=== PATIENT | female | born 1970 | race Caucasian/White ===

== ENCOUNTER 2016-04-15 17:20 | Inpatient (IN) | payer OTHER ==
[~2016-04-15] VITALS: Ht 147.3 cm; Wt 60.1 kg
[~2016-04-15 17:20] MED LIST: BNT10 PO; CHOLTAB3 PO; CLON1TAB3 PO; CLX20 PO; LEVOTAB; OXCA600T2 PO; RANI75TA7 PO; RIZA5TAB10 PO
[2016-04-15] MEDS ORDERED: LORAZEPAM 2 MG/ML 1 ML VIAL IV STA (17:35)
[2016-04-15] MEDS ORDERED: SODIUM CHLORIDE 0.9% 1000ML 1,000 ML IV SCH (17:35)
[2016-04-15] MEDS ORDERED: SODIUM CHLORIDE 0.9% 500ML 500 ML IV STA (17:35)
[2016-04-15] MEDS ORDERED: LOSA1TAB PO (17:44)
[2016-04-15] MEDS ORDERED: OXCA300T PO (17:44)
[2016-04-15] MEDS ORDERED: CITA40TA12 PO (17:44)
[2016-04-15] MEDS ORDERED: CLON0.5T3 PO ×2 (17:44)
[2016-04-15] MEDS ORDERED: BCPILLS PO (17:44)
--- NOTE | 2016-04-15 17:49 | EMERGENCY ROOM VISIT NOTE ---
History Report prepared by Phong: Tamir Barber Under the Supervision of: Dr. Stanton Santiago M.D. First contact with patient: 17:28 Chief Complaint: ILLNESS Stated Complaint: CVA SX History of Present Illness The patient is a 45 year old female with MR who presents to the Emergency Room with complaints of sudden change in mental status beginning several hours prior to arrival. As per sister, the patient has been leaning to the right side today , as well. She states she gave the patient a bath this morning and noticed the patient leaning to her right side. The sister notes the patient was not able to hold a spoon in the right hand as usual this morning. She states the patient was not able to walk or stand later in the day, but the patient is usually able to walk with assistance from a leader. The sister denies the patient experiencing these symptoms in the past. She denies the patient experiencing a fever, vomiting, and swallowing issues. 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 Review of Systems See HPI for pertinent positives & negatives. A total of 10 systems reviewed and were otherwise negative. Past Medical & Surgical Medical Problems: (1) Bilateral cataracts (2) Hip fracture, left (3) Hip fracture, left (4) HTN (hypertension) (5) Mental retardation (6) Osteoporosis Surgical Problems: (1) S/P repair of PDA Family History Patient reports no known family medical history. Social History Marital Status: single Occupation Status: disabled Current/Historical Medications Scheduled Citalopram Hydrobromide (Celexa), 40 MG PO HS Clonazepam (Klonopin), 0.5 TAB PO QAM Clonazepam (Klonopin), 1 TAB PO QPM Levonorgestrel-Eth Estradiol ( (Enpresse-28), 1 TAB PO DAILY Losartan Potassium (Cozaar), 25 MG PO QAM Multivitamin (Multivitamin), 1 TAB PO DAILY Oxcarbazepine (Trileptal), 600 MG PO BID Allergies Coded Allergies: Penicillins (Unverified Allergy, Severe, RASH, 04/15/16) Physical Exam Vital Signs Date Time Temp Pulse Resp B/P Pulse Ox O2 Delivery O2 Flow Rate FiO2 2/14/17 20:06 79 16 166/69 96 Room Air 04/15/16 18:47 79 18 139/117 99 Room Air 04/15/16 17:39 99 Room Air 04/15/16 17:34 36.5 84 21 163/129 98 Room Air Physical Exam GENERAL: Patient is in no acute distress. HEENT: No acute trauma, normocephalic atraumatic, mucous membranes moist, no nasal congestion, no scleral icterus. PERRL. NECK: No stridor, no adenopathy, no meningismus, trachea is midline. LUNGS: Clear to auscultation bilaterally, no wheeze, no rhonchi, breath sounds equal. HEART: Without murmurs gallops or rubs, regular rate and rhythm. ABDOMEN: Soft, nontender, bowel sounds positive, no hernias, no peritonitis. EXTREMITIES: No cyanosis or edema, full range of motion of all the joints without pain or difficulty, no signs for acute trauma. NEUROLOGIC: MR noted. Moving all extremities. No obvious weakness from one side to the other. No facial droop. Currently nonverbal. SKIN: No rash, no jaundice, no diaphoresis. Medical Decision & Procedures ER Provider Diagnostic Interpretation: CT results as stated below per my review and radiologist interpretation: CT OF THE HEAD WITHOUT CONTRAST CLINICAL HISTORY: Stroke symptoms. COMPARISON STUDY: No previous studies for comparison. CT DOSE: 634.23 mGy.cm TECHNIQUE: Helical axial images of the head were obtained without IV contrast. Automated exposure control was utilized for the study. FINDINGS: No acute intracranial hemorrhage, midline shift or mass effect is present. There is a cavum of septum pellucidum. There is mild dilatation of the lateral ventricles. Basilar cisterns are patent. No extra-axial collections are present. There are scattered moderate subcortical white matter hypodensities. There are no findings to suggest acute dural sinus thrombosis or acute territorial infarct. Visualized portions of the mastoid air cells and sinuses are clear with the exception of mild mucosal thickening of the left sphenoid sinus. There are no significant calvarial abnormalities. IMPRESSION: 1. No acute intracranial hemorrhage or mass effect. 2. Mild dilatation of the lateral ventricles for age. 3. Moderate white matter hypodensities. These are nonspecific and may reflect small vessel disease although are greater than expected for age. If persistent symptoms, an MRI of the brain could be obtained if no contraindications. Electronically signed by: Celestine Mesa M.D. 04/15/2016 7:25 PM Laboratory Results 04/15/16 18:02 Red Blood Count 4.56, Mean Corpuscular Volume 88.2, Mean Corpuscular Hemoglobin 30.5, Mean Corpuscular Hemoglobin Concent 34.6, Mean Platelet Volume 11.3, Neutrophils (%) (Auto) 63.9, Lymphocytes (%) (Auto) 25.8, Monocytes (%) (Auto) 8.9, Eosinophils (%) (Auto) 1.2, Basophils (%) (Auto) 0.0, Neutrophils # (Auto) 3.82, Lymphocytes # (Auto) 1.54, Monocytes # (Auto) 0.53, Eosinophils # (Auto) 0.07, Basophils # (Auto) 0.00 04/15/16 18:02 Test 04/15/16 18:02 04/15/16 19:00 White Blood Count 5.97 K/uL (4.8-10.8) Red Blood Count 4.56 M/uL (4.2-5.4) Hemoglobin 13.9 g/dL (12.0-16.0) Hematocrit 40.2 % (37-47) Mean Corpuscular Volume 88.2 fL (80-100) Mean Corpuscular Hemoglobin 30.5 pg (25-34) Mean Corpuscular Hemoglobin Concent 34.6 g/dl (32-36) Platelet Count 217 K/uL (130-400) Mean Platelet Volume 11.3 fL (7.4-10.4) Neutrophils (%) (Auto) 63.9 % Lymphocytes (%) (Auto) 25.8 % Monocytes (%) (Auto) 8.9 % Eosinophils (%) (Auto) 1.2 % Basophils (%) (Auto) 0.0 % Neutrophils # (Auto) 3.82 K/uL (1.4-6.5) Lymphocytes # (Auto) 1.54 K/uL (1.2-3.4) Monocytes # (Auto) 0.53 K/uL (0.11-0.59) Eosinophils # (Auto) 0.07 K/uL (0-0.5) Basophils # (Auto) 0.00 K/uL (0-0.2) RDW Standard Deviation 40.5 fL (36.4-46.3) RDW Coefficient of Variation 12.6 % (11.5-14.5) Immature Granulocyte % (Auto) 0.2 % Immature Granulocyte # (Auto) 0.01 K/uL (0.00-0.02) Prothrombin Time 10.0 SECONDS (9.0-12.0) Prothromb Time International Ratio 0.9 (0.9-1.1) Activated Partial Thromboplast Time 25.9 SECONDS (21.0-31.0) Partial Thromboplastin Ratio 1.0 Anion Gap 8.0 mmol/L (3-11) Est Creatinine Clear Calc Drug Dose 69.9 ml/min Estimated GFR () 109.0 Estimated GFR (Non- 94.1 BUN/Creatinine Ratio 10.9 (10-20) Calcium Level 8.8 mg/dl (8.5-10.1) Total Bilirubin 0.2 mg/dl (0.2-1) Direct Bilirubin < 0.1 mg/dl (0-0.2) Aspartate Amino Transf (AST/SGOT) 16 U/L (15-37) Alanine Aminotransferase (ALT/SGPT) 22 U/L (12-78) Alkaline Phosphatase 58 U/L (45-117) Total Creatine Kinase 51 U/L (26-192) Creatine Kinase MB < 0.5 ng/ml (0.5-3.6) Creatine Kinase MB Ratio (0-3.0) Troponin I < 0.015 ng/ml (0-0.045) Total Protein 7.2 gm/dl (6.4-8.2) Albumin 3.5 gm/dl (3.4-5.0) Urine Color DK YELLOW Urine Appearance CLEAR (CLEAR) Urine pH 5.5 (4.5-7.5) Urine Specific [place] 1.028 (1.000-1.030) Urine Protein NEG (NEG) Urine Glucose (UA) NEG (NEG) Urine Ketones TRACE (NEG) Urine Occult Blood NEG (NEG) Urine Nitrite NEG (NEG) Urine Bilirubin NEG (NEG) Urine Urobilinogen NEG (NEG) Urine Leukocyte Esterase NEG (NEG) Urine Opiates Screen NEG (NEG) Urine Methadone, Qualitative NEG (NEG) Urine Barbiturates NEG (NEG) Urine Phencyclidine (PCP) Level NEG (NEG) Ur Amphetamine/Methamphetamine NEG (NEG) MDMA (Ecstasy) Screen NEG (NEG) Urine Benzodiazepines Screen NEG (NEG) Urine Cocaine Metabolite NEG (NEG) Urine Marijuana (THC) NEG (NEG) Laboratory results reviewed by me. Medications Administered Medications (Trade) Dose Ordered Sig/[place] Route Start Time Stop Time Status Last Admin Dose Admin Sodium Chloride (Nss 1000ml) 1,000 ml @ 50 mls/hr Q20H IV 04/15/16 17:35 05/15/16 17:34 04/15/16 19:23 50 MLS/HR Lorazepam 1 mg 1 mg NOW STAT IV 04/15/16 17:35 04/15/16 17:39 DC 04/15/16 18:06 1 MG Sodium Chloride (Nss 500ml) 500 ml @ 999 mls/hr Q31M STAT IV 04/15/16 17:35 04/15/16 18:05 DC 04/15/16 18:06 999 MLS/HR ECG Indication: altered mental status Rate (beats per minute): 78 Rhythm: sinus rhythm Findings: PVC, no acute ischemic change ED Course 1728: The patient was evaluated in room C8. A complete history and physical exam was performed. 1734: Ordered Sodium Chloride 500 ml @ 999 mls/hr IV, Ativan Inj 1 mg IV, Sodium Chloride 1,000 ml @ 50 mls/hr IV. 1947: Reevaluated the patient at this time, and she is sleeping. The sister is calling the patient's family to discuss whether or not to keep the patient in the hospital. 2004: I spoke to Thor Nava (Hospitalist) about the patient's case, and he will follow the patient for further evaluation. Medical Decision The differential diagnoses include but are not limited to: infection, dehydration, electrolyte imbalance, intracranial bleeding, stroke, anemia, medication reaction. There is no leukocytosis or concerning anemia. No significant electrolyte abnormality, kidney failure or hepatitis. There is no coagulopathy. Brain CT shows some chronic findings, no acute bleed or mass effect. EKG shows a sinus rhythm, no acute ischemia. Cardiac enzyme testing times one is not consistent with acute cardiac injury. Urine tox is negative. Urinalysis does not show evidence for infection. The patient received IV saline, she received IV Ativan for relaxation purposes. I cannot truly find any focal neurologic deficits on exam but her exam is difficult with her underlying MR. The family states that she is altered some and not able to stand which is not baseline. Further workup for this trouble is needed. Admission/observation is warranted. I did speak to the family, I talked with case management. The on-call hospitalist was consulted. The cause for her change in mental status, the cause for the weakness and the inability to ambulate is currently unclear. Consults Time Called: 2002 Consulting Physician: Thor Nava (Hospitalist) Returned Call: 2004 I spoke to Thor Nava (Hospitalist) about the patient's case, and he will follow the patient for further evaluation. Impression Primary Impression: Change in mental status Additional Impression: Weakness Scribe Attestation The scribe's documentation has been prepared under my direction and personally reviewed by me in its entirety. I confirm that the note above accurately reflects all work, treatment, procedures, and medical decision making performed by me. Departure Information Dispostion Being Evaluated By Hospitalist (Thor Nava (Hospitalist) ) Referrals Rosa Early D.O. (PCP) Problem Qualifiers
[2016-04-15 18:15] LABS: COMPLETE YES; EOS % 1.2 %; HEMATOCRIT 40.2 % (37-47); IG% 0.2 %; LYMPH % 25.8 %; LYMPH ABS # 1.54 K/uL (1.2-3.4); MEAN CELL VOLUME 88.2 fL (80-100); MEAN CORPUSCULAR HEMOGLOBIN 30.5 pg (25-34); MEAN CORPUSCULAR HGB CONC 34.6 g/dl (32-36); MEAN PLATELET VOLUME 11.3 fL (7.4-10.4); MONO % 8.9 %; NEUT % 63.9 %; PLATELET COUNT 217 K/uL (130-400); RED BLOOD COUNT 4.56 M/uL (4.2-5.4); WHITE BLOOD COUNT 5.97 K/uL (4.8-10.8)
[2016-04-15 18:26] LABS: INR 0.9 (0.9-1.1)
[2016-04-15 18:33] LABS: ALT/SGPT 22 U/L (12-78); BLOOD UREA NITROGEN 8 mg/dl (7-18); BUN/CREATININE RATIO 10.9 (10-20); CALCIUM 8.8 mg/dl (8.5-10.1); CARBON DIOXIDE 28 mmol/L (21-32); CHLORIDE 106 mmol/L (98-107); CREATININE 0.76 mg/dl (0.60-1.20); GLUCOSE 100 mg/dl (70-99); SODIUM 142 mmol/L (136-145)
[2016-04-15 18:38] LABS: ALKALINE PHOSPHATASE 58 U/L (45-117); AST/SGOT 16 U/L (15-37)
[2016-04-15 19:17] LABS: URINE APPEARANCE CLEAR (CLEAR); URINE COLOR DK YELLOW; URINE NITRITE NEG (NEG); URINE PH 5.5 (4.5-7.5); URINE SPECIFIC GRAVITY 1.028 (1.000-1.030); UROBILINOGEN NEG (NEG)
[2016-04-15 19:23] LABS: MANUAL MICROSCOPIC REQUIRED? NO; REVIEW REQ? NO; URINE BILIRUBIN NEG (NEG)
--- NOTE | 2016-04-15 19:26 | DIAGNOSTIC IMAGING REPORT ---
CT OF THE HEAD WITHOUT CONTRAST CLINICAL HISTORY: Stroke symptoms. COMPARISON STUDY: No previous studies for comparison. CT DOSE: 634.23 mGy.cm TECHNIQUE: Helical axial images of the head were obtained without IV contrast. Automated exposure control was utilized for the study. FINDINGS: No acute intracranial hemorrhage, midline shift or mass effect is present. There is a cavum of septum pellucidum. There is mild dilatation of the lateral ventricles. Basilar cisterns are patent. No extra-axial collections are present. There are scattered moderate subcortical white matter hypodensities. There are no findings to suggest acute dural sinus thrombosis or acute territorial infarct. Visualized portions of the mastoid air cells and sinuses are clear with the exception of mild mucosal thickening of the left sphenoid sinus. There are no significant calvarial abnormalities. IMPRESSION: 1. No acute intracranial hemorrhage or mass effect. 2. Mild dilatation of the lateral ventricles for age. 3. Moderate white matter hypodensities. These are nonspecific and may reflect small vessel disease although are greater than expected for age. If persistent symptoms, an MRI of the brain could be obtained if no contraindications. Electronically signed by: Celestine Mesa M.D. 04/15/2016 7:25 PM Dictated Date/Time: 04/15/2016 7:21 PM
[2016-04-15 19:48] LABS: BENZODIAZEPINE, URINE NEG (NEG); COCAINE,URINE NEG (NEG); PHENCYCLIDINE, URINE NEG (NEG)
[2016-04-15] MEDS ORDERED: ONDANSETRON INJ 2 MG/ML 2 ML VIAL IV PRN (20:45)
[2016-04-15] MEDS ORDERED: PHARMACIST DISCHARGE MED REC CONSULT PRN (20:45)
[2016-04-15] MEDS ORDERED: ACETAMINOPHEN 325 MG TAB PO PRN (20:45)
[2016-04-15] MEDS ORDERED: MULT-506 PO (20:50)
[2016-04-15] MEDS ORDERED: LEVO-240 PO (20:50)
[2016-04-15] MEDS ORDERED: ASPIRIN 300 MG SUPP PR ONE (21:15)
--- NOTE | 2016-04-15 21:41 | History and Physical ---
History & Physical Date & Time of Service: Apr 15, 2016 at 21:16 Chief Complaint: Right Sided Weakness Primary Care Physician: Rosa Early D.O. History of Present Illness 45 year old male who presents to the ER with right sided weakness. Patient has severe mental retardation and cannot provide any history. Patient's sister is at the bedside who provides the history. She reports that when she was getting the patient into her shower chair this morning she noted her right side to be a little weak. She thought the patient may just not have fully woken up yet. While eating breakfast she noted that she wasn't gripping her spoon as tightly as she normally would and had some difficulty feeding herself. She then went to [employer]. When she returned home, she had a lot of difficulty getting out of the wheelchair from the van and ambulating into the house. EMS was then called. In the ER, neuro exam is difficult due to her severe mental retardation. Vitals are stable. Head CT was negative for acute findings. Past Medical/Surgical History Medical Problems: (1) Bilateral cataracts Status: Resolved (2) Hip fracture, left Status: Resolved (3) Hip fracture, left Permanent Comment: s/p repair Status: Chronic (4) HTN (hypertension) Status: Chronic (5) Mental retardation Status: Chronic (6) Osteoporosis Status: Chronic Surgical Problems: (1) S/P repair of PDA Status: Chronic Family History FH: CAD (coronary artery disease) FATHER ( from [place] at age 49) Social History Smoking Status: Never Smoker Alcohol Use: none Marital Status: single Housing status: lives with family Occupational Status: disabled Immunizations History of Influenza Vaccine: Yes Influenza Vaccine Date: Dec 26, 2014 History of Tetanus Vaccine?: Yes Tetanus Immunization Date: July 20, 2013 History of Pneumococcal: Yes Pneumococcal Date: Dec 18, 2003 Multi-Drug Resistant Organisms History of MDRO: No Allergies Coded Allergies: Penicillins (Unverified Allergy, Severe, RASH, 04/15/16) Home Medications Scheduled Citalopram Hydrobromide (Celexa), 40 MG PO HS Clonazepam (Klonopin), 0.5 TAB PO QAM Clonazepam (Klonopin), 1 TAB PO QPM Levonorgestrel-Eth Estradiol ( (Enpresse-28), 1 TAB PO DAILY Losartan Potassium (Cozaar), 25 MG PO QAM Multivitamin (Multivitamin), 1 TAB PO DAILY Oxcarbazepine (Trileptal), 600 MG PO BID Review of Systems unable to be completed with patient due to mental status Physical Exam Vital Signs Date Time Temp Pulse Resp B/P Pulse Ox O2 Delivery O2 Flow Rate FiO2 04/15/16 20:06 79 16 166/69 96 Room Air 04/15/16 18:47 79 18 139/117 99 Room Air 04/15/16 17:39 99 Room Air 04/15/16 17:34 36.5 84 21 163/129 98 Room Air General Appearance: no apparent distress Head: normocephalic Eyes: normal inspection ENT: + pertinent finding ([facility]) Neck: supple, no JVD Respiratory/Chest: lungs clear, normal breath sounds, no respiratory distress Cardiovascular: regular rate, rhythm, no edema, normal peripheral pulses Abdomen/GI: normal bowel sounds, non tender, soft Extremities/Musculoskelatal: normal inspection, no calf tenderness Neurologic/Psych: + pertinent finding (severe mental retardation, neuro exam difficult to preform, does not move right arm or leg much during exam) Skin: normal color, warm/dry Diagnostics Laboratory Results Results Past 24 Hours Test 04/15/16 18:02 04/15/16 19:00 Range/Units White Blood Count 5.97 4.8-10.8 K/uL Red Blood Count 4.56 4.2-5.4 M/uL Hemoglobin 13.9 12.0-16.0 g/dL Hematocrit 40.2 37-47 % Mean Corpuscular Volume 88.2 80-100 fL Mean Corpuscular Hemoglobin 30.5 25-34 pg Mean Corpuscular Hemoglobin Concent 34.6 32-36 g/dl Platelet Count 217 130-400 K/uL Mean Platelet Volume 11.3 7.4-10.4 fL Neutrophils (%) (Auto) 63.9 % Lymphocytes (%) (Auto) 25.8 % Monocytes (%) (Auto) 8.9 % Eosinophils (%) (Auto) 1.2 % Basophils (%) (Auto) 0.0 % Neutrophils # (Auto) 3.82 1.4-6.5 K/uL Lymphocytes # (Auto) 1.54 1.2-3.4 K/uL Monocytes # (Auto) 0.53 0.11-0.59 K/uL Eosinophils # (Auto) 0.07 0-0.5 K/uL Basophils # (Auto) 0.00 0-0.2 K/uL RDW Standard Deviation 40.5 36.4-46.3 fL RDW Coefficient of Variation 12.6 11.5-14.5 % Immature Granulocyte % (Auto) 0.2 % Immature Granulocyte # (Auto) 0.01 0.00-0.02 K/uL Prothrombin Time 10.0 9.0-12.0 SECONDS Prothromb Time International Ratio 0.9 0.9-1.1 Activated Partial Thromboplast Time 25.9 21.0-31.0 SECONDS Partial Thromboplastin Ratio 1.0 Sodium Level 142 136-145 mmol/L Potassium Level 4.0 3.5-5.1 mmol/L Chloride Level 106 98-107 mmol/L Carbon Dioxide Level 28 21-32 mmol/L Anion Gap 8.0 3-11 mmol/L Blood Urea Nitrogen 8 7-18 mg/dl Creatinine 0.76 0.60-1.20 mg/dl Est Creatinine Clear Calc Drug Dose 69.9 ml/min Estimated GFR () 109.0 Estimated GFR (Non- 94.1 BUN/Creatinine Ratio 10.9 10-20 Random Glucose 100 70-99 mg/dl Calcium Level 8.8 8.5-10.1 mg/dl Total Bilirubin 0.2 0.2-1 mg/dl Direct Bilirubin < 0.1 0-0.2 mg/dl Aspartate Amino Transf (AST/SGOT) 16 15-37 U/L Alanine Aminotransferase (ALT/SGPT) 22 12-78 U/L Alkaline Phosphatase 58 45-117 U/L Total Creatine Kinase 51 26-192 U/L Creatine Kinase MB < 0.5 0.5-3.6 ng/ml Creatine Kinase MB Ratio 0-3.0 Troponin I < 0.015 0-0.045 ng/ml Total Protein 7.2 6.4-8.2 gm/dl Albumin 3.5 3.4-5.0 gm/dl Urine Color DK YELLOW Urine Appearance CLEAR CLEAR Urine pH 5.5 4.5-7.5 Urine Specific [place] 1.028 1.000-1.030 Urine Protein NEG NEG Urine Glucose (UA) NEG NEG Urine Ketones TRACE NEG Urine Occult Blood NEG NEG Urine Nitrite NEG NEG Urine Bilirubin NEG NEG Urine Urobilinogen NEG NEG Urine Leukocyte Esterase NEG NEG Urine Opiates Screen NEG NEG Urine Methadone, Qualitative NEG NEG Urine Barbiturates NEG NEG Urine Phencyclidine (PCP) Level NEG NEG Ur Amphetamine/Methamphetamine NEG NEG MDMA (Ecstasy) Screen NEG NEG Urine Benzodiazepines Screen NEG NEG Urine Cocaine Metabolite NEG NEG Urine Marijuana (THC) NEG NEG Microbiology Results 04/15/16 Urine Culture, Received Pending Diagnostic Radiology HEAD CT IMPRESSION: 1. No acute intracranial hemorrhage or mass effect. 2. Mild dilatation of the lateral ventricles for age. 3. Moderate white matter hypodensities. These are nonspecific and may reflect small vessel disease although are greater than expected for age. If persistent symptoms, an MRI of the brain could be obtained if no contraindications. Impression Assessment and Plan RIGHT SIDED WEAKNESS - admit to tele - history and neuro exam difficult to obtain from patient due to severe mental retardation - CT head negative for acute findings - brain MRI, head/neck MRA, echo - neuro checks - start ASA - on control for mood stabilization - will hold for now - check lipids in AM HTN - holding losartan to allow for permissive HTN due to possible CVA SEVERE MENTAL RETARDATION - continue Klonopin, citalopram, and oxcarbazepine DVT PROPHYLAXIS - SCDs DISPO - In my clinical judgment this beneficiary meets acute admission criteria, established by [facility], that includes being hospitalized through two midnights. Agree with above h and P. 45y f with severe MR who is non verbal and cannot hear and lives with family but goes to [facility] ever day was brought in for right sided weakness In the morning family noticed some weakness in right arm and later she cannot hold the spoon to fee herself. And at [facility] she had difficulty ambulation and was brought in to the ER. Currently patient had Ativan for ct scan and sleeping. Difficult to exam the patient. But has some movement of right extremities for painful stimuli somewhat less than left extremities. p/e Ge sleeping Cvs s1 and s2 heard no murmurs Rs cta b/l no added sounds Abd benign Sifting Operator couldn't perform the exam as patient is sleeping and severe MR movement of extremities for painful stimuli more on left than right extremities a/p Right sided weakness initial ct scan negative plan for mri aspirin monitor in tele HTN holding losartan for now for permissive htn VTE Prophylaxis VTE Risk Assessment Done? Y/N: Yes Risk Level: Moderate
[2016-04-16] MEDS ORDERED: MAGNEVIST IV PRN (01:00)
[2016-04-16] MEDS: CLONAZEPAM 0.5 MG TAB PO SCH ×3 (01:27→21:00)
[2016-04-16] MEDS: CITALOPRAM 40 MG TAB PO SCH ×2 (01:27→21:00)
[2016-04-16] MEDS: OXCARBAZEPINE 150 MG TAB PO SCH ×3 (01:28→21:00)
[2016-04-16] MEDS ORDERED: ATORVASTATIN 40 MG TAB PO ONE (02:27)
[2016-04-16 06:08] LABS: COMPLETE YES; EOS % 2.2 %; HEMATOCRIT 36.8 % (37-47); IG% 0.2 %; LYMPH % 22.3 %; MEAN CELL VOLUME 89.3 fL (80-100); MEAN CORPUSCULAR HEMOGLOBIN 31.3 pg (25-34); MEAN CORPUSCULAR HGB CONC 35.1 g/dl (32-36); MEAN PLATELET VOLUME 11.9 fL (7.4-10.4); MONO % 8.2 %; NEUT % 67.1 %; PLATELET COUNT 178 K/uL (130-400); RED BLOOD COUNT 4.12 M/uL (4.2-5.4); WHITE BLOOD COUNT 5.82 K/uL (4.8-10.8)
[2016-04-16 06:24] LABS: ESTIMATED AVERAGE GLUCOSE 88 mg/dl; HA1C FLAG Normal (Normal)
[2016-04-16 06:37] LABS: CALCIUM 8.1 mg/dl (8.5-10.1); CREATININE 0.66 mg/dl (0.60-1.20); POTASSIUM 3.9 mmol/L (3.5-5.1)
[2016-04-16 06:40] LABS: CHOLESTEROL/HDL RATIO 4.4
--- NOTE | 2016-04-16 07:23 | DIAGNOSTIC IMAGING REPORT ---
MR ANGIOGRAM OF THE BRAIN CLINICAL HISTORY: Stroke. COMPARISON STUDY: MRI of the brain performed concurrently on 04/15/2016. TECHNIQUE: 3-D [id number] MR angiography of the intracranial circulation is performed. 3-D tumble views are created and assessed. IV contrast was not administered for this examination. FINDINGS: There is loss of the flow void within the left ICA terminus, the proximal left M1 segment, and the left A1 segment suggesting occlusion/thrombus. There is reconstitution of flow within the distal left M1 segment and the branches of the left middle cervical artery. High-grade stenosis is suggested in the M2 segment.The right P1 segment is diminutive and there are large bilateral posterior communicating arteries. The right internal carotid artery is widely patent, as are the anterior and right middle cerebral arteries. The vertebrobasilar system is diminutive but widely patent. The posterior cerebral arteries are clear. The right vertebral artery is dominant. There is no aneurysm identified. IMPRESSION: 1. There is loss of the flow void within the left ICA determine this, a proximal left M1 segment, and the left A1 segment suggesting occlusion/thrombus. 2. The remainder of the left middle cervical artery is patent, with focal high-grade stenosis suggested in the left M2 segment. 3. The vertebrobasilar system is diminutive. There are large bilateral posterior communicating arteries. 4. No aneurysm is seen. Electronically signed by: Stanton Odom M.D. 04/16/2016 7:22 AM Dictated Date/Time: 04/16/2016 7:16 AM
--- NOTE | 2016-04-16 07:24 | DIAGNOSTIC IMAGING REPORT ---
NECK MRA HISTORY: Stroke symptoms. TECHNIQUE: [id number] and gadolinium-enhanced MRA of the neck was performed both before and after the intravenous administration of contrast. All measurements were calculated based on NASCET criteria. COMPARISON STUDY: None. FINDINGS: The aortic arch is normal in caliber. There is also mild focal stenosis within the mid right vertebral artery.. There is no significant stenosis, occlusion, or dissection identified within the bilateral common carotid arteries or internal carotid arteries. The left vertebral artery is hypoplastic in comparison to the right. Mild focal stenosis at the takeoff of the left subclavian artery followed by focal ectasia. IMPRESSION: 1. Mild focal stenosis within the mid right vertebral artery. 2. There is also focal stenosis at the takeoff of the left subclavian artery followed by focal ectasia/mild aneurysmal dilatation. 3. No significant stenosis seen within the common or internal carotid arteries. Electronically signed by: Rusty Mariscal M.D. 04/16/2016 7:23 AM Dictated Date/Time: 04/16/2016 7:19 AM
--- NOTE | 2016-04-16 07:33 | DIAGNOSTIC IMAGING REPORT ---
Brain MRI WITH AND WITHOUT CONTRAST HISTORY: Stroke symptoms. TECHNIQUE: Multiplanar multisequence MRI of the brain was performed both before and after the intravenous administration of contrast. COMPARISON STUDY: Head CT 04/15/2016. FINDINGS: Multiple foci of restricted diffusion seen within the left frontal lobe, left parietal lobe, left occipital lobe. There is also restricted diffusion involving the majority of the left lentiform nucleus. There is associated cytotoxic/cortical edema at these locations within the left cerebral hemisphere. Multiple additional scattered foci of T2 hyperintensity seen within the periventricular white matter. The midline structures are intact. There is no mass, hematoma, or midline shift. Abnormal appearance to the right globe consistent with retinal detachment. Old punctate lacunar infarction within the left cerebellar hemisphere. There are a few scattered punctate foci of enhancement in the left frontal and parietal lobe areas of infarct. There is also asymmetric contrast enhancement of the left MCA branches in comparison to the right. This may be due to the slow flow related to the left MCA territory infarct. IMPRESSION: 1. Multiple left MCA territory infarcts as described above. There are few punctate foci of enhancement at the areas of infarct which favor post infarct changes. Follow-up brain MRI in 1-2 months can be performed to ensure resolution. 2. Right retinal detachment. Electronically signed by: Rusty Mariscal M.D. 04/16/2016 7:32 AM Dictated Date/Time: 04/16/2016 7:23 AM
[2016-04-16 07:44] LABS: MAGNESIUM 1.7 mg/dl (1.8-2.4); THYROID STIMULATING HORMONE 2.22 uIu/ml (0.300-4.500)
[2016-04-16] MEDS ORDERED: ATROPINE SULFATE 0.1 MG/ML 10 ML SYR IV PRN (08:00)
[2016-04-16] MEDS ORDERED: MAGNESIUM SULFATE 1GM / D5W 1 GM in PREMIXED IN D5W 100 ML IV ONE (08:15)
--- NOTE | 2016-04-16 08:41 | Progress Note ---
Medicine Progress Note Date & Time of Visit: Apr 16, 2016 at 08:22. Subjective patient seen resting in bed, awake/alert, moving her head, appears to be looking around, moving her left upper extremity, holding a toy, non verbal appears comfortable, no signs of pain, respiratory distress apparently, this morning around 7am had bradycardic episode in the 20s for about 2 minutes as well as prolonged pause, patient was unresponsive during the event as per staffing assistant HR improved to 50s-70s upon repositioning CT head pending repeat EKG pending Brain MRI and MRA showing L MCA infarcts, L ICA occlusion Objective Last 8 Hrs Date Time Temp Pulse Resp B/P Pulse Ox O2 Delivery O2 Flow Rate FiO2 04/16/16 06:59 61 04/16/16 06:49 0 04/16/16 06:49 20 04/16/16 06:46 36 04/16/16 04:30 75 16 167/90 98 Room Air 04/16/16 02:30 73 20 97 04/16/16 01:59 193/79 04/16/16 01:30 72 19 98 04/16/16 01:11 78 19 178/78 98 Room Air 04/16/16 01:10 178/78 Physical Exam: General- awake, not in distress, non verbal, no accessory muscle use Head- atraumatic Eyes- right: irregularly shaped pupil, no pupillary reflex noted; left: 3-4mm briskly reactive to light appears to have full EOMS ENT- oropharynx clear Neck- supple, no JVD, no adenopathy, no thyromegaly Lungs- clear to auscultation b/l Heart- normal rate, regular rhythm; no murmurs Abdomen- normal bowel sounds, soft, nontender Extremities- no pretibial edema, no calf tenderness; peripheral pulses intact Neuro- alert, non verbal; right: irregularly shaped pupil, no pupillary reflex noted; left: 3-4mm briskly reactive to light, appears to have full EOMS; shallow nasolabial fold right motor strength: right- very minimal withdrawal to pain, left: 4/5 Skin- warm & dry Laboratory Results: Last 24 Hours Test 04/15/16 18:02 04/15/16 19:00 04/16/16 05:37 04/16/16 05:39 White Blood Count 5.97 K/uL 5.82 K/uL Red Blood Count 4.56 M/uL 4.12 M/uL Hemoglobin 13.9 g/dL 12.9 g/dL Hematocrit 40.2 % 36.8 % Mean Corpuscular Volume 88.2 fL 89.3 fL Mean Corpuscular Hemoglobin 30.5 pg 31.3 pg Mean Corpuscular Hemoglobin Concent 34.6 g/dl 35.1 g/dl Platelet Count 217 K/uL 178 K/uL Mean Platelet Volume 11.3 fL 11.9 fL Neutrophils (%) (Auto) 63.9 % 67.1 % Lymphocytes (%) (Auto) 25.8 % 22.3 % Monocytes (%) (Auto) 8.9 % 8.2 % Eosinophils (%) (Auto) 1.2 % 2.2 % Basophils (%) (Auto) 0.0 % 0.0 % Neutrophils # (Auto) 3.82 K/uL 3.90 K/uL Lymphocytes # (Auto) 1.54 K/uL 1.30 K/uL Monocytes # (Auto) 0.53 K/uL 0.48 K/uL Eosinophils # (Auto) 0.07 K/uL 0.13 K/uL Basophils # (Auto) 0.00 K/uL 0.00 K/uL RDW Standard Deviation 40.5 fL 40.7 fL RDW Coefficient of Variation 12.6 % 12.6 % Immature Granulocyte % (Auto) 0.2 % 0.2 % Immature Granulocyte # (Auto) 0.01 K/uL 0.01 K/uL Prothrombin Time 10.0 SECONDS Prothromb Time International Ratio 0.9 Activated Partial Thromboplast Time 25.9 SECONDS Partial Thromboplastin Ratio 1.0 Sodium Level 142 mmol/L 141 mmol/L Potassium Level 4.0 mmol/L 3.9 mmol/L Chloride Level 106 mmol/L 109 mmol/L Carbon Dioxide Level 28 mmol/L 23 mmol/L Anion Gap 8.0 mmol/L 9.0 mmol/L Blood Urea Nitrogen 8 mg/dl 6 mg/dl Creatinine 0.76 mg/dl 0.66 mg/dl Est Creatinine Clear Calc Drug Dose 69.9 ml/min 80.5 ml/min Estimated GFR () 109.0 122.8 Estimated GFR (Non- 94.1 105.9 BUN/Creatinine Ratio 10.9 9.0 Random Glucose 100 mg/dl 80 mg/dl Estimated Average Glucose 88 mg/dl Hemoglobin A1c 4.7 % Calcium Level 8.8 mg/dl 8.1 mg/dl Total Bilirubin 0.2 mg/dl Direct Bilirubin < 0.1 mg/dl Aspartate Amino Transf (AST/SGOT) 16 U/L Alanine Aminotransferase (ALT/SGPT) 22 U/L Alkaline Phosphatase 58 U/L Total Creatine Kinase 51 U/L Creatine Kinase MB < 0.5 ng/ml Creatine Kinase MB Ratio Troponin I < 0.015 ng/ml Total Protein 7.2 gm/dl Albumin 3.5 gm/dl Urine Color DK YELLOW Urine Appearance CLEAR Urine pH 5.5 Urine Specific [place] 1.028 Urine Protein NEG Urine Glucose (UA) NEG Urine Ketones TRACE Urine Occult Blood NEG Urine Nitrite NEG Urine Bilirubin NEG Urine Urobilinogen NEG Urine Leukocyte Esterase NEG Urine Opiates Screen NEG Urine Methadone, Qualitative NEG Urine Barbiturates NEG Urine Phencyclidine (PCP) Level NEG Ur Amphetamine/Methamphetamine NEG MDMA (Ecstasy) Screen NEG Urine Benzodiazepines Screen NEG Urine Cocaine Metabolite NEG Urine Marijuana (THC) NEG Magnesium Level 1.7 mg/dl Triglycerides Level 134 mg/dl Cholesterol Level 168 mg/dl HDL Cholesterol 38 mg/dl LDL Cholesterol, Calculated 103 mg/dl VLDL Cholesterol, Calculated 27 mg/dl Cholesterol/HDL Ratio 4.4 Thyroid Stimulating Hormone (TSH) 2.220 uIu/ml Date/Time Source Procedure Growth Status 04/15/16 19:00 Urine,Catheterized Urine Culture Pending Received Assessment & Plan 45 year old female with history of mental retardation, hypertension presenting with right sided weakness noted since yesterday morning. ACUTE CVA- L MCA DISTRIBUTION, LEFT FRONTAL, PARIETAL, OCCIPITAL LOBES L ICA OCCLUSION - confirmed by Brain MRI and Head MRA, associated with surrounding edema Echo pending will order hypercoag work up CT head pending - hold Aspirin until bleed ruled out with repeat CT head will discuss with Neuro if Aspirin, Heparin, Steroids are appropriate - Stroke Protocol will be ordered BRADYCARDIA EPISODE - now resolved - TSH normal Echo pending - BP not significantly elevated, Breathing regular- doubt gricel's triad will order Cardiology consult HYPERTENSION hold Losartan to prevent hypotension, post stroke SEVERE MENTAL RETARDATION - continue Klonopin, citalopram, and oxcarbazepine DVT PROPHYLAXIS - SCDs DISPO pending Current Inpatient Medications: Current Inpatient Medications Medications (Trade) Dose Ordered Sig/[place] Route Start Time Stop Time Status Last Admin Dose Admin Acetaminophen (Tylenol Tab) 650 mg Q4H PRN PO 04/15/16 20:45 05/15/16 20:44 Ondansetron HCl (Zofran Inj) 4 mg Q6H PRN IV 04/15/16 20:45 05/15/16 20:44 Miscellaneous Information (Pharmacist Discharge Med Rec Consult) 1 ea UD PRN N/A 04/15/16 20:45 05/15/16 20:44 Citalopram Hydrobromide (celeXA TAB) 40 mg HS PO 04/15/16 21:00 05/15/16 20:59 Clonazepam (Klonopin Tab) 0.25 mg QAM PO 04/16/16 09:00 05/16/16 08:59 Clonazepam (Klonopin Tab) 0.5 mg QPM PO 04/15/16 21:00 05/15/16 20:59 Multivitamins (Multivitamin Tab) 1 tab DAILY PO 04/16/16 09:00 05/16/16 08:59 Oxcarbazepine (Trileptal Tab) 600 mg BID PO 04/15/16 21:00 05/15/16 20:59 Gadopentetate Dimeglumine (Magnevist) 20 ml UD PRN IV 04/16/16 01:00 04/20/16 00:59 Atorvastatin Calcium (Lipitor Tab) 80 mg QAM PO 04/17/16 09:00 05/17/16 08:59 Aspirin (Aspirin Supp) 300 mg DAILY [place] 04/16/16 09:00 05/16/16 08:59 Atropine Sulfate 0.5 mg 0.5 mg UD PRN IV 04/16/16 08:00 05/16/16 07:59 UNV Magnesium Sulfate/ Prmx (Magnesium Sulfate/Premixed D5W) 100 ml @ 100 mls/hr ONE ONCE IV 04/16/16 08:15 04/16/16 09:14
[2016-04-16] MEDS ORDERED: MAGNESIUM SULFATE 1GM / D5W 1 GM in PREMIXED IN D5W 100 ML IV STA (08:44)
[2016-04-16] MEDS ORDERED: PHARMACIST DISCHARGE MED REC CONSULT PRN (08:45)
[2016-04-16] MEDS: MULTIVITAMIN TAB PO SCH (09:00)
[2016-04-16] MEDS ORDERED: ASPIRIN 325 MG ECTAB PO SCH (09:00)
[2016-04-16] MEDS ORDERED: ASPIRIN 81 MG ECTAB PO SCH (09:00)
[2016-04-16] MEDS ORDERED: ASPIRIN 300 MG SUPP PR SCH (09:00)
[2016-04-16] MEDS ORDERED: LEVONORGESTREL ETH ESTRADIOL PO SCH (09:00)
[2016-04-16] MEDS ORDERED: CLOPIDOGREL BISULFATE 75 MG TAB PO ONE (09:10)
[2016-04-16 09:13] VITALS: BP 162/81; PULSE 88; TEMP 37.6; O2SAT 97; Ht 147.3 cm; Wt 60.1 kg
--- NOTE | 2016-04-16 09:40 | DIAGNOSTIC IMAGING REPORT ---
HEAD CT NONCONTRAST CT DOSE: 614.27 mGy.cm HISTORY: vomiting, stroke ffup study TECHNIQUE: Multiaxial CT images of the head were performed without the use of intravenous contrast. Automated exposure control was utilized for this study. Comparison: Head CT 04/15/2016. Findings: The paranasal sinuses and mastoid air cells are clear. 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 Multiple scattered cortical hypodensities seen within the left MCA territory are better appreciated on this study. There is also progressive hypodensity at the left lentiform nucleus. This is consistent with expected evolution of the left MCA territory infarcts. No significant midline shift, mass, or hematoma. Impression: Expected evolution of the multiple left MCA territory infarcts including the infarct involving the left lentiform nucleus. No intracranial hemorrhage. 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 Electronically signed by: Rusty Mariscal M.D. 04/16/2016 9:38 AM Dictated Date/Time: 04/16/2016 9:35 AM
[2016-04-16] MEDS: D5NSS + 20MEQ KCL 1,000 ML IV SCH (09:52)
[2016-04-16] MEDS: ASPIRIN 300 MG SUPP PR SCH (09:53)
[2016-04-16 10:12] LABS: FIBRINOGEN* 315 mg/dl (184-400)
[2016-04-16 12:00] VITALS: BP 146/124; PULSE 91; TEMP 36.9; O2SAT 97
--- NOTE | 2016-04-16 14:21 | Neurology Consultation ---
Neurology Consultation Date of Consultation: Apr 16, 2016. Attending Physician: Wei Arauz MD Primary Care Physician: Rosa Early D.O. Reason for Consultation: stroke r sided weakness. 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 Her mom states she came home from [employer] today and was unable to help with ambulation into the house. She had alot of difficulty getting out of the wheelchair from the van and ambulating into the house. She called EMS and she was transported to the ED. In the ED a Head CT was negative for acute findings. Her mom states at baseline she is legally blind, deaf, walks with a mofit boot on the left due to foot drop after falling and breaking her hip. She was no aspirin prior to the stroke and their is no family history known for coagulation issues. no recent falls. Past Medical/Surgical History Medical Problems: (1) Change in mental status Status: Acute (2) Weakness Status: Acute Social History Smoking Status: Never smoker Smokeless Tobacco Use: No Alcohol Use: none Drug Use: none Marital Status: single Occupation Status: disabled Allergies Coded Allergies: Penicillins (Unverified Allergy, Severe, RASH, 04/15/16) Current Inpatient Medications Current Inpatient Medications Medications (Trade) Dose Ordered Sig/[place] Route Start Time Stop Time Status Last Admin Dose Admin Acetaminophen (Tylenol Tab) 650 mg Q4H PRN PO 04/15/16 20:45 05/15/16 20:44 Ondansetron HCl (Zofran Inj) 4 mg Q6H PRN IV 04/15/16 20:45 05/15/16 20:44 04/16/16 13:09 4 MG Citalopram Hydrobromide (celeXA TAB) 40 mg HS PO 04/15/16 21:00 05/15/16 20:59 Clonazepam (Klonopin Tab) 0.25 mg QAM PO 04/16/16 09:00 05/16/16 08:59 Clonazepam (Klonopin Tab) 0.5 mg QPM PO 04/15/16 21:00 05/15/16 20:59 Multivitamins (Multivitamin Tab) 1 tab DAILY PO 04/16/16 09:00 05/16/16 08:59 Oxcarbazepine (Trileptal Tab) 600 mg BID PO 04/15/16 21:00 05/15/16 20:59 Gadopentetate Dimeglumine (Magnevist) 20 ml UD PRN IV 04/16/16 01:00 04/20/16 00:59 Atorvastatin Calcium (Lipitor Tab) 80 mg QAM PO 04/17/16 09:00 05/17/16 08:59 Atropine Sulfate (Atropine Sulfate) 0.5 mg UD PRN IV 04/16/16 08:00 05/16/16 07:59 Miscellaneous Information 1 ea 1 ea UD PRN N/A 04/16/16 08:45 05/16/16 08:44 Potassium Chloride/Dextrose/ Sod Cl (D5nss + 20meq KCl) 1,000 ml @ 60 mls/hr [id number] IV 04/16/16 09:15 05/16/16 08:44 04/16/16 09:52 60 MLS/HR Aspirin (Aspirin Supp) 75 mg DAILY [place] 04/16/16 10:00 05/16/16 09:59 04/16/16 09:53 75 MG Clopidogrel Bisulfate (plAVix TAB) 75 mg QAM PO 04/17/16 09:00 05/17/16 08:59 Physical Exam Vital Signs (Past 24 Hrs): Date Time Temp Pulse Resp B/P Pulse Ox O2 Delivery O2 Flow Rate FiO2 04/16/16 09:45 67 04/16/16 09:13 37.6 88 18 162/81 97 Room Air 04/16/16 06:59 61 04/16/16 06:49 0 04/16/16 06:49 20 04/16/16 06:46 36 04/16/16 04:30 75 16 167/90 98 Room Air 04/16/16 02:30 73 20 97 04/16/16 01:59 193/79 04/16/16 01:30 72 19 98 04/16/16 01:11 78 19 178/78 98 Room Air 04/16/16 01:10 178/78 04/16/16 00:20 04/15/16 22:30 76 17 96 04/15/16 22:25 76 16 96 04/15/16 22:21 165/90 2/14/17 21:25 79 12 99 04/15/16 21:20 77 18 98 04/15/16 20:20 79 18 99 04/15/16 20:06 79 16 166/69 96 Room Air 04/15/16 20:05 166/69 04/15/16 19:20 73 17 04/15/16 19:04 139/117 04/15/16 18:47 79 18 139/117 99 Room Air 04/15/16 18:29 139/117 04/15/16 18:20 75 21 98 04/15/16 17:39 99 Room Air 04/15/16 17:34 36.5 84 21 163/129 98 Room Air 04/15/16 17:28 163/129 Physical Exam: Constitutional: pale, sleeping when entering the room Ears, Nose, Mouth and Throat: mucous membranes moist, no injection and skin normal, eyes normal Cardiovascular: normal S-1 and S-2 and regular rate and rhythm Respiratory: clear to auscultation (CTA) and no rales, rhonchi or wheeze Musculoskeletal: no peripheral edema and good distal pulses Skin: no stigmata of neurocutaneous disease noted and normal and intact Eyes: eye movements are roving retinal detachment on right NEUROLOGIC EXAMINATION: Mental status: Alert no interactive Cranial Nerves right facial asymmetry Reflexes: Deep tendon reflexes were symmetrical and graded 2/5. Plantar responses were up going Sensory: responds to vibration and light touch Gait/Stance: lying in bed with legs in flexed position Strength: will resist with left hand with pull, left leg moves spontaneously, postures with right UE with stimulation, moves right LE with stimulation Laboratory Results Past 24 Hours: 04/16/16 05:39 Red Blood Count 4.12, Mean Corpuscular Volume 89.3, Mean Corpuscular Hemoglobin 31.3, Mean Corpuscular Hemoglobin Concent 35.1, Mean Platelet Volume 11.9, Neutrophils (%) (Auto) 67.1, Lymphocytes (%) (Auto) 22.3, Monocytes (%) (Auto) 8.2, Eosinophils (%) (Auto) 2.2, Basophils (%) (Auto) 0.0, Neutrophils # (Auto) 3.90, Lymphocytes # (Auto) 1.30, Monocytes # (Auto) 0.48, Eosinophils # (Auto) 0.13, Basophils # (Auto) 0.00 04/16/16 05:37 Test 04/15/16 18:02 04/15/16 19:00 04/16/16 05:37 04/16/16 05:39 Prothrombin Time 10.0 SECONDS (9.0-12.0) Prothromb Time International Ratio 0.9 (0.9-1.1) Activated Partial Thromboplast Time 25.9 SECONDS (21.0-31.0) Partial Thromboplastin Ratio 1.0 Estimated Average Glucose 88 mg/dl Hemoglobin A1c 4.7 % (4.5-5.6) Total Bilirubin 0.2 mg/dl (0.2-1) Direct Bilirubin < 0.1 mg/dl (0-0.2) Aspartate Amino Transf (AST/SGOT) 16 U/L (15-37) Alanine Aminotransferase (ALT/SGPT) 22 U/L (12-78) Alkaline Phosphatase 58 U/L (45-117) Total Creatine Kinase 51 U/L (26-192) Creatine Kinase MB < 0.5 ng/ml (0.5-3.6) Creatine Kinase MB Ratio (0-3.0) Troponin I < 0.015 ng/ml (0-0.045) Total Protein 7.2 gm/dl (6.4-8.2) Albumin 3.5 gm/dl (3.4-5.0) Urine Color DK YELLOW Urine Appearance CLEAR (CLEAR) Urine pH 5.5 (4.5-7.5) Urine Specific [place] 1.028 (1.000-1.030) Urine Protein NEG (NEG) Urine Glucose (UA) NEG (NEG) Urine Ketones TRACE (NEG) Urine Occult Blood NEG (NEG) Urine Nitrite NEG (NEG) Urine Bilirubin NEG (NEG) Urine Urobilinogen NEG (NEG) Urine Leukocyte Esterase NEG (NEG) Urine Opiates Screen NEG (NEG) Urine Methadone, Qualitative NEG (NEG) Urine Barbiturates NEG (NEG) Urine Phencyclidine (PCP) Level NEG (NEG) Ur Amphetamine/Methamphetamine NEG (NEG) MDMA (Ecstasy) Screen NEG (NEG) Urine Benzodiazepines Screen NEG (NEG) Urine Cocaine Metabolite NEG (NEG) Urine Marijuana (THC) NEG (NEG) Anion Gap 9.0 mmol/L (3-11) Est Creatinine Clear Calc Drug Dose 80.5 ml/min Estimated GFR () 122.8 Estimated GFR (Non- 105.9 BUN/Creatinine Ratio 9.0 (10-20) Calcium Level 8.1 mg/dl (8.5-10.1) Magnesium Level 1.7 mg/dl (1.8-2.4) Triglycerides Level 134 mg/dl (0-150) Cholesterol Level 168 mg/dl (0-200) HDL Cholesterol 38 mg/dl LDL Cholesterol, Calculated 103 mg/dl VLDL Cholesterol, Calculated 27 mg/dl Cholesterol/HDL Ratio 4.4 Thyroid Stimulating Hormone (TSH) 2.220 uIu/ml (0.300-4.500) White Blood Count 5.82 K/uL (4.8-10.8) Red Blood Count 4.12 M/uL (4.2-5.4) Hemoglobin 12.9 g/dL (12.0-16.0) Hematocrit 36.8 % (37-47) Mean Corpuscular Volume 89.3 fL (80-100) Mean Corpuscular Hemoglobin 31.3 pg (25-34) Mean Corpuscular Hemoglobin Concent 35.1 g/dl (32-36) Platelet Count 178 K/uL (130-400) Mean Platelet Volume 11.9 fL (7.4-10.4) Neutrophils (%) (Auto) 67.1 % Lymphocytes (%) (Auto) 22.3 % Monocytes (%) (Auto) 8.2 % Eosinophils (%) (Auto) 2.2 % Basophils (%) (Auto) 0.0 % Neutrophils # (Auto) 3.90 K/uL (1.4-6.5) Lymphocytes # (Auto) 1.30 K/uL (1.2-3.4) Monocytes # (Auto) 0.48 K/uL (0.11-0.59) Eosinophils # (Auto) 0.13 K/uL (0-0.5) Basophils # (Auto) 0.00 K/uL (0-0.2) RDW Standard Deviation 40.7 fL (36.4-46.3) RDW Coefficient of Variation 12.6 % (11.5-14.5) Immature Granulocyte % (Auto) 0.2 % Immature Granulocyte # (Auto) 0.01 K/uL (0.00-0.02) Test 04/16/16 09:10 Fibrinogen 315 mg/dl (184-400) D-Dimer 1140 ug/L FEU (0-500) Imaging repeat CT head- Expected evolution of the multiple left MCA territory infarcts including the infarct involving the left lentiform nucleus. No intracranial hemorrhage. 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 MRI brain with and without contrast-. Multiple left MCA territory infarcts as described above. There are few punctate foci of enhancement at the areas of infarct which favor post infarct changes. Follow-up brain MRI in 1-2 months can be performed to ensure resolution. Right retinal detachment. MRA brain -There is loss of the flow void within the left ICA determine this, a proximal left M1 segment, and the left A1 segment suggesting occlusion/ thrombus. The remainder of the left middle cervical artery is patent, with focal high-grade stenosis suggested in the left M2 segment. The vertebrobasilar system is diminutive. There are large bilateral posterior communicating arteries. No aneurysm is seen. MRA neck- Mild focal stenosis within the mid right vertebral artery. There is also focal stenosis at the takeoff of the left subclavian artery followed by focal ectasia/mild aneurysmal dilatation. No significant stenosis seen within the common or internal carotid arteries. Impression 45 year old female s/p right sided weakness and multiple L ICA infarcts Plan 1. aspirin 81 mg and plavix 75 mg started will need dual therapy x 3 months and then monotherapy for life 2. MRI MRA s completed with multiple areas of stroke 3. permissive hypertension 4. lipitor for LDL < 70 5. not a good candidate for coumadin due to fall risk 6. hyper coag work up in process 7. TTE and cardiology consult ordered 8. PT/OT and speech therapy for discharge needs 9. further recommendations to follow I have seen and discussed above patient with Dr Opal Larson, neurology Pt seen and examined, discussed with pt mom. Pt with congenital rubella, MR, deaf, legally blind. Baseline communicates with pointing. PDA with correction, Exam limited due to the aforementioned. Flat R NLF, no gaze preference, appears to have intact vision given manipulation of a book. RUE and RLE less than antigravity. Brisk reflexes, toes down. Sensory cerebellar not testable. MRI suggests occlusion of LICA terminus and likely this infarct is from artery to artery embolism. Rec CTA to confirm or refute occlusion. CT head in am as well, r/o large or hemorrhagic infarct. Consider DMITRI given poor vis of LA and inability to do bubble study and hx of congenital heart disease. Avoid hypotension, Antiplt tx, pt would be a poor candiate for fdc anticoagulant use. Statin with goal LDL 70. TONG Larson MD
[2016-04-16] MEDS ORDERED: INFLUENZA ADMINISTRATION CHARGE ONE (14:30)
[2016-04-16] MEDS ORDERED: INFLUENZA VIRUS QUAD VACCINE 0.5 ML SYR IM. ONE (14:30)
--- NOTE | 2016-04-16 15:28 | CARDIOLOGY CONSULTATION ---
DATE OF CONSULTATION: 04/16/2016 REASON FOR CONSULTATION: Bradycardia. HISTORY OF PRESENT ILLNESS: This is a 45-year-old female with severe mental retardation from . Her mother describes her as a rubella baby. She has lived with her family and has been well cared for. On the day of admission she was being given a shower and when she came out, she had severe right-sided weakness. She was brought to the hospital and CT and follow up MRIs of the brain suggests multiple MCP distribution strokes. She has no prior history of such events. No previous history of a seizure disorder or clotting abnormalities. As a child she sounds as if she may have had a patent ductus arteriosus closure, but has no other significant cardiac history. No prior history or cardiac arrhythmias. The patient this morning suddenly developed bradycardia. In reviewing the strips, it appears to be a junctional bradycardia. This type of bradycardia suggests some sort of vasovagal event. Whether that is related to her recent stroke or due to other etiologies is uncertain. Based on the findings of the CT and MRI, I do not believe that this arrhythmia is related to her strokes. Her stroke seemed to be more embolic in nature. ALLERGIES: PENICILLIN. PAST MEDICAL HISTORY: As outlined above, she has severe mental retardation due to her mother having a rubella infection. She has a history of a left hip fracture due to a mechanical fall. She is status post PDA repair as a child. She has no history of diabetes or hypertension. No prior history of seizures or brain trauma. FAMILY MEDICAL HISTORY: Noncontributory. SOCIAL HISTORY: The patient is a nonsmoker. She lives with her family. REVIEW OF SYSTEMS: A 10-point review of systems is negative except for the history of chief complaint. PHYSICAL EXAMINATION: GENERAL: She is alert and oriented. VITAL SIGNS: Blood pressure is 130/100, pulse is regular at 75 beats per minute. She is afebrile. HEENT: She is normocephalic. She has a left lateral gaze with horizontal nystagmus. Mucous membranes are moist. NECK: The neck veins are flat. Carotids have good upstrokes bilaterally without bruits. Thyroid is nonpalpable. RESPIRATORY: Breath sounds are equal bilaterally and clear to auscultation. CARDIOVASCULAR: Heart has a regular rhythm. Normal S1, S2. No S3, S4. No cardiac rubs or murmurs. GASTROINTESTINAL: Abdomen is soft, nontender without organomegaly. EXTREMITIES: Free of edema, digit clubbing, or cyanosis. NEUROLOGIC: Grossly intact. SKIN: Warm to touch. LYMPH NODES: Negative to palpation. LABORATORY DATA: WBC count is 5.9, hemoglobin is 13.9. INR is 0.9. Potassium is 4.0. Creatinine is 0.76. IMPRESSION: 1. 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 2. Junctional bradycardia this morning. 3. Mental retardation. 4. Patent ductus arteriosus closure as a child. RECOMMENDATIONS: I would continue to keep the patient on a telemetry unit. She should have an echocardiogram completed due to the possibility of an embolic event causing her strokes. Type of arrhythmia she had would not necessarily present with this type of stroke. This type of stroke we see with atrial arrhythmia such as atrial fibrillation. It could be that she had bradycardia due to the neurologic event. It could also be that she has other etiologies for the bradycardia including sleep apnea. We will fully evaluate her and if she certainly has additional events or if we cannot find any reasonable suggestion as to why she had the bradycardia, then we will consider pacemaker.
--- NOTE | 2016-04-16 15:35 | ECHOCARDIOGRAM REPORT ---
*NOTICE TO RECEIVING DEMOCRAT AGENCY This information is strictly Confidential and protected under [place] law. [place] law prohibits you from making any further disclosure of this information unless further disclosure is expressly permitted by the written consent of the person to whom it pertains or is authorized by law. A general authorization for the release of medical or other information is not sufficient for this purpose. Hospital accepts no responsibility if the information is made available to any other person, INCLUDING THE PATIENT. Interpretation Summary * Grossly normal valvular structure and function. * -- Conclusions -- * Imaging of the atrial septum is limited so no bubble study was completed. * There is moderate concentric left ventricular hypertrophy. * Ejection Fraction = 60-65%. * Grade I diastolic dysfunction, (abnormal relaxation pattern). * The right ventricular systolic function is normal. * Grossly normal valvular structure and function. Procedure Details * A complete two-dimensional transthoracic echocardiogram was performed (2D, M-mode, Doppler and color flow Doppler). * The study was technically difficult. * A contrast injection of Definity was performed to improve assessment of LV function. * Contrast was injected into an intravenous site in the left arm. * One vial of Definity ultrasound contrast was diluted in normal saline to a total volume of 10 ml. A total of '2' ml of solution was administered during imaging. * Lot # [id number] of Definity utilized for procedure. * Expiration date APR 19. * The attending nurse who injected the contrast agent was PAT RAI CPL, RN. Left Ventricle * The left ventricle is normal in size. * There is moderate concentric left ventricular hypertrophy. * Ejection Fraction = 60-65%. Right Ventricle * The right ventricle is normal size. * The right ventricular systolic function is normal. Atria * The left atrium is not well visualized. * Right atrium not well visualized. * Imaging of the atrial septum is limited so no bubble study was completed. Mitral Valve * The mitral valve anatomy is normal. * Significant mitral regurgitation is absent. Tricuspid Valve * The tricuspid valve is not well visualized. * Significant tricuspid regurgitation is absent. Aortic Valve * The aortic valve is tricuspid. The leaflet thickness if normal. There is no aortic stenosis, and no significant insufficiency. Pulmonic Valve * The pulmonic valve is not well visualized. Pericardium/Pleural * There is no pericardial effusion. Left Ventricular Diastolic Function * Grade I diastolic dysfunction, (abnormal relaxation pattern). MMode 2D Measurements and Calculations IVSd 0.92 cm IVSs 1.2 cm LVIDd 4.6 cm LVIDs 3.4 cm LVPWd 0.98 cm LVPWs 1.4 cm IVS/LVPW 0.94 FS 25.2 % EDV(Teich) 95.2 ml ESV(Teich) 47.8 ml EF(Teich) 49.8 % EDV(cubed) 94.6 ml ESV(cubed) 39.7 ml EF(cubed) 58.1 % % IVS thick 26.0 % % LVPW thick 45.4 % LV mass(C)d 144.9 grams LV mass(C)dI 96.1 grams/m\S\2 LV mass(C)s 145.7 grams LV mass(C)sI 96.7 grams/m\S\2 SV(Teich) 47.4 ml SI(Teich) 31.5 ml/m\S\2 SV(cubed) 55.0 ml SI(cubed) 36.5 ml/m\S\2 LVOT diam 1.5 cm LVOT area 1.9 cm\S\2 LVAd ap4 22.6 cm\S\2 LVLd ap4 6.9 cm EDV(MOD-sp4) 58.6 ml EDV(sp4-el) 62.6 ml LVAs ap4 13.2 cm\S\2 LVLs ap4 6.4 cm ESV(MOD-sp4) 21.5 ml ESV(sp4-el) 23.0 ml EF(MOD-sp4) 63.4 % EF(sp4-el) 63.3 % LVAd ap2 23.2 cm\S\2 LVLd ap2 7.0 cm EDV(MOD-sp2) 61.3 ml EDV(sp2-el) 65.3 ml LVAs ap2 12.5 cm\S\2 LVLs ap2 6.1 cm ESV(MOD-sp2) 20.5 ml ESV(sp2-el) 21.7 ml EF(MOD-sp2) 66.6 % EF(sp2-el) 66.7 % LVLd %diff 1.0 % EDV(MOD-bp) 60.4 ml LVLs %diff -4.72 % ESV(MOD-bp) 21.4 ml EF(MOD-bp) 64.6 % SV(MOD-sp4) 37.1 ml SI(MOD-sp4) 24.7 ml/m\S\2 SV(MOD-sp2) 40.9 ml SI(MOD-sp2) 27.1 ml/m\S\2 SV(MOD-bp) 39.0 ml SI(MOD-bp) 25.9 ml/m\S\2 SV(sp4-el) 39.6 ml SI(sp4-el) 26.3 ml/m\S\2 SV(sp2-el) 43.6 ml SI(sp2-el) 28.9 ml/m\S\2 Doppler Measurements and Calculations MV E max kyra 110.0 cm/sec MV A max kyra 124.6 cm/sec MV E/A 0.88 MV P1/2t max kyra 121.2 cm/sec MV P1/2t 66.4 msec MVA(P1/2t) 3.3 cm\S\2 MV dec slope 535.0 cm/sec\S\2 MV dec time 0.21 sec Ao V2 max 150.7 cm/sec Ao max PG 9.1 mmHg Ao max PG (full) 7.5 mmHg CHRISTO(V,A) 0.79 cm\S\2 CHRISTO(V,D) 0.79 cm\S\2 LV V1 max PG 1.6 mmHg LV V1 max 63.3 cm/sec
--- NOTE | 2016-04-16 15:36 | ECHOCARDIOGRAM REPORT ---
*NOTICE TO RECEIVING DEMOCRAT AGENCY This information is strictly Confidential and protected under [place] law. [place] law prohibits you from making any further disclosure of this information unless further disclosure is expressly permitted by the written consent of the person to whom it pertains or is authorized by law. A general authorization for the release of medical or other information is not sufficient for this purpose. Hospital accepts no responsibility if the information is made available to any other person, INCLUDING THE PATIENT. Interpretation Summary * Grossly normal valvular structure and function. * -- Conclusions -- * There is moderate concentric left ventricular hypertrophy. * Ejection Fraction = 60-65%. * Grade I diastolic dysfunction, (abnormal relaxation pattern). * The right ventricular systolic function is normal. * Grossly normal valvular structure and function. * Imaging is limited so no bubble study was completed. Procedure Details * A complete two-dimensional transthoracic echocardiogram was performed (2D, M-mode, Doppler and color flow Doppler). * The study was technically difficult. * A contrast injection of Definity was performed to improve assessment of LV function. * Contrast was injected into an intravenous site in the left arm. * One vial of Definity ultrasound contrast was diluted in normal saline to a total volume of 10 ml. A total of '2' ml of solution was administered during imaging. * Lot # [id number] of Definity utilized for procedure. * Expiration date APR 19. * The attending nurse who injected the contrast agent was PAT RAI CPL, RN. Left Ventricle * The left ventricle is normal in size. * There is moderate concentric left ventricular hypertrophy. * Ejection Fraction = 60-65%. Right Ventricle * The right ventricle is normal size. * The right ventricular systolic function is normal. Atria * The left atrium is not well visualized. * Right atrium not well visualized. * Imaging is limited so no bubble study was completed. Mitral Valve * The mitral valve anatomy is normal. * Significant mitral regurgitation is absent. Tricuspid Valve * The tricuspid valve is not well visualized. * Significant tricuspid regurgitation is absent. Aortic Valve * The aortic valve is tricuspid. The leaflet thickness if normal. There is no aortic stenosis, and no significant insufficiency. Pulmonic Valve * The pulmonic valve is not well visualized. Pericardium/Pleural * There is no pericardial effusion. Left Ventricular Diastolic Function * Grade I diastolic dysfunction, (abnormal relaxation pattern). MMode 2D Measurements and Calculations IVSd 0.92 cm IVSs 1.2 cm LVIDd 4.6 cm LVIDs 3.4 cm LVPWd 0.98 cm LVPWs 1.4 cm IVS/LVPW 0.94 FS 25.2 % EDV(Teich) 95.2 ml ESV(Teich) 47.8 ml EF(Teich) 49.8 % EDV(cubed) 94.6 ml ESV(cubed) 39.7 ml EF(cubed) 58.1 % % IVS thick 26.0 % % LVPW thick 45.4 % LV mass(C)d 144.9 grams LV mass(C)dI 96.1 grams/m\S\2 LV mass(C)s 145.7 grams LV mass(C)sI 96.7 grams/m\S\2 SV(Teich) 47.4 ml SI(Teich) 31.5 ml/m\S\2 SV(cubed) 55.0 ml SI(cubed) 36.5 ml/m\S\2 LVOT diam 1.5 cm LVOT area 1.9 cm\S\2 LVAd ap4 22.6 cm\S\2 LVLd ap4 6.9 cm EDV(MOD-sp4) 58.6 ml EDV(sp4-el) 62.6 ml LVAs ap4 13.2 cm\S\2 LVLs ap4 6.4 cm ESV(MOD-sp4) 21.5 ml ESV(sp4-el) 23.0 ml EF(MOD-sp4) 63.4 % EF(sp4-el) 63.3 % LVAd ap2 23.2 cm\S\2 LVLd ap2 7.0 cm EDV(MOD-sp2) 61.3 ml EDV(sp2-el) 65.3 ml LVAs ap2 12.5 cm\S\2 LVLs ap2 6.1 cm ESV(MOD-sp2) 20.5 ml ESV(sp2-el) 21.7 ml EF(MOD-sp2) 66.6 % EF(sp2-el) 66.7 % LVLd %diff 1.0 % EDV(MOD-bp) 60.4 ml LVLs %diff -4.72 % ESV(MOD-bp) 21.4 ml EF(MOD-bp) 64.6 % SV(MOD-sp4) 37.1 ml SI(MOD-sp4) 24.7 ml/m\S\2 SV(MOD-sp2) 40.9 ml SI(MOD-sp2) 27.1 ml/m\S\2 SV(MOD-bp) 39.0 ml SI(MOD-bp) 25.9 ml/m\S\2 SV(sp4-el) 39.6 ml SI(sp4-el) 26.3 ml/m\S\2 SV(sp2-el) 43.6 ml SI(sp2-el) 28.9 ml/m\S\2 Doppler Measurements and Calculations MV E max kyra 110.0 cm/sec MV A max kyar 124.6 cm/sec MV E/A 0.88 MV P1/2t max kyar 121.2 cm/sec MV P1/2t 66.4 msec MVA(P1/2t) 3.3 cm\S\2 MV dec slope 535.0 cm/sec\S\2 MV dec time 0.21 sec Ao V2 max 150.7 cm/sec Ao max PG 9.1 mmHg Ao max PG (full) 7.5 mmHg CHRISTO(V,A) 0.79 cm\S\2 CHRISTO(V,D) 0.79 cm\S\2 LV V1 max PG 1.6 mmHg LV V1 max 63.3 cm/sec
[2016-04-16 16:00] VITALS: BP 145/75; PULSE 71; TEMP 36.9; O2SAT 96
[2016-04-16 16:04] VITALS: BP_SYST 0; BP_SYST 190; BP_DIAS 0; BP_DIAS 107; PULSE 87; TEMP 36.8; O2SAT 98
[2016-04-16] MEDS ORDERED: HydrALAZINE HCL 20 MG/ML VIAL ONE (18:31)
[2016-04-16 19:56] VITALS: BP 138/74; PULSE 77; TEMP 36.7; O2SAT 98
[2016-04-16 20:00] VITALS: O2SAT 98
[2016-04-17] VITALS (8 sets, daily range): BP systolic 96–182; BP diastolic 79–99; PULSE 76–102; TEMP 36.4–37.6; O2SAT 96–98
[2016-04-17 06:07] LABS: COMPLETE YES; HEMATOCRIT 39.8 % (37-47); IG% 0.2 %; LYMPH % 12.5 %; LYMPH ABS # 0.81 K/uL (1.2-3.4); MEAN CELL VOLUME 87.7 fL (80-100); MEAN CORPUSCULAR HEMOGLOBIN 31.1 pg (25-34); MEAN CORPUSCULAR HGB CONC 35.4 g/dl (32-36); MEAN PLATELET VOLUME 11.8 fL (7.4-10.4); MONO % 9.6 %; NEUT % 77.7 %; PLATELET COUNT 211 K/uL (130-400); RED BLOOD COUNT 4.54 M/uL (4.2-5.4); WHITE BLOOD COUNT 6.49 K/uL (4.8-10.8)
[2016-04-17 06:36] LABS: BUN/CREATININE RATIO 6.6 (10-20); CALCIUM 7.8 mg/dl (8.5-10.1); CREATININE 0.67 mg/dl (0.60-1.20)
[2016-04-17 06:39] LABS: CHOLESTEROL/HDL RATIO 4.1
[2016-04-17] MEDS: CLONAZEPAM 0.5 MG TAB PO SCH ×2 (07:50→20:08)
[2016-04-17] MEDS: ATORVASTATIN 40 MG TAB PO SCH (07:50)
[2016-04-17] MEDS: MULTIVITAMIN TAB PO SCH (07:50)
[2016-04-17] MEDS: CLOPIDOGREL BISULFATE 75 MG TAB PO SCH (07:51)
[2016-04-17] MEDS: OXCARBAZEPINE 150 MG TAB PO SCH ×2 (07:51→20:09)
[2016-04-17] MEDS ORDERED: OPTIRAY 320 IV PRN (08:15)
--- NOTE | 2016-04-17 09:12 | DIAGNOSTIC IMAGING REPORT ---
CT ANGIOGRAM OF THE BRAIN COMBO; CT ANGIOGRAM OF THE NECK CLINICAL HISTORY: Change in mental status. Stroke. COMPARISON STUDY: MR angiogram of the head and neck dated 04/15/2016. CT of the brain dated 04/16/2016. MRI of the brain dated 04/15/2016. TECHNIQUE: Unenhanced axial CT scan of the brain is performed. Subsequently, following the IV administration of 119 of Optiray 320, CT angiogram of the head and neck was performed from the aortic arch to the vertex. Images are reviewed in the axial, sagittal, and coronal planes. 3-D MIPS images are created and assessed. IV contrast was administered without complication. All measurements were calculated based on NASCET criteria. The unenhanced CT of the brain was performed twice due to motion artifact. CT DOSE: 1749.09 mGy.cm FINDINGS: Brain parenchyma: There are evolving left frontoparietal infarcts, as well as evolving infarct involving the left basal ganglia. There is edema within the infarcted regions. No hemorrhage is identified. There is no midline shift. There is minimal periventricular microangiopathic change. There is no evidence of enhancing mass lesion on the angiogram phase images. The ventricles, sulci, and cisterns are normal in configuration. No extra-axial fluid collection is identified. Thoracic aorta: Visualized portions of the thoracic aorta are normal in caliber. The aortic arch demonstrates bovine variant anatomy. Right carotid arterial system: The right common carotid artery is widely patent, as are the right internal and external carotid arteries in the neck. Left carotid arterial system: The left common carotid artery is widely patent, as are the left internal and external carotid arteries in the neck. Vertebral arteries: The vertebral arteries are widely patent noting right-sided dominance. Subclavian arteries: There is high-grade (greater than 50%) stenosis identified at the origin of the left subclavian artery. The remainder of the left subclavian artery and the right subclavian artery are widely patent. Intracranial vasculature: Both internal carotid arteries are patent at the skull base. The intracranial internal carotid arteries appear diminutive, and there is occlusion at the terminus of the left internal carotid artery. There is also occlusion of the proximal left middle cerebral artery which appears reconstituted distally in the M2 /M3 segment. There are likely small occluded peripheral branches within the left MCA territory. There is flow within the left A1 segment, likely via retrograde flow. The vertebrobasilar system is diminutive but widely patent. The P1 segments are small and there are large bilateral posterior communicating arteries. The posterior cerebral arteries are clear. The right internal carotid artery is widely patent, as are the anterior and right middle cerebral arteries. There is no aneurysm identified. Jugular veins: Patent bilaterally. Dural sinuses: Clear as imaged. Upper chest: Partially visualized upper lobe lung parenchyma appears clear. The pulmonary trunk is markedly dilated suggesting pulmonary artery hypertension. Soft tissues: The visualized pharyngeal soft tissues are normal in appearance noting angiographic phase technique. The oropharyngeal airway appears widely patent. The salivary and thyroid glands are normal in appearance. No cervical lymphadenopathy is seen. Skeletal structures: The calvarium appears intact. The cervical spine is within normal limits. Sinuses and mastoids: There is mucosal thickening within the left maxillary antrum. The remaining paranasal sinuses and mastoid air cells are clear. Orbits: The bony orbits appear intact. 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 There is evidence of bilateral ocular lens surgery. Both globes appear irregular. IMPRESSION: 1. Evolving left frontoparietal and left basal ganglia infarcts as above. No hemorrhage is identified and there is no midline shift. 2. 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 3. There is reconstitution distally within the left middle cerebral artery. 4. The right middle cerebral artery, the anterior cerebral arteries, and the vertebrobasilar system are widely patent. See above discussion. 5. 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 6. The carotid arteries and vertebral arteries in the neck are widely patent. Electronically signed by: Stanton Odom M.D. 04/17/2016 9:10 AM Dictated Date/Time: 04/17/2016 8:50 AM
[2016-04-17 09:46] LABS: MAGNESIUM 2.1 mg/dl (1.8-2.4)
--- NOTE | 2016-04-17 09:47 | PROGRESS NOTE ---
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 It appears to be embolic in nature based on the imaging studies. Echocardiogram was performed yesterday and unfortunately, the quality was poor and they were not able to do a bubble study due to technical reasons. Neurology has mentioned in their note that we should proceed with DMITRI; however, that would be very difficult in this patient even with the help of anesthesia. At this time, I do not believe the risk versus benefit of performing a DMITRI would favor doing that procedure, especially in light of the fact that we will not be anticoagulating her nursing home. In regards to her heart rhythm, I have reviewed her telemetry since yesterday. She has had no additional bradycardiac events and no significant arrhythmias. I think the events of yesterday are consistent with a vasovagal event, perhaps due to the brain trauma. I would recommend no additional treatment for bradycardia at this time. I would recommend that we keep her on the telemetry for now, so we can continue to follow her rhythm. OBJECTIVE: VITAL SIGNS: Blood pressure is 160/80 and pulse is regular at 76. She is in a sinus rhythm on the telemetry. She is afebrile. GENERAL: She is nonresponsive. HEENT: She is normocephalic. She has a left lateral gaze with horizontal nystagmus. NECK: The neck veins are flat. Carotids have good upstrokes bilaterally without bruits. Thyroid is nonpalpable. RESPIRATORY: Breath sounds are equal bilaterally and clear to auscultation. CARDIOVASCULAR: Heart has a regular rhythm. Normal S1 and S2. No S3 or S4. No cardiac rubs or murmurs. GASTROINTESTINAL: Abdomen is soft and nontender without organomegaly. EXTREMITIES: Free of edema, digit clubbing, or cyanosis. NEUROLOGIC: Grossly intact. SKIN: Warm to touch. LYMPH NODES: Negative to palpation. LABORATORY DATA: Hemoglobin is 14.1. Potassium is 4.0. Creatinine is 0.67. IMPRESSION: 1. Status post embolic strokes. 2. History of mental retardation. 3. Bradycardic event, most likely vasovagal. PAST MEDICAL HISTORY: As outlined above, I would just continue to keep her on the shank turner at this time. No additional treatment for her bradycardia is indicated. It appears that neurology feels that she is not a candidate for long-term anticoagulation and I agree with that assessment. She is to be started on antiplatelet agents only.
--- NOTE | 2016-04-17 10:12 | Progress Note ---
Medicine Progress Note Date & Time of Visit: Apr 17, 2016 at 10:04. Subjective seen resting in bed, alert, not in distress nonverbal, holding ziplock bag with toys in her left hand no signs of pain, distress no acute events overnight as per RN no other symptoms Objective Last 8 Hrs Date Time Temp Pulse Resp B/P Pulse Ox O2 Delivery O2 Flow Rate FiO2 04/17/16 08:14 Room Air 04/17/16 08:00 36.6 76 18 98 04/17/16 08:00 Room Air 04/17/16 07:57 165/85 04/17/16 04:00 96 Room Air 04/17/16 04:00 37.1 102 22 152/84 96 Physical Exam: General- awake, not in distress, non verbal, no accessory muscle use Head- atraumatic Eyes- right: irregularly shaped pupil, no pupillary reflex noted; left: 3-4mm briskly reactive to light appears to have full EOMS Neck- no JVD Lungs- clear to auscultation bilaterally, no rales/wheeze Heart- normal rate, regular rhythm; no murmurs Abdomen- normal bowel sounds, soft, nontender Extremities- no pretibial edema, no calf tenderness; peripheral pulses intact Neuro- alert, non verbal; hallow nasolabial fold right motor strength: right- minimal withdrawal to pain, left: 5/5 Skin- warm & dry Laboratory Results: Last 24 Hours Test 04/17/16 05:25 White Blood Count 6.49 K/uL Red Blood Count 4.54 M/uL Hemoglobin 14.1 g/dL Hematocrit 39.8 % Mean Corpuscular Volume 87.7 fL Mean Corpuscular Hemoglobin 31.1 pg Mean Corpuscular Hemoglobin Concent 35.4 g/dl Platelet Count 211 K/uL Mean Platelet Volume 11.8 fL Neutrophils (%) (Auto) 77.7 % Lymphocytes (%) (Auto) 12.5 % Monocytes (%) (Auto) 9.6 % Eosinophils (%) (Auto) 0.0 % Basophils (%) (Auto) 0.0 % Neutrophils # (Auto) 5.05 K/uL Lymphocytes # (Auto) 0.81 K/uL Monocytes # (Auto) 0.62 K/uL Eosinophils # (Auto) 0.00 K/uL Basophils # (Auto) 0.00 K/uL RDW Standard Deviation 41.3 fL RDW Coefficient of Variation 12.8 % Immature Granulocyte % (Auto) 0.2 % Immature Granulocyte # (Auto) 0.01 K/uL Sodium Level 141 mmol/L Potassium Level 4.0 mmol/L Chloride Level 110 mmol/L Carbon Dioxide Level 19 mmol/L Anion Gap 12.0 mmol/L Blood Urea Nitrogen 4 mg/dl Creatinine 0.67 mg/dl Est Creatinine Clear Calc Drug Dose 77.4 ml/min Estimated GFR () 122.2 Estimated GFR (Non- 105.4 BUN/Creatinine Ratio 6.6 Random Glucose 125 mg/dl Calcium Level 7.8 mg/dl Magnesium Level 2.1 mg/dl Albumin 3.2 gm/dl Triglycerides Level 117 mg/dl Cholesterol Level 191 mg/dl HDL Cholesterol 47 mg/dl LDL Cholesterol, Calculated 121 mg/dl VLDL Cholesterol, Calculated 23 mg/dl Cholesterol/HDL Ratio 4.1 Assessment & Plan 45 year old female with history of mental retardation, hypertension presenting with right sided weakness noted since yesterday morning. ACUTE CVA- MULTIPLE INFARCTS WITH L MCA DISTRIBUTION, LEFT FRONTAL, PARIETAL, OCCIPITAL LOBES L ICA OCCLUSION - confirmed by Brain MRI and Head MRA, associated with surrounding edema Echo: * There is moderate concentric left ventricular hypertrophy. * Ejection Fraction = 60-65%. * Grade I diastolic dysfunction, (abnormal relaxation pattern). * The right ventricular systolic function is normal. * Grossly normal valvular structure and function. * Imaging is limited so no bubble study was completed. hypercoag work up: pending - CT angio: IMPRESSION: 1. Evolving left frontoparietal and left basal ganglia infarcts as above. No hemorrhage is identified and there is no midline shift. 2. 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 3. There is reconstitution distally within the left middle cerebral artery. 4. The right middle cerebral artery, the anterior cerebral arteries, and the vertebrobasilar system are widely patent. See above discussion. 5. 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 6. The carotid arteries and vertebral arteries in the neck are widely patent. - discussed with Neuro and Cardiology- appreciate the recommendations continue Aspirin, Plavix, Statin hold any anticoagulation at this time per Neurology - maintain BP on the higher side Hydralazine PRN for systolic bp > 180 - repeat Speech, PT/OT eval today HYPERTENSION - hold Losartan to prevent hypotension, post stroke - maintain BP on the higher side Hydralazine PRN for systolic bp > 180 BRADYCARDIA EPISODE - now resolved - TSH normal - no recurrence SEVERE MENTAL RETARDATION - continue Klonopin, citalopram, and oxcarbazepine DVT PROPHYLAXIS - heparin q8h DISPO pending will need transitioning to Rehab or SNF Current Inpatient Medications: Current Inpatient Medications Medications (Trade) Dose Ordered Sig/[place] Route Start Time Stop Time Status Last Admin Dose Admin Acetaminophen (Tylenol Tab) 650 mg Q4H PRN PO 04/15/16 20:45 05/15/16 20:44 Ondansetron HCl (Zofran Inj) 4 mg Q6H PRN IV 04/15/16 20:45 05/15/16 20:44 04/16/16 13:09 4 MG Citalopram Hydrobromide (celeXA TAB) 40 mg HS PO 04/15/16 21:00 05/15/16 20:59 Clonazepam (Klonopin Tab) 0.25 mg QAM PO 04/16/16 09:00 05/16/16 08:59 Clonazepam (Klonopin Tab) 0.5 mg QPM PO 04/15/16 21:00 05/15/16 20:59 Multivitamins (Multivitamin Tab) 1 tab DAILY PO 04/16/16 09:00 05/16/16 08:59 Oxcarbazepine (Trileptal Tab) 600 mg BID PO 04/15/16 21:00 05/15/16 20:59 Gadopentetate Dimeglumine (Magnevist) 20 ml UD PRN IV 04/16/16 01:00 04/20/16 00:59 Atorvastatin Calcium (Lipitor Tab) 80 mg QAM PO 04/17/16 09:00 05/17/16 08:59 Atropine Sulfate (Atropine Sulfate) 0.5 mg UD PRN IV 04/16/16 08:00 05/16/16 07:59 Miscellaneous Information 1 ea 1 ea UD PRN N/A 04/16/16 08:45 05/16/16 08:44 Potassium Chloride/Dextrose/ Sod Cl (D5nss + 20meq KCl) 1,000 ml @ 60 mls/hr [id number] IV 04/16/16 09:15 05/16/16 08:44 04/16/16 09:52 60 MLS/HR Aspirin (Aspirin Supp) 75 mg DAILY GA 04/16/16 10:00 05/16/16 09:59 04/16/16 09:53 75 MG Clopidogrel Bisulfate (plAVix TAB) 75 mg QAM PO 04/17/16 09:00 05/17/16 08:59 Hydralazine HCl (HydrALAZINE INJ) 10 mg Q6H PRN IV. 04/16/16 18:45 05/16/16 18:44 Ioversol (Optiray 320) 100 ml UD PRN IV 04/17/16 08:15 04/21/16 08:14
[2016-04-17] MEDS: ASPIRIN 300 MG SUPP PR SCH (11:05)
[2016-04-17] MEDS: HEPARIN SOD 5000 UNIT/0.5 ML CARP SQ SCH ×2 (14:16→21:09)
--- NOTE | 2016-04-17 15:55 | Neurology Progress Notes ---
"Neurology Progress Note Date of Service Apr 17, 2016. Subjective Johnathan is a 45 year old male who is legally blind, deaf, does not speak, has congenital rubella, MR presents to the ER with right sided weakness. Her mom states she came home from [employer] today and was unable to help with ambulation into the house. She had alot of difficulty getting out of the wheelchair from the van and ambulating into the house. She called EMS and she was transported to the ED. In the ED a Head CT was negative for acute findings. Her mom states at baseline she is legally blind, deaf, walks with a mofit boot on the left due to foot drop after falling and breaking her hip. She was no aspirin prior to the stroke and their is no family history known for coagulation issues. no recent falls. Today speech therapy saw her and recommended an NGT for feeding and for medications. Her mother is in the room and very upset about the situation. She does not want a feeding tube at this time. Review of the Klonopin and the Trileptal mom states these are for SIB. Objective Date Time Temp Pulse Resp B/P Pulse Ox O2 Delivery O2 Flow Rate FiO2 04/17/16 12:00 Room Air 04/17/16 11:22 37.2 95 20 164/99 96 Room Air 04/17/16 08:14 Room Air 04/17/16 08:00 36.6 76 18 98 04/17/16 08:00 Room Air 04/17/16 07:57 165/85 04/17/16 04:00 96 Room Air 04/17/16 04:00 37.1 102 22 152/84 96 04/17/16 00:10 96 Room Air 04/17/16 00:01 37.6 96 20 182/92 96 Room Air 04/16/16 20:00 98 Room Air 04/16/16 19:56 36.7 77 18 138/74 98 04/16/16 16:04 36.8 87 20 190/107 98 Room Air 0/0 04/16/16 16:00 Room Air Last 24 Hours Test 04/17/16 05:25 White Blood Count 6.49 K/uL Red Blood Count 4.54 M/uL Hemoglobin 14.1 g/dL Hematocrit 39.8 % Mean Corpuscular Volume 87.7 fL Mean Corpuscular Hemoglobin 31.1 pg Mean Corpuscular Hemoglobin Concent 35.4 g/dl Platelet Count 211 K/uL Mean Platelet Volume 11.8 fL Neutrophils (%) (Auto) 77.7 % Lymphocytes (%) (Auto) 12.5 % Monocytes (%) (Auto) 9.6 % Eosinophils (%) (Auto) 0.0 % Basophils (%) (Auto) 0.0 % Neutrophils # (Auto) 5.05 K/uL Lymphocytes # (Auto) 0.81 K/uL Monocytes # (Auto) 0.62 K/uL Eosinophils # (Auto) 0.00 K/uL Basophils # (Auto) 0.00 K/uL RDW Standard Deviation 41.3 fL RDW Coefficient of Variation 12.8 % Immature Granulocyte % (Auto) 0.2 % Immature Granulocyte # (Auto) 0.01 K/uL Sodium Level 141 mmol/L Potassium Level 4.0 mmol/L Chloride Level 110 mmol/L Carbon Dioxide Level 19 mmol/L Anion Gap 12.0 mmol/L Blood Urea Nitrogen 4 mg/dl Creatinine 0.67 mg/dl Est Creatinine Clear Calc Drug Dose 77.4 ml/min Estimated GFR () 122.2 Estimated GFR (Non- 105.4 BUN/Creatinine Ratio 6.6 Random Glucose 125 mg/dl Calcium Level 7.8 mg/dl Magnesium Level 2.1 mg/dl Albumin 3.2 gm/dl Triglycerides Level 117 mg/dl Cholesterol Level 191 mg/dl HDL Cholesterol 47 mg/dl LDL Cholesterol, Calculated 121 mg/dl VLDL Cholesterol, Calculated 23 mg/dl Cholesterol/HDL Ratio 4.1 Imaging: CT angiogram- Evolving left frontoparietal and left basal ganglia infarcts as above. No hemorrhage is identified and there is no midline shift. . 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 There is reconstitution distally within the left middle cerebral artery. The right middle cerebral artery, the anterior cerebral arteries, and the vertebrobasilar system are widely patent. See above discussion. 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 The carotid arteries and vertebral arteries in the neck are widely patent. Exam: Physical Exam: Constitutional: BP 110/78 | Pulse 68 | Temp (Src) 96.4 (Tympanic) | Resp 12 | Wt 175 lbs 12.8 oz (79.742kg) | BMI 32.15 kg/m | BSA 1.87 m, appearance nourished, healthy and normal Ears, Nose, Mouth and Throat: mucous membranes moist, no injection and skin normal, eyes normal Cardiovascular: normal S-1 and S-2 and regular rate and rhythm Respiratory: clear to auscultation (CTA) and no rales, ronchi or wheeze Musculoskeletal: no peripheral edema and good distal pulses Skin: no stigmata of neurocutaneous disease noted and normal and intact Eyes: extraocular muscles intact (EOMI) and pupils equal, round and reactive to light (PERRL) NEUROLOGIC EXAMINATION: Mental status: Alert and interactive Oriented to full date and location Oriented to person Speech fluent with no evidence of aphasia Cranial Nerves Normal findings for Cranial Nerves II - XII Reflexes: Deep tendon reflexes were symmetrical and graded 2/5. Plantar responses were flexor. Sensory: no sensory deficits Coordination: Romberg absent Gait/Stance: Posture normal. Gait normal: with steady with steps, base, turning, heel and toe walking and tandem gait. Motor: Negative for pronator drift of out stretched arms with eyes closed. Strength: Normal - 5/5 all extremities Current Inpatient Medications Medications (Trade) Dose Ordered Sig/[place] Route Start Time Stop Time Status Last Admin Dose Admin Acetaminophen (Tylenol Tab) 650 mg Q4H PRN PO 04/15/16 20:45 05/15/16 20:44 Ondansetron HCl (Zofran Inj) 4 mg Q6H PRN IV 04/15/16 20:45 05/15/16 20:44 04/16/16 13:09 4 MG Citalopram Hydrobromide (celeXA TAB) 40 mg HS PO 04/15/16 21:00 05/15/16 20:59 Clonazepam (Klonopin Tab) 0.25 mg QAM PO 04/16/16 09:00 05/16/16 08:59 Clonazepam (Klonopin Tab) 0.5 mg QPM PO 04/15/16 21:00 05/15/16 20:59 Multivitamins (Multivitamin Tab) 1 tab DAILY PO 04/16/16 09:00 05/16/16 08:59 Oxcarbazepine (Trileptal Tab) 600 mg BID PO 04/15/16 21:00 05/15/16 20:59 Gadopentetate Dimeglumine (Magnevist) 20 ml UD PRN IV 04/16/16 01:00 04/20/16 00:59 Atorvastatin Calcium (Lipitor Tab) 80 mg QAM PO 04/17/16 09:00 05/17/16 08:59 Atropine Sulfate (Atropine Sulfate) 0.5 mg UD PRN IV 04/16/16 08:00 05/16/16 07:59 Miscellaneous Information 1 ea 1 ea UD PRN N/A 04/16/16 08:45 05/16/16 08:44 Potassium Chloride/Dextrose/ Sod Cl (D5nss + 20meq KCl) 1,000 ml @ 60 mls/hr [id number] IV 04/16/16 09:15 05/16/16 08:44 04/16/16 09:52 60 MLS/HR Aspirin (Aspirin Supp) 75 mg DAILY CA 04/16/16 10:00 05/16/16 09:59 04/17/16 11:05 75 MG Clopidogrel Bisulfate (plAVix TAB) 75 mg QAM PO 04/17/16 09:00 05/17/16 08:59 Hydralazine HCl (HydrALAZINE INJ) 10 mg Q6H PRN IV. 04/16/16 18:45 05/16/16 18:44 Ioversol (Optiray 320) 100 ml UD PRN IV 04/17/16 08:15 04/21/16 08:14 Heparin Sodium (Porcine) (Heparin Sq 5000 Unit/0.5ml) 5,000 unit Q8 SQ 04/17/16 14:00 05/17/16 13:59 04/17/16 14:16 5,000 UNIT Impression 45 year old female s/p right sided weakness and multiple L ICA infarcts Plan 1. aspirin 81 mg and plavix 75 mg started will need dual therapy x 3 months and then monotherapy for life 2. MRI MRA s completed with multiple areas of stroke 3. permissive hypertension 4. lipitor for LDL < 70 5. not a good candidate for coumadin due to fall risk 6. hyper coag work up in process 7. TTE and cardiology consult ordered 8. PT/OT and speech therapy for discharge needs 9. discussed NGT with mom and told her it was temporary and she was more amendable to the tube 10. should substitute ativan for Klonopin which pharmacy recommended .[address] angio reviewed source of embolic stroke I have seen and discussed above patient with Dr Opal Larson, neurology CTA confirms LICA terminus occlusion. TTE suboptimal but Dr Mcmillan does not rec DMITRI in this pt for a variety of reasons. Infarct is related to LICA terminus occlusion with artery to artery embolism. Exam notable for pt deaf, legally blind, no speech (baseline). Eye movements roving (baseline) R central facial weakness. Increased tone RUE with RUE appearing perhaps close to antigravity and RLE withdrawal. Pt stable to mildly improved. Discussed with mother potentially allowing Johnathan to have an NGT placed for director medical economics. Pt was on Klonopin and Trileptal for selfinjurious behavior. Dr Mcgowan with see pt in follow-up. TONG Larson MD"
[2016-04-17] MEDS: D5NSS + 20MEQ KCL 1,000 ML IV SCH (20:08)
[2016-04-17] MEDS: CITALOPRAM 40 MG TAB PO SCH (20:08)
[2016-04-17] MEDS: LORAZEPAM 2 MG/ML 1 ML VIAL IV SCH (21:11)
[2016-04-17] MEDS: HydrALAZINE HCL 20 MG/ML VIAL IV. PRN (23:30)
[2016-04-18] VITALS (8 sets, daily range): BP systolic 118–174; BP diastolic 76–129; PULSE 82–119; TEMP 36.5–37.5; O2SAT 96–97
[2016-04-18 06:03] LABS: COMPLETE YES; HEMATOCRIT 40.7 % (37-47); IG% 0.2 %; LYMPH % 15.5 %; LYMPH ABS # 0.95 K/uL (1.2-3.4); MEAN CELL VOLUME 91.1 fL (80-100); MEAN CORPUSCULAR HEMOGLOBIN 31.3 pg (25-34); MEAN CORPUSCULAR HGB CONC 34.4 g/dl (32-36); MEAN PLATELET VOLUME 11.7 fL (7.4-10.4); MONO % 11.9 %; NEUT % 72.4 %; PLATELET COUNT 224 K/uL (130-400); RED BLOOD COUNT 4.47 M/uL (4.2-5.4); WHITE BLOOD COUNT 6.12 K/uL (4.8-10.8)
[2016-04-18] MEDS: HEPARIN SOD 5000 UNIT/0.5 ML CARP SQ SCH ×3 (06:31→21:56)
[2016-04-18 06:38] LABS: BUN/CREATININE RATIO 6.5 (10-20); CALCIUM 7.4 mg/dl (8.5-10.1); CREATININE 0.66 mg/dl (0.60-1.20); POTASSIUM 3.8 mmol/L (3.5-5.1)
[2016-04-18 07:56] LABS: FACTOR VIII ACTIV**SEND TO GMC 223 % (55 - 145)
[2016-04-18] MEDS: CLOPIDOGREL BISULFATE 75 MG TAB PO SCH (09:00)
[2016-04-18] MEDS: OXCARBAZEPINE 150 MG TAB PO SCH ×2 (09:00→20:28)
[2016-04-18] MEDS: MULTIVITAMIN TAB PO SCH (09:00)
[2016-04-18] MEDS: LORAZEPAM 2 MG/ML 1 ML VIAL IV SCH ×2 (09:00→20:29)
[2016-04-18] MEDS: ATORVASTATIN 40 MG TAB PO SCH (09:00)
--- NOTE | 2016-04-18 09:01 | PROGRESS NOTE ---
DATE: 04/18/2016 FOLLOWUP VISIT SUBJECTIVE: The patient is a 45-year-old mentally challenged female from , who was admitted with an embolic stroke. The morning of admission, she had some bradycardia, which was most likely vasovagal. I have reviewed her telemetry for the past 24 hours and she has been in sinus rhythm. No new changes overnight. OBJECTIVE: VITAL SIGNS: Blood pressure is 170/110. Pulse is regular at 100 beats per minute. She is afebrile. HEENT: She has a horizontal nystagmus and a left gaze. Mucous membranes are moist. NECK: The neck veins are flat. Carotids have good upstrokes bilaterally without bruits. Thyroid is nonpalpable. RESPIRATORY: Breath sounds equal bilaterally and clear to auscultation. CARDIOVASCULAR: Heart has a regular rhythm. There are no systolic murmurs. No S3 or S4. GASTROINTESTINAL: Abdomen soft and nontender without organomegaly. EXTREMITIES: Free of edema, digit clubbing, or cyanosis. NEUROLOGIC: The patient has right-sided weakness. SKIN: Warm to touch. LYMPH NODES: Negative to palpation. LABORATORY DATA: Hemoglobin is 14. Potassium is 3.8 and creatinine is 0.66. IMPRESSION: 1. Status post embolic stroke. 2. Mentally challenged. 3. Not a candidate for long-term anticoagulation due to fall risk. RECOMMENDATIONS: I believe the patient can be moved off of the telemetry unit to a regular nursing floor. I also agree with dual antiplatelet therapy as outlined by neurology. I do not believe any additional cardiac testing is indicated at this time.
[2016-04-18] MEDS: ASPIRIN 300 MG SUPP PR SCH (09:02)
--- NOTE | 2016-04-18 10:48 | Progress Note ---
Medicine Progress Note Date & Time of Visit: Apr 18, 2016 at 10:43. Subjective patient seen with mother Belkis at bedside states that her mental status is at baseline not moving her arm as much, usually plays more with her toys patient alert, not in distress, comfortable appearing no acute events overnight remains in sinus rhythm Objective Last 8 Hrs Date Time Temp Pulse Resp B/P Pulse Ox O2 Delivery O2 Flow Rate FiO2 04/18/16 08:00 Room Air 04/18/16 07:57 36.6 102 18 174/110 97 04/18/16 04:06 37.5 115 24 161/129 04/18/16 04:00 Room Air Physical Exam: General- awake, not in distress, non verbal, no accessory muscle use Head- atraumatic Eyes- right: irregularly shaped pupil, no pupillary reflex noted appears to have full EOMS Neck- no JVD Lungs- clear breath sounds bilaterally, no rales/wheeze Heart- normal rate, regular rhythm; no murmurs Abdomen- normal bowel sounds, soft, nontender Extremities- no pretibial edema, no calf tenderness; peripheral pulses intact Neuro- alert, non verbal; hallow nasolabial fold right motor strength: right- minimal withdrawal to pain, left: 5/5 Skin- warm & dry Laboratory Results: Last 24 Hours Test 04/18/16 05:30 White Blood Count 6.12 K/uL Red Blood Count 4.47 M/uL Hemoglobin 14.0 g/dL Hematocrit 40.7 % Mean Corpuscular Volume 91.1 fL Mean Corpuscular Hemoglobin 31.3 pg Mean Corpuscular Hemoglobin Concent 34.4 g/dl Platelet Count 224 K/uL Mean Platelet Volume 11.7 fL Neutrophils (%) (Auto) 72.4 % Lymphocytes (%) (Auto) 15.5 % Monocytes (%) (Auto) 11.9 % Eosinophils (%) (Auto) 0.0 % Basophils (%) (Auto) 0.0 % Neutrophils # (Auto) 4.43 K/uL Lymphocytes # (Auto) 0.95 K/uL Monocytes # (Auto) 0.73 K/uL Eosinophils # (Auto) 0.00 K/uL Basophils # (Auto) 0.00 K/uL RDW Standard Deviation 43.7 fL RDW Coefficient of Variation 13.1 % Immature Granulocyte % (Auto) 0.2 % Immature Granulocyte # (Auto) 0.01 K/uL Sodium Level 143 mmol/L Potassium Level 3.8 mmol/L Chloride Level 112 mmol/L Carbon Dioxide Level 23 mmol/L Anion Gap 8.0 mmol/L Blood Urea Nitrogen 4 mg/dl Creatinine 0.66 mg/dl Est Creatinine Clear Calc Drug Dose 80.6 ml/min Estimated GFR () 122.8 Estimated GFR (Non- 105.9 BUN/Creatinine Ratio 6.5 Random Glucose 111 mg/dl Calcium Level 7.4 mg/dl Assessment & Plan 45 year old female with history of mental retardation, hypertension presenting with right sided weakness noted since yesterday morning. ACUTE CVA- MULTIPLE INFARCTS WITH L MCA DISTRIBUTION, LEFT FRONTAL, PARIETAL, OCCIPITAL LOBES L ICA OCCLUSION - confirmed by Brain MRI and Head MRA, associated with surrounding edema Echo: * There is moderate concentric left ventricular hypertrophy. * Ejection Fraction = 60-65%. * Grade I diastolic dysfunction, (abnormal relaxation pattern). * The right ventricular systolic function is normal. * Grossly normal valvular structure and function. * Imaging is limited so no bubble study was completed. hypercoag work up: pending - CT angio: IMPRESSION: 1. Evolving left frontoparietal and left basal ganglia infarcts as above. No hemorrhage is identified and there is no midline shift. 2. 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 3. There is reconstitution distally within the left middle cerebral artery. 4. The right middle cerebral artery, the anterior cerebral arteries, and the vertebrobasilar system are widely patent. See above discussion. 5. 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 6. The carotid arteries and vertebral arteries in the neck are widely patent. - discussed with Neuro and Cardiology- appreciate the recommendations continue Aspirin, Plavix, Statin--> only on Aspirin IN as patient cannot tolerate PO intake yet hold therapeutic anticoagulation at this time per Neurology - BP systolic 160s maintain BP on the higher side Hydralazine PRN for systolic bp > 180 Heparin TID for DVT prophylaxis - repeat Speech, PT/OT eval today DYSPHAGIA - repeat Speech Eval today - if still unsuccessful, will need NG tube for meds and nutrition possible GI consult for PEG tube placement - discussed with mother (POA), and she is agreeable with NG tube and peg if indicated HYPERTENSION - hold Losartan to prevent hypotension, post stroke - maintain BP on the higher side Hydralazine PRN for systolic bp > 180 BRADYCARDIA EPISODE - now resolved - TSH normal - no recurrence SEVERE MENTAL RETARDATION - continue Klonopin, citalopram, and oxcarbazepine DVT PROPHYLAXIS - heparin q8h DISPO pending will need transitioning to Rehab or SNF Current Inpatient Medications: Current Inpatient Medications Medications (Trade) Dose Ordered Sig/[place] Route Start Time Stop Time Status Last Admin Dose Admin Acetaminophen (Tylenol Tab) 650 mg Q4H PRN PO 04/15/16 20:45 05/15/16 20:44 Ondansetron HCl (Zofran Inj) 4 mg Q6H PRN IV 04/15/16 20:45 05/15/16 20:44 04/16/16 13:09 4 MG Citalopram Hydrobromide (celeXA TAB) 40 mg HS PO 04/15/16 21:00 05/15/16 20:59 Multivitamins (Multivitamin Tab) 1 tab DAILY PO 04/16/16 09:00 05/16/16 08:59 Oxcarbazepine (Trileptal Tab) 600 mg BID PO 04/15/16 21:00 05/15/16 20:59 Gadopentetate Dimeglumine (Magnevist) 20 ml UD PRN IV 04/16/16 01:00 04/20/16 00:59 Atorvastatin Calcium (Lipitor Tab) 80 mg QAM PO 04/17/16 09:00 05/17/16 08:59 Atropine Sulfate (Atropine Sulfate) 0.5 mg UD PRN IV 04/16/16 08:00 05/16/16 07:59 Miscellaneous Information 1 ea 1 ea UD PRN N/A 04/16/16 08:45 05/16/16 08:44 Potassium Chloride/Dextrose/ Sod Cl (D5nss + 20meq KCl) 1,000 ml @ 60 mls/hr [id number] IV 04/16/16 09:15 05/16/16 08:44 04/17/16 20:08 60 MLS/HR Aspirin (Aspirin Supp) 75 mg DAILY IN 04/16/16 10:00 05/16/16 09:59 04/18/16 09:02 75 MG Clopidogrel Bisulfate (plAVix TAB) 75 mg QAM PO 04/17/16 09:00 05/17/16 08:59 Hydralazine HCl (HydrALAZINE INJ) 10 mg Q6H PRN IV. 04/16/16 18:45 05/16/16 18:44 04/17/16 23:30 10 MG Ioversol (Optiray 320) 100 ml UD PRN IV 04/17/16 08:15 04/21/16 08:14 Heparin Sodium (Porcine) (Heparin Sq 5000 Unit/0.5ml) 5,000 unit Q8 SQ 04/17/16 14:00 05/17/16 13:59 04/18/16 06:31 5,000 UNIT Lorazepam (Ativan Inj) 0.5 mg Q12H IV 04/17/16 21:00 05/17/16 20:59 04/17/16 21:11 0.5 MG
--- NOTE | 2016-04-18 13:31 | Progress Note ---
Progress Note Ms. Macario was seen and evaluated at 14:00. Her past medical history is significant for congenital rubella, left hip fracture (never fully recovered, patient is unable to ambulate due to foot drop and typically is in her wheelchair), osteoporosis and HTN, MR, She is legally blind, deaf and is nonverbal. Her mother is at bedside today and reports that she believes that Adelina is at her baseline cognition. She presented to the ED with right sided weakness with multiple left ICA infarcts. She had a NG tube placed for medications and nutrition. During the time I was present in the room, Ms. Macario had tried to remove the NG tube four times. This would put her at high-risk of dislodging a PEG tube. Risks/benefits of PEG tube were discussed with Ms. Macario' s mother, as well as quality of life. She would like to allow her daughter to recover a little longer before deciding how to proceed. Official consult to follow if warranted. We will evaluate Ms. Macario on Thursday. Please call with any questions or concerns.
--- NOTE | 2016-04-18 14:16 | PROGRESS NOTE ---
DATE: 04/18/2016 SUBJECTIVE: I saw Adelina today, reviewed the previous notes by Opal James and Barbi Larson and note that patient is beginning to have a little more tone in the right upper extremity and right lower extremity. Unfortunately, this occurs in a patient who is deaf, legally blind, has no baseline speech and has roving eye movements at baseline. Now her new deficits are her right central facial weakness, increased tone in the right arm and right leg with some close to antigravity function plus in both arms improved from yesterday and occurring in the setting of a left MCA distribution CVA due to high internal carotid artery occlusion. She has a history of self-injurious behavior and possibly responded to a number of medications that currently are being administered by NG tube, but there is also an issue with feeding and at this point she is meeting with the GI service regarding a possible PEG tube and I tend to agree that this would be a good choice for both food administration and medications on a regular basis. Currently, we are just going to add aspirin and Plavix for 3 months, she is not felt to be a Coumadin candidate, cardiology has seen her and has various reasons not to get her an aggressive workup at this point. For now, I am just going to see her on a daily basis. She may need a rehabilitation facility, but I think first the PEG tube issue needs to be addressed and hopefully her mother will consent to this. I will see her again tomorrow. CHUCK
[2016-04-18] MEDS: CITALOPRAM 40 MG TAB PO SCH (20:28)
[2016-04-18] MEDS: D5NSS + 20MEQ KCL 1,000 ML IV SCH (20:29)
[2016-04-18] MEDS: FIBERSOURCE HN 1000ML BAG GT SCH ×2 (21:59)
[2016-04-19] VITALS (13 sets, daily range): BP systolic 112–177; BP diastolic 60–127; PULSE 63–106; TEMP 36.7–37.5; O2SAT 92–97
[2016-04-19] MEDS: D5NSS + 20MEQ KCL 1,000 ML IV SCH ×2 (04:29→20:15)
[2016-04-19] MEDS: HEPARIN SOD 5000 UNIT/0.5 ML CARP SQ SCH ×3 (05:34→22:13)
[2016-04-19] MEDS: LORAZEPAM 2 MG/ML 1 ML VIAL IV SCH (09:00)
[2016-04-19] MEDS: CLOPIDOGREL BISULFATE 75 MG TAB PO SCH (09:01)
[2016-04-19] MEDS: ATORVASTATIN 40 MG TAB PO SCH (09:01)
[2016-04-19] MEDS: MULTIVITAMIN TAB PO SCH (09:01)
[2016-04-19] MEDS: OXCARBAZEPINE 150 MG TAB PO SCH ×2 (09:02→20:15)
[2016-04-19] MEDS: ASPIRIN 300 MG SUPP PR SCH (09:17)
--- NOTE | 2016-04-19 11:47 | PROGRESS NOTE ---
DATE: 04/19/2016 Adelina looks largely the same. Her mother was not in the room and only an aide was present. I reviewed the chart, it looks as though the mother is wanting to wait a few more days to see if Adelina will recover more function before going with a PEG tube. I certainly understand this. Right now there has been little change, the right leg will move in triple flexion response to noxious stimulation and the right arm does move against gravity but both are pretty hypertonic at this point. She still remains mute. There may be a slight head and eye deviation to the left and it is almost impossible to check visual billings even to threat. Sensory examination is obviously impossible as well. For now we are just going to continue dual antiplatelet therapy. I do not think we need to do any further aggressive diagnostic testing and will see what the policy is going to be regarding the PEG tube in the next few days. Will continue to follow along. CHUCK
[2016-04-19] MEDS ORDERED: DOCUSATE SODIUM/SENNA 50/8.6MG TAB PO ONE (13:15)
[2016-04-19] MEDS ORDERED: MAGNESIUM HYDROXIDE SUSP 30 ML UDC PO PRN (13:15)
--- NOTE | 2016-04-19 13:18 | Progress Note ---
Medicine Progress Note Date & Time of Visit: Apr 19, 2016 at 13:10. Subjective patient seen resting in bed somewhat drowsy tolerating ng tube so far tolerating tube feeding no BM for the past few days Objective Last 8 Hrs Date Time Temp Pulse Resp B/P Pulse Ox O2 Delivery O2 Flow Rate FiO2 04/19/16 12:00 140/62 04/19/16 11:27 37.0 98 22 95 Room Air 04/19/16 09:00 37.1 106 24 130/60 95 Room Air 04/19/16 08:00 95 Room Air Physical Exam: General- not in distress, non verbal, no accessory muscle use Head- atraumatic NG tube in place Eyes- right: irregularly shaped pupil, no pupillary reflex noted appears to have full EOMS Neck- no JVD Lungs- clear breath sounds bilaterally Heart- normal rate, regular rhythm; no murmurs Abdomen- normal bowel sounds, soft, nontender Extremities- no pretibial edema, no calf tenderness; peripheral pulses intact Neuro- non verbal; shallow nasolabial fold right motor strength: right- minimal withdrawal to pain, left: 5/5 Skin- warm & dry Laboratory Results: Last 24 Hours Test 04/19/16 00:14 04/19/16 06:55 04/19/16 11:33 Bedside Glucose 127 mg/dl 142 mg/dl 142 mg/dl Assessment & Plan 45 year old female with history of mental retardation, hypertension presenting with right sided weakness noted since yesterday morning. ACUTE CVA- MULTIPLE INFARCTS WITH L MCA DISTRIBUTION, LEFT FRONTAL, PARIETAL, OCCIPITAL LOBES L ICA OCCLUSION - confirmed by Brain MRI and Head MRA, associated with surrounding edema Echo: * There is moderate concentric left ventricular hypertrophy. * Ejection Fraction = 60-65%. * Grade I diastolic dysfunction, (abnormal relaxation pattern). * The right ventricular systolic function is normal. * Grossly normal valvular structure and function. * Imaging is limited so no bubble study was completed. hypercoag work up: pending - CT angio: IMPRESSION: 1. Evolving left frontoparietal and left basal ganglia infarcts as above. No hemorrhage is identified and there is no midline shift. 2. 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 3. There is reconstitution distally within the left middle cerebral artery. 4. The right middle cerebral artery, the anterior cerebral arteries, and the vertebrobasilar system are widely patent. See above discussion. 5. 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 6. The carotid arteries and vertebral arteries in the neck are widely patent. - discussed with Neuro and Cardiology- appreciate the recommendations continue Aspirin, Plavix, Statin--> only on Aspirin LA as patient cannot tolerate PO intake yet hold therapeutic anticoagulation at this time per Neurology maintain BP on the higher side Hydralazine PRN for systolic bp > 180 Heparin TID for DVT prophylaxis NG tube placed for nutrition and medications, Speech therapy still recommending NPO, re-eval on Thursday GI consulted for possible PEG tube placement if Speech Therapy recommends upon re-eval on Thursday DYSPHAGIA NG tube placed for nutrition and medications, Speech therapy still recommending NPO, re-eval on Thursday GI consulted for possible PEG tube placement if Speech Therapy recommends upon re-eval on Thursday HYPERTENSION - hold Losartan to prevent hypotension, post stroke - maintain BP on the higher side Hydralazine PRN for systolic bp > 180 CONSTIPATION Senokot S Milk of Mg BRADYCARDIA EPISODE - now resolved - TSH normal - no recurrence SEVERE MENTAL RETARDATION - continue Klonopin, citalopram, and oxcarbazepine DVT PROPHYLAXIS - heparin q8h DISPO pending will need transitioning to Rehab or SNF Current Inpatient Medications: Current Inpatient Medications Medications (Trade) Dose Ordered Sig/[place] Route Start Time Stop Time Status Last Admin Dose Admin Acetaminophen (Tylenol Tab) 650 mg Q4H PRN PO 04/15/16 20:45 05/15/16 20:44 Ondansetron HCl (Zofran Inj) 4 mg Q6H PRN IV 04/15/16 20:45 05/15/16 20:44 04/16/16 13:09 4 MG Citalopram Hydrobromide (celeXA TAB) 40 mg HS PO 04/15/16 21:00 05/15/16 20:59 04/18/16 20:28 40 MG Multivitamins (Multivitamin Tab) 1 tab DAILY PO 04/16/16 09:00 05/16/16 08:59 04/19/16 09:01 1 TAB Oxcarbazepine (Trileptal Tab) 600 mg BID PO 04/15/16 21:00 05/15/16 20:59 04/19/16 09:02 600 MG Gadopentetate Dimeglumine (Magnevist) 20 ml UD PRN IV 04/16/16 01:00 04/20/16 00:59 Atorvastatin Calcium (Lipitor Tab) 80 mg QAM PO 04/17/16 09:00 05/17/16 08:59 04/19/16 09:01 80 MG Atropine Sulfate (Atropine Sulfate) 0.5 mg UD PRN IV 04/16/16 08:00 05/16/16 07:59 Miscellaneous Information 1 ea 1 ea UD PRN N/A 04/16/16 08:45 05/16/16 08:44 Potassium Chloride/Dextrose/ Sod Cl (D5nss + 20meq KCl) 1,000 ml @ 60 mls/hr [id number] IV 04/16/16 09:15 05/16/16 08:44 04/19/16 04:29 60 MLS/HR Aspirin (Aspirin Supp) 75 mg DAILY LA 04/16/16 10:00 05/16/16 09:59 04/19/16 09:17 75 MG Clopidogrel Bisulfate (plAVix TAB) 75 mg QAM PO 04/17/16 09:00 05/17/16 08:59 04/19/16 09:01 75 MG Hydralazine HCl (HydrALAZINE INJ) 10 mg Q6H PRN IV. 04/16/16 18:45 05/16/16 18:44 04/17/16 23:30 10 MG Ioversol (Optiray 320) 100 ml UD PRN IV 04/17/16 08:15 04/21/16 08:14 Heparin Sodium (Porcine) (Heparin Sq 5000 Unit/0.5ml) 5,000 unit Q8 SQ 04/17/16 14:00 05/17/16 13:59 04/19/16 05:34 5,000 UNIT Lorazepam (Ativan Inj) 0.5 mg Q12H IV 04/17/16 21:00 05/17/16 20:59 04/19/16 09:00 0.5 MG Enteral Nutritional Formula (Fibersource HN) 1,000 ml UD GT 04/18/16 12:30 05/18/16 12:29 04/18/16 21:59 1,000 ML
[2016-04-19] MEDS: CLONAZEPAM 1 MG TAB PO SCH (20:15)
[2016-04-19] MEDS: CITALOPRAM 40 MG TAB PO SCH (20:15)
[2016-04-20 04:37] VITALS: BP 172/133; PULSE 103; TEMP 36.8; O2SAT 94
[2016-04-20] MEDS: HEPARIN SOD 5000 UNIT/0.5 ML CARP SQ SCH ×3 (05:20→20:29)
[2016-04-20 07:23] LABS: HEMATOCRIT 38.7 % (37-47); MEAN CELL VOLUME 91.5 fL (80-100); MEAN CORPUSCULAR HEMOGLOBIN 31.7 pg (25-34); MEAN CORPUSCULAR HGB CONC 34.6 g/dl (32-36); MEAN PLATELET VOLUME 11.6 fL (7.4-10.4); PLATELET COUNT 217 K/uL (130-400); RED BLOOD COUNT 4.23 M/uL (4.2-5.4); WHITE BLOOD COUNT 10.45 K/uL (4.8-10.8)
[2016-04-20] MEDS: CLOPIDOGREL BISULFATE 75 MG TAB PO SCH (07:36)
[2016-04-20] MEDS: ATORVASTATIN 40 MG TAB PO SCH (07:36)
[2016-04-20] MEDS: OXCARBAZEPINE 150 MG TAB PO SCH ×2 (07:36→20:28)
[2016-04-20] MEDS: MULTIVITAMIN TAB PO SCH (07:37)
[2016-04-20 08:06] LABS: BUN/CREATININE RATIO 13.5 (10-20); CALCIUM 8.2 mg/dl (8.5-10.1); CREATININE 0.55 mg/dl (0.60-1.20); MAGNESIUM 2.1 mg/dl (1.8-2.4); POTASSIUM 4.5 mmol/L (3.5-5.1)
[2016-04-20 08:43] VITALS: BP 184/121; PULSE 108; TEMP 37.5; O2SAT 96
[2016-04-20] MEDS: CLONAZEPAM 0.5 MG TAB PO SCH (08:51)
[2016-04-20] MEDS ORDERED: ASPIRIN 81 MG ECTAB PO SCH (09:00)
[2016-04-20] MEDS ORDERED: DOCUSATE SODIUM/SENNA 50/8.6MG TAB PO SCH (09:00)
--- NOTE | 2016-04-20 11:08 | PROGRESS NOTE ---
DATE: 04/20/2016 DATE: 04/20/2016. Adelina looks essentially the same as she did yesterday. She has a right hemiparesis. I can get her leg to move by stimulation of her toenails, but this looks like a triple flexion response more than volitional. The right arm is moving to some degree against gravity. She has a right upper motor neuron facial paresis and head and eye deviation is slightly to the left with an indeterminate field cut. Right now we are awaiting policy on PEG tube placement. The mother was not in today so I id not get a chance to discuss this with her. We will check back tomorrow and see how things are going, but I really feel this woman is going to need a PEG tube to prevent aspiration as much as we can and to administer some of her medications. Luckily so far there has not been any evidence for self-injurious behavior but in the past there has been and a number of medications were required to control this.
[2016-04-20 11:54] VITALS: BP 138/103; PULSE 110; TEMP 36.6; O2SAT 97
[2016-04-20] MEDS: D5NSS + 20MEQ KCL 1,000 ML IV SCH (13:15)
[2016-04-20 15:20] VITALS: BP 175/124; PULSE 101; TEMP 37.3; O2SAT 97
[2016-04-20] MEDS ORDERED: SODIUM CHLORIDE 0.9% 500ML 500 ML IV SCH (16:00)
--- NOTE | 2016-04-20 16:30 | Progress Note ---
Medicine Progress Note Date & Time of Visit: Apr 20, 2016 at 16:25. Subjective patient seen with mother Belkis at the bedside comfortable , sleeping mother noticed that patient seems to be more sleepy today no signs of discomfort/distress no other symptoms/signs Objective Last 8 Hrs Date Time Temp Pulse Resp B/P Pulse Ox O2 Delivery O2 Flow Rate FiO2 04/20/16 15:20 37.3 101 20 175/124 97 Room Air 04/20/16 12:00 Room Air 04/20/16 11:54 36.6 110 20 138/103 97 Room Air 04/20/16 08:43 37.5 108 21 184/121 96 Room Air Physical Exam: General- not in distress, drowsy, non verbal, no accessory muscle use Head- atraumatic NG tube in place Eyes- right: irregularly shaped pupil, no pupillary reflex noted appears to have full EOMS Neck- no JVD Lungs- clear breath sounds bilaterally, no rales/wheezes Heart- normal rate, regular rhythm; no murmurs Abdomen- normal bowel sounds, soft, nontender Extremities- no pretibial edema, no calf tenderness; peripheral pulses intact Neuro- non verbal; shallow nasolabial fold right motor strength: right- minimal withdrawal to pain, left: 5/5 Skin- warm & dry Laboratory Results: Last 24 Hours Test 04/19/16 17:47 04/20/16 00:09 04/20/16 06:11 04/20/16 06:56 Bedside Glucose 157 mg/dl 147 mg/dl 159 mg/dl White Blood Count 10.45 K/uL Red Blood Count 4.23 M/uL Hemoglobin 13.4 g/dL Hematocrit 38.7 % Mean Corpuscular Volume 91.5 fL Mean Corpuscular Hemoglobin 31.7 pg Mean Corpuscular Hemoglobin Concent 34.6 g/dl RDW Standard Deviation 43.3 fL RDW Coefficient of Variation 13.0 % Platelet Count 217 K/uL Mean Platelet Volume 11.6 fL Sodium Level 139 mmol/L Potassium Level 4.5 mmol/L Chloride Level 108 mmol/L Carbon Dioxide Level 23 mmol/L Anion Gap 8.0 mmol/L Blood Urea Nitrogen 7 mg/dl Creatinine 0.55 mg/dl Est Creatinine Clear Calc Drug Dose 96.3 ml/min Estimated GFR () 130.4 Estimated GFR (Non- 112.5 BUN/Creatinine Ratio 13.5 Random Glucose 147 mg/dl Calcium Level 8.2 mg/dl Magnesium Level 2.1 mg/dl Assessment & Plan 45 year old female with history of mental retardation, hypertension presenting with right sided weakness noted since yesterday morning. ACUTE CVA- MULTIPLE INFARCTS WITH L MCA DISTRIBUTION, LEFT FRONTAL, PARIETAL, OCCIPITAL LOBES L ICA OCCLUSION - confirmed by Brain MRI and Head MRA, associated with surrounding edema Echo: * There is moderate concentric left ventricular hypertrophy. * Ejection Fraction = 60-65%. * Grade I diastolic dysfunction, (abnormal relaxation pattern). * The right ventricular systolic function is normal. * Grossly normal valvular structure and function. * Imaging is limited so no bubble study was completed. hypercoag work up: pending - CT angio: IMPRESSION: 1. Evolving left frontoparietal and left basal ganglia infarcts as above. No hemorrhage is identified and there is no midline shift. 2. 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 3. There is reconstitution distally within the left middle cerebral artery. 4. The right middle cerebral artery, the anterior cerebral arteries, and the vertebrobasilar system are widely patent. See above discussion. 5. 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 6. The carotid arteries and vertebral arteries in the neck are widely patent. - discussed with Neuro and Cardiology- appreciate the recommendations continue Aspirin, Plavix, Statin--> only on Aspirin [place] as patient cannot tolerate PO intake yet hold therapeutic anticoagulation at this time per Neurology maintain BP on the higher side Hydralazine PRN for systolic bp > 170 Heparin TID for DVT prophylaxis NG tube placed for nutrition and medications, Speech therapy still recommending NPO, re-eval on Thursday GI consulted for possible PEG tube placement if Speech Therapy recommends upon re-eval on Thursday Tolerating Tube feeding -- drowsy today will repeat CT head DYSPHAGIA NG tube placed for nutrition and medications, Speech therapy still recommending NPO, re-eval on Thursday GI consulted for possible PEG tube placement if Speech Therapy recommends upon re-eval on Thursday Tolerating Tube feeding HYPERTENSION - hold Losartan to prevent hypotension, post stroke - maintain BP on the higher side Hydralazine PRN for systolic bp > 170 MILD TACHYCARDIA IV fluids bolus monitor CONSTIPATION Senokot S Milk of Mg BRADYCARDIA EPISODE - now resolved - TSH normal - no recurrence SEVERE MENTAL RETARDATION - continue Klonopin, citalopram, and oxcarbazepine DVT PROPHYLAXIS - heparin q8h DISPO pending will need transitioning to Rehab or SNF Current Inpatient Medications: Current Inpatient Medications Medications (Trade) Dose Ordered Sig/[place] Route Start Time Stop Time Status Last Admin Dose Admin Acetaminophen (Tylenol Tab) 650 mg Q4H PRN PO 04/15/16 20:45 05/15/16 20:44 Ondansetron HCl (Zofran Inj) 4 mg Q6H PRN IV 04/15/16 20:45 05/15/16 20:44 04/16/16 13:09 4 MG Citalopram Hydrobromide (celeXA TAB) 40 mg HS PO 04/15/16 21:00 05/15/16 20:59 04/19/16 20:15 40 MG Multivitamins (Multivitamin Tab) 1 tab DAILY PO 04/16/16 09:00 05/16/16 08:59 04/20/16 07:37 1 TAB Oxcarbazepine (Trileptal Tab) 600 mg BID PO 04/15/16 21:00 05/15/16 20:59 04/20/16 07:36 600 MG Atorvastatin Calcium (Lipitor Tab) 80 mg QAM PO 04/17/16 09:00 05/17/16 08:59 04/20/16 07:36 80 MG Atropine Sulfate (Atropine Sulfate) 0.5 mg UD PRN IV 04/16/16 08:00 05/16/16 07:59 Miscellaneous Information 1 ea 1 ea UD PRN N/A 04/16/16 08:45 05/16/16 08:44 Potassium Chloride/Dextrose/ Sod Cl (D5nss + 20meq KCl) 1,000 ml @ 60 mls/hr [id number] IV 04/16/16 09:15 05/16/16 08:44 04/19/16 20:15 60 MLS/HR Clopidogrel Bisulfate (plAVix TAB) 75 mg QAM PO 04/17/16 09:00 05/17/16 08:59 04/20/16 07:36 75 MG Hydralazine HCl (HydrALAZINE INJ) 10 mg Q6H PRN IV. 04/16/16 18:45 3/21/17 18:44 04/17/16 23:30 10 MG Ioversol (Optiray 320) 100 ml UD PRN IV 04/17/16 08:15 04/21/16 08:14 Heparin Sodium (Porcine) (Heparin Sq 5000 Unit/0.5ml) 5,000 unit Q8 SQ 04/17/16 14:00 05/17/16 13:59 04/20/16 05:20 5,000 UNIT Enteral Nutritional Formula (Fibersource HN) 1,000 ml UD GT 04/18/16 12:30 05/18/16 12:29 04/18/16 21:59 1,000 ML Clonazepam (Klonopin Tab) 0.5 mg QAM PO 04/20/16 09:00 05/20/16 08:59 04/20/16 08:51 0.5 MG Clonazepam (Klonopin Tab) 1 mg HS PO 04/19/16 21:00 05/19/16 20:59 04/19/16 20:15 1 MG Aspirin (Ecotrin Tab) 81 mg DAILY PO 04/20/16 09:00 05/20/16 08:59 04/20/16 07:36 81 MG Senna/Docusate Sodium (Senokot S Tab) 1 tab QAM PO 04/20/16 09:00 05/20/16 08:59 04/20/16 07:36 1 TAB Magnesium Hydroxide 30 ml 30 ml Q6H PRN PO 04/19/16 13:15 05/19/16 13:14 04/19/16 13:46 30 ML Sodium Chloride (Nss 500ml) 500 ml @ 999 mls/hr Q31M IV 04/20/16 16:00 04/20/16 16:30
--- NOTE | 2016-04-20 17:24 | DIAGNOSTIC IMAGING REPORT ---
HEAD CT NONCONTRAST CT DOSE: 537.48 mGy.cm HISTORY: Stroke cava, follow up TECHNIQUE: Multiaxial CT images of the head were performed without the use of intravenous contrast. Comparison: 04/17/2016. 04/16 and 04/15/2016 Findings: The paranasal sinuses and mastoid air cells are clear. Findings of progressive evolution of the patient's left cerebral infarct. As improved in definition although overall extent is most likely unchanged. There is slight effacement of the left cerebral sulci as compared to the right. There is now 4 mm midline shift to the right. Ventricular system remains slightly prominent. There is no evidence for acute intracranial hemorrhage. Impression: 1. Continued normal evolutionary change of the large left cerebral infarct. 2. No evidence for acute intracranial hemorrhage. 3. Slight increase in left cerebral edema with mild midline shift to the right of 4 mm Electronically signed by: Dillan Garcia M.D. 04/20/2016 5:23 PM Dictated Date/Time: 04/20/2016 5:20 PM
[2016-04-20 18:33] LABS: ANTITHROMBINIII ACTIVITY** 80 % activity (80-120); B2 GLYCOPROTEIN IGA <9 SAU (<=20); B2 GLYCOPROTEIN IGG <9 SGU (<=20); B2 GLYCOPROTEIN IGM <9 SMU (<=20); LUPUS ANTICOAGULANT** TC36573X Negative (Negative); PROTEIN C ACTIVITY** TC 1777X 120 % (70-180); PROTEIN S ACT(FUNCT)**1779X 76 % (60-140)
[2016-04-20 19:35] VITALS: BP 154/117; PULSE 115; TEMP 37.3; O2SAT 97
[2016-04-20] MEDS: CITALOPRAM 40 MG TAB PO SCH (20:27)
[2016-04-20] MEDS: CLONAZEPAM 1 MG TAB PO SCH (20:31)
[2016-04-20 23:38] VITALS: BP 151/104; PULSE 104; TEMP 37.3; O2SAT 97
[2016-04-21] VITALS (9 sets, daily range): BP systolic 109–179; BP diastolic 70–98; PULSE 90–119; TEMP 35.9–38.7; O2SAT 95–98
[2016-04-21 06:02] LABS: CALCIUM 8.2 mg/dl (8.5-10.1); CREATININE 0.53 mg/dl (0.60-1.20); MAGNESIUM 1.9 mg/dl (1.8-2.4); POTASSIUM 4.6 mmol/L (3.5-5.1)
[2016-04-21] MEDS: HEPARIN SOD 5000 UNIT/0.5 ML CARP SQ SCH ×3 (06:06→21:36)
[2016-04-21] MEDS: D5NSS + 20MEQ KCL 1,000 ML IV SCH ×2 (06:07→21:43)
[2016-04-21] MEDS: SENNA 8.8 MG/5 ML UDP PO SCH (07:59)
[2016-04-21] MEDS: ASPIRIN 81 MG CHEW PO SCH (07:59)
[2016-04-21] MEDS: CLOPIDOGREL BISULFATE 75 MG TAB PO SCH (08:00)
[2016-04-21] MEDS: OXCARBAZEPINE 150 MG TAB PO SCH ×2 (08:00→21:26)
[2016-04-21] MEDS: DOCUSATE SODIUM 100 MG/10 ML UDC PO SCH (08:00)
[2016-04-21] MEDS: ATORVASTATIN 40 MG TAB PO SCH (08:00)
[2016-04-21] MEDS: CLONAZEPAM 0.5 MG TAB PO SCH (08:00)
[2016-04-21] MEDS: HydrALAZINE HCL 20 MG/ML VIAL IV. PRN (08:01)
[2016-04-21 08:34] LABS: BASO % 0.2 %; BASO ABS # 0.02 K/uL (0-0.2); COMPLETE YES; HEMATOCRIT 36.5 % (37-47); IG% 0.5 %; LYMPH % 11.2 %; LYMPH ABS # 1.16 K/uL (1.2-3.4); MEAN CELL VOLUME 89.2 fL (80-100); MEAN CORPUSCULAR HEMOGLOBIN 31.1 pg (25-34); MEAN CORPUSCULAR HGB CONC 34.8 g/dl (32-36); MEAN PLATELET VOLUME 11.3 fL (7.4-10.4); MONO % 8.8 %; NEUT % 77.3 %; PLATELET COUNT 224 K/uL (130-400); RED BLOOD COUNT 4.09 M/uL (4.2-5.4); WHITE BLOOD COUNT 10.39 K/uL (4.8-10.8)
[2016-04-21] MEDS ORDERED: SENNA 8.8 MG/5 ML UDP PO SCH (09:00)
[2016-04-21] MEDS ORDERED: DOCUSATE SODIUM 100 MG/10 ML UDC PO SCH (09:00)
[2016-04-21] MEDS: MULTIVITAMINS W/MINERALS 15ML UDP PO SCH (10:00)
--- NOTE | 2016-04-21 10:05 | DIAGNOSTIC IMAGING REPORT ---
CHEST ONE VIEW PORTABLE CLINICAL HISTORY: Fever. Altered mental status. COMPARISON STUDY: No previous studies for comparison. FINDINGS: The tip of the nasogastric tube is within the distal body of the stomach. There is no pneumothorax. There is no evidence of pulmonary edema. No consolidation is identified. IMPRESSION: No acute cardiopulmonary findings. Electronically signed by: Celestine Mesa M.D. 04/21/2016 10:04 AM Dictated Date/Time: 04/21/2016 10:01 AM
[2016-04-21 11:53] LABS: URINE APPEARANCE CLEAR (CLEAR); URINE BILIRUBIN NEG (NEG); URINE COLOR YELLOW; URINE NITRITE POS (NEG); URINE PH 7.5 (4.5-7.5); URINE SPECIFIC GRAVITY 1.017 (1.000-1.030); UROBILINOGEN NEG (NEG)
[2016-04-21 12:06] LABS: MANUAL MICROSCOPIC REQUIRED? NO; REVIEW REQ? YES; SULFASALICYLIC ACID POS (NEG)
[2016-04-21 12:09] LABS: URINE PATH CASTS 0-3 GRANULAR CASTS /lpf (0)
--- NOTE | 2016-04-21 14:43 | Neurology Progress Notes ---
Neurology Progress Note Date of Service Apr 21, 2016. Subjective Johnathan is a 45 year old male who is legally blind, deaf, does not speak, has congenital rubella, MR presents to the ER with right sided weakness. Her mom states she came home from [facility] today and was unable to help with ambulation into the house. She had alot of difficulty getting out of the wheelchair from the van and ambulating into the house. She called EMS and she was transported to the ED. In the ED a Head CT was negative for acute findings. Her mom states at baseline she is legally blind, deaf, walks with a mofit boot on the left due to foot drop after falling and breaking her hip. She was no aspirin prior to the stroke and their is no family history known for coagulation issues. no recent falls. Today mom is in the room and states she knows the GI doctor will be by for consent for the G tube. discussed very important for nutrition and making sure she gets the medications she needs. She does understand. Objective Date Time Temp Pulse Resp B/P Pulse Ox O2 Delivery O2 Flow Rate FiO2 04/21/16 12:00 Room Air 04/21/16 11:17 37.1 108 20 138/75 96 Room Air 04/21/16 08:16 119 128/86 04/21/16 08:00 Room Air 04/21/16 06:39 37.6 96 20 179/97 95 04/21/16 04:00 Room Air 04/21/16 03:32 37.7 96 20 162/92 95 Room Air 04/20/16 23:59 Room Air 04/20/16 23:38 37.3 104 20 151/104 97 04/20/16 20:00 Room Air 04/20/16 19:35 37.3 115 25 154/117 97 Room Air 04/20/16 16:00 Room Air 04/20/16 15:20 37.3 101 20 175/124 97 Room Air Last 24 Hours Test 04/20/16 18:17 04/21/16 05:17 04/21/16 10:20 Bedside Glucose 137 mg/dl White Blood Count 10.39 K/uL Red Blood Count 4.09 M/uL Hemoglobin 12.7 g/dL Hematocrit 36.5 % Mean Corpuscular Volume 89.2 fL Mean Corpuscular Hemoglobin 31.1 pg Mean Corpuscular Hemoglobin Concent 34.8 g/dl Platelet Count 224 K/uL Mean Platelet Volume 11.3 fL Neutrophils (%) (Auto) 77.3 % Lymphocytes (%) (Auto) 11.2 % Monocytes (%) (Auto) 8.8 % Eosinophils (%) (Auto) 2.0 % Basophils (%) (Auto) 0.2 % Neutrophils # (Auto) 8.04 K/uL Lymphocytes # (Auto) 1.16 K/uL Monocytes # (Auto) 0.91 K/uL Eosinophils # (Auto) 0.21 K/uL Basophils # (Auto) 0.02 K/uL RDW Standard Deviation 41.5 fL RDW Coefficient of Variation 12.7 % Immature Granulocyte % (Auto) 0.5 % Immature Granulocyte # (Auto) 0.05 K/uL Sodium Level 141 mmol/L Potassium Level 4.6 mmol/L Chloride Level 107 mmol/L Carbon Dioxide Level 24 mmol/L Anion Gap 10.0 mmol/L Blood Urea Nitrogen 7 mg/dl Creatinine 0.53 mg/dl Est Creatinine Clear Calc Drug Dose 100.0 ml/min Estimated GFR () 132.0 Estimated GFR (Non- 113.9 BUN/Creatinine Ratio 14.0 Random Glucose 125 mg/dl Calcium Level 8.2 mg/dl Magnesium Level 1.9 mg/dl Urine Color YELLOW Urine Appearance CLEAR Urine pH 7.5 Urine Specific [place] 1.017 Urine Protein 1+ Urine Glucose (UA) NEG Urine Ketones NEG Urine Occult Blood 1+ Urine Nitrite POS Urine Bilirubin NEG Urine Urobilinogen NEG Urine Leukocyte Esterase SMALL Urine WBC (Auto) >30 /hpf Urine RBC (Auto) 10-30 /hpf Urine Hyaline Casts (Auto) 10-30 /lpf Urine Epithelial Cells (Auto) 5-10 /lpf Urine Bacteria (Auto) 4+ Urine Pathogenic Casts 0-3 GRANULAR CASTS /lpf Imaging: no new imaging Exam: Physical Exam: Constitutional: appearance no acute distress awake Ears, Nose, Mouth and Throat: mucous membranes moist, no injection and skin normal, eyes normal Cardiovascular: normal S-1 and S-2 and regular rate and rhythm Respiratory: clear to auscultation (CTA) and no rales, rhonchi or wheeze Musculoskeletal: no peripheral edema and good distal pulses Skin: no stigmata of neurocutaneous disease noted and normal and intact Eyes: blind roving eyes bilaterally NEUROLOGIC EXAMINATION: Mental status: Alert Cranial Nerves facial symmetry Reflexes: Deep tendon reflexes brisk. Plantar responses neutral Sensory: reacts to touch and vibration Gait/Stance: Posture lying in bed Strength: can not assess, right UE/LE moves with stimulation Current Inpatient Medications Medications (Trade) Dose Ordered Sig/[place] Route Start Time Stop Time Status Last Admin Dose Admin Acetaminophen (Tylenol Tab) 650 mg Q4H PRN PO 04/15/16 20:45 05/15/16 20:44 Ondansetron HCl (Zofran Inj) 4 mg Q6H PRN IV 04/15/16 20:45 05/15/16 20:44 04/16/16 13:09 4 MG Citalopram Hydrobromide (celeXA TAB) 40 mg HS PO 04/15/16 21:00 05/15/16 20:59 04/20/16 20:27 40 MG Oxcarbazepine (Trileptal Tab) 600 mg BID PO 04/15/16 21:00 05/15/16 20:59 04/21/16 08:00 600 MG Atorvastatin Calcium (Lipitor Tab) 80 mg QAM PO 04/17/16 09:00 05/17/16 08:59 04/21/16 08:00 80 MG Atropine Sulfate (Atropine Sulfate) 0.5 mg UD PRN IV 04/16/16 08:00 05/16/16 07:59 Miscellaneous Information 1 ea 1 ea UD PRN N/A 04/16/16 08:45 05/16/16 08:44 Potassium Chloride/Dextrose/ Sod Cl (D5nss + 20meq KCl) 1,000 ml @ 60 mls/hr [id number] IV 04/16/16 09:15 05/16/16 08:44 04/21/16 06:07 60 MLS/HR Clopidogrel Bisulfate (plAVix TAB) 75 mg QAM PO 04/17/16 09:00 05/17/16 08:59 04/21/16 08:00 75 MG Hydralazine HCl (HydrALAZINE INJ) 10 mg Q6H PRN IV. 04/16/16 18:45 05/20/16 18:44 04/21/16 08:01 10 MG Heparin Sodium (Porcine) (Heparin Sq 5000 Unit/0.5ml) 5,000 unit Q8 SQ 04/17/16 14:00 05/17/16 13:59 04/21/16 14:17 5,000 UNIT Enteral Nutritional Formula (Fibersource HN) 1,000 ml UD GT 04/18/16 12:30 05/18/16 12:29 04/18/16 21:59 1,000 ML Clonazepam (Klonopin Tab) 0.5 mg QAM PO 04/20/16 09:00 05/20/16 08:59 04/21/16 08:00 0.5 MG Clonazepam (Klonopin Tab) 1 mg HS PO 04/19/16 21:00 05/19/16 20:59 04/20/16 20:31 1 MG Magnesium Hydroxide (Milk Of Magnesia Susp) 30 ml Q6H PRN PO 04/19/16 13:15 05/19/16 13:14 04/19/16 13:46 30 ML Aspirin (Aspirin Chew) 81 mg DAILY PO 04/21/16 09:00 05/21/16 08:59 04/21/16 07:59 81 MG Multivitamins Therapeutic (Cerovite Liquid) 15 ml QAM PO 04/21/16 09:00 05/21/16 08:59 04/21/16 10:00 15 ML Docusate Sodium (coLACE SYRUP) 100 mg QAM PO 04/21/16 09:00 05/21/16 08:59 04/21/16 08:00 100 MG Senna (Senokot Syrup) 8.8 mg QAM PO 04/21/16 09:00 05/21/16 08:59 04/21/16 07:59 8.8 MG Impression 45 year old female s/p right sided weakness and multiple L ICA infarcts Plan 1. aspirin 81 mg and plavix 75 mg started will need dual therapy x 3 months and then monotherapy for life 2. MRI MRA s completed with multiple areas of stroke 3. continue HTN 4. lipitor for LDL < 70 5. not a good candidate for coumadin due to fall risk 6. hyper coag work up resulted appears negative 7. TTE and cardiology consult resulted 8. PT/OT and speech therapy for discharge needs 9. NGT in place with mom and told her it was temporary and she was more amendable to the tube- GI consulted plan to move forward with G tube 10. should substitute ativan for Klonopin which pharmacy recommended .[address] angio reviewed source of embolic stroke I have seen and discussed above patient with Dr Alonzo Mcgowan neurology As above the only urgency to the PEG from a neurology point of view is to administer meds but to date the prior seelf injurious behavior has not reappeared will follow will need placement in all likelihood capacityh to cooperate with rehab efforts will likley be suboptimal Alonzo Mcgowan MD
--- NOTE | 2016-04-21 15:19 | DIAGNOSTIC IMAGING REPORT ---
CHEST ONE VIEW PORTABLE CLINICAL HISTORY: Difficulty breathing. Possible aspiration. COMPARISON STUDY: 04/21/2016 FINDINGS: The heart remains borderline enlarged. There is no focal pulmonary consolidation. There is a nasogastric tube within the stomach. There is no failure. There are no pleural effusions. There is deformity of the left fifth rib which appears chronic.[ IMPRESSION: No active disease in the chest. Electronically signed by: Jamari Avelar M.D. 04/21/2016 3:18 PM Dictated Date/Time: 04/21/2016 3:17 PM
--- NOTE | 2016-04-21 15:19 | Progress Note ---
Progress Note I interviewed and examined pt, reviewed chart and labs. Pt with CVA, dysphagia, PEG tube. Pt is tolerating PEG tube well - by report, she has not pulled at tube, and is receiving tube feeds without difficulty. On exam, she is alert. Her abd is non tender and non distended. A/P: Dysphagia - I spoke to mother about PEG tube placement. Mother is reluctantly agreeable to PEG tube placement; however, she is only 5 days post presentation from her CVA. I would prefer to defer PEG tube for now, and use NGT, to see if there is truly a need for PEG tube placement, and also to decrease the risk of anesthesia related complications. Will re-eval later this week.
[2016-04-21] MEDS ORDERED: CIPROFLOXACIN / D5W 400 MG in PREMIXED IN D5W 200 ML IV ONE (21:01)
--- NOTE | 2016-04-21 21:10 | Progress Note ---
Medicine Progress Note Date & Time of Visit: Apr 21, 2016 at 21:06. Subjective seen earlier today, mother at bedside patient awakens to tactile stimuli, non verbal not in distress, appears comfortable tolerating tube feeding Objective Last 8 Hrs Date Time Temp Pulse Resp B/P Pulse Ox O2 Delivery O2 Flow Rate FiO2 04/21/16 20:00 Room Air 04/21/16 19:22 35.9 90 26 124/98 98 Room Air 04/21/16 16:00 Room Air 04/21/16 15:27 38.7 90 18 147/70 98 Nasal Cannula 2.0 Physical Exam: General- not in distress, drowsy, non verbal, no accessory muscle use Head- atraumatic NG tube in place Eyes- right: irregularly shaped pupil, no pupillary reflex noted appears to have full EOMS Neck- no JVD Lungs- clear breath sounds bilaterally, no rales/wheezes Heart- normal rate, regular rhythm; no murmurs Abdomen- normal bowel sounds, soft, nontender Extremities- no pretibial edema, no calf tenderness Neuro- non verbal; shallow nasolabial fold right motor strength: right- minimal withdrawal to pain, left: 5/5 Skin- warm & dry Laboratory Results: Last 24 Hours Test 04/21/16 05:17 04/21/16 10:20 04/21/16 18:20 White Blood Count 10.39 K/uL Red Blood Count 4.09 M/uL Hemoglobin 12.7 g/dL Hematocrit 36.5 % Mean Corpuscular Volume 89.2 fL Mean Corpuscular Hemoglobin 31.1 pg Mean Corpuscular Hemoglobin Concent 34.8 g/dl Platelet Count 224 K/uL Mean Platelet Volume 11.3 fL Neutrophils (%) (Auto) 77.3 % Lymphocytes (%) (Auto) 11.2 % Monocytes (%) (Auto) 8.8 % Eosinophils (%) (Auto) 2.0 % Basophils (%) (Auto) 0.2 % Neutrophils # (Auto) 8.04 K/uL Lymphocytes # (Auto) 1.16 K/uL Monocytes # (Auto) 0.91 K/uL Eosinophils # (Auto) 0.21 K/uL Basophils # (Auto) 0.02 K/uL RDW Standard Deviation 41.5 fL RDW Coefficient of Variation 12.7 % Immature Granulocyte % (Auto) 0.5 % Immature Granulocyte # (Auto) 0.05 K/uL Sodium Level 141 mmol/L Potassium Level 4.6 mmol/L Chloride Level 107 mmol/L Carbon Dioxide Level 24 mmol/L Anion Gap 10.0 mmol/L Blood Urea Nitrogen 7 mg/dl Creatinine 0.53 mg/dl Est Creatinine Clear Calc Drug Dose 100.0 ml/min Estimated GFR () 132.0 Estimated GFR (Non- 113.9 BUN/Creatinine Ratio 14.0 Random Glucose 125 mg/dl Calcium Level 8.2 mg/dl Magnesium Level 1.9 mg/dl Urine Color YELLOW Urine Appearance CLEAR Urine pH 7.5 Urine Specific [place] 1.017 Urine Protein 1+ Urine Glucose (UA) NEG Urine Ketones NEG Urine Occult Blood 1+ Urine Nitrite POS Urine Bilirubin NEG Urine Urobilinogen NEG Urine Leukocyte Esterase SMALL Urine WBC (Auto) >30 /hpf Urine RBC (Auto) 10-30 /hpf Urine Hyaline Casts (Auto) 10-30 /lpf Urine Epithelial Cells (Auto) 5-10 /lpf Urine Bacteria (Auto) 4+ Urine Pathogenic Casts 0-3 GRANULAR CASTS /lpf Bedside Glucose 147 mg/dl Date/Time Source Procedure Growth Status 04/21/16 09:10 Blood Blood Culture Pending Received 04/21/16 09:00 Blood Blood Culture Pending Received 04/21/16 10:20 Urine , Clean Catch Urine Culture Pending Received Assessment & Plan 45 year old female with history of mental retardation, hypertension presenting with right sided weakness noted since yesterday morning. ACUTE CVA- MULTIPLE INFARCTS WITH L MCA DISTRIBUTION, LEFT FRONTAL, PARIETAL, OCCIPITAL LOBES L ICA OCCLUSION - confirmed by Brain MRI and Head MRA, associated with surrounding edema Echo: * There is moderate concentric left ventricular hypertrophy. * Ejection Fraction = 60-65%. * Grade I diastolic dysfunction, (abnormal relaxation pattern). * The right ventricular systolic function is normal. * Grossly normal valvular structure and function. * Imaging is limited so no bubble study was completed. hypercoag work up: pending - CT angio: IMPRESSION: 1. Evolving left frontoparietal and left basal ganglia infarcts as above. No hemorrhage is identified and there is no midline shift. 2. 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 3. There is reconstitution distally within the left middle cerebral artery. 4. The right middle cerebral artery, the anterior cerebral arteries, and the vertebrobasilar system are widely patent. See above discussion. 5. 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 6. The carotid arteries and vertebral arteries in the neck are widely patent. - discussed with Neuro and Cardiology- appreciate the recommendations continue Aspirin, Plavix, Statin via NG tube - maintain BP on the higher side Hydralazine PRN for systolic bp > 170 Heparin TID for DVT prophylaxis - NG tube placed for nutrition and medications, Speech therapy still recommending NPO GI consulted for possible PEG tube placement-> hold off on PEG tube placement , continue Speech Tx eval daily Tolerating Tube feeding DYSPHAGIA - NG tube placed for nutrition and medications, Speech therapy re eval done today, still recommending NPO GI consulted for possible PEG tube placement-> hold off on PEG tube placement , continue Speech Tx eval daily Tolerating Tube feeding FEVER UA: possible UTI blood and urine cultures pending - allergic to Penicillin empiric Cipro IV ff up cultures HYPERTENSION - hold Losartan to prevent hypotension, post stroke - maintain BP on the higher side Hydralazine PRN for systolic bp > 170 MILD TACHYCARDIA IV fluids bolus given from underlying UTI? monitor CONSTIPATION Senokot S Milk of Mg BRADYCARDIA EPISODE - now resolved - TSH normal - no recurrence SEVERE MENTAL RETARDATION - continue Klonopin, citalopram, and oxcarbazepine DVT PROPHYLAXIS - heparin q8h DISPO pending will need transitioning to Rehab or SNF Current Inpatient Medications: Current Inpatient Medications Medications (Trade) Dose Ordered Sig/[place] Route Start Time Stop Time Status Last Admin Dose Admin Acetaminophen (Tylenol Tab) 650 mg Q4H PRN PO 04/15/16 20:45 05/15/16 20:44 Ondansetron HCl (Zofran Inj) 4 mg Q6H PRN IV 04/15/16 20:45 05/15/16 20:44 04/16/16 13:09 4 MG Citalopram Hydrobromide (celeXA TAB) 40 mg HS PO 04/15/16 21:00 05/15/16 20:59 04/20/16 20:27 40 MG Oxcarbazepine (Trileptal Tab) 600 mg BID PO 04/15/16 21:00 05/15/16 20:59 04/21/16 08:00 600 MG Atorvastatin Calcium (Lipitor Tab) 80 mg QAM PO 04/17/16 09:00 05/17/16 08:59 04/21/16 08:00 80 MG Atropine Sulfate (Atropine Sulfate) 0.5 mg UD PRN IV 04/16/16 08:00 05/16/16 07:59 Miscellaneous Information 1 ea 1 ea UD PRN N/A 04/16/16 08:45 05/16/16 08:44 Potassium Chloride/Dextrose/ Sod Cl (D5nss + 20meq KCl) 1,000 ml @ 60 mls/hr [id number] IV 04/16/16 09:15 05/16/16 08:44 04/21/16 06:07 60 MLS/HR Clopidogrel Bisulfate (plAVix TAB) 75 mg QAM PO 04/17/16 09:00 05/17/16 08:59 04/21/16 08:00 75 MG Hydralazine HCl (HydrALAZINE INJ) 10 mg Q6H PRN IV. 04/16/16 18:45 05/20/16 18:44 04/21/16 08:01 10 MG Heparin Sodium (Porcine) (Heparin Sq 5000 Unit/0.5ml) 5,000 unit Q8 SQ 04/17/16 14:00 05/17/16 13:59 04/21/16 14:17 5,000 UNIT Enteral Nutritional Formula (Fibersource HN) 1,000 ml UD GT 04/18/16 12:30 05/18/16 12:29 04/18/16 21:59 1,000 ML Clonazepam (Klonopin Tab) 0.5 mg QAM PO 04/20/16 09:00 05/20/16 08:59 04/21/16 08:00 0.5 MG Clonazepam (Klonopin Tab) 1 mg HS PO 04/19/16 21:00 05/19/16 20:59 04/20/16 20:31 1 MG Magnesium Hydroxide (Milk Of Magnesia Susp) 30 ml Q6H PRN PO 04/19/16 13:15 05/19/16 13:14 04/19/16 13:46 30 ML Aspirin (Aspirin Chew) 81 mg DAILY PO 04/21/16 09:00 05/21/16 08:59 04/21/16 07:59 81 MG Multivitamins Therapeutic (Cerovite Liquid) 15 ml QAM PO 04/21/16 09:00 05/21/16 08:59 04/21/16 10:00 15 ML Docusate Sodium (coLACE SYRUP) 100 mg QAM PO 04/21/16 09:00 05/21/16 08:59 04/21/16 08:00 100 MG Senna (Senokot Syrup) 8.8 mg QAM PO 04/21/16 09:00 05/21/16 08:59 04/21/16 07:59 8.8 MG
[2016-04-21] MEDS: CLONAZEPAM 1 MG TAB PO SCH (21:25)
[2016-04-21] MEDS: CITALOPRAM 40 MG TAB PO SCH (21:26)
[2016-04-22] VITALS (8 sets, daily range): BP systolic 115–133; BP diastolic 71–103; PULSE 93–104; TEMP 36.5–36.9; O2SAT 97–98
[2016-04-22] MEDS: HEPARIN SOD 5000 UNIT/0.5 ML CARP SQ SCH ×3 (05:06→22:05)
[2016-04-22] MEDS: CLONAZEPAM 0.5 MG TAB PO SCH (07:50)
[2016-04-22] MEDS: CIPROFLOXACIN / D5W 400 MG in PREMIXED IN D5W 200 ML IV SCH ×2 (07:51→22:05)
[2016-04-22] MEDS: MULTIVITAMINS W/MINERALS 15ML UDP PO SCH (07:51)
[2016-04-22] MEDS: SENNA 8.8 MG/5 ML UDP PO SCH (07:51)
[2016-04-22] MEDS: DOCUSATE SODIUM 100 MG/10 ML UDC PO SCH (07:51)
[2016-04-22] MEDS: ATORVASTATIN 40 MG TAB PO SCH (07:52)
[2016-04-22] MEDS: OXCARBAZEPINE 150 MG TAB PO SCH ×2 (07:52→21:39)
[2016-04-22] MEDS: ASPIRIN 81 MG CHEW PO SCH (07:52)
[2016-04-22] MEDS: CLOPIDOGREL BISULFATE 75 MG TAB PO SCH (07:52)
[2016-04-22 08:56] LABS: BUN/CREATININE RATIO 24.2 (10-20); CREATININE 0.53 mg/dl (0.60-1.20); MAGNESIUM 1.9 mg/dl (1.8-2.4); POTASSIUM 4.3 mmol/L (3.5-5.1)
--- NOTE | 2016-04-22 09:16 | Progress Note ---
Internal Med Progress Note Date of Service: Apr 22, 2016. Provider Documentation: SUBJECTIVE: The patient was seen and examined Non verbal Not in any distress No overnight events OBJECTIVE: Vital Signs-as noted below Exam: General-No distress at rest Eyes-normal ENT-normal Neck-Supple Lungs-Decreased breath sound bilaterally Heart-Regular 2/6 ESM Pulmonic area Abdomen-Benign Extremities-No edema Neuro-AA Nonverbal Lab data as noted below. ASSESSMENT & PLAN: ACUTE CVA-Likely Embolic MULTIPLE INFARCTS L MCA & L ICA DISTRIBUTION - Brain MRI and Head MRA, associated with surrounding edema Echo: * There is moderate concentric left ventricular hypertrophy. * Ejection Fraction = 60-65%. * Grade I diastolic dysfunction, (abnormal relaxation pattern). * The right ventricular systolic function is normal. * Grossly normal valvular structure and function. * Imaging is limited so no bubble study was completed. Hypercoagulable work up: pending - CT angio: IMPRESSION: 1. Evolving left frontoparietal and left basal ganglia infarcts as above. No hemorrhage is identified and there is no midline shift. 2. 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 3. There is reconstitution distally within the left middle cerebral artery. 4. The right middle cerebral artery, the anterior cerebral arteries, and the vertebrobasilar system are widely patent. See above discussion. 5. 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 6. The carotid arteries and vertebral arteries in the neck are widely patent. Appreciate Neurology input Continue Aspirin, Plavix, Statin via NG tube-Not a Coumadin candidate Maintain BP on the higher side Remains stable Can be transferred to CT BRADYCARDIA EPISODE Appreciate cardiology input Likely due to Neurogenic events Resolved now No further studies TSH normal Remains stable DYSPHAGIA/Nutrition - NG tube placed for nutrition and medications, Speech therapy re eval done today, still recommending NPO -GI consulted for possible PEG tube placement-> hold off on PEG tube placement, continue Speech Tx eval daily -Tolerating Tube feeding- May need PEG placement FEVER UA: possible UTI blood and urine cultures pending Has been on Cipro IV Await Sensitivity HYPERTENSION - hold Losartan to prevent hypotension, post stroke - maintain BP on the higher side Hydralazine PRN for systolic bp > 170 CONSTIPATION Senokot S Milk of Mg SEVERE MENTAL RETARDATION - continue Klonopin, citalopram, and oxcarbazepine Will need placement DVT PROPHYLAXIS - heparin q8h DISPO Will need transitioning to Rehab or SNF Vital Signs: Date Time Temp Pulse Resp B/P Pulse Ox O2 Delivery O2 Flow Rate FiO2 04/22/16 08:26 128/94 04/22/16 07:28 36.8 93 20 120/103 98 Room Air 04/22/16 04:00 97 Room Air 04/22/16 03:50 36.9 95 22 131/82 97 Room Air 04/21/16 23:59 95 Room Air 04/21/16 22:50 36.9 112 20 135/89 95 Room Air 04/21/16 20:00 Room Air 04/21/16 19:22 35.9 90 26 124/98 98 Room Air 04/21/16 16:00 Room Air 04/21/16 15:27 38.7 90 18 147/70 98 Nasal Cannula 2.0 04/21/16 12:00 Room Air 04/21/16 11:17 37.1 108 20 138/75 96 Room Air Lab Results: Results Past 24 Hours Test 04/21/16 10:20 04/21/16 18:20 04/22/16 08:20 Range/Units Urine Color YELLOW Urine Appearance CLEAR CLEAR Urine pH 7.5 4.5-7.5 Urine Specific [place] 1.017 1.000-1.030 Urine Protein 1+ NEG Urine Glucose (UA) NEG NEG Urine Ketones NEG NEG Urine Occult Blood 1+ NEG Urine Nitrite POS NEG Urine Bilirubin NEG NEG Urine Urobilinogen NEG NEG Urine Leukocyte Esterase SMALL NEG Urine WBC (Auto) >30 0-5 /hpf Urine RBC (Auto) 10-30 0-4 /hpf Urine Hyaline Casts (Auto) 10-30 0-5 /lpf Urine Epithelial Cells (Auto) 5-10 0-5 /lpf Urine Bacteria (Auto) 4+ NEG Urine Pathogenic Casts 0-3 GRANULAR CASTS 0 /lpf Bedside Glucose 147 70-90 mg/dl Sodium Level 142 136-145 mmol/L Potassium Level 4.3 3.5-5.1 mmol/L Chloride Level 107 98-107 mmol/L Carbon Dioxide Level 25 21-32 mmol/L Anion Gap 10.0 3-11 mmol/L Creatinine 0.53 0.60-1.20 mg/dl Est Creatinine Clear Calc Drug Dose 98.1 ml/min Estimated GFR () 132.0 Estimated GFR (Non- 113.9 BUN/Creatinine Ratio 24.2 10-20 Random Glucose 126 70-99 mg/dl Calcium Level 8.0 8.5-10.1 mg/dl Magnesium Level 1.9 1.8-2.4 mg/dl Microbiology Results 04/21/16 Blood Culture, Received Pending 04/21/16 Blood Culture, Received Pending 04/21/16 Urine Culture - Preliminary, Resulted Gram Negative Bacilli Gram Negative Bacilli#2
[2016-04-22] MEDS: FIBERSOURCE HN 1000ML BAG GT SCH ×2 (12:11)
--- NOTE | 2016-04-22 16:28 | PROGRESS NOTE ---
DATE: 04/22/2016 DATE: 04/22/2016. Adelina looks largely the same, perhaps there is a little more movement of the right arm and right facial paresis seems a little less. Right leg now moves again, but totally reflects away and she will not do it volitionally. Head and eye deviation is perhaps slightly less to the left. She is picking at her NG tube, but according to her mother who is at the bedside this is because she often plays games with adhesive tape and then Adelina picks it off her face, so this may simply be her playing a game. She is due apparently for a swallowing study coming up tomorrow I believe, which is a week into her stroke and if she fails this, she is going to really need some form of administrating nutrition and medications. I suppose we are going to wait to make the PEG tube decision for that study to be done. I will continue to check on her daily. MTDD
[2016-04-22] MEDS: D5NSS + 20MEQ KCL 1,000 ML IV SCH (17:22)
[2016-04-22] MEDS: CITALOPRAM 40 MG TAB PO SCH (22:05)
[2016-04-22] MEDS: CLONAZEPAM 1 MG TAB PO SCH (22:05)
[2016-04-23 00:25] VITALS: BP 136/82; PULSE 111; TEMP 37.3; O2SAT 97
[2016-04-23] MEDS: HEPARIN SOD 5000 UNIT/0.5 ML CARP SQ SCH ×3 (06:02→21:13)
[2016-04-23 07:32] LABS: MEAN CORPUSCULAR HEMOGLOBIN 30.8 pg (25-34); MEAN CORPUSCULAR HGB CONC 33.1 g/dl (32-36); MEAN PLATELET VOLUME 11.5 fL (7.4-10.4); PLATELET COUNT 222 K/uL (130-400); RED BLOOD COUNT 3.44 M/uL (4.2-5.4); WHITE BLOOD COUNT 6.74 K/uL (4.8-10.8)
[2016-04-23 07:44] VITALS: BP 140/83; PULSE 94; TEMP 37; O2SAT 98
[2016-04-23 07:54] LABS: BUN/CREATININE RATIO 23.6 (10-20); CREATININE 0.47 mg/dl (0.60-1.20); MAGNESIUM 1.9 mg/dl (1.8-2.4); POTASSIUM 4.1 mmol/L (3.5-5.1)
[2016-04-23] MEDS: OXCARBAZEPINE 150 MG TAB PO SCH ×2 (08:00→20:00)
[2016-04-23] MEDS: ATORVASTATIN 40 MG TAB PO SCH (08:00)
[2016-04-23] MEDS: SENNA 8.8 MG/5 ML UDP PO SCH (08:00)
[2016-04-23] MEDS: DOCUSATE SODIUM 100 MG/10 ML UDC PO SCH (08:00)
[2016-04-23] MEDS: ASPIRIN 81 MG CHEW PO SCH (08:00)
[2016-04-23] MEDS: MULTIVITAMINS W/MINERALS 15ML UDP PO SCH (08:00)
[2016-04-23] MEDS: CLOPIDOGREL BISULFATE 75 MG TAB PO SCH (08:00)
[2016-04-23] MEDS: CLONAZEPAM 0.5 MG TAB PO SCH (08:00)
[2016-04-23] MEDS: CIPROFLOXACIN / D5W 400 MG in PREMIXED IN D5W 200 ML IV SCH ×2 (08:22→21:06)
--- NOTE | 2016-04-23 12:13 | Progress Note ---
Progress Note Date of Service Apr 23, 2016. (Preethi Dykes CRNP) Progress Note GI was asked to see Ms. Macario today as NG tube was pulled. I was in contact with Ms. Macario's sister Cathy today. She is hesitant to proceed with a PEG tube and would like to further discuss this with her mother. Adelina pulled NG tube after one-to-one watch was removed. It was discussed that there needs to be some source of nutritional and medication in take. Cathy would like to discuss replacing NG tube with her mother as they decide how they want to proceed with PEG. As discussed earlier, increase risk of serious infection if PEG tube is removed prior to proper healing. Per conversation with SPRAYING MACHINE OPERATOR this morning, Adelina can swallow nectar thickened liquids without aspiration, however, she is refusing to swallow. GI will discuss case with sister and mother at rounds. See below for details regarding discussion that occurred during afternoon rounds with Dr. Landa. (Preethi Dykes CRNP) I have personally saw patient with NATHANIEL Rios. We had a lengthy discussion with patient's mother at bedside. Patient is able to eat thickened foods and liquids but has not be doing so. Given her chronic disabilities and psychiatric issues, it is difficult to know why. I do not think a PEG tube is the right thing to do currently and patient's mother does not want it anyway. I recommend that every effort by the staff and family (mother and sister) be made to help and encourage her to eat what is safe and to take her medications orally. This was carefully explained to patient (unclear if she can hear anything) and mother as well as speech therapy and nurse present. [place] Landa M.D. (Houston Landa MD)
--- NOTE | 2016-04-23 13:12 | Progress Note ---
Internal Med Progress Note Date of Service: Apr 23, 2016. Provider Documentation: SUBJECTIVE: The patient was seen and examined Non verbal Not in any distress Pulled out NGT OBJECTIVE: Vital Signs-as noted below Exam: General-No distress at rest Eyes-normal ENT-normal Neck-Supple Lungs-Decreased breath sound bilaterally Heart-Regular 2/6 ESM Pulmonic area Abdomen-Benign Extremities-No edema Neuro-AA Nonverbal Lab data as noted below. ASSESSMENT & PLAN: ACUTE CVA-Likely Embolic MULTIPLE INFARCTS L MCA & L ICA DISTRIBUTION - Brain MRI and Head MRA, associated with surrounding edema Echo: * There is moderate concentric left ventricular hypertrophy. * Ejection Fraction = 60-65%. * Grade I diastolic dysfunction, (abnormal relaxation pattern). * The right ventricular systolic function is normal. * Grossly normal valvular structure and function. * Imaging is limited so no bubble study was completed. Hypercoagulable work up: pending - CT angio: IMPRESSION: 1. Evolving left frontoparietal and left basal ganglia infarcts as above. No hemorrhage is identified and there is no midline shift. 2. 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 3. There is reconstitution distally within the left middle cerebral artery. 4. The right middle cerebral artery, the anterior cerebral arteries, and the vertebrobasilar system are widely patent. See above discussion. 5. 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 6. The carotid arteries and vertebral arteries in the neck are widely patent. Appreciate Neurology input Continue Aspirin, Plavix, Statin via NG tube-Not a Coumadin candidate Maintain BP on the higher side Remains stable Can be transferred to [place] No new events BRADYCARDIA EPISODE Appreciate cardiology input Likely due to Neurogenic events Resolved now No further studies TSH normal Remains stable DYSPHAGIA/Nutrition - NG tube placed for nutrition and medications, Speech therapy re eval done today, still recommending NPO -GI consulted for possible PEG tube placement-> hold off on PEG tube placement, continue Speech Tx eval daily -Tolerating Tube feeding- -Pulled out NGT-appreciate GI plan -reintroduce NGT today -Too early to put a PEG in now FEVER UA: possible UTI blood and urine cultures noted Has been on Cipro IV Continue Cipro for now HYPERTENSION - hold Losartan to prevent hypotension, post stroke - maintain BP on the higher side -Hydralazine PRN for systolic bp > 170 CONSTIPATION Senokot S Milk of Mg SEVERE MENTAL RETARDATION - continue Klonopin, citalopram, and oxcarbazepine Will need placement DVT PROPHYLAXIS - heparin q8h DISPO Will need transitioning to Rehab or SNF Discussed with the Mom in detailed Vital Signs: Date Time Temp Pulse Resp B/P Pulse Ox O2 Delivery O2 Flow Rate FiO2 04/23/16 08:00 Room Air 04/23/16 07:44 37.0 94 16 140/83 98 Room Air 04/23/16 00:25 37.3 111 16 136/82 97 Room Air 04/23/16 00:00 Room Air 04/22/16 16:02 98 Room Air 04/22/16 15:59 36.8 104 20 133/79 98 Room Air Lab Results: Results Past 24 Hours Test 04/22/16 19:06 04/23/16 06:08 Range/Units Bedside Glucose 127 70-90 mg/dl White Blood Count 6.74 4.8-10.8 K/uL Red Blood Count 3.44 4.2-5.4 M/uL Hemoglobin 10.6 12.0-16.0 g/dL Hematocrit 32.0 37-47 % Mean Corpuscular Volume 93.0 80-100 fL Mean Corpuscular Hemoglobin 30.8 25-34 pg Mean Corpuscular Hemoglobin Concent 33.1 32-36 g/dl RDW Standard Deviation 45.1 36.4-46.3 fL RDW Coefficient of Variation 13.2 11.5-14.5 % Platelet Count 222 130-400 K/uL Mean Platelet Volume 11.5 7.4-10.4 fL Sodium Level 141 136-145 mmol/L Potassium Level 4.1 3.5-5.1 mmol/L Chloride Level 108 98-107 mmol/L Carbon Dioxide Level 23 21-32 mmol/L Anion Gap 10.0 3-11 mmol/L Blood Urea Nitrogen 11 7-18 mg/dl Creatinine 0.47 0.60-1.20 mg/dl Est Creatinine Clear Calc Drug Dose 114.7 ml/min Estimated GFR () 137.3 Estimated GFR (Non- 118.5 BUN/Creatinine Ratio 23.6 10-20 Random Glucose 103 70-99 mg/dl Calcium Level 8.0 8.5-10.1 mg/dl Magnesium Level 1.9 1.8-2.4 mg/dl Chemistry Specimen Hemolysis
[2016-04-23 13:37] VITALS: BP 109/76; PULSE 87; TEMP 36.8; O2SAT 97
[2016-04-23] MEDS: D5NSS + 20MEQ KCL 1,000 ML IV SCH (13:50)
--- NOTE | 2016-04-23 15:28 | Neurology Progress Notes ---
Neurology Progress Note Date of Service Apr 23, 2016. Subjective Johnathan is a 45 year old male who is legally blind, deaf, does not speak, has congenital rubella, MR presents to the ER with right sided weakness. Her mom states she came home from [facility] today and was unable to help with ambulation into the house. She had alot of difficulty getting out of the wheelchair from the van and ambulating into the house. She called EMS and she was transported to the ED. In the ED a Head CT was negative for acute findings. Her mom states at baseline she is legally blind, deaf, walks with a mofit boot on the left due to foot drop after falling and breaking her hip. She was no aspirin prior to the stroke and their is no family history known for coagulation issues. no recent falls. Mom is in the room. Johnathan no longer has NGT which she pulled out herself. Mom states she didn't pass her repeat swallowing study that speech therapy are still recommending NPO. Objective Date Time Temp Pulse Resp B/P Pulse Ox O2 Delivery O2 Flow Rate FiO2 04/23/16 13:37 36.8 87 16 109/76 97 Room Air 04/23/16 08:40 Room Air 04/23/16 08:00 Room Air 04/23/16 07:44 37.0 94 16 140/83 98 Room Air 04/23/16 00:25 37.3 111 16 136/82 97 Room Air 04/23/16 00:00 Room Air 04/22/16 16:02 98 Room Air 04/22/16 15:59 36.8 104 20 133/79 98 Room Air Last 24 Hours Test 04/22/16 19:06 04/23/16 06:08 04/23/16 06:10 Bedside Glucose 127 mg/dl 107 mg/dl White Blood Count 6.74 K/uL Red Blood Count 3.44 M/uL Hemoglobin 10.6 g/dL Hematocrit 32.0 % Mean Corpuscular Volume 93.0 fL Mean Corpuscular Hemoglobin 30.8 pg Mean Corpuscular Hemoglobin Concent 33.1 g/dl RDW Standard Deviation 45.1 fL RDW Coefficient of Variation 13.2 % Platelet Count 222 K/uL Mean Platelet Volume 11.5 fL Sodium Level 141 mmol/L Potassium Level 4.1 mmol/L Chloride Level 108 mmol/L Carbon Dioxide Level 23 mmol/L Anion Gap 10.0 mmol/L Blood Urea Nitrogen 11 mg/dl Creatinine 0.47 mg/dl Est Creatinine Clear Calc Drug Dose 114.7 ml/min Estimated GFR () 137.3 Estimated GFR (Non- 118.5 BUN/Creatinine Ratio 23.6 Random Glucose 103 mg/dl Calcium Level 8.0 mg/dl Magnesium Level 1.9 mg/dl Chemistry Specimen Hemolysis Imaging: no new imaging Exam: Gen: alert lungs CTA, CV RRR eyes: roving does not focus right arm moves with stimulation, left moves spontaneously and grasps with hand right leg movement with stimulation, left spontaneous movement. Current Inpatient Medications Medications (Trade) Dose Ordered Sig/[place] Route Start Time Stop Time Status Last Admin Dose Admin Acetaminophen (Tylenol Tab) 650 mg Q4H PRN PO 04/15/16 20:45 05/15/16 20:44 Ondansetron HCl (Zofran Inj) 4 mg Q6H PRN IV 04/15/16 20:45 05/15/16 20:44 04/16/16 13:09 4 MG Citalopram Hydrobromide (celeXA TAB) 40 mg HS PO 04/15/16 21:00 05/15/16 20:59 04/22/16 22:05 40 MG Oxcarbazepine (Trileptal Tab) 600 mg BID PO 04/15/16 21:00 05/15/16 20:59 04/22/16 21:39 600 MG Atorvastatin Calcium (Lipitor Tab) 80 mg QAM PO 04/17/16 09:00 05/17/16 08:59 04/22/16 07:52 80 MG Atropine Sulfate (Atropine Sulfate) 0.5 mg UD PRN IV 04/16/16 08:00 05/16/16 07:59 Miscellaneous Information 1 ea 1 ea UD PRN N/A 04/16/16 08:45 05/16/16 08:44 Potassium Chloride/Dextrose/ Sod Cl (D5nss + 20meq KCl) 1,000 ml @ 60 mls/hr [id number] IV 04/16/16 09:15 05/16/16 08:44 04/23/16 13:50 60 MLS/HR Clopidogrel Bisulfate (plAVix TAB) 75 mg QAM PO 04/17/16 09:00 05/17/16 08:59 2/21/17 07:52 75 MG Hydralazine HCl (HydrALAZINE INJ) 10 mg Q6H PRN IV. 04/16/16 18:45 05/20/16 18:44 04/21/16 08:01 10 MG Heparin Sodium (Porcine) (Heparin Sq 5000 Unit/0.5ml) 5,000 unit Q8 SQ 04/17/16 14:00 05/17/16 13:59 04/23/16 13:51 5,000 UNIT Enteral Nutritional Formula (Fibersource HN) 1,000 ml UD GT 04/18/16 12:30 05/18/16 12:29 04/22/16 12:11 1,000 ML Clonazepam (Klonopin Tab) 0.5 mg QAM PO 04/20/16 09:00 05/20/16 08:59 04/22/16 07:50 0.5 MG Clonazepam (Klonopin Tab) 1 mg HS PO 04/19/16 21:00 05/19/16 20:59 04/22/16 22:05 1 MG Magnesium Hydroxide (Milk Of Magnesia Susp) 30 ml Q6H PRN PO 04/19/16 13:15 05/19/16 13:14 04/19/16 13:46 30 ML Aspirin (Aspirin Chew) 81 mg DAILY PO 04/21/16 09:00 05/21/16 08:59 04/22/16 07:52 81 MG Multivitamins Therapeutic (Cerovite Liquid) 15 ml QAM PO 04/21/16 09:00 05/21/16 08:59 04/22/16 07:51 15 ML Docusate Sodium (coLACE SYRUP) 100 mg QAM PO 04/21/16 09:00 05/21/16 08:59 04/22/16 07:51 100 MG Senna 8.8 mg 8.8 mg QAM PO 04/21/16 09:00 05/21/16 08:59 04/22/16 07:51 8.8 MG Ciprofloxacin/ Dextrose/Prmx (Cipro / D5w/ Premixed D5W) 200 ml @ 100 mls/hr Q12 IV 04/22/16 09:00 04/27/16 08:59 04/23/16 08:22 100 MLS/HR Impression 45 year old female s/p right sided weakness and multiple L ICA infarcts Plan 1. aspirin 81 mg and plavix 75 mg started will need dual therapy x 3 months and then monotherapy for life 2. MRI MRA s completed with multiple areas of stroke 3. continue control of HTN 4. lipitor for LDL < 70 5. not a good candidate for coumadin due to fall risk 6. hyper coag work up resulted appears negative 7. TTE and cardiology consult resulted 8. PT/OT and speech therapy for discharge needs- still unable to clear for feedings 9. NGT in place with mom and told her it was temporary and she was more amendable to the tube- GI consulted plan to move forward with G tube 10. should substitute ativan for Klonopin which pharmacy recommended .50 bid when unable to take klonopin 11. CT angio reviewed source of embolic stroke I have seen and discussed above patient with Dr Alonzo Mcgowan neurology [facility] and discussed with [facility] currently discussing options with mother and they will have to make the final call here From Neurology point of view needs the asa and plavix and may well need to cntinue meds to minimize self injury for an indefinite period Already the ng tube has been pulled and more behavior issues mahy emerge as she begins to clear up from the effects of the cva Alonzo Mcgowan MD
[2016-04-23 15:45] VITALS: O2SAT 97
[2016-04-23] MEDS ORDERED: FIBERSOURCE HN 1000ML BAG NG SCH ×2 (15:45)
[2016-04-23] MEDS: CLONAZEPAM 1 MG TAB PO SCH (21:00)
[2016-04-23] MEDS: CITALOPRAM 40 MG TAB PO SCH (21:00)
[2016-04-24] VITALS (8 sets, daily range): BP systolic 126–177; BP diastolic 79–100; PULSE 80–95; TEMP 37.1–37.7; O2SAT 96–100
[2016-04-24] MEDS: HydrALAZINE HCL 20 MG/ML VIAL IV. PRN (00:12)
[2016-04-24] MEDS: D5NSS + 20MEQ KCL 1,000 ML IV SCH ×2 (00:12→19:34)
[2016-04-24 06:28] LABS: BUN/CREATININE RATIO 18.2 (10-20); CREATININE 0.53 mg/dl (0.60-1.20); MAGNESIUM 1.9 mg/dl (1.8-2.4); POTASSIUM 4.1 mmol/L (3.5-5.1)
[2016-04-24] MEDS: HEPARIN SOD 5000 UNIT/0.5 ML CARP SQ SCH ×3 (06:40→22:00)
[2016-04-24] MEDS: OXCARBAZEPINE 150 MG TAB PO SCH ×2 (07:47→19:37)
[2016-04-24] MEDS: DOCUSATE SODIUM 100 MG/10 ML UDC PO SCH (07:48)
[2016-04-24] MEDS: SENNA 8.8 MG/5 ML UDP PO SCH (07:48)
[2016-04-24] MEDS: ATORVASTATIN 40 MG TAB PO SCH (07:48)
[2016-04-24] MEDS: CLOPIDOGREL BISULFATE 75 MG TAB PO SCH (07:48)
[2016-04-24] MEDS: MULTIVITAMINS W/MINERALS 15ML UDP PO SCH (07:49)
[2016-04-24] MEDS: CLONAZEPAM 0.5 MG TAB PO SCH (07:54)
[2016-04-24] MEDS: ASPIRIN 81 MG CHEW PO SCH (08:05)
[2016-04-24] MEDS: CIPROFLOXACIN / D5W 400 MG in PREMIXED IN D5W 200 ML IV SCH ×2 (09:55→21:58)
--- NOTE | 2016-04-24 11:42 | Progress Note ---
Progress Note Date of Service Apr 24, 2016. Progress Note Patient was seen and examined at 1100 on 04/24/16. No family at bedside. Adelina appeared more interactive, playing with two stuffed animals that were in her bed. Lungs diminished bilaterally but CTA, heart regular in rate and rhythm. BS x 4. Will re-assess during afternoon rounds and discuss NG/PEG if family is at bedside. Family was unsure of how they wanted to proceed during the family meeting yesterday. GI to sign off. Please call with any questions.
--- NOTE | 2016-04-24 14:30 | Progress Note ---
Internal Med Progress Note Date of Service: Apr 24, 2016. Provider Documentation: SUBJECTIVE: The patient was seen and examined Non verbal Not in any distress Clinically much better today Taking medications orally OBJECTIVE: Vital Signs-as noted below Exam: General-No distress at rest Eyes-normal ENT-normal Neck-Supple Lungs-Decreased breath sound bilaterally Heart-Regular 2/6 ESM Pulmonic area Abdomen-Benign Extremities-No edema Neuro-AA Nonverbal Lab data as noted below. ASSESSMENT & PLAN: ACUTE CVA-Likely Embolic MULTIPLE INFARCTS L MCA & L ICA DISTRIBUTION - Brain MRI and Head MRA, associated with surrounding edema Echo: * There is moderate concentric left ventricular hypertrophy. * Ejection Fraction = 60-65%. * Grade I diastolic dysfunction, (abnormal relaxation pattern). * The right ventricular systolic function is normal. * Grossly normal valvular structure and function. * Imaging is limited so no bubble study was completed. Hypercoagulable work up: pending - CT angio: IMPRESSION: 1. Evolving left frontoparietal and left basal ganglia infarcts as above. No hemorrhage is identified and there is no midline shift. 2. 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 3. There is reconstitution distally within the left middle cerebral artery. 4. The right middle cerebral artery, the anterior cerebral arteries, and the vertebrobasilar system are widely patent. See above discussion. 5. 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 6. The carotid arteries and vertebral arteries in the neck are widely patent. Appreciate Neurology input Continue Aspirin, Plavix, Statin via NG tube-Not a Coumadin candidate Maintain BP on the higher side Remains stable in Medical floor Taking medications orally BRADYCARDIA EPISODE Appreciate cardiology input Likely due to Neurogenic events Resolved now No further studies TSH normal Remains stable DYSPHAGIA/Nutrition - NG tube placed for nutrition and medications, Speech therapy re eval done today, still recommending NPO -GI consulted for possible PEG tube placement-> hold off on PEG tube placement, continue Speech Tx eval daily -Tolerating Tube feeding- -Pulled out NGT-appreciate GI plan -reintroduce NGT today -Too early to put a PEG in now -Family refusing NGT now -plan to continue oral feeding with caution FEVER-resolved UA: possible UTI blood and urine cultures noted Has been on Cipro IV Continue Cipro for now HYPERTENSION - hold Losartan to prevent hypotension, post stroke - maintain BP on the higher side -Hydralazine PRN for systolic bp > 170 CONSTIPATION Senokot S Milk of Mg SEVERE MENTAL RETARDATION - continue Klonopin, citalopram, and oxcarbazepine Will need placement DVT PROPHYLAXIS - heparin q8h DISPO Will need transitioning to Rehab or SNF Discussed with the Mom in detailed Vital Signs: Date Time Temp Pulse Resp B/P Pulse Ox O2 Delivery O2 Flow Rate FiO2 04/24/16 10:31 37.6 94 24 169/100 97 Room Air 04/24/16 08:54 Room Air 04/24/16 08:00 Room Air 04/24/16 07:48 37.7 85 20 159/85 97 Room Air 04/24/16 01:10 37.1 04/24/16 01:10 95 127/79 04/24/16 00:35 Room Air 04/24/16 00:15 37.6 90 20 98 Room Air 04/24/16 00:10 87 177/81 04/23/16 15:45 97 Room Air Lab Results: Results Past 24 Hours Test 04/24/16 05:23 Range/Units Sodium Level 139 136-145 mmol/L Potassium Level 4.1 3.5-5.1 mmol/L Chloride Level 106 98-107 mmol/L Carbon Dioxide Level 24 21-32 mmol/L Anion Gap 9.0 3-11 mmol/L Blood Urea Nitrogen 10 7-18 mg/dl Creatinine 0.53 0.60-1.20 mg/dl Est Creatinine Clear Calc Drug Dose 101.7 ml/min Estimated GFR () 132.0 Estimated GFR (Non- 113.9 BUN/Creatinine Ratio 18.2 10-20 Random Glucose 115 70-99 mg/dl Calcium Level 8.0 8.5-10.1 mg/dl Magnesium Level 1.9 1.8-2.4 mg/dl
--- NOTE | 2016-04-24 15:13 | Neurology Progress Notes ---
Neurology Progress Note Date of Service Apr 24, 2016. Subjective Johnathan is a 45 year old male who is legally blind, deaf, does not speak, has congenital rubella, MR presents to the ER with right sided weakness. Her mom states she came home from [employer] today and was unable to help with ambulation into the house. She had alot of difficulty getting out of the wheelchair from the van and ambulating into the house. She called EMS and she was transported to the ED. In the ED a Head CT was negative for acute findings. Her mom states at baseline she is legally blind, deaf, walks with a mofit boot on the left due to foot drop after falling and breaking her hip. She was no aspirin prior to the stroke and their is no family history known for coagulation issues. no recent falls. Mom is in room and states they got her to swallow this am. She is taking her pills orally and had peaches and oatmeal for breakfast this am. Mom is hopeful that she will get accepted at [facility] since that is where she went in the past. Objective Date Time Temp Pulse Resp B/P Pulse Ox O2 Delivery O2 Flow Rate FiO2 04/24/16 10:31 37.6 94 24 169/100 97 Room Air 04/24/16 08:54 Room Air 04/24/16 08:00 Room Air 04/24/16 07:48 37.7 85 20 159/85 97 Room Air 04/24/16 01:10 37.1 04/24/16 01:10 95 127/79 04/24/16 00:35 Room Air 04/24/16 00:15 37.6 90 20 98 Room Air 04/24/16 00:10 87 177/81 04/23/16 15:45 97 Room Air Last 24 Hours Test 04/24/16 05:23 Sodium Level 139 mmol/L Potassium Level 4.1 mmol/L Chloride Level 106 mmol/L Carbon Dioxide Level 24 mmol/L Anion Gap 9.0 mmol/L Blood Urea Nitrogen 10 mg/dl Creatinine 0.53 mg/dl Est Creatinine Clear Calc Drug Dose 101.7 ml/min Estimated GFR () 132.0 Estimated GFR (Non- 113.9 BUN/Creatinine Ratio 18.2 Random Glucose 115 mg/dl Calcium Level 8.0 mg/dl Magnesium Level 1.9 mg/dl Imaging: no new images Exam: gen: alert NAD eyes: roving does not focus lungs CTA CV RRR moves left arm spontaneously right arm only with stimulation moves left leg spontaneously Current Inpatient Medications Medications (Trade) Dose Ordered Sig/[place] Route Start Time Stop Time Status Last Admin Dose Admin Acetaminophen (Tylenol Tab) 650 mg Q4H PRN PO 04/15/16 20:45 05/15/16 20:44 Ondansetron HCl (Zofran Inj) 4 mg Q6H PRN IV 04/15/16 20:45 05/15/16 20:44 04/16/16 13:09 4 MG Citalopram Hydrobromide (celeXA TAB) 40 mg HS PO 04/15/16 21:00 05/15/16 20:59 04/22/16 22:05 40 MG Oxcarbazepine (Trileptal Tab) 600 mg BID PO 04/15/16 21:00 05/15/16 20:59 04/24/16 07:47 600 MG Atorvastatin Calcium (Lipitor Tab) 80 mg QAM PO 04/17/16 09:00 05/17/16 08:59 04/24/16 07:48 80 MG Atropine Sulfate (Atropine Sulfate) 0.5 mg UD PRN IV 04/16/16 08:00 05/16/16 07:59 Miscellaneous Information 1 ea 1 ea UD PRN N/A 04/16/16 08:45 05/16/16 08:44 Potassium Chloride/Dextrose/ Sod Cl (D5nss + 20meq KCl) 1,000 ml @ 60 mls/hr [id number] IV 04/16/16 09:15 05/16/16 08:44 04/24/16 00:12 60 MLS/HR Clopidogrel Bisulfate (plAVix TAB) 75 mg QAM PO 04/17/16 09:00 05/17/16 08:59 04/24/16 07:48 75 MG Hydralazine HCl (HydrALAZINE INJ) 10 mg Q6H PRN IV. 04/16/16 18:45 05/20/16 18:44 04/24/16 00:12 10 MG Heparin Sodium (Porcine) (Heparin Sq 5000 Unit/0.5ml) 5,000 unit Q8 SQ 04/17/16 14:00 05/17/16 13:59 04/24/16 14:54 5,000 UNIT Clonazepam (Klonopin Tab) 0.5 mg QAM PO 04/20/16 09:00 05/20/16 08:59 04/24/16 07:54 0.5 MG Clonazepam (Klonopin Tab) 1 mg HS PO 04/19/16 21:00 05/19/16 20:59 04/22/16 22:05 1 MG Magnesium Hydroxide (Milk Of Magnesia Susp) 30 ml Q6H PRN PO 04/19/16 13:15 05/19/16 13:14 04/19/16 13:46 30 ML Aspirin (Aspirin Chew) 81 mg DAILY PO 04/21/16 09:00 05/21/16 08:59 04/24/16 08:05 81 MG Multivitamins Therapeutic (Cerovite Liquid) 15 ml QAM PO 04/21/16 09:00 05/21/16 08:59 04/24/16 07:49 15 ML Docusate Sodium (coLACE SYRUP) 100 mg QAM PO 04/21/16 09:00 05/21/16 08:59 04/24/16 07:48 100 MG Senna 8.8 mg 8.8 mg QAM PO 04/21/16 09:00 05/21/16 08:59 04/24/16 07:48 8.8 MG Ciprofloxacin/ Dextrose/Prmx (Cipro / D5w/ Premixed D5W) 200 ml @ 100 mls/hr Q12 IV 04/22/16 09:00 04/27/16 08:59 04/24/16 09:55 100 MLS/HR Enteral Nutritional Formula (Fibersource HN) 1,000 ml UD NG 04/23/16 15:45 05/23/16 15:44 Impression 45 year old female s/p right sided weakness and multiple L ICA infarcts Plan 1. aspirin 81 mg and plavix 75 mg started will need dual therapy x 3 months and then monotherapy for life 2. MRI MRA s completed with multiple areas of stroke 3. continue control of HTN 4. lipitor for LDL < 70 5. not a good candidate for coumadin due to fall risk 6. hyper coag work up resulted appears negative 7. TTE and cardiology consult resulted 8. PT/OT and speech therapy for discharge needs- cleared for pureed and tolerating with family assistance 9. NGT mom does not want re placed. if taking food and pills without aspiration would continue orals 10. should substitute ativan for Klonopin which pharmacy recommended .50 bid when unable to take klonopin 11. CT angio reviewed source of embolic stroke 12. patient removed corflo and was without nutrition for several day may have stimulated hunger urge to start swallowing again. I have seen and discussed above patient with Dr Opal Larson neurology Pt seen and examined, appears similar to on admission, although slightly more alert. When infectious/fever issues resolved will be transferred to rehab.TONG Larson MD
[2016-04-24] MEDS: CITALOPRAM 40 MG TAB PO SCH (19:37)
[2016-04-24] MEDS: CLONAZEPAM 1 MG TAB PO SCH (20:09)
[2016-04-25] MEDS: HEPARIN SOD 5000 UNIT/0.5 ML CARP SQ SCH ×3 (06:27→21:26)
[2016-04-25 07:43] VITALS: BP 127/90; PULSE 78; TEMP 37.1; O2SAT 96
[2016-04-25 08:30] VITALS: O2SAT 96
[2016-04-25] MEDS: MULTIVITAMINS W/MINERALS 15ML UDP PO SCH (09:18)
[2016-04-25] MEDS: OXCARBAZEPINE 150 MG TAB PO SCH ×2 (09:19→21:17)
[2016-04-25] MEDS: SENNA 8.8 MG/5 ML UDP PO SCH (09:19)
[2016-04-25] MEDS: DOCUSATE SODIUM 100 MG/10 ML UDC PO SCH (09:19)
[2016-04-25] MEDS: CLOPIDOGREL BISULFATE 75 MG TAB PO SCH (09:19)
[2016-04-25] MEDS: ATORVASTATIN 40 MG TAB PO SCH (09:19)
[2016-04-25] MEDS: CIPROFLOXACIN / D5W 400 MG in PREMIXED IN D5W 200 ML IV SCH ×2 (09:20→21:14)
[2016-04-25] MEDS: CLONAZEPAM 0.5 MG TAB PO SCH (09:29)
[2016-04-25] MEDS: ASPIRIN 81 MG CHEW PO SCH (09:29)
[2016-04-25] MEDS: D5NSS + 20MEQ KCL 1,000 ML IV SCH (10:44)
--- NOTE | 2016-04-25 13:46 | Neurology Progress Notes ---
Neurology Progress Note Date of Service Apr 25, 2016. Subjective Johnathan is a 45 year old male who is legally blind, deaf, does not speak, has congenital rubella, MR presents to the ER with right sided weakness. Her mom states she came home from [facility] today and was unable to help with ambulation into the house. She had alot of difficulty getting out of the wheelchair from the van and ambulating into the house. She called EMS and she was transported to the ED. In the ED a Head CT was negative for acute findings. Her mom states at baseline she is legally blind, deaf, walks with a mofit boot on the left due to foot drop after falling and breaking her hip. She was no aspirin prior to the stroke and their is no family history known for coagulation issues. no recent falls. Mom is in room and states they got her to swallow this am. She is taking her pills orally which nursing reports she took in ice cream. Mom is hopeful that she will get accepted at [facility] since that is where she went in the past. She states she is not eating much but it is hard to tell if she is eating her normal because she had days of not eating much at baseline. Objective Date Time Temp Pulse Resp B/P Pulse Ox O2 Delivery O2 Flow Rate FiO2 04/25/16 08:30 96 Room Air 2.0 04/25/16 07:43 37.1 78 18 127/90 96 04/25/16 00:00 Room Air 04/24/16 23:38 37.2 80 20 176/89 96 Room Air 04/24/16 16:00 100 Room Air 04/24/16 15:49 37.3 80 18 126/85 100 Room Air no new labs Imaging: no new imaging Exam: gen: alert eyes: roving not focal lungs CTA CV RRR moves left arm and leg spontaneously and right arm and leg with light stimulation Current Inpatient Medications Medications (Trade) Dose Ordered Sig/[place] Route Start Time Stop Time Status Last Admin Dose Admin Acetaminophen (Tylenol Tab) 650 mg Q4H PRN PO 04/15/16 20:45 05/15/16 20:44 Ondansetron HCl (Zofran Inj) 4 mg Q6H PRN IV 04/15/16 20:45 05/15/16 20:44 04/16/16 13:09 4 MG Citalopram Hydrobromide (celeXA TAB) 40 mg HS PO 04/15/16 21:00 05/15/16 20:59 04/24/16 19:37 40 MG Oxcarbazepine (Trileptal Tab) 600 mg BID PO 04/15/16 21:00 05/15/16 20:59 04/25/16 09:19 600 MG Atorvastatin Calcium (Lipitor Tab) 80 mg QAM PO 04/17/16 09:00 05/17/16 08:59 04/25/16 09:19 80 MG Atropine Sulfate (Atropine Sulfate) 0.5 mg UD PRN IV 04/16/16 08:00 05/16/16 07:59 Miscellaneous Information 1 ea 1 ea UD PRN N/A 04/16/16 08:45 05/16/16 08:44 Potassium Chloride/Dextrose/ Sod Cl (D5nss + 20meq KCl) 1,000 ml @ 60 mls/hr [id number] IV 04/16/16 09:15 05/16/16 08:44 04/25/16 10:44 60 MLS/HR Clopidogrel Bisulfate (plAVix TAB) 75 mg QAM PO 04/17/16 09:00 05/17/16 08:59 04/25/16 09:19 75 MG Hydralazine HCl (HydrALAZINE INJ) 10 mg Q6H PRN IV. 04/16/16 18:45 05/20/16 18:44 04/24/16 00:12 10 MG Heparin Sodium (Porcine) (Heparin Sq 5000 Unit/0.5ml) 5,000 unit Q8 SQ 04/17/16 14:00 05/17/16 13:59 04/25/16 06:27 5,000 UNIT Clonazepam (Klonopin Tab) 0.5 mg QAM PO 04/20/16 09:00 05/20/16 08:59 04/25/16 09:29 0.5 MG Clonazepam (Klonopin Tab) 1 mg HS PO 04/19/16 21:00 05/19/16 20:59 04/24/16 20:09 1 MG Magnesium Hydroxide (Milk Of Magnesia Susp) 30 ml Q6H PRN PO 04/19/16 13:15 05/19/16 13:14 04/19/16 13:46 30 ML Aspirin (Aspirin Chew) 81 mg DAILY PO 04/21/16 09:00 05/21/16 08:59 04/25/16 09:29 81 MG Multivitamins Therapeutic (Cerovite Liquid) 15 ml QAM PO 04/21/16 09:00 05/21/16 08:59 04/25/16 09:18 15 ML Docusate Sodium (coLACE SYRUP) 100 mg QAM PO 04/21/16 09:00 05/21/16 08:59 04/25/16 09:19 100 MG Senna 8.8 mg 8.8 mg QAM PO 04/21/16 09:00 05/21/16 08:59 04/25/16 09:19 8.8 MG Ciprofloxacin/ Dextrose/Prmx (Cipro / D5w/ Premixed D5W) 200 ml @ 100 mls/hr Q12 IV 04/22/16 09:00 04/27/16 08:59 04/25/16 09:20 100 MLS/HR Enteral Nutritional Formula (Fibersource HN) 1,000 ml UD NG 04/23/16 15:45 05/23/16 15:44 Impression 45 year old female s/p right sided weakness and multiple L ICA infarcts Plan 1. aspirin 81 mg and plavix 75 mg started will need dual therapy x 3 months and then monotherapy for life 2. MRI MRA s completed with multiple areas of stroke 3. continue control of HTN 4. lipitor for LDL < 70 5. not a good candidate for coumadin due to fall risk 6. hyper coag work up resulted appears negative 7. TTE and cardiology consult resulted 8. PT/OT and speech therapy for discharge needs- cleared for pureed and tolerating with family assistance- may be at baseline appetite will need to watch for weight loss 9. NGT mom does not want re placed. if taking food and pills without aspiration would continue orals 10. should substitute ativan for Klonopin which pharmacy recommended .50 bid when unable to take klonopin 11. CT angio reviewed source of embolic stroke 12. patient removed corflo and was without nutrition for several day may have stimulated hunger urge to start swallowing again. I have seen and discussed above patient with Dr Opal Larson neurology. Pt seen and examined, unchanged. No change in management recommended. TONG Larson MD
[2016-04-25 15:01] VITALS: BP 115/74; PULSE 74; TEMP 36.6; O2SAT 94
[2016-04-25 16:00] VITALS: O2SAT 94
--- NOTE | 2016-04-25 17:47 | Progress Note ---
Internal Med Progress Note Date of Service: Apr 25, 2016. Provider Documentation: SUBJECTIVE: The patient was seen and examined Non verbal Clinically much better today Taking medications and food orally OBJECTIVE: Vital Signs-as noted below Exam: General-No distress at rest Eyes-normal ENT-normal Neck-Supple Lungs-Decreased breath sound bilaterally Heart-Regular 2/6 ESM Pulmonic area Abdomen-Benign Extremities-No edema Neuro-AA Nonverbal Lab data as noted below. ASSESSMENT & PLAN: ACUTE CVA-Likely Embolic MULTIPLE INFARCTS L MCA & L ICA DISTRIBUTION - Brain MRI and Head MRA, associated with surrounding edema Echo: * There is moderate concentric left ventricular hypertrophy. * Ejection Fraction = 60-65%. * Grade I diastolic dysfunction, (abnormal relaxation pattern). * The right ventricular systolic function is normal. * Grossly normal valvular structure and function. * Imaging is limited so no bubble study was completed. Hypercoagulable work up: pending - CT angio: IMPRESSION: 1. Evolving left frontoparietal and left basal ganglia infarcts as above. No hemorrhage is identified and there is no midline shift. 2. 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 3. There is reconstitution distally within the left middle cerebral artery. 4. The right middle cerebral artery, the anterior cerebral arteries, and the vertebrobasilar system are widely patent. See above discussion. 5. 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 6. The carotid arteries and vertebral arteries in the neck are widely patent. Appreciate Neurology input Continue Aspirin, Plavix, Statin via NG tube-Not a Coumadin candidate Maintain BP on the higher side Remains stable in Medical floor Taking medications orally Tolerating Pureed Diet BRADYCARDIA EPISODE Appreciate cardiology input Likely due to Neurogenic events Resolved now No further studies TSH normal Remains stable DYSPHAGIA/Nutrition - NG tube placed for nutrition and medications, Speech therapy re eval done today, still recommending NPO -GI consulted for possible PEG tube placement-> hold off on PEG tube placement, continue Speech Tx eval daily -Tolerating Tube feeding- -Pulled out NGT-appreciate GI plan -reintroduce NGT today -Too early to put a PEG in now -Family refusing NGT and PEG tube placement -plan to continue oral feeding with caution FEVER-resolved UA: possible UTI blood and urine cultures noted Has been on Cipro IV Continue Cipro for now HYPERTENSION - hold Losartan to prevent hypotension, post stroke - maintain BP on the higher side -Hydralazine PRN for systolic bp > 170 CONSTIPATION Senokot S Milk of Mg SEVERE MENTAL RETARDATION - continue Klonopin, citalopram, and oxcarbazepine Will need placement DVT PROPHYLAXIS - heparin q8h DISPO/Recommendation Will need transitioning to Rehab or SNF Discussed with the Mom in detailed again today Likely to go to [facility] with family supervised feeding for better outcome Has aspiration risk and subsequent readmission Family members are aware of that condition If oral feeding fails ,likely to go for comfort care only in [facility] Vital Signs: Date Time Temp Pulse Resp B/P Pulse Ox O2 Delivery O2 Flow Rate FiO2 04/25/16 16:00 94 Room Air 04/25/16 15:01 36.6 74 20 115/74 94 04/25/16 08:30 96 Room Air 2.0 04/25/16 07:43 37.1 78 18 127/90 96 04/25/16 00:00 Room Air 04/24/16 23:38 37.2 80 20 176/89 96 Room Air
[2016-04-25] MEDS: CITALOPRAM 40 MG TAB PO SCH (21:17)
[2016-04-25] MEDS: CLONAZEPAM 1 MG TAB PO SCH (21:24)
[2016-04-25 23:56] VITALS: BP 117/76; PULSE 53; TEMP 36.5; O2SAT 93
[2016-04-26] MEDS: D5NSS + 20MEQ KCL 1,000 ML IV SCH ×2 (02:26→19:59)
[2016-04-26] MEDS: HEPARIN SOD 5000 UNIT/0.5 ML CARP SQ SCH ×3 (05:45→20:28)
[2016-04-26 05:58] LABS: HEMATOCRIT 32.6 % (37-47); MEAN CELL VOLUME 90.8 fL (80-100); MEAN CORPUSCULAR HEMOGLOBIN 30.6 pg (25-34); MEAN CORPUSCULAR HGB CONC 33.7 g/dl (32-36); MEAN PLATELET VOLUME 11.1 fL (7.4-10.4); PLATELET COUNT 249 K/uL (130-400); RED BLOOD COUNT 3.59 M/uL (4.2-5.4); WHITE BLOOD COUNT 5.59 K/uL (4.8-10.8)
[2016-04-26] MEDS: SENNA 8.8 MG/5 ML UDP PO SCH (07:49)
[2016-04-26] MEDS: ASPIRIN 81 MG CHEW PO SCH (07:49)
[2016-04-26] MEDS: CLOPIDOGREL BISULFATE 75 MG TAB PO SCH (07:49)
[2016-04-26] MEDS: CLONAZEPAM 0.5 MG TAB PO SCH (07:49)
[2016-04-26] MEDS: DOCUSATE SODIUM 100 MG/10 ML UDC PO SCH (07:49)
[2016-04-26] MEDS: ATORVASTATIN 40 MG TAB PO SCH (07:50)
[2016-04-26] MEDS: HydrALAZINE HCL 20 MG/ML VIAL IV. PRN (07:50)
[2016-04-26] MEDS: MULTIVITAMINS W/MINERALS 15ML UDP PO SCH (07:50)
[2016-04-26] MEDS: OXCARBAZEPINE 150 MG TAB PO SCH ×2 (07:50→20:10)
[2016-04-26 07:51] VITALS: BP 182/107
[2016-04-26 08:03] VITALS: BP 143/77; PULSE 85; TEMP 36.9; O2SAT 97
--- NOTE | 2016-04-26 09:17 | PROGRESS NOTE ---
DATE: 04/26/2016 DATE: 04/26/2016. SUBJECTIVE: I am seeing Adelina in followup of a patchy left MCA infarction related to an intracranial internal carotid occlusion. Clinically, she appears unchanged. She is alert. 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 She spontaneously uses her left arm, right arm appears to have increased tone and is greater than antigravity. Left lower extremity appears to be full and right lower extremity withdraw to noxious stimuli. 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 Continue risk factor modification, antiplatelet therapy. The patient awaits rehabilitation placement. Will follow with you. CHUCK
[2016-04-26] MEDS: CIPROFLOXACIN / D5W 400 MG in PREMIXED IN D5W 200 ML IV SCH ×2 (09:28→20:18)
[2016-04-26 11:17] VITALS: BP 123/65; PULSE 90; O2SAT 96
[2016-04-26 14:25] VITALS: BP 124/77; PULSE 79; PULSE 80; TEMP 36.8; O2SAT 98
--- NOTE | 2016-04-26 15:10 | Progress Note ---
Internal Med Progress Note Date of Service: Apr 26, 2016. Provider Documentation: SUBJECTIVE: The patient was seen and examined Non verbal Clinically much better today Taking medications and food orally Seen in presence of the Sister OBJECTIVE: Vital Signs-as noted below Exam: General-No distress at rest Eyes-normal ENT-normal Neck-Supple Lungs-Decreased breath sound bilaterally Heart-Regular 2/6 ESM Pulmonic area Abdomen-Benign Extremities-No edema Neuro-AA Nonverbal Lab data as noted below. ASSESSMENT & PLAN: ACUTE CVA-Likely Embolic MULTIPLE INFARCTS L MCA & L ICA DISTRIBUTION - Brain MRI and Head MRA, associated with surrounding edema Echo: * There is moderate concentric left ventricular hypertrophy. * Ejection Fraction = 60-65%. * Grade I diastolic dysfunction, (abnormal relaxation pattern). * The right ventricular systolic function is normal. * Grossly normal valvular structure and function. * Imaging is limited so no bubble study was completed. Hypercoagulable work up: pending - CT angio: IMPRESSION: 1. Evolving left frontoparietal and left basal ganglia infarcts as above. No hemorrhage is identified and there is no midline shift. 2. 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 3. There is reconstitution distally within the left middle cerebral artery. 4. The right middle cerebral artery, the anterior cerebral arteries, and the vertebrobasilar system are widely patent. See above discussion. 5. 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 6. The carotid arteries and vertebral arteries in the neck are widely patent. Appreciate Neurology input Continue Aspirin, Plavix, Statin via NG tube-Not a Coumadin candidate Maintain BP on the higher side Remains stable in Medical floor Taking medications orally Tolerating Pureed Diet No new symptoms and BRADYCARDIA EPISODE Appreciate cardiology input Likely due to Neurogenic events Resolved now No further studies TSH normal Remains stable DYSPHAGIA/Nutrition - NG tube placed for nutrition and medications, Speech therapy re eval done today, still recommending NPO -GI consulted for possible PEG tube placement-> hold off on PEG tube placement, continue Speech Tx eval daily -Tolerating Tube feeding- -Pulled out NGT-appreciate GI plan -reintroduce NGT today -Too early to put a PEG in now -Family refusing NGT and PEG tube placement -plan to continue oral feeding with caution FEVER-resolved UA: possible UTI blood and urine cultures noted Has been on Cipro IV Continue Cipro for now HYPERTENSION - hold Losartan to prevent hypotension, post stroke - maintain BP on the higher side -Hydralazine PRN for systolic bp > 170 CONSTIPATION Senokot S Milk of Mg SEVERE MENTAL RETARDATION Continue Klonopin, citalopram, and oxcarbazepine Will need placement DVT PROPHYLAXIS Heparin q8h DISPO/Recommendation Will need transitioning to Rehab or SNF Discussed with the Mom in detailed again today Likely to go to [facility] with family supervised feeding for better outcome Has aspiration risk and subsequent readmission Family members are aware of that condition If oral feeding fails ,likely to go for comfort care only in future Discussed with the Sister Vital Signs: Date Time Temp Pulse Resp B/P Pulse Ox O2 Delivery O2 Flow Rate FiO2 04/26/16 14:25 36.8 80 16 124/77 98 Room Air 04/26/16 14:25 36.8 79 20 124/77 98 Room Air 04/26/16 11:17 90 20 123/65 96 Room Air 04/26/16 08:30 Room Air 04/26/16 08:03 36.9 85 16 143/77 97 Room Air 04/26/16 07:51 182/107 04/26/16 00:00 Room Air 04/25/16 23:56 36.5 53 16 117/76 93 Room Air 04/25/16 16:00 94 Room Air Lab Results: Results Past 24 Hours Test 04/26/16 05:15 Range/Units White Blood Count 5.59 4.8-10.8 K/uL Red Blood Count 3.59 4.2-5.4 M/uL Hemoglobin 11.0 12.0-16.0 g/dL Hematocrit 32.6 37-47 % Mean Corpuscular Volume 90.8 80-100 fL Mean Corpuscular Hemoglobin 30.6 25-34 pg Mean Corpuscular Hemoglobin Concent 33.7 32-36 g/dl RDW Standard Deviation 42.5 36.4-46.3 fL RDW Coefficient of Variation 12.8 11.5-14.5 % Platelet Count 249 130-400 K/uL Mean Platelet Volume 11.1 7.4-10.4 fL Nucleated RBC Absolute Count (auto) 0.04 0-0 K/uL Nucleated Red Blood Cells % 0.7 %
[2016-04-26 16:00] VITALS: O2SAT 98
[2016-04-26] MEDS: CLONAZEPAM 1 MG TAB PO SCH (20:10)
[2016-04-26] MEDS: CITALOPRAM 40 MG TAB PO SCH (20:10)
[2016-04-26 23:56] VITALS: BP 120/62; PULSE 66; TEMP 36.6; O2SAT 93
[2016-04-27] MEDS: HEPARIN SOD 5000 UNIT/0.5 ML CARP SQ SCH ×3 (06:15→20:56)
[2016-04-27 07:50] VITALS: BP 163/81; PULSE 76; TEMP 37; O2SAT 99
[2016-04-27] MEDS: ATORVASTATIN 40 MG TAB PO SCH (08:21)
[2016-04-27] MEDS: OXCARBAZEPINE 150 MG TAB PO SCH ×2 (08:22→20:50)
[2016-04-27] MEDS: DOCUSATE SODIUM 100 MG/10 ML UDC PO SCH (08:22)
[2016-04-27] MEDS: SENNA 8.8 MG/5 ML UDP PO SCH (08:22)
[2016-04-27] MEDS: CLOPIDOGREL BISULFATE 75 MG TAB PO SCH (08:22)
[2016-04-27] MEDS: MULTIVITAMINS W/MINERALS 15ML UDP PO SCH (08:23)
[2016-04-27] MEDS: ASPIRIN 81 MG CHEW PO SCH (08:26)
[2016-04-27] MEDS: CLONAZEPAM 0.5 MG TAB PO SCH (08:26)
[2016-04-27 08:30] VITALS: O2SAT 99
--- NOTE | 2016-04-27 09:11 | PROGRESS NOTE ---
DATE: 04/27/2016 SUBJECTIVE: I am seeing Adelina in followup of a left MCA infarction in the setting of an intracranial internal carotid occlusion. She is on antiplatelet therapy. She has done well overnight. She is in the room and eating when fed by a nurse. OBJECTIVE: She is awake and alert, swallowing a mechanical soft diet well. 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 She is deaf and follows no commands. There was increased tone in the right upper extremity. It is felt that at a flexed posture, the right lower extremity withdraws with noxious stimuli. The left upper has moved volitionally and the left lower has moved volitionally. Toes are mute. Cerebellar sensory is not testable. IMPRESSION: Left middle cerebral artery infarction. The patient is awaiting [facility]. She should see us within 3-4 weeks postdischarge. CHUCK
[2016-04-27] MEDS: D5NSS + 20MEQ KCL 1,000 ML IV SCH (12:19)
--- NOTE | 2016-04-27 14:49 | Progress Note ---
Internal Med Progress Note Date of Service: Apr 27, 2016. Provider Documentation: SUBJECTIVE: The patient was seen and examined Non verbal Clinically much better today Taking medications and food orally Ate all of her Breakfast OBJECTIVE: Vital Signs-as noted below Exam: General-No distress at rest Eyes-normal ENT-normal Neck-Supple Lungs-Decreased breath sound bilaterally Heart-Regular 2/6 ESM Pulmonic area Abdomen-Benign Extremities-No edema Neuro-AA Nonverbal Lab data as noted below. ASSESSMENT & PLAN: ACUTE CVA-Likely Embolic MULTIPLE INFARCTS L MCA & L ICA DISTRIBUTION - Brain MRI and Head MRA, associated with surrounding edema Echo: * There is moderate concentric left ventricular hypertrophy. * Ejection Fraction = 60-65%. * Grade I diastolic dysfunction, (abnormal relaxation pattern). * The right ventricular systolic function is normal. * Grossly normal valvular structure and function. * Imaging is limited so no bubble study was completed. Hypercoagulable work up: pending - CT angio: IMPRESSION: 1. Evolving left frontoparietal and left basal ganglia infarcts as above. No hemorrhage is identified and there is no midline shift. 2. 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 3. There is reconstitution distally within the left middle cerebral artery. 4. The right middle cerebral artery, the anterior cerebral arteries, and the vertebrobasilar system are widely patent. See above discussion. 5. 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 6. The carotid arteries and vertebral arteries in the neck are widely patent. Appreciate Neurology input Continue Aspirin, Plavix, Statin via NG tube-Not a Coumadin candidate Maintain BP on the higher side Remains stable in Medical floor Tolerating Pureed Diet and ate all of her BF BRADYCARDIA EPISODE Appreciate cardiology input Likely due to Neurogenic events Resolved now No further studies TSH normal Remains stable DYSPHAGIA/Nutrition - NG tube placed for nutrition and medications, Speech therapy re eval done today, still recommending NPO -GI consulted for possible PEG tube placement-> hold off on PEG tube placement, continue Speech Tx eval daily -Tolerating Tube feeding- -Pulled out NGT-appreciate GI plan -reintroduce NGT today -Too early to put a PEG in now -Family refusing NGT and PEG tube placement -plan to continue oral feeding with caution -family members are helping feeding FEVER-resolved UA: possible UTI blood and urine cultures noted Has been on Cipro IV Continue Cipro for now D/C Cipro on 04/27/16 HYPERTENSION - hold Losartan to prevent hypotension, post stroke - maintain BP on the higher side -Hydralazine PRN for systolic bp > 170 CONSTIPATION Senokot S Milk of Mg SEVERE MENTAL RETARDATION Continue Klonopin, citalopram, and oxcarbazepine Will need placement DVT PROPHYLAXIS Heparin q8h DISPO/Recommendation Will need transitioning to Rehab or SNF Discussed with the Mom in detailed again today Likely to go to [facility] with family supervised feeding for better outcome Has aspiration risk and subsequent readmission Family members are aware of that condition If oral feeding fails ,likely to go for comfort care only in future Discussed with the Sister Likely to transfer on Thursday Vital Signs: Date Time Temp Pulse Resp B/P Pulse Ox O2 Delivery O2 Flow Rate FiO2 04/27/16 08:30 99 Room Air 04/27/16 07:50 37.0 76 18 163/81 99 Room Air 04/27/16 00:00 Room Air 04/26/16 23:56 36.6 66 18 120/62 93 Room Air 04/26/16 16:00 98 Room Air
[2016-04-27 15:28] VITALS: BP 129/77; PULSE 84; TEMP 36.8; O2SAT 99
[2016-04-27 16:00] VITALS: O2SAT 99
[2016-04-27] MEDS: CLONAZEPAM 1 MG TAB PO SCH (20:48)
[2016-04-27] MEDS: CITALOPRAM 40 MG TAB PO SCH (20:49)
[2016-04-28] VITALS (8 sets, daily range): BP systolic 141–161; BP diastolic 74–91; PULSE 73–76; TEMP 36.5–37.4; O2SAT 94–99
[2016-04-28] MEDS: D5NSS + 20MEQ KCL 1,000 ML IV SCH (05:23)
[2016-04-28 05:48] LABS: HEMATOCRIT 33.3 % (37-47); MEAN CELL VOLUME 88.3 fL (80-100); MEAN CORPUSCULAR HEMOGLOBIN 30.2 pg (25-34); MEAN CORPUSCULAR HGB CONC 34.2 g/dl (32-36); MEAN PLATELET VOLUME 10.1 fL (7.4-10.4); PLATELET COUNT 264 K/uL (130-400); RED BLOOD COUNT 3.77 M/uL (4.2-5.4); WHITE BLOOD COUNT 6.32 K/uL (4.8-10.8)
[2016-04-28] MEDS: HEPARIN SOD 5000 UNIT/0.5 ML CARP SQ SCH (05:49)
[2016-04-28 06:20] LABS: BUN/CREATININE RATIO 20.6 (10-20); CREATININE 0.5 mg/dl (0.60-1.20); MAGNESIUM 1.7 mg/dl (1.8-2.4); PHOSPHORUS 2.7 mg/dl (2.5-4.9); POTASSIUM 4.3 mmol/L (3.5-5.1)
[2016-04-28] MEDS: ATORVASTATIN 40 MG TAB PO SCH (08:11)
[2016-04-28] MEDS: OXCARBAZEPINE 150 MG TAB PO SCH (08:11)
[2016-04-28] MEDS: CLOPIDOGREL BISULFATE 75 MG TAB PO SCH (08:12)
[2016-04-28] MEDS: DOCUSATE SODIUM 100 MG/10 ML UDC PO SCH (08:12)
[2016-04-28] MEDS: MULTIVITAMINS W/MINERALS 15ML UDP PO SCH (08:12)
[2016-04-28] MEDS: CLONAZEPAM 0.5 MG TAB PO SCH (08:12)
[2016-04-28] MEDS: SENNA 8.8 MG/5 ML UDP PO SCH (08:12)
[2016-04-28] MEDS: ASPIRIN 81 MG CHEW PO SCH (08:12)
--- NOTE | 2016-04-28 11:57 | Progress Note ---
Internal Med Progress Note Date of Service: Apr 28, 2016. Provider Documentation: SUBJECTIVE: The patient was seen and examined Non verbal Clinically much better today Tolerating oral food OBJECTIVE: Vital Signs-as noted below Exam: General-No distress at rest Eyes-normal ENT-normal Neck-Supple Lungs-Decreased breath sound bilaterally Heart-Regular 2/6 ESM Pulmonic area Abdomen-Benign Extremities-Trace edema bilaterally Neuro-AA Nonverbal Lab data as noted below. ASSESSMENT & PLAN: ACUTE CVA-Likely Embolic MULTIPLE INFARCTS L MCA & L ICA DISTRIBUTION - Brain MRI and Head MRA, associated with surrounding edema Echo: * There is moderate concentric left ventricular hypertrophy. * Ejection Fraction = 60-65%. * Grade I diastolic dysfunction, (abnormal relaxation pattern). * The right ventricular systolic function is normal. * Grossly normal valvular structure and function. * Imaging is limited so no bubble study was completed. Hypercoagulable work up: pending - CT angio: IMPRESSION: 1. Evolving left frontoparietal and left basal ganglia infarcts as above. No hemorrhage is identified and there is no midline shift. 2. 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 3. There is reconstitution distally within the left middle cerebral artery. 4. The right middle cerebral artery, the anterior cerebral arteries, and the vertebrobasilar system are widely patent. See above discussion. 5. 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 6. The carotid arteries and vertebral arteries in the neck are widely patent. Appreciate Neurology input Continue Aspirin, Plavix, Statin via NG tube and now orally -Not a Coumadin candidate Maintain BP on the higher side Remains stable in Medical floor Tolerating oral feeding Has risk of Aspiration -family members are aware BRADYCARDIA EPISODE Appreciate cardiology input Likely due to Neurogenic events Resolved now No further studies TSH normal Remains stable DYSPHAGIA/Nutrition - NG tube placed for nutrition and medications, Speech therapy re eval done today, still recommending NPO -GI consulted for possible PEG tube placement-> hold off on PEG tube placement, continue Speech Tx eval daily -Tolerating Tube feeding- -Pulled out NGT-appreciate GI plan -reintroduce NGT today -Too early to put a PEG in now -Family refusing NGT and PEG tube placement -plan to continue oral feeding with caution -family members are helping feeding FEVER-resolved UA: possible UTI blood and urine cultures noted Has been on Cipro IV Continue Cipro for now D/C Cipro on 04/27/16 HYPERTENSION - hold Losartan to prevent hypotension, post stroke - maintain BP on the higher side -Hydralazine PRN for systolic bp > 170 -Remains reasonably stable CONSTIPATION Senokot S Milk of Mg SEVERE MENTAL RETARDATION Continue Klonopin, citalopram, and oxcarbazepine Will need placement DVT PROPHYLAXIS Heparin q8h DISPO/Recommendation Will need transitioning to Rehab or SNF Discussed with the Mom in detailed again today [facility] for better outcome Has aspiration risk and subsequent readmission Family members are aware of that condition If oral feeding fails ,likely to go for comfort care only in future Discussed with the Sister and the Mother Agree with the plan to transfer her to [facility] today Vital Signs: Date Time Temp Pulse Resp B/P Pulse Ox O2 Delivery O2 Flow Rate FiO2 04/28/16 08:30 99 Room Air 04/28/16 07:34 37.0 74 20 161/75 97 04/28/16 00:18 37.4 76 18 141/91 94 Room Air 04/28/16 00:16 99 Room Air 04/27/16 16:00 99 Room Air 04/27/16 15:28 36.8 84 18 129/77 99 Room Air Lab Results: Results Past 24 Hours Test 04/28/16 05:30 Range/Units White Blood Count 6.32 4.8-10.8 K/uL Red Blood Count 3.77 4.2-5.4 M/uL Hemoglobin 11.4 12.0-16.0 g/dL Hematocrit 33.3 37-47 % Mean Corpuscular Volume 88.3 80-100 fL Mean Corpuscular Hemoglobin 30.2 25-34 pg Mean Corpuscular Hemoglobin Concent 34.2 32-36 g/dl RDW Standard Deviation 40.4 36.4-46.3 fL RDW Coefficient of Variation 12.7 11.5-14.5 % Platelet Count 264 130-400 K/uL Mean Platelet Volume 10.1 7.4-10.4 fL Sodium Level 139 136-145 mmol/L Potassium Level 4.3 3.5-5.1 mmol/L Chloride Level 107 98-107 mmol/L Carbon Dioxide Level 25 21-32 mmol/L Anion Gap 7.0 3-11 mmol/L Blood Urea Nitrogen 10 7-18 mg/dl Creatinine 0.50 0.60-1.20 mg/dl Est Creatinine Clear Calc Drug Dose 107.8 ml/min Estimated GFR () 134.5 Estimated GFR (Non- 116.1 BUN/Creatinine Ratio 20.6 10-20 Random Glucose 89 70-99 mg/dl Calcium Level 8.0 8.5-10.1 mg/dl Phosphorus Level 2.7 2.5-4.9 mg/dl Magnesium Level 1.7 1.8-2.4 mg/dl
[2016-04-28] MEDS ORDERED: MAGNESIUM SULFATE 1GM / D5W 1 GM in PREMIXED IN D5W 100 ML IV ONE (12:30)
[2016-04-28] MEDS ORDERED: ASPCH81 PO (14:06)
[2016-04-28] MEDS ORDERED: HPRIS5M SQ (14:06)
[2016-04-28] MEDS ORDERED: SNKUDL5 PO (14:06)
[2016-04-28] MEDS ORDERED: CLCUDL PO (14:06)
[2016-04-28] MEDS ORDERED: CLON0.5T3 PO ×2 (14:06)
[2016-04-28] MEDS ORDERED: PLV75 PO (14:06)
[2016-04-28] MEDS ORDERED: LPT40 PO (14:06)
--- NOTE | 2016-04-28 14:12 | Discharge Instructions ---
Discharge Instructions Admission Reason for Admission: Altered Mental Status Discharge Discharge Diagnosis / Problem: Left MCA stroke,Right Hemiplegia Discharge Goals Goal(s): Prevent Disease Progression Activity Recommendations Activity Level: Assistance Required Therapies: Physical Therapy, Occupational Therapy, Speech Therapy . Additional Information Patient informed of condition: No Advance Directives: No DNR: No Level of Care: Skilled Communicable Disease: No Prognosis: Stable Oxygen at (LPM): 2 liters/min via NC as needd Cintron Catheter: No Instructions / Follow-Up Instructions / Follow-Up Please make an appointment with your PCP in 1 week.Neurology appointment in 3 [address] Larson Current Hospital Diet Patient's current hospital diet: N/A, Regular Diet Discharge Diet Recommended Diet: Regular Diet (Pureed,Honey Thick-does better with family members) Pending Studies Studies pending at discharge: no Laboratory Results Hemoglobin A1c Test 04/15/16 18:02 Range/Units Estimated Average Glucose 88 mg/dl Hemoglobin A1c 4.7 4.5-5.6 % Lipid Panel Test 04/17/16 05:25 Range/Units Triglycerides Level 117 0-150 mg/dl Cholesterol Level 191 0-200 mg/dl HDL Cholesterol 47 mg/dl Cholesterol/HDL Ratio 4.1 LDL Cholesterol, Calculated 121 mg/dl Medical Emergencies . Who to Call and When: Medical Emergencies: If at any time you feel your situation is an emergency, please call 911 immediately. . Non-Emergent Contact Non-Emergency issues call your: Primary Care Provider . Past History Medical & Surgical History: (1) Change in mental status (2) HTN (hypertension) (3) Mental retardation (4) Hip fracture, left (5) Embolic stroke involving left middle cerebral artery . "Provider Documentation" section prepared by Ileana Cutler. Core Measure Problem Core Measures: None
--- NOTE | 2016-05-01 11:44 | Discharge Summary ---
Discharge Summary Date of Service May 01, 2016. Discharge Summary Admission Date: Apr 15, 2016 at 20:44 Discharge Date: Apr 28, 2016 [facility] Principal Diagnosis: Left MCA stroke,Right Hemiplegia Secondary Diagnoses/Problems: Please see H&P Consultations: Neurology,GI and Cardiology Medication Reconciliation New Medications: Aspirin (Aspirin Low Strength) 81 Mg Chew 81 MG PO DAILY for 30 Days, #30 Atorvastatin (Atorvastatin Calcium) 40 Mg Tab 80 MG PO QAM for 30 Days, #30 TAB Clopidogrel Bisulfate (Clopidogrel) 75 Mg Tab 75 MG PO QAM for 30 Days, #30 TAB Docusate Sodium (Diocto) 100 Mg/10 Ml Syrp 100 MG PO QAM for 30 Days, #30 Heparin Sod (Porcine) (Heparin Sodium) 5,000 Unit/0.5 Ml Inj 5000 UNIT SQ Q8 for 10 Days, #30 Senna (Senna-Grx) 8.8 Mg/5 Ml Syrp 8.8 MG PO QAM for 30 Days, #30 Continued Medications: Citalopram Hydrobromide (Celexa) 40 Mg Tab 40 MG PO HS, TAB Clonazepam (Klonopin) 0.5 Mg Tab 0.5 TAB PO QAM for 10 Days, #10 TAB (This prescription has been renewed) Clonazepam (Klonopin) 0.5 Mg Tab 1 TAB PO QPM for 10 Days, #10 TAB (This prescription has been renewed) Losartan Potassium (Cozaar) 25 Mg Tab 25 MG PO QAM, TAB Multivitamin (Multivitamin) Tab 1 TAB PO DAILY, TAB Oxcarbazepine (Trileptal) 300 Mg Tab 600 MG PO BID, TAB Discontinued Medications: Levonorgestrel-Eth Estradiol ( (Enpresse-28) 1 Tab Tab 1 TAB PO DAILY for 28 Days, #28 TAB 11 Refills Admission Information HPI (per Admitting provider): 45 year old male who presents to the ER with right sided weakness. Patient has severe mental retardation and cannot provide any history. Patient's sister is at the bedside who provides the history. She reports that when she was getting the patient into her shower chair this morning she noted her right side to be a little weak. She thought the patient may just not have fully woken up yet. While eating breakfast she noted that she wasn't gripping her spoon as tightly as she normally would and had some difficulty feeding herself. [facility] then [facility]. When she returned home, she had a lot of difficulty getting out of the wheelchair from the van and ambulating into the house. EMS was then called. In the ER, neuro exam is difficult due to her severe mental retardation. Vitals are stable. Head CT was negative for acute findings. Past Medical/Surgical History Medical Problems: (1) Bilateral cataracts Status: Resolved (2) Hip fracture, left Status: Resolved (3) Hip fracture, left Permanent Comment: s/p repair Status: Chronic (4) HTN (hypertension) Status: Chronic (5) Mental retardation Status: Chronic (6) Osteoporosis Status: Chronic Surgical Problems: (1) S/P repair of PDA Status: Chronic Family History FH: CAD (coronary artery disease) FATHER ( from [place] at age 49) Social History Smoking Status: Never Smoker Alcohol Use: none Marital Status: single Housing status: lives with family Occupational Status: disabled Immunizations History of Influenza Vaccine: Yes Influenza Vaccine Date: Dec 26, 2014 History of Tetanus Vaccine?: Yes Tetanus Immunization Date: July 20, 2013 History of Pneumococcal: Yes Pneumococcal Date: Dec 18, 2003 Multi-Drug Resistant Organisms History of MDRO: No Allergies Coded Allergies: Penicillins (Unverified Allergy, Severe, RASH, 04/15/16) Home Medications Scheduled Citalopram Hydrobromide (Celexa), 40 MG PO HS Clonazepam (Klonopin), 0.5 TAB PO QAM Clonazepam (Klonopin), 1 TAB PO QPM Levonorgestrel-Eth Estradiol ( (Enpresse-28), 1 TAB PO DAILY Losartan Potassium (Cozaar), 25 MG PO QAM Multivitamin (Multivitamin), 1 TAB PO DAILY Oxcarbazepine (Trileptal), 600 MG PO BID Review of Systems unable to be completed with patient due to mental status Physical Ex - H&P Physical Exam Vital Signs Date Time Temp Pulse Resp B/P Pulse Ox O2 Delivery O2 Flow Rate FiO2 04/15/16 20:06 79 16 166/69 96 Room Air 04/15/16 18:47 79 18 139/117 99 Room Air 04/15/16 17:39 99 Room Air 04/15/16 17:34 36.5 84 21 163/129 98 Room Air General Appearance: no apparent distress Head: normocephalic Eyes: normal inspection ENT: + pertinent finding ([place]) Neck: supple, no JVD Respiratory/Chest: lungs clear, normal breath sounds, no respiratory distress Cardiovascular: regular rate, rhythm, no edema, normal peripheral pulses Abdomen/GI: normal bowel sounds, non tender, soft Extremities/Musculoskelatal: normal inspection, no calf tenderness Neurologic/Psych: + pertinent finding (severe mental retardation, neuro exam difficult to preform, does not move right arm or leg much during exam) Skin: normal color, warm/dry Diagnostics - H&P Diagnostics Laboratory Results Results Past 24 Hours Test 04/15/16 18:02 04/15/16 19:00 Range/Units White Blood Count 5.97 4.8-10.8 K/uL Red Blood Count 4.56 4.2-5.4 M/uL Hemoglobin 13.9 12.0-16.0 g/dL Hematocrit 40.2 37-47 % Mean Corpuscular Volume 88.2 80-100 fL Mean Corpuscular Hemoglobin 30.5 25-34 pg Mean Corpuscular Hemoglobin Concent 34.6 32-36 g/dl Platelet Count 217 130-400 K/uL Mean Platelet Volume 11.3 7.4-10.4 fL Neutrophils (%) (Auto) 63.9 % Lymphocytes (%) (Auto) 25.8 % Monocytes (%) (Auto) 8.9 % Eosinophils (%) (Auto) 1.2 % Basophils (%) (Auto) 0.0 % Neutrophils # (Auto) 3.82 1.4-6.5 K/uL Lymphocytes # (Auto) 1.54 1.2-3.4 K/uL Monocytes # (Auto) 0.53 0.11-0.59 K/uL Eosinophils # (Auto) 0.07 0-0.5 K/uL Basophils # (Auto) 0.00 0-0.2 K/uL RDW Standard Deviation 40.5 36.4-46.3 fL RDW Coefficient of Variation 12.6 11.5-14.5 % Immature Granulocyte % (Auto) 0.2 % Immature Granulocyte # (Auto) 0.01 0.00-0.02 K/uL Prothrombin Time 10.0 9.0-12.0 SECONDS Prothromb Time International Ratio 0.9 0.9-1.1 Activated Partial Thromboplast Time 25.9 21.0-31.0 SECONDS Partial Thromboplastin Ratio 1.0 Sodium Level 142 136-145 mmol/L Potassium Level 4.0 3.5-5.1 mmol/L Chloride Level 106 98-107 mmol/L Carbon Dioxide Level 28 21-32 mmol/L Anion Gap 8.0 3-11 mmol/L Blood Urea Nitrogen 8 7-18 mg/dl Creatinine 0.76 0.60-1.20 mg/dl Est Creatinine Clear Calc Drug Dose 69.9 ml/min Estimated GFR () 109.0 Estimated GFR (Non- 94.1 BUN/Creatinine Ratio 10.9 10-20 Random Glucose 100 70-99 mg/dl Calcium Level 8.8 8.5-10.1 mg/dl Total Bilirubin 0.2 0.2-1 mg/dl Direct Bilirubin < 0.1 0-0.2 mg/dl Aspartate Amino Transf (AST/SGOT) 16 15-37 U/L Alanine Aminotransferase (ALT/SGPT) 22 12-78 U/L Alkaline Phosphatase 58 45-117 U/L Total Creatine Kinase 51 26-192 U/L Creatine Kinase MB < 0.5 0.5-3.6 ng/ml Creatine Kinase MB Ratio 0-3.0 Troponin I < 0.015 0-0.045 ng/ml Total Protein 7.2 6.4-8.2 gm/dl Albumin 3.5 3.4-5.0 gm/dl Urine Color DK YELLOW Urine Appearance CLEAR CLEAR Urine pH 5.5 4.5-7.5 Urine Specific [place] 1.028 1.000-1.030 Urine Protein NEG NEG Urine Glucose (UA) NEG NEG Urine Ketones TRACE NEG Urine Occult Blood NEG NEG Urine Nitrite NEG NEG Urine Bilirubin NEG NEG Urine Urobilinogen NEG NEG Urine Leukocyte Esterase NEG NEG Urine Opiates Screen NEG NEG Urine Methadone, Qualitative NEG NEG Urine Barbiturates NEG NEG Urine Phencyclidine (PCP) Level NEG NEG Ur Amphetamine/Methamphetamine NEG NEG MDMA (Ecstasy) Screen NEG NEG Urine Benzodiazepines Screen NEG NEG Urine Cocaine Metabolite NEG NEG Urine Marijuana (THC) NEG NEG Microbiology Results 04/15/16 Urine Culture, Received Pending Diagnostic Radiology HEAD CT IMPRESSION: 1. No acute intracranial hemorrhage or mass effect. 2. Mild dilatation of the lateral ventricles for age. 3. Moderate white matter hypodensities. These are nonspecific and may reflect small vessel disease although are greater than expected for age. If persistent symptoms, an MRI of the brain could be obtained if no contraindications. Impression - H&P Impression Assessment and Plan RIGHT SIDED WEAKNESS - admit to tele - history and neuro exam difficult to obtain from patient due to severe mental retardation - CT head negative for acute findings - brain MRI, head/neck MRA, echo - neuro checks - start ASA - on control for mood stabilization - will hold for now - check lipids in AM HTN - holding losartan to allow for permissive HTN due to possible CVA SEVERE MENTAL RETARDATION - continue Klonopin, citalopram, and oxcarbazepine DVT PROPHYLAXIS - SCDs DISPO - In my clinical judgment this beneficiary meets acute admission criteria, established by [facility], that includes being hospitalized through two midnights. Agree with above h and P. 45y f with severe MR who is non verbal and cannot hear and lives with family but goes to [facility] ever day was brought in for right sided weakness In the morning family noticed some weakness in right arm and later she cannot hold the spoon to fee herself. And at [facility] she had difficulty ambulation and was brought in to the ER. Currently patient had Ativan for ct scan and sleeping. Difficult to exam the patient. But has some movement of right extremities for painful stimuli somewhat less than left extremities. p/e Ge sleeping Cvs s1 and s2 heard no murmurs Rs cta b/l no added sounds Abd benign Furniture Installer couldn't perform the exam as patient is sleeping and severe MR movement of extremities for painful stimuli more on left than right extremities a/p Right sided weakness initial ct scan negative plan for mri aspirin monitor in tele HTN holding losartan for now for permissive htn VTE Prophylaxis VTE Risk Assessment Done? Y/N: Yes Risk Level: Moderate Physical Exam (per Admitting): General Appearance: no apparent distress Head: normocephalic Eyes: normal inspection ENT: + pertinent finding ([place]) Neck: supple, no JVD Respiratory/Chest: lungs clear, normal breath sounds, no respiratory distress Cardiovascular: regular rate, rhythm, no edema, normal peripheral pulses Abdomen/GI: normal bowel sounds, non tender, soft Extremities/Musculoskelatal: normal inspection, no calf tenderness Neurologic/Psych: + pertinent finding (severe mental retardation, neuro exam difficult to preform, does not move right arm or leg much during exam) Skin: normal color, warm/dry Hospital Course ACUTE CVA-Likely Embolic MULTIPLE INFARCTS L MCA & L ICA DISTRIBUTION - Brain MRI and Head MRA, associated with surrounding edema Echo: * There is moderate concentric left ventricular hypertrophy. * Ejection Fraction = 60-65%. * Grade I diastolic dysfunction, (abnormal relaxation pattern). * The right ventricular systolic function is normal. * Grossly normal valvular structure and function. * Imaging is limited so no bubble study was completed. Hypercoagulable work up: pending - CT angio: IMPRESSION: 1. Evolving left frontoparietal and left basal ganglia infarcts as above. No hemorrhage is identified and there is no midline shift. 2. 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 3. There is reconstitution distally within the left middle cerebral artery. 4. The right middle cerebral artery, the anterior cerebral arteries, and the vertebrobasilar system are widely patent. See above discussion. 5. 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 6. The carotid arteries and vertebral arteries in the neck are widely patent. Appreciate Neurology input Continue Aspirin, Plavix, Statin via NG tube and now orally -Not a Coumadin candidate Maintain BP on the higher side Remains stable in Medical floor Tolerating oral feeding Has risk of Aspiration -family members are aware BRADYCARDIA EPISODE Appreciate cardiology input Likely due to Neurogenic events Resolved now No further studies TSH normal Remains stable DYSPHAGIA/Nutrition - NG tube placed for nutrition and medications, Speech therapy re eval done today, still recommending NPO -GI consulted for possible PEG tube placement-> hold off on PEG tube placement, continue Speech Tx eval daily -Tolerating Tube feeding- -Pulled out NGT-appreciate GI plan -reintroduce NGT today -Too early to put a PEG in now -Family refusing NGT and PEG tube placement -plan to continue oral feeding with caution -family members are helping feeding FEVER-resolved UA: possible UTI blood and urine cultures noted Has been on Cipro IV Continue Cipro for now D/C Cipro on 04/27/16 HYPERTENSION - hold Losartan to prevent hypotension, post stroke - maintain BP on the higher side -Hydralazine PRN for systolic bp > 170 -Remains reasonably stable CONSTIPATION Senokot S Milk of Mg SEVERE MENTAL RETARDATION Continue Klonopin, citalopram, and oxcarbazepine Will need placement DVT PROPHYLAXIS Heparin q8h DISPO/Recommendation Will need transitioning to Rehab or SNF Discussed with the Mom in detailed again today Likely to go to [facility] with family supervised feeding for better outcome Has aspiration risk and subsequent readmission Family members are aware of that condition If oral feeding fails ,likely to go for comfort care only in future Discussed with the Sister and the Mother Agree with the plan to transfer her to [facility] today Total time spent on discharge = 40 minutes This includes examination of the patient, discharge planning, medication reconciliation, and communication with other providers. Discharge Instructions Admission Reason for Admission: Altered Mental Status Discharge Discharge Diagnosis / Problem: Left MCA stroke,Right Hemiplegia Discharge Goals Goal(s): Prevent Disease Progression Activity Recommendations Activity Level: Assistance Required Therapies: Physical Therapy, Occupational Therapy, Speech Therapy . Additional Information Patient informed of condition: No Advance Directives: No DNR: No Level of Care: Skilled Communicable Disease: No Prognosis: Stable Oxygen at (LPM): 2 liters/min via NC as needd Cintron Catheter: No Instructions / Follow-Up Instructions / Follow-Up Please make an appointment with your PCP in 1 week.Neurology appointment in [address] Larson Current Hospital Diet Patient's current hospital diet: N/A, Regular Diet Discharge Diet Recommended Diet: Regular Diet (Pureed,Honey Thick-does better with family members) Pending Studies Studies pending at discharge: no Laboratory Results Hemoglobin A1c Test 04/15/16 18:02 Range/Units Estimated Average Glucose 88 mg/dl Hemoglobin A1c 4.7 4.5-5.6 % Lipid Panel Test 04/17/16 05:25 Range/Units Triglycerides Level 117 0-150 mg/dl Cholesterol Level 191 0-200 mg/dl HDL Cholesterol 47 mg/dl Cholesterol/HDL Ratio 4.1 LDL Cholesterol, Calculated 121 mg/dl Medical Emergencies . Who to Call and When: Medical Emergencies: If at any time you feel your situation is an emergency, please call 911 immediately. . Non-Emergent Contact Non-Emergency issues call your: Primary Care Provider . Past History Medical & Surgical History: (1) Change in mental status (2) HTN (hypertension) (3) Mental retardation (4) Hip fracture, left (5) Embolic stroke involving left middle cerebral artery . "Provider Documentation" section prepared by Ileana Cutler. Core Measure Problem Core Measures: None <Electronically signed by Ileana Cutler M.D.> Additional Copies To Rosa Early D.O.
== END 2016-04-28 15:30 | DRG 65 ==
LOC: ENRESERVTM → ENRESERVDT → EDBD 17:20 → C.EDC 17:21 → C.EDINP 20:44 → C.2E 04-16 11:59 → C.4E 04-22 08:49
PROVIDERS: ADMIT Internal Medicine; ATTEND Internal Medicine
DX: I63.132 Cerebral infarction due to embolism of left carotid artery (principal); F72 Severe intellectual disabilities; G81.91 Hemiplegia, unspecified affecting right dominant side; N39.0 Urinary tract infection, site not specified; P35.0 Congenital rubella syndrome; I66.02 Occlusion and stenosis of left middle cerebral artery; I10 Essential (primary) hypertension; R00.1 Bradycardia, unspecified; K59.00 Constipation, unspecified; I65.29 Occlusion and stenosis of unspecified carotid artery; R00.0 Tachycardia, unspecified; Z87.81 Personal history of (healed) traumatic fracture; M21.379 Foot drop, unspecified foot; M81.0 Age-related osteoporosis without current pathological fracture; H91.90 Unspecified hearing loss, unspecified ear; H54.8 Legal blindness, as defined in USA; Z82.49 Family history of ischemic heart disease and other diseases of the circulatory system; R13.10 Dysphagia, unspecified

== ENCOUNTER → 2017-10-02 | Outpatient (CLI) | payer OTHER ==
[~2017-10-02] MED LIST changes: +ASPCH81 PO; -BNT10 PO; -CHOLTAB3 PO; +CITA40TA12 PO; +CLCUDL PO; -CLON1TAB3 PO; -CLX20 PO; +HPRIS5M SQ; +KLN/5 PO; -LEVOTAB; +LOSA1TAB PO; +LPT40 PO; +MULT-506 PO; +OXCA300T PO; -OXCA600T2 PO; +PLV75 PO; -RANI75TA7 PO; -RIZA5TAB10 PO; +SNKUDL5 PO
--- NOTE | 2017-10-02 12:03 | DIAGNOSTIC IMAGING REPORT ---
VIDEO SWALLOW HISTORY: DYSPHAGIA TECHNIQUE: Video fluoroscopic evaluation of swallowing was performed in the AP and lateral projections by the speech pathology staff. The patient is fed nectar-thick and thin liquid barium, a barium coated wafer, and barium pudding. FLUOROSCOPY TIME: 1.6 minutes. A cine loop submitted. COMPARISON STUDY: None. FINDINGS: There are 2 separate episodes of aspiration with single swallows of the thin liquid barium. This is due to incomplete epiglottic deflection during the swallows. This resulted in a cough. However, the remaining swallows of barium demonstrated a normal epiglottic deflection and no evidence for aspiration. IMPRESSION: 1. Aspiration with the thin liquid barium only as described above. 2. Please see the speech pathologist report for detailed findings and recommendations. Electronically signed by: Rusty Mariscal M.D. 10/02/2017 12:01 PM Dictated Date/Time: 10/02/2017 11:58 AM
--- NOTE | 2017-10-02 13:56 | SWALLOWING EVALUATION ---
HISTORY: This 46 year old woman was referred to [facility] ([facility]) for a Video Fluoroscopic Swallow Study (VFSS) in order to rule out aspiration, and identify the safest consistencies for oral intake. The patient is non-verbal but was accompanied by a caregiver. The caregiver reported that patient has been doing very well with her swallowing and further testing was needed to determine if she could tolerate a possible diet upgrade. Patient was previously seen by [facility] on April of 2016, when a pureed diet and honey thick liquids was recommended as she had aspiration of thin and nectar thick liquids at the bedside. Per the caregiver, she is now tolerating mechanical soft and nectar thick liquids. PMH is significant for intellectual disability (MR), HTN, left hip fracture, osteoporosis, and a left MCA embolic CVA. PROCEDURE: The patient was seen in the Radiology Department of [facility] for the VFSS. Cursory examination of the oral cavity revealed the patient to have sparse natural dentition in fair condition. The patient was positioned upright in her wheelchair for the procedure and was viewed in both the Lateral plane. The Anterior-Posterior (A-P) plane was deferred due to positioning constraints from her wheelchair. The patient was also mildly restless and had difficulty maintaining the same position for more than a few minutes at a time. In the lateral plane, the patient was given the following boluses: 1 tsp. thin liquid barium, single swallow thin liquid barium clinician-presented from a cup x2, straw sips were attempted but the patient was unable to pull the liquid through the straw, single swallow nectar-thick liquid barium clinician-presented from a cup, 1 tsp. barium pudding, and 1 club cracker coated in barium pudding. RESULTS: Oral Stage: Lip closure was impaired as evidenced by anterior loss that progressed toward the mid chin. Did not attempt to complete the liquid bolus hold task. Mastication was slow and prolonged, as was lingual motion for bolus transport. There was a collection of residue along the tongue and palate after the initial swallow. The initiation of the pharyngeal swallow was delayed and triggered when the bolus head reached the pyriforms. Pharyngeal Stage: Soft palate elevation was complete. Laryngeal elevation revealed partial superior movement of the thyroid cartilage and partial approximation of the arytenoids to the epiglottic base. Anterior hyoid excursion was complete. Epiglottic deflection was complete. Laryngeal vestibular closure was in-complete, as evidenced by a narrow column of contrast located in the vestibule at the height of the swallow. The pharyngeal stripping wave was present yet diminished. There was complete distention and duration to the opening of the pharyngoesophageal segment (PES). Tongue base retraction was reduced, with a narrow column of contrast located between the tongue base and pharyngeal wall during the swallow. There was trace retention in the valleculae after the swallow. This patient presented with laryngeal penetration and aspiration of thin liquids with larger drinks presented from a cup. This is due to her delayed onset of swallow initiation, and reduced coordination of the swallow. She did have sensation to this and produce and immediate cough reflex, but this did not clear the aspirated liquid fully. No other evidence of laryngeal penetration or aspiration were identified during this study. SUMMARY/RECOMMENDATIONS: The patient presents with moderate anil-pharyngeal dysphagia. Therefore the following is recommended: 1. Regular "soft" diet (bite sized) and NECTAR THICK liquids. 2. Aspiration precautions: NO straws. FULLY UPRIGHT for meals and for 30 minutes after meals. 3. Safe swallow strategies: Will need assistance with feeding. Small bites, small single sips of liquid, one sip at a time. Slow rate. 4. Follow up [facility] services would be indicated for carryover of diet, assessment of diet tolerance, and carryover of safe swallow strategies. Thin liquids can be trialed with speech therapy services only, in teaspoon or small single sips to determine if the patient is able to comply with small sips to reduce aspiration risk and tolerate thins with these specific strategies. Adaptive equipment can also be used to encourage small sips as well. A summary of the results and recommendations were provided to the patient with the patient's caregiver with verbal understanding. Thank you for referral of this patient. Please contact me at if any additional information is needed.
== END | disposition home or self-care (01) ==
LOC: C.RAD 10:57
PROVIDERS: ATTEND Family Medicine
DX: R13.19 Other dysphagia (principal); I69.359 Hemiplegia and hemiparesis following cerebral infarction affecting unspecified side; I69.328 Other speech and language deficits following cerebral infarction

== ENCOUNTER 2021-08-04 08:11 | Inpatient (IN) ==
[2021-08-04] MEDS ORDERED: SODIUM CHLORIDE 0.9% 1000ML 1,000 ML IV ONE ×2 (08:27→10:17)
[2021-08-04] MEDS ORDERED: ONDANSETRON INJ 2 MG/ML 2 ML VIAL IV STA (08:28)
[2021-08-04] MEDS ORDERED: MoRPHine SULFATE 4 MG/ML 1 ML CARP\\VIAL IV STA (08:28)
--- NOTE | 2021-08-04 08:32 | Emergency Department Note ---
Impression & Plan Hypertensive urgency, Abnormal EKG, Hypercalcemia, Elevated troponin ED Provider Note NAME: GASPER MCKEON AGE: 50 SEX: F : 1970 ARRIVES VIA: Ambulance INFORMANT: Patient, EMS ED PROVIDER(S): Ortiz Chong DO CHIEF COMPLAINT: abdominal pain HPI: Patient is a 50-year-old female with a with a past medical history of MR, hypertension, embolic stroke who presents to the ER for nausea and vomiting. This started this morning. She is baseline nonverbal. History is limited secondary to this. Arrives with nurse/floor worker transfer bay around 1015. They note that she was intermittently gagging/dry heaving. They checked her blood pressure and was elevated consequ ently brought her into the ER. They also found that she was slightly febrile at 100.6 at home. ROS: Review of systems is limited secondary to mentation PAST MEDICAL HISTORY:See Below PAST SURGICAL HISTORY:See Below FAMILY HISTORY:See Below SOCIAL HISTORY:See Below HOME MEDICATIONS:See Below ALLERGIES:See Below VITALS:See Below PHYSICAL EXAMINATION: GENERAL: Sitting up in bed, alert, well appearing, well nourished, no distress, non-toxic EYE EXAM: normal conjunctiva. OROPHARYNX: mucous membranes are moist NECK: supple, no nuchal rigidity, no adenopathy, non-tender LUNGS: +DAVID. Normal chest wall mechanics HEART: no murmurs, S1 normal and S2 normal ABDOMEN: abdomen soft, non-tender, normo-active bowel sounds, no masses, no rebound or guarding. UPPER EXTREMITIES: upper extremities are grossly normal. LOWER EXTREMITIES: No pitting edema. NEURO EXAM: Awake alert nonverbal, not following commands. Right upper extremity contracture. Moves left upper and left lower as well as right lower with pain MEDICAL DECISION MAKING: Patient is a 50-year-old female who presents to the ER for the above-stated complaint. History is unobtainable from the patient and consequently makes evaluation and treatment difficult. IV was established with orders obtained. Labs show no significant leukocytosis or anemia. BMP with a creatinine 1.3. Calcium was significantly elevated at 15. Troponin was slightly elevated at 57. Pro-Khang was normal. UA with small amount of hematuria. COVID was negative. CT of the abdomen pelvis was initially performed as reported was she was having persistent vomiting. When family eventually showed up CT of the abdomen pelvis had already been done was fairly unremarkable. Patient was given 2 dose of hydralazine blood pressure trend down to the 140s to 150s. Heart rate started to increase to the 120s to 130s. Patient at this time had already been seen by Dr. Dorado and admitted. Discussed with hospitalist in regards to CT angio and they agreed. Angio of the chest was performed and unremarkable. As the patient is unable to give a history. Patient was taken up to the floor after the CT of the chest. They are awaiting the second troponin for further evaluation of possible ACS versus hypertensive emergency. Mom was updated at bedside multiple times Triage Nursing notes reviewed. Limited review of prior medical records performed Vital Signs: reviewed and remarkable for HTN Differential diagnosis: Differential diagnoses includes but is not limited to gastritis, peptic ulcer disease, GERD, gallbladder disease, pancreatitis, small bowel obstruction, acute coronary syndrome, pericarditis, ischemic bowel, irritable bowel disease, irritable bowel syndrome, appendicitis, diverticulitis, malignancy, hernia, urinary tract infection, torsion, perforation, trauma, infectious. ER treatment provided: See below Diagnostics interpreted by me: ECG: Sinus tachycardia rate of [address] depressions in the inferior leads as well as V4 through V6 Cardiac Monitoring: An order was placed for continuous cardiac monitoring. The monitor shows a rate of 110 with sinus rhythm. Laboratory studies: As stated above and show below. Imaging studies: CT abdomen pelvis as well as the chest was unremarkable CT head was negative. Chest x-ray unremarkable Consultation(s): Discussed with Kamla who evaluate the patient at bedside. Procedures: none Critical Care: I have personally spent 32 minutes of critical care time in the direct management of this patient. This includes bedside care, interpretation of diagnostic studies, and testing, discussion with consultants, patient, and family members, and other required patient management activities. This 32 minutes is in excess of all separately billable procedures. 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 (CVA) Hip fracture, left "s/p repair" HTN (hypertension) Mental retardation Osteoporosis Profound vision impairment Retinal tear Swallowing impairment thickene liquids Surgical History S/P repair of PDA Family History Other Breast cancer Ovarian cancer Social History Smoking Status: Unknown if ever smoked Preferred Language: Serbian Communication Ability: Unable Ward Aide Required: No Beliefs That Will Affect Care: None Current Living Situation: [facility] Other Information That Helps Us Care for You: No Feels Safe at Home: Yes Assistive Devices: None Allergies Allergies Allergy/AdvReac Type Severity Reaction Status Date / Time Penicillins Allergy Severe Rash Verified 08/04/21 10:38 ampicillin Allergy Verified 08/04/21 10:38 Home Meds Home Medications Medication Instructions Recorded Confirmed atorvastatin 20 mg tablet 20 mg PO HS 11/15/18 08/04/21 baclofen 10 mg tablet 10 mg PO TID 11/15/18 08/04/21 citalopram 40 mg tablet 40 mg PO QAM 11/15/18 08/04/21 clonidine 0.1 mg/24 hr weekly 0.1 mg TOPICAL WK 11/15/18 08/04/21 transdermal patch clopidogrel 75 mg tablet 75 mg PO QAM 11/15/18 08/04/21 dorzolamide 22.3 mg-timolol 6.8 1 drp OPL BID 11/15/18 08/04/21 mg/mL eye drops polyethylene glycol 3350 17 17 g PO QAM 11/15/18 08/04/21 gram/dose oral powder selenium sulfide 1 % shampoo 1 applic TOPICAL 3XWK 11/15/18 08/04/21 (Selsun Blue) sennosides 8.6 mg-docusate sodium 2 tab-cap PO HS 11/15/18 08/04/21 50 mg tablet (Senexon-S) starch (thickening) (Thick-It) 1 ea PO DIRECTED 11/15/18 08/04/21 tizanidine 2 mg tablet 2 mg PO TID 11/15/18 08/04/21 tizanidine 4 mg tablet 4 mg PO TID 11/15/18 08/04/21 bisacodyl 10 mg rectal suppository 10 mg GA UD PRN 01/07/19 08/04/21 dimethicone-petrolatum 1 %-30 % 0 applic TOPICAL UD PRN 01/07/19 08/04/21 topical cream (Sensi-Care Body Cream) mupirocin 2 % topical ointment 1 applic TOPICAL BID PRN 01/07/19 08/04/21 oxcarbazepine 600 mg tablet 600 mg PO BID 01/07/19 08/04/21 sodium phosphates 19 gram-7 118 ml GA UD PRN 01/07/19 08/04/21 gram/118 mL enema (Fleet Enema) latanoprost 0.005 % eye drops 1 drp OPHTHALMIC (EYE) PM 06/13/20 08/04/21 Tylenol 650 mg PO Q4H PRN MDD 3,000MG 08/04/21 08/04/21 cholecalciferol (vitamin D3) 1 cap PO DAILY 08/04/21 08/04/21 multivitamin 1 cap PO DAILY 08/04/21 08/04/21 nystatin 100,000 unit/gram topical 1 applic TOPICAL TID 08/04/21 08/04/21 powder (Nyamy) Results & Data (ED) Vital Signs Vital Signs - 24 hr 08/04/21 08:16 08/04/21 08:19 08/04/21 08:21 Temperature Temperature Source Pulse Rate 114 H 114 H 108 H Pulse Rate [Left Finger] Pulse Rate from SpO2 Sensor Pulse Rhythm Regular Regular Pulse Strength Normal Respiratory Rate 20 20 17 Respiratory Effort / Characteristics Non-Labored Spontaneous Respiratory Depth Normal Respiratory Pattern Regular Blood Pressure 256/145 H Blood Pressure [Right Thigh] Blood Pressure Mean 182 Blood Pressure Mean [Right Thigh] Blood Pressure Position [Right Thigh] Pulse Oximetry 97 97 95 Oxygen Delivery Method Room Air Room Air Sepsis Recent Fever Within 48 Hours No Sepsis New/Unexplained Change in Mental Status No Sepsis Action Taken by Nursing No Action Required 08/04/21 08:27 08/04/21 08:30 08/04/21 08:45 Temperature Temperature Source Pulse Rate 111 H 114 H 114 H Pulse Rate [Left Finger] Pulse Rate from SpO2 Sensor Pulse Rhythm Pulse Strength Respiratory Rate 22 20 20 Respiratory Effort / Characteristics Respiratory Depth Respiratory Pattern Blood Pressure 229/136 H 251/132 H 269/126 H Blood Pressure [Right Thigh] Blood Pressure Mean 167 171 173 Blood Pressure Mean [Right Thigh] Blood Pressure Position [Right Thigh] Pulse Oximetry 94 94 93 Oxygen Delivery Method Sepsis Recent Fever Within 48 Hours Sepsis New/Unexplained Change in Mental Status Sepsis Action Taken by Nursing 08/04/21 09:00 08/04/21 09:15 08/04/21 09:55 Temperature Temperature Source Pulse Rate 107 H 104 H 109 H Pulse Rate [Left Finger] Pulse Rate from SpO2 Sensor 108 H 104 H 110 H Pulse Rhythm Pulse Strength Respiratory Rate 22 19 18 Respiratory Effort / Characteristics Respiratory Depth Respiratory Pattern Blood Pressure 263/111 H 222/109 H 224/115 H Blood Pressure [Right Thigh] Blood Pressure Mean 161 146 151 Blood Pressure Mean [Right Thigh] Blood Pressure Position [Right Thigh] Pulse Oximetry 93 93 91 Oxygen Delivery Method Sepsis Recent Fever Within 48 Hours Sepsis New/Unexplained Change in Mental Status Sepsis Action Taken by Nursing 08/04/21 10:10 08/04/21 10:20 08/04/21 10:27 Temperature 36.8 C Temperature Source Oral Pulse Rate 106 H 105 H Pulse Rate [Left Finger] 106 H Pulse Rate from SpO2 Sensor 105 H 104 H Pulse Rhythm Pulse Strength Respiratory Rate 15 20 14 Respiratory Effort / Characteristics Non-Labored Spontaneous Respiratory Depth Normal Respiratory Pattern Regular Blood Pressure 237/132 H 244/118 H Blood Pressure [Right Thigh] 244/118 H Blood Pressure Mean 167 160 Blood Pressure Mean [Right Thigh] 160 Blood Pressure Position [Right Thigh] Lying Pulse Oximetry 94 94 91 Oxygen Delivery Method Room Air Sepsis Recent Fever Within 48 Hours Sepsis New/Unexplained Change in Mental Status Sepsis Action Taken by Nursing 08/04/21 10:40 08/04/21 10:45 08/04/21 11:00 Temperature Temperature Source Pulse Rate 103 H 105 H 129 H Pulse Rate [Left Finger] Pulse Rate from SpO2 Sensor 104 H 106 H 129 H Pulse Rhythm Pulse Strength Respiratory Rate 15 23 18 Respiratory Effort / Characteristics Respiratory Depth Respiratory Pattern Blood Pressure 210/99 H 184/90 H 205/100 H Blood Pressure [Right Thigh] Blood Pressure Mean 136 121 135 Blood Pressure Mean [Right Thigh] Blood Pressure Position [Right Thigh] Pulse Oximetry 93 93 94 Oxygen Delivery Method Sepsis Recent Fever Within 48 Hours Sepsis New/Unexplained Change in Mental Status Sepsis Action Taken by Nursing 08/04/21 11:15 08/04/21 11:30 08/04/21 11:35 Temperature Temperature Source Pulse Rate 120 H 127 H 127 H Pulse Rate [Left Finger] Pulse Rate from SpO2 Sensor 118 H 127 H 127 H Pulse Rhythm Pulse Strength Respiratory Rate 18 17 17 Respiratory Effort / Characteristics Respiratory Depth Respiratory Pattern Blood Pressure 191/75 H 174/81 H 124/80 Blood Pressure [Right Thigh] Blood Pressure Mean 113 112 94 Blood Pressure Mean [Right Thigh] Blood Pressure Position [Right Thigh] Pulse Oximetry 95 94 94 Oxygen Delivery Method Sepsis Recent Fever Within 48 Hours Sepsis New/Unexplained Change in Mental Status Sepsis Action Taken by Nursing 08/04/21 11:45 Temperature Temperature Source Pulse Rate 127 H Pulse Rate [Left Finger] Pulse Rate from SpO2 Sensor 128 H Pulse Rhythm Pulse Strength Respiratory Rate 16 Respiratory Effort / Characteristics Respiratory Depth Respiratory Pattern Blood Pressure 159/74 H Blood Pressure [Right Thigh] Blood Pressure Mean 102 Blood Pressure Mean [Right Thigh] Blood Pressure Position [Right Thigh] Pulse Oximetry 95 Oxygen Delivery Method Sepsis Recent Fever Within 48 Hours Sepsis New/Unexplained Change in Mental Status Sepsis Action Taken by Nursing Laboratory Data Result diagrams: 08/04/21 08:27 08/04/21 08:27 Lab Results 08/04/21 08/04/21 08/04/21 Range/Units 08:27 08:27 09:00 WBC 7.17 (4.8-10.8) K/uL RBC 4.31 (4.2-5.4) M/uL Hgb 13.9 (12.0-16.0) g/dL Hct 39.0 (37-47) % MCV 90.5 (80-100) fL MCH 32.3 (25-34) pg MCHC 35.6 (32-36) g/dL RDW Std Deviation 42.3 (36.4-46.3) fL RDW Coeff of Julieth 12.9 (11.5-14.5) % Plt Count 252 (130-400) K/uL MPV 10.9 H (7.4-10.4) fL Immature Gran % (Auto) 0.1 % Neut % (Auto) 71.9 % Lymph % (Auto) 21.6 % [place] % (Auto) 4.6 % Eos % (Auto) 1.8 % Baso % (Auto) 0.0 % Neut # (Auto) 5.15 (1.4-6.5) K/uL Lymph # (Auto) 1.55 (1.2-3.4) K/uL [place] # (Auto) 0.33 (0.11-0.59) K/uL Eos # (Auto) 0.13 (0-0.5) K/uL Baso # (Auto) 0.00 (0-0.2) K/uL Immature Gran # (Auto) 0.01 (0.00-0.02) K/uL Sodium 142 (136-145) mmol/L Potassium 4.6 (3.5-5.1) mmol/L Chloride 104 (98-107) mmol/L Carbon Dioxide 29 (21-32) mmol/L Anion Gap 9 (3-11) BUN 25 H (6-23) mg/dl Creatinine 1.30 H (0.6-1.2) mg/dl Est Cr Clr Drug Dosing Not Reportable Est GFR ( Amer) 55.0 ml/min Est GFR (Non-Af Amer) 47.5 ml/min BUN/Creatinine Ratio 19.2 (10-20) Glucose 179 H (70-99(Fasting)) mg/dl Lactate (0.4-2.0) mmol/L Calcium 15.0 H* (8.5-10.1) mg/dl Phosphorus (2.5-4.9) mg/dl Magnesium (1.7-2.4) mg/dl Total Bilirubin 0.5 (0.2-1.0) mg/dl AST 29 (13-39) U/L ALT 36 (7-52) U/L Alkaline Phosphatase 91 (34-104) U/L Total Creatine Kinase (26-192) U/L Troponin I High Sens 57.3 H* (0-14) pg/ml Total Protein 7.9 (6.0-8.3) gm/dl Albumin 4.5 (3.4-5.0) gm/dl Globulin 3.4 (2.5-4.0) gm/dl Albumin/Globulin Ratio 1.3 (0.9-2) Lipase 44 (11-82) U/L 25-OH Vitamin D Total (30-100) ng/ml Procalcitonin (0-0.5) ng/ml Urine Color [place] Urine Appearance Clear (Clear) Urine pH 7.5 (4.5-7.5) Ur Specific [place] 1.010 (1.000-1.030) Urine Protein Trace H (Negative) Urine Glucose (UA) Negative (Negative) Urine Ketones Negative (Negative) Urine Blood 3+ H (Negative) Urine Nitrite Negative (Negative) Urine Bilirubin Negative (Negative) Urine Urobilinogen Negative (Negative) Ur Leukocyte Esterase Negative (Negative) Urine WBC (Auto) 1-5 (0-5) /hpf Urine RBC (Auto) >30 H (0-4) /hpf U Hyaline Cast (Auto) 1-5 (0-5) /lpf U Epithel Cells (Auto) 20-30 H (0-5) /lpf Urine Bacteria (Auto) Negative (Negative) SARS-CoV-2, RNA, NAAT (NEGATIVE) 08/04/21 08/04/21 08/04/21 Range/Units 11:04 11:04 11:04 WBC (4.8-10.8) K/uL RBC (4.2-5.4) M/uL Hgb (12.0-16.0) g/dL Hct (37-47) % MCV (80-100) fL MCH (25-34) pg MCHC (32-36) g/dL RDW Std Deviation (36.4-46.3) fL RDW Coeff of Julieth (11.5-14.5) % Plt Count (130-400) K/uL MPV (7.4-10.4) fL Immature Gran % (Auto) % Neut % (Auto) % Lymph % (Auto) % [place] % (Auto) % Eos % (Auto) % Baso % (Auto) % Neut # (Auto) (1.4-6.5) K/uL Lymph # (Auto) (1.2-3.4) K/uL [place] # (Auto) (0.11-0.59) K/uL Eos # (Auto) (0-0.5) K/uL Baso # (Auto) (0-0.2) K/uL Immature Gran # (Auto) (0.00-0.02) K/uL Sodium (136-145) mmol/L Potassium (3.5-5.1) mmol/L Chloride (98-107) mmol/L Carbon Dioxide (21-32) mmol/L Anion Gap (3-11) BUN (6-23) mg/dl Creatinine (0.6-1.2) mg/dl Est Cr Clr Drug Dosing Est GFR ( Amer) ml/min Est GFR (Non-Af Amer) ml/min BUN/Creatinine Ratio (10-20) Glucose (70-99(Fasting)) mg/dl Lactate 1.0 (0.4-2.0) mmol/L Calcium (8.5-10.1) mg/dl Phosphorus 4.2 (2.5-4.9) mg/dl Magnesium 1.7 (1.7-2.4) mg/dl Total Bilirubin (0.2-1.0) mg/dl AST (13-39) U/L ALT (7-52) U/L Alkaline Phosphatase (34-104) U/L Total Creatine Kinase (26-192) U/L Troponin I High Sens (0-14) pg/ml Total Protein (6.0-8.3) gm/dl Albumin (3.4-5.0) gm/dl Globulin (2.5-4.0) gm/dl Albumin/Globulin Ratio (0.9-2) Lipase (11-82) U/L 25-OH Vitamin D Total (30-100) ng/ml Procalcitonin < 0.05 (0-0.5) ng/ml Urine Color Urine Appearance (Clear) Urine pH (4.5-7.5) Ur Specific [place] (1.000-1.030) Urine Protein (Negative) Urine Glucose (UA) (Negative) Urine Ketones (Negative) Urine Blood (Negative) Urine Nitrite (Negative) Urine Bilirubin (Negative) Urine Urobilinogen (Negative) Ur Leukocyte Esterase (Negative) Urine WBC (Auto) (0-5) /hpf Urine RBC (Auto) (0-4) /hpf U Hyaline Cast (Auto) (0-5) /lpf U Epithel Cells (Auto) (0-5) /lpf Urine Bacteria (Auto) (Negative) SARS-CoV-2, RNA, NAAT (NEGATIVE) 08/04/21 08/04/21 08/04/21 Range/Units 11:04 11:04 11:05 WBC (4.8-10.8) K/uL RBC (4.2-5.4) M/uL Hgb (12.0-16.0) g/dL Hct (37-47) % MCV (80-100) fL MCH (25-34) pg MCHC (32-36) g/dL RDW Std Deviation (36.4-46.3) fL RDW Coeff of Julieth (11.5-14.5) % Plt Count (130-400) K/uL MPV (7.4-10.4) fL Immature Gran % (Auto) % Neut % (Auto) % Lymph % (Auto) % [place] % (Auto) % Eos % (Auto) % Baso % (Auto) % Neut # (Auto) (1.4-6.5) K/uL Lymph # (Auto) (1.2-3.4) K/uL [place] # (Auto) (0.11-0.59) K/uL Eos # (Auto) (0-0.5) K/uL Baso # (Auto) (0-0.2) K/uL Immature Gran # (Auto) (0.00-0.02) K/uL Sodium (136-145) mmol/L Potassium (3.5-5.1) mmol/L Chloride (98-107) mmol/L Carbon Dioxide (21-32) mmol/L Anion Gap (3-11) BUN (6-23) mg/dl Creatinine (0.6-1.2) mg/dl Est Cr Clr Drug Dosing Est GFR ( Amer) ml/min Est GFR (Non-Af Amer) ml/min BUN/Creatinine Ratio (10-20) Glucose (70-99(Fasting)) mg/dl Lactate (0.4-2.0) mmol/L Calcium (8.5-10.1) mg/dl Phosphorus (2.5-4.9) mg/dl Magnesium (1.7-2.4) mg/dl Total Bilirubin (0.2-1.0) mg/dl AST (13-39) U/L ALT (7-52) U/L Alkaline Phosphatase (34-104) U/L Total Creatine Kinase 35 (26-192) U/L Troponin I High Sens (0-14) pg/ml Total Protein (6.0-8.3) gm/dl Albumin (3.4-5.0) gm/dl Globulin (2.5-4.0) gm/dl Albumin/Globulin Ratio (0.9-2) Lipase (11-82) U/L 25-OH Vitamin D Total 43.7 (30-100) ng/ml Procalcitonin (0-0.5) ng/ml Urine Color Urine Appearance (Clear) Urine pH (4.5-7.5) Ur Specific [place] (1.000-1.030) Urine Protein (Negative) Urine Glucose (UA) (Negative) Urine Ketones (Negative) Urine Blood (Negative) Urine Nitrite (Negative) Urine Bilirubin (Negative) Urine Urobilinogen (Negative) Ur Leukocyte Esterase (Negative) Urine WBC (Auto) (0-5) /hpf Urine RBC (Auto) (0-4) /hpf U Hyaline Cast (Auto) (0-5) /lpf U Epithel Cells (Auto) (0-5) /lpf Urine Bacteria (Auto) (Negative) SARS-CoV-2, RNA, NAAT NEGATIVE (NEGATIVE) Administered Medications Discontinued Medications Hydralazine HCl (Hydralazine Hcl 20 Mg/Ml Vial) 10 mg IV NOW STA Stop: 08/04/21 10:18 Last Admin: 08/04/21 10:50 Dose: 10 mg Documented by: [id number] Hydralazine HCl (Hydralazine Hcl 20 Mg/Ml Vial) 10 mg IV NOW STA Stop: 08/04/21 10:54 Last Admin: 08/04/21 11:26 Dose: 10 mg Documented by: [id number] Sodium Chloride (Nss 1000ml) 1,000 mls @ 999 mls/hr IV .Q1H1M ONE Stop: 08/04/21 09:27 Last Infusion: 08/04/21 11:18 Dose: 0 mls/hr Documented by: [id number] Admin: 08/04/21 08:41 Dose: 999 mls/hr Documented by: [id number] Sodium Chloride (Nss 1000ml) 1,000 mls @ 999 mls/hr IV .Q1H1M ONE Stop: 08/04/21 11:17 Last Infusion: 08/04/21 11:18 Dose: 0 mls/hr Documented by: [id number] Admin: 08/04/21 10:50 Dose: 999 mls/hr Documented by: [id number] Calcitonin Byram 250 units/ (Syringe) 1.25 mls @ 0 mls/sec SQ NOW ONE Stop: 08/04/21 10:46 Last Admin: 08/04/21 11:04 Dose: 1 mls/sec Documented by: [id number] Ceftriaxone Sodium (Rocephin) 1,000 mg in 50 mls @ 100 mls/hr IV NOW STA Stop: 08/04/21 11:21 Last Infusion: 08/04/21 11:59 Dose: 0 mls/hr Documented by: [id number] Admin: 08/04/21 11:26 Dose: 100 mls/hr Documented by: [id number] Promethazine HCl 12.5 mg/ (Sodium Chloride) 50.5 mls @ 202 mls/hr IV NOW STA Stop: 08/04/21 12:32 Last Infusion: 08/04/21 13:30 Dose: 0 mls/hr Documented by: [id number] Admin: 08/04/21 12:43 Dose: 202 mls/hr Documented by: [id number] Ioversol (Optiray 320 100ml) 94 ml IV ONCE ONE Stop: 08/04/21 09:41 Last Admin: 08/04/21 09:41 Dose: 94 ml Documented by: [id number] Ioversol (Optiray 320 125ml) 70 ml IV ONCE ONE Stop: 08/04/21 13:13 Last Admin: 08/04/21 13:13 Dose: 70 ml Documented by: [id number] Morphine Sulfate (Morphine Sulfate 4 Mg/Ml 1 Ml Carp\\Vial) 4 mg IV NOW STA Stop: 08/04/21 08:29 Last Admin: 08/04/21 08:42 Dose: 4 mg Documented by: [id number] Ondansetron HCl (Ondansetron Inj 2 Mg/Ml 2 Ml Vial) 4 mg IV NOW STA Stop: 08/04/21 08:29 Last Admin: 08/04/21 08:42 Dose: 4 mg Documented by: [id number] Imaging Data Radiologist's Impression: Abdomen/Pelvis CT 08/04/21 08:27 CT SCAN OF THE ABDOMEN AND PELVIS WITH IV CONTRAST CLINICAL HISTORY: Hypertension. Nausea and vomiting. COMPARISON STUDY: Pelvic ultrasound dated 12/20/2020. TECHNIQUE: Following the IV administration of 94 cc of Optiray 320, CT scan of the abdomen and pelvis is performed from the lung bases to the proximal femora. Images are reviewed in the axial, sagittal, and coronal planes. IV contrast was administered without complication. A dose lowering technique was utilized adhering to the principles of ALARA. The examination is degraded by motion artifact, as well as by streak artifact from the arms which could not be elevated above the abdomen. CT DOSE: 1365.02 mGy.cm FINDINGS: Lung bases: The heart is normal in size and without pericardial effusion. The lung bases are clear. Liver: The contrast-enhanced liver is normal in size, contour, and attenuation. There is no intrahepatic biliary ductal dilatation. The hepatic veins and portal veins are patent. Gallbladder: Unremarkable. Spleen: Normal in size and attenuation. Pancreas: Unremarkable. Adrenal glands: Unremarkable. Kidneys: The contrast enhanced kidneys demonstrate mild cortical atrophy and are without hydronephrosis. The kidneys enhance symmetrically. Foci of cortical scarring are noted in the right kidney. A 1.6 cm cyst is noted in the left kidney. Additional subcentimeter cortical hypodensities also likely represent cysts but are too small for definitive characterization. There are nonobstructing right renal calculi which measure up to 4 mm. An 8 mm calcification in the right upper pole may be cortical contained within a cyst or calyceal diverticulum. Abdominal vasculature: The abdominal aorta is normal in course and caliber noting advanced atherosclerotic calcification. Bowel: There is rectosigmoid fecal retention and mild to moderate constipation. No bowel obstruction is seen. The appendix is not visualized. Peritoneum: There is no intraperitoneal free air or abdominal ascites. There is laxity of the ventral abdominal wall with diastases of the rectus musculature and a small fat-containing umbilical hernia. Lymphadenopathy: None. Pelvic viscera: The bladder is decompressed and appears thick-walled. Question pericystic infiltration. The uterus and adnexa are normal as visualized. Skeletal structures: The skeletal structures are osteopenic. There is mild lumbosacral spondylosis. No lytic or blastic lesions are seen. There is posttraumatic deformity and postoperative change is noted in the left proximal femur. IMPRESSION: 1. Question cystitis. Correlate with clinical findings and urinalysis. 2. Right-sided nephrolithiasis. 3. Mild to moderate constipation. 4. Additional findings as above. ACT 112: Negative or not required by law. Electronically signed by: Stanton Odom M.D. 08/04/2021 10:14 AM Chest X-Ray 08/04/21 08:27 SINGLE VIEW CHEST CLINICAL HISTORY: Hypertension. FINDINGS: An AP, portable, upright chest radiograph is compared to study dated 01/07/2019. Correlation is made with chest CT dated 11/15/2018. The examination is degraded by portable technique and patient rotation. The cardiomediastinal silhouette is top normal for projection. There are low lung volumes with mild bibasilar atelectasis. The lungs and pleural spaces are otherwise clear. No pneumothorax is seen. The skeletal structures are osteopenic. The bony thorax is grossly intact. IMPRESSION: No active disease in the chest. ACT 112: Negative or not required by law. Electronically signed by: Stanton Odom M.D. 08/04/2021 8:[address] 08/04/21 08:27 CT SCAN OF THE BRAIN WITHOUT IV CONTRAST CLINICAL HISTORY: Nausea and vomiting. COMPARISON STUDY: CT of the brain dated 01/17/2019. TECHNIQUE: Unenhanced axial CT scan of the brain is performed from the vertex to the skull base. A dose lowering technique was utilized adhering to the principles of ALARA. FINDINGS: Brain parenchyma: Left MCA territory encephalomalacia is unchanged and consistent with a remote infarct. This involves the left thalamus and basal ganglia. There is associated ex vacuo dilatation of the left lateral ventricle. Wallerian degeneration is noted in the left aspect of the jazmyne. There is no hemorrhage, mass effect, or evidence of acute territorial ischemia by CT criteria. Person-white matter differentiation is preserved. No extra-axial fluid collection is seen. Ventricles, sulci, cisterns: Normal in configuration. Intracranial vasculature: There is atherosclerotic calcification of the cavernous carotid arteries. Calvarium: Unremarkable. Sinuses and mastoids: There is mild mucosal thickening within the maxillary antra. The remaining paranasal sinuses are clear. The mastoid air cells are well pneumatized. Orbits: The bony orbits are grossly intact. There is evidence of previous bilateral ocular lens surgery. IMPRESSION: 1. There is no hemorrhage, mass effect, or evidence of acute territorial ischemia by CT criteria. 2. A chronic left MCA territory infarct is unchanged. ACT 112: Negative or not required by law. Electronically signed by: Stanton Odom M.D. 08/04/2021 9:44 AM Discharge Plan Visit Data Chief Complaint: Vomiting ED Provider: Ortiz Chong Discharge Problem: Hypertensive urgency, Abnormal EKG, Hypercalcemia, Elevated troponin Patient Disposition: Admitted As Inpatient Discharge Instructions Interventions: ED Discharge Assessment Last Done: 08/04/21 12:21
--- NOTE | 2021-08-04 08:45 | XRay Report ---
SINGLE VIEW CHEST CLINICAL HISTORY: Hypertension. FINDINGS: An AP, portable, upright chest radiograph is compared to study dated 01/07/2019. Correlation is made with chest CT dated 11/15/2018. The examination is degraded by portable technique and patient rotation. The cardiomediastinal silhouette is top normal for projection. There are low lung volumes with mild bibasilar atelectasis. The lungs and pleural spaces are otherwise clear. No pneumothorax is seen. The skeletal structures are osteopenic. The bony thorax is grossly intact. IMPRESSION: No active disease in the chest. ACT 112: Negative or not required by law. Electronically signed by: Stanton Odom M.D. 08/04/2021 8:44 AM
[2021-08-04 08:46] LABS: Eosinophils # (auto) 0.13 K/uL (0-0.5); Eosinophils % (auto) 1.8 %; Hemoglobin 13.9 g/dL (12.0-16.0); Immature Granulocytes # (auto) 0.01 K/uL (0.00-0.02); Immature Granulocytes % (auto) 0.1 %; Lymphocytes # (auto) 1.55 K/uL (1.2-3.4); Lymphocytes % (auto) 21.6 %; Mean Corpuscular Hemoglobin 32.3 pg (25-34); Mean Corpuscular Hgb Conc 35.6 g/dL (32-36); Mean Corpuscular Volume 90.5 fL (80-100); Mean Platelet Volume 10.9 fL (7.4-10.4); Monocytes # (auto) 0.33 K/uL (0.11-0.59); Monocytes % (auto) 4.6 %; Neutrophils # (auto) 5.15 K/uL (1.4-6.5); Neutrophils % (auto) 71.9 %; Platelet Count 252 K/uL (130-400); RDW Coefficient of Variation 12.9 % (11.5-14.5); RDW Standard Deviation 42.3 fL (36.4-46.3); Red Blood Count 4.31 M/uL (4.2-5.4); White Blood Count 7.17 K/uL (4.8-10.8)
[2021-08-04 09:14] LABS: Alanine Aminotransferase 36 U/L (7-52); Albumin Globulin Ratio 1.3 (0.9-2); Albumin Level 4.5 gm/dl (3.4-5.0); Alkaline Phosphatase 91 U/L (34-104); Anion Gap 9 (3-11); Aspartate Aminotransferase 29 U/L (13-39); BUN Creatinine Ratio 19.2 (10-20); Bilirubin,Total 0.5 mg/dl (0.2-1.0); Blood Urea Nitrogen 25 mg/dl (6-23); Carbon Dioxide 29 mmol/L (21-32); Chloride 104 mmol/L (98-107); Est GFR (Non-African American) 47.5 ml/min; Globulin 3.4 gm/dl (2.5-4.0); Glucose 179 mg/dl (70-99(Fasting)); Lipase 44 U/L (11-82); Potassium 4.6 mmol/L (3.5-5.1); Sodium 142 mmol/L (136-145); Total Protein 7.9 gm/dl (6.0-8.3)
[2021-08-04 09:32] LABS: Appearance Urine Clear (Clear); Bacteria Urine Automated Negative (Negative); Bilirubin Urine Negative (Negative); Blood Urine 3+ (Negative); Color Urine Orange; Epithelial Cell Urine Auto 20-30 /lpf (0-5); Glucose Urine UA Negative (Negative); Ketones Urine Negative (Negative); Leukocyte Esterase Urine Negative (Negative); Nitrite Urine Negative (Negative); RBC Urine Automated >30 /hpf (0-4); Urobilinogen Urine Negative (Negative); pH Urine 7.5 (4.5-7.5)
[2021-08-04] MEDS ORDERED: OPTIRAY 320 100ml IV ONE (09:40)
--- NOTE | 2021-08-04 09:46 | CT Scan Report ---
CT SCAN OF THE BRAIN WITHOUT IV CONTRAST CLINICAL HISTORY: Nausea and vomiting. COMPARISON STUDY: CT of the brain dated 01/17/2019. TECHNIQUE: Unenhanced axial CT scan of the brain is performed from the vertex to the skull base. A d ose lowering technique was utilized adhering to the principles of ALARA. FINDINGS: Brain parenchyma: Left MCA territory encephalomalacia is unchanged and consistent with a remote infar ct. This involves the left thalamus and basal ganglia. There is associated ex vacuo dilatation of the left lateral ventricle. Wallerian degeneration is noted in the left aspect of the jazmyne. There is no hemorrhage, mass effect, or evidence of acute territorial ischemia by CT criteria. Person-white matter differentiation is preserved. No extra-axial fluid collection is seen. Ventricles, sulci, cisterns: Normal in configuration. Intracranial vasculature: There is atherosclerotic calcification of the cavernous carotid arteries. Calvarium: Unremarkable. Sinuses and mastoids: There is mild mucosal thickening within the maxillary antra. The remaining para nasal sinuses are clear. The mastoid air cells are well pneumatized. Orbits: The bony orbits are grossly intact. There is evidence of previous bilateral ocular lens surge ry. IMPRESSION: 1. There is no hemorrhage, mass effect, or evidence of acute territorial ischemia by CT criteria. 2. A chronic left MCA territory infarct is unchanged. ACT 112: Negative or not required by law. Electronically signed by: Stanton Odom M.D. 08/04/2021 9:44 AM
[2021-08-04 09:52] LABS: Protein Urine Trace (Negative)
--- NOTE | 2021-08-04 10:16 | CT Scan Report ---
CT SCAN OF THE ABDOMEN AND PELVIS WITH IV CONTRAST CLINICAL HISTORY: Hypertension. Nausea and vomiting. COMPARISON STUDY: Pelvic ultrasound dated 12/20/2020. TECHNIQUE: Following the IV administration of 94 cc of Optiray 320, CT scan of the abdomen and pelvi s is performed from the lung bases to the proximal femora. Images are reviewed in the axial, sagittal , and coronal planes. IV contrast was administered without complication. A dose lowering technique wa s utilized adhering to the principles of ALARA. The examination is degraded by motion artifact, as we ll as by streak artifact from the arms which could not be elevated above the abdomen. CT DOSE: 1365.02 mGy.cm FINDINGS: Lung bases: The heart is normal in size and without pericardial effusion. The lung bases are clear. Liver: The contrast-enhanced liver is normal in size, contour, and attenuation. There is no intrahepa tic biliary ductal dilatation. The hepatic veins and portal veins are patent. Gallbladder: Unremarkable. Spleen: Normal in size and attenuation. Pancreas: Unremarkable. Adrenal glands: Unremarkable. Kidneys: The contrast enhanced kidneys demonstrate mild cortical atrophy and are without hydronephros is. The kidneys enhance symmetrically. Foci of cortical scarring are noted in the right kidney. A 1.6 cm cyst is noted in the left kidney. Additional subcentimeter cortical hypodensities also likely rep resent cysts but are too small for definitive characterization. There are nonobstructing right renal calculi which measure up to 4 mm. An 8 mm calcification in the right upper pole may be cortical conta ined within a cyst or calyceal diverticulum. Abdominal vasculature: The abdominal aorta is normal in course and caliber noting advanced atheroscle rotic calcification. Bowel: There is rectosigmoid fecal retention and mild to moderate constipation. No bowel obstruction is seen. The appendix is not visualized. Peritoneum: There is no intraperitoneal free air or abdominal ascites. There is laxity of the ventral abdominal wall with diastases of the rectus musculature and a small fat-containing umbilical hernia. Lymphadenopathy: None. Pelvic viscera: The bladder is decompressed and appears thick-walled. Question pericystic infiltratio n. The uterus and adnexa are normal as visualized. Skeletal structures: The skeletal structures are osteopenic. There is mild lumbosacral spondylosis. N o lytic or blastic lesions are seen. There is posttraumatic deformity and postoperative change is not ed in the left proximal femur. IMPRESSION: 1. Question cystitis. Correlate with clinical findings and urinalysis. 2. Right-sided nephrolithiasis. 3. Mild to moderate constipation. 4. Additional findings as above. ACT 112: Negative or not required by law. Electronically signed by: Stanton Odom M.D. 08/04/2021 10:14 AM
[2021-08-04] MEDS ORDERED: hydrALAZINE HCL 20 MG/ML VIAL IV STA ×2 (10:17→10:53)
[2021-08-04] MEDS ORDERED: CALCITONIN SALMON 250 UNITS in SYRINGE 0 ML SQ ONE (10:45)
[2021-08-04 10:46] LABS: Troponin I High Sensitivity 57.3 pg/ml (0-14)
[2021-08-04] MEDS ORDERED: cefTRIAXone SODIUM 1,000 MG/50 ML BAG IV STA (10:52)
--- NOTE | 2021-08-04 11:31 | History & Physical Report ---
Date of Service August 04, 2021 Assessment & Plan (1) SIRS (systemic inflammatory response syndrome): Plan: elevated temp and tachycardic on arrival, concerning for developing sepsis. There is no clear cause at this time with clear CXR, clear UA and recent UA in late June with no evidence of infection either. Abd/pel CT with no evidence of colitis and there is nausea and vomiting, evidenced by dry heaving per family and network administrator at skilled nursing. There are ST depressions on EKG with an elevated trop concerning for possible PE, higher risk given chronic immobility. CT chest with contrast is pending. After BP was more controlled, she seemed to look improved clinically aside from persistent tachycardia. She is not hypoxic or working to breathe. Sepsis is possible but not a preferred diagnosis given alternative reasons for clinical picture and negative procalcitonin. Rocephin given empirically and continue pending blood culture results and clinical improvement. (2) Hypertensive emergency: Plan: Blood pressure typically controlled in outpatient setting on clonidine patch changed just yesterday. BP elevation is likely secondary to her feeling badly and is now more controlled after two doses of hydralazine. Prefer BP to be taken in her LUE. As RUE shouldn't be used with h/o stroke affecting the right arm, IVF should be paused for BP checks. Cont home clonidine for now and bre tor closely in the PCU. (3) Hypercalcemia: Plan: Severe hypercalcemia causing altered mental status and likely the nausea and vomiting, also. Cont high rate IVF and trend serial calcium levels. Calcitonin given in ER and await improvement in creatine prior to administering bisphosphonate. Also, checking PTH, 25OH now. (4) Elevated troponin: Plan: NSTEMI vs demand ischemia. Awaiting CT chest and echo and serial troponin trend. For now, cont plavix. She is NPO, so will give ASA [place] at this time. Consider betablocker therapy, however, will not give if tachycardia is appropriate response to PE. Await CT results to determine. (5) Microscopic hematuria: Plan: In setting of critical blood pressure elevation. No evidence of this on outpatient records. Consider repeating again as outpatient to ensure this has resolved. Noted non-obstructing renal stone on CT. (6) Acute metabolic encephalopathy: Plan: secondary to hypercalcemia with possible contribution from SIRs/sepsis. CT head reveals no new evidence of acute stroke at this time. (7) Nausea: Plan: Likely a result of hypercalcemia. Cont supportive care while this is being corrected. (8) Acute kidney injury: Plan: Cont hydration efforts and trend. Note patient had two doses of iodinated contrast for imaging studies today. Will cont IVF administration and place beltre to gauge I/O and for comfort while giving her higher volume fluids. 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 She was taking denosumab as outpatient and was due for her 6 month injection on 06/04/21. This was held by Rheumatology to give her a drug holiday. Would administer zolendronic acid for hypercalcemia above once JANEL is improved. (10) H/O: stroke: Plan: chronic, stable. Continues on Plavix per home regimen. (11) Congenital rubella syndrome: Plan: nonverbal. See note above for baseline functional status. (12) DVT prophylaxis: Plan: Lovenox DNR per records and per mom and sister who are at bedside. 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 Per mom, who is at bedside, she has been nonverbal her entire life. She also had a stroke in the past and is on Plavix. At baseline she is bedbound and completely dependent for care, living in a skilled nursing. To communicate, she demonstrates understanding at baseline, pushing you away if she is trying to say no. And if given the choice between things, she can point to what she wants. She is able to follow commands at baseline. She is able to tolerate PO, but is an aspiration risk from her mental and physical disabilities. She takes in a pureed diet and nectar thick liquids at baseline. She also has urinary incontinence at baseline and is in a diaper. Stenographic [employer] Reporter notes regular bowel movements recently without diarrhea or stool changes. She was taking denosumab injections every 6 months for h/o osteoporosis. Per last Rheumatology note on 06/04/21 (prolia shot was due that day), a drug holiday from this was recommended because a bone density scan returned low/mod risk. Today she presents to the ER with critically high blood pressure, tachycardia, fever reported at 100.4F by network administrator, and evidence of dry heaving this morning. Stenographic Court Reporter states that she didn't eat much yesterday which isn't necessarily out of the ordinary for her. Clonidine patch is changed every Thursday and was confirmed to have been changed yesterday. In the ER workup reveals no leukocytosis with normal sodium, potassium. Creatinine is up from her normal baseline to 1.3. Calcium was elevated at 15 today (outpt records show Ca 11.3 on 07/25/21). Trop HS was elevated at 57, EKG reveals sinus tachycardia with a rate of [address] depressions in I,II, AVF and V4-V6. Patient is chronically immobile and CT chest to rule out PE is pending. CXR is clear and she is oxygenating well on room air. She is diaphoretic and afebrile. She is not working to breathe but is moaning and doesn't appear comfortable. She is ill-appearing. A UA reveals no evidence of infection with +microscopic hematuria. A CT abd pel with IV contrast revealed nonobstructing renal calculi on the right, advanced atherosclerotic calcification in the abdominal aorta, fecal retention, no evidence of intraperitoneal free air or abdominal ascites with a small fat-containing umbilical hernia, thick-walled bladder with questionable pericystic infiltration. She was treated with NSS 2L, morphine 4mg IV, Zofran 4mg IV, hydralazine 10mg IV x 2, calcitonin 250 units SQ, Rocephin 1gm, phenergan 12.5mg IV in the ER. Blood pressures were initially bring taking in the calf and when switched to the upper arm it was after the second dose of hydralazine. The BP was 124/80 at that point and no additional antihypertensives were needed. Per network administrator, she states bP is typically well controlled around 120/80 on the clonidine patch. Sister came later with mom to bedside and all questions were answered. Allergies Allergy/AdvReac Type Severity Reaction Status Date / Time Penicillins Allergy Severe Rash Verified 08/04/21 10:38 ampicillin Allergy Verified 08/04/21 10:38 Home Medications Medication Instructions Recorded Confirmed Type atorvastatin 20 mg tablet 20 mg PO HS 11/15/18 08/04/21 History baclofen 10 mg tablet 10 mg PO TID 11/15/18 08/04/21 History citalopram 40 mg tablet 40 mg PO QAM 11/15/18 08/04/21 History clonidine 0.1 mg/24 hr weekly 0.1 mg TOPICAL WK 11/15/18 08/04/21 History transdermal patch clopidogrel 75 mg tablet 75 mg PO QAM 11/15/18 08/04/21 History dorzolamide 22.3 mg-timolol 6.8 1 drp OPL BID 11/15/18 08/04/21 History mg/mL eye drops polyethylene glycol 3350 17 17 g PO QAM 11/15/18 08/04/21 History gram/dose oral powder selenium sulfide 1 % shampoo 1 applic TOPICAL 3XWK 11/15/18 08/04/21 History (Selsun Blue) sennosides 8.6 mg-docusate sodium 2 tab-cap PO HS 11/15/18 08/04/21 History 50 mg tablet (Senexon-S) starch (thickening) (Thick-It) 1 ea PO DIRECTED 11/15/18 08/04/21 History tizanidine 2 mg tablet 2 mg PO TID 11/15/18 08/04/21 History tizanidine 4 mg tablet 4 mg PO TID 11/15/18 08/04/21 History bisacodyl 10 mg rectal suppository 10 mg [place] UD PRN 01/07/19 08/04/21 History dimethicone-petrolatum 1 %-30 % 0 applic TOPICAL UD PRN 01/07/19 08/04/21 History topical cream (Sensi-Care Body Cream) mupirocin 2 % topical ointment 1 applic TOPICAL BID PRN 01/07/19 08/04/21 History oxcarbazepine 600 mg tablet 600 mg PO BID 01/07/19 08/04/21 History sodium phosphates 19 gram-7 118 ml [place] UD PRN 01/07/19 08/04/21 History gram/118 mL enema (Fleet Enema) latanoprost 0.005 % eye drops 1 drp OPHTHALMIC (EYE) PM 06/13/20 08/04/21 History Tylenol 650 mg PO Q4H PRN MDD 3,000MG 08/04/21 08/04/21 History cholecalciferol (vitamin D3) 1 cap PO DAILY 08/04/21 08/04/21 History multivitamin 1 cap PO DAILY 08/04/21 08/04/21 History nystatin 100,000 unit/gram topical 1 applic TOPICAL TID 08/04/21 08/04/21 History powder ([facility]) Past Med/Surg History Medical History (Updated 08/04/21 @ 13:05 by Kamla Dorado DO) 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 Esophageal reflux Glaucoma left H/O: stroke Hemiparesis and speech and language deficit as late effect of cerebrovascular accident (CVA) Hip fracture, left "s/p repair" HTN (hypertension) Mental retardation Osteoporosis Profound vision impairment Retinal tear Swallowing impairment thickene liquids Surgical History S/P repair of PDA Family History Other Breast cancer Ovarian cancer Social History Smoking Status: Never smoker Preferred Language: Syriac Communication Ability: Impaired Heart Doctor Required: No Current Living Situation: Personal Care Facility Feels Safe at Home: Yes Review of Systems Review of Systems: Cannot obtain ROS as patient is nonverbal. Physical Exam Physical Exam: CONSTITUTIONAL: WNWD with flexed upper extremities and a flaccidity to lower extremities, vitals as above, generally ill-appearing. Mild distress, diaphoretic. EYES: PERRL, normal conjunctivae, no scleral icterus ENT: external ear and nose normal, pt wouldn't open mouth for exam, lips are dry, suspect dry mucous membranes. NECK: trachea midline RESPIRATORY: clear to auscultation bilaterally, no crackles, rales or wheezes, normal respiratory effort (difficult exam as patient unable to follow instructions and had to hold her forward while auscultating) CARDIOVASCULAR: tachy rate and regular rhythm, S1 and 2 heard without murmurs, gallops or rubs, no JVD, no peripheral edema CHEST: inspection of chest was normal GASTROINTESTINAL: soft, nontender, ND, she is tensing her abdomen against my palpation to a certain extent but there is no clear guarding. MUSCULOSKELETAL: generalized weakness, cannot assess as patient unable to follow commands. Flacid lower extremities with rigidity to passive motion. head is normocephalic and atraumatic, SKIN: warm and diaphoretic, no rashes NEUROLOGIC: No facial palsy, able to moan but otherwise nonverbal. No tremor, cannot determine sensory deficit. PSYCHIATRIC: alert with open eyes but cannot track examiner or family member with her eyes and cannot follow commands, altered compared to baseline. Results & Data Results & Data ([facility]) Vital Signs (Past 12 Hours) Vital Signs Temp Pulse Pulse Resp BP BP Pulse Ox 08/04/21 11:00 129 H 18 205/100 H 94 08/04/21 10:45 105 H 23 184/90 H 93 08/04/21 10:40 103 H 15 210/99 H 93 08/04/21 10:27 36.8 C 106 H 14 244/118 H 91 08/04/21 10:20 105 H 20 244/118 H 94 08/04/21 10:10 106 H 15 237/132 H 94 08/04/21 09:55 109 H 18 224/115 H 91 08/04/21 09:15 104 H 19 222/109 H 93 08/04/21 09:00 107 H 22 263/111 H 93 08/04/21 08:45 114 H 20 269/126 H 93 08/04/21 08:30 114 H 20 251/132 H 94 08/04/21 08:27 111 H 22 229/136 H 94 08/04/21 08:21 108 H 17 256/145 H 95 08/04/21 08:19 114 H 20 97 08/04/21 08:16 114 H 20 97 Laboratory Results Short CBC 08/04/21 Range/Units 08:27 WBC 7.17 (4.8-10.8) K/uL Hgb 13.9 (12.0-16.0) g/dL Hct 39.0 (37-47) % Plt Count 252 (130-400) K/uL BMP 08/04/21 08:27 Sodium 142 Potassium 4.6 Chloride 104 Carbon Dioxide 29 BUN 25 H Creatinine 1.30 H Glucose 179 H Calcium 15.0 H* Cardiac Enzymes 08/04/21 Range/Units 11:04 Total Creatine Kinase 35 (26-192) U/L Liver Function 08/04/21 Range/Units 08:27 Total Bilirubin 0.5 (0.2-1.0) mg/dl AST 29 (13-39) U/L ALT 36 (7-52) U/L Alkaline Phosphatase 91 (34-104) U/L Albumin 4.5 (3.4-5.0) gm/dl Urine 08/04/21 Range/Units 09:00 Urine Color [place] Urine Appearance Clear (Clear) Urine pH 7.5 (4.5-7.5) Ur Specific [place] 1.010 (1.000-1.030) Urine Protein Trace H (Negative) Urine Glucose (UA) Negative (Negative) Diagnostic Findings Abdomen/Pelvis CT 08/04/21 08:27 CT SCAN OF THE ABDOMEN AND PELVIS WITH IV CONTRAST CLINICAL HISTORY: Hypertension. Nausea and vomiting. COMPARISON STUDY: Pelvic ultrasound dated 12/20/2020. TECHNIQUE: Following the IV administration of 94 cc of Optiray 320, CT scan of the abdomen and pelvis is performed from the lung bases to the proximal femora. Images are reviewed in the axial, sagittal, and coronal planes. IV contrast was administered without complication. A dose lowering technique was utilized ad latrice to the principles of ALARA. The examination is degraded by motion artifact, as well as by streak artifact from the arms which could not be elevated above the abdomen. CT DOSE: 1365.02 mGy.cm FINDINGS: Lung bases: The heart is normal in size and without pericardial effusion. The lung bases are clear. Liver: The contrast-enhanced liver is normal in size, contour, and attenuation. There is no intrahepatic biliary ductal dilatation. The hepatic veins and portal veins are patent. Gallbladder: Unremarkable. Spleen: Normal in size and attenuation. Pancreas: Unremarkable. Adrenal glands: Unremarkable. Kidneys: The contrast enhanced kidneys demonstrate mild cortical atrophy and are without hydronephrosis. The kidneys enhance symmetrically. Foci of cortical scarring are noted in the right kidney. A 1.6 cm cyst is noted in the left kidney. Additional subcentimeter cortical hypodensities also likely represent cysts but are too small for definitive characterization. There are nonobstructing right renal calculi which measure up to 4 mm. An 8 mm calcification in the right upper pole may be cortical contained within a cyst or calyceal diverticulum. Abdominal vasculature: The abdominal aorta is normal in course and caliber noting advanced atherosclerotic calcification. Bowel: There is rectosigmoid fecal retention and mild to moderate constipation. No bowel obstruction is seen. The appendix is not visualized. Peritoneum: There is no intraperitoneal free air or abdominal ascites. There is laxity of the ventral abdominal wall with diastases of the rectus musculature and a small fat-containing umbilical hernia. Lymphadenopathy: None. Pelvic viscera: The bladder is decompressed and appears thick-walled. Question pericystic infiltration. The uterus and adnexa are normal as visualized. Skeletal structures: The skeletal structures are osteopenic. There is mild lumbosacral spondylosis. No lytic or blastic lesions are seen. There is posttraumatic deformity and postoperative change is noted in the left proximal femur. IMPRESSION: 1. Question cystitis. Correlate with clinical findings and urinalysis. 2. Right-sided nephrolithiasis. 3. Mild to moderate constipation. 4. Additional findings as above. ACT 112: Negative or not required by law. Electronically signed by: Stanton Odom M.D. 08/04/2021 10:14 AM Chest X-Ray 08/04/21 08:27 SINGLE VIEW CHEST CLINICAL HISTORY: Hypertension. FINDINGS: An AP, portable, upright chest radiograph is compared to study dated 01/07/2019. Correlation is made with chest CT dated 11/15/2018. The examination is degraded by portable technique and patient rotation. The cardiomediastinal silhouette is top normal for projection. There are low lung volumes with mild bibasilar atelectasis. The lungs and pleural spaces are otherwise clear. No pneumothorax is seen. The skeletal structures are osteopenic. The bony thorax is grossly intact. IMPRESSION: No active disease in the chest. ACT 112: Negative or not required by law. Electronically signed by: Stanton Odom M.D. 08/04/2021 8:[address] 08/04/21 08:27 CT SCAN OF THE BRAIN WITHOUT IV CONTRAST CLINICAL HISTORY: Nausea and vomiting. COMPARISON STUDY: CT of the brain dated 01/17/2019. TECHNIQUE: Unenhanced axial CT scan of the brain is performed from the vertex to the skull base. A dose lowering technique was utilized adhering to the principles of ALARA. FINDINGS: Brain parenchyma: Left MCA territory encephalomalacia is unchanged and consistent with a remote infarct. This involves the left thalamus and basal ganglia. There is associated ex vacuo dilatation of the left lateral ventricle. Wallerian degeneration is noted in the left aspect of the jazmyne. There is no hemorrhage, mass effect, or evidence of acute territorial ischemia by CT criteria. Person-white matter differentiation is preserved. No extra-axial fluid collection is seen. Ventricles, sulci, cisterns: Normal in configuration. Intracranial vasculature: There is atherosclerotic calcification of the cavernous carotid arteries. Calvarium: Unremarkable. Sinuses and mastoids: There is mild mucosal thickening within the maxillary antra. The remaining paranasal sinuses are clear. The mastoid air cells are well pneumatized. Orbits: The bony orbits are grossly intact. There is evidence of previous bilateral ocular lens surgery. IMPRESSION: 1. There is no hemorrhage, mass effect, or evidence of acute territorial ischemia by CT criteria. 2. A chronic left MCA territory infarct is unchanged. ACT 112: Negative or not required by law. Electronically signed by: Stanton Odom M.D. 08/04/2021 9:44 AM
[2021-08-04 11:49] LABS: Magnesium 1.7 mg/dl (1.7-2.4); Phosphorus 4.2 mg/dl (2.5-4.9)
[2021-08-04] MEDS ORDERED: PROMETHAZINE HCL 12.5 MG in SODIUM CHLORIDE 0.9% 50 ML IV STA (12:18)
[2021-08-04] MEDS ORDERED: ASPIRIN 300 MG SUPP PR STA (13:12)
[2021-08-04] MEDS ORDERED: OPTIRAY 320 125ml IV ONE (13:12)
--- NOTE | 2021-08-04 13:14 | Electrocardiogram Report ---
Test Reason : Blood Pressure : / mmHG Vent. Rate : 118 BPM Atrial Rate : 118 BPM P-R Int : 188 ms QRS Dur : 098 ms QT Int : 312 ms P-R-T Axes : 060 037 055 degrees QTc Int : 437 ms Sinus tachycardia Possible Left atrial enlargement Cannot rule out Anterior infarct , age undetermined Marked ST abnormality, possible inferior subendocardial injury Abnormal ECG When compared with ECG of 07-JAN-2019 11:00, ST abnormality is new Confirmed by Kehinde Chen ([id number]) on 08/04/2021 1:13:48 PM Referred By: REFERRED SELF Confirmed By:Kehinde Chen
--- NOTE | 2021-08-04 13:26 | CT Scan Report ---
CT ANGIOGRAM OF THE CHEST CLINICAL HISTORY: Tachycardia. COMPARISON STUDY: Chest x-ray dated 08/04/2021. Chest CT dated 11/15/2018. TECHNIQUE: Following the IV administration of seventh cc of Optiray 320, CT angiogram of the chest wa s performed from the upper abdomen to the thoracic inlet utilizing the pulmonary embolus protocol. Im ages are reviewed in the axial, sagittal, and coronal planes. 3-D MIPS images are created and assesse d. IV contrast was administered without complication. A dose lowering technique was utilized adherin g to the principles of ALARA. The examination is degraded by motion artifact, as well as by streak ar tifact from the arms which could not be elevated above the chest. CT DOSE: 504.33 mGy.cm FINDINGS: Thyroid: Imaged portions of the thyroid gland are normal in size and attenuation. Thoracic aorta: The thoracic aorta is normal in caliber and demonstrates bovine variant arch anatomy. No dissection is seen. There is moderate stenosis of the left subclavian artery below the thoracic o utlet. Pulmonary vasculature: The pulmonary trunk is normal in caliber. There are no filling defects identif ied in main, lobar, or segmental pulmonary branches to suggest pulmonary embolus. Heart: The heart is top normal in size and without pericardial effusion. Lungs and pleural spaces: Evaluation of the lung parenchyma is degraded by motion artifact. There is no airspace consolidation or pleural effusion. The trachea and central airways are clear. Atelectasis is seen at the lung bases. A 4 mm left apical pulmonary nodule on image #[id number] is unchanged from 2019. Mediastinum: There is no mediastinal lymphadenopathy. Kelsy: Clear. Axillae: There is no axillary lymphadenopathy. Upper abdomen: Circumferential wall thickening suggested throughout the esophagus. Partially visualiz ed upper abdominal viscera is within normal limits. Skeletal structures: The skeletal structures are osteopenic. Mild spondylotic change is noted in the thoracic spine. No lytic or blastic bony lesions are seen. IMPRESSION: 1. Streak and motion degraded examination. 2. There is no evidence of pulmonary embolus in the main, lobar, or segmental pulmonary arteries. 3. There is no airspace consolidation or pleural effusion. 4. The esophageal wall appears circumferentially thickened. Correlate clinically for evidence of esop hagitis. This could be further assessed with endoscopy if clinically warranted. 5. Additional findings as above. ACT 112: Negative or not required by law. Electronically signed by: Stanton Odom M.D. 08/04/2021 1:23 PM
[2021-08-04] MEDS ORDERED: ONDANSETRON INJ 2 MG/ML 2 ML VIAL IV PRN (13:31)
[2021-08-04] MEDS ORDERED: bisacodyL 10 MG SUPP PR PRN (13:31)
[2021-08-04] MEDS ORDERED: POLYETHYLENE (MIRALAX) 17 GM PACK PO PRN (13:31)
[2021-08-04] MEDS: LACTATED RINGER'S 1,000 ML IV SCH ×2 (14:15→20:51)
[2021-08-04] MEDS: BACLOFEN 10 MG TAB PO SCH ×2 (14:34→20:52)
[2021-08-04] MEDS: Patient's HEIGHT &/or WEIGHT Needed SCH ×2 (14:34→15:22)
[2021-08-04] MEDS: tiZANidine HCL 4 MG TABLET PO SCH ×4 (14:34→20:57)
[2021-08-04] MEDS: ACETAMINOPHEN 1000 MG/100 ML IV IV SCH ×2 (14:37→21:16)
[2021-08-04 14:43] LABS: Troponin I High Sensitivity 92.8 pg/ml (0-14)
[2021-08-04] MEDS: CHECK CLONIDINE PATCH PLACEMENT SCH ×2 (15:21→23:58)
[2021-08-04] MEDS ORDERED: METOPROLOL TARTRATE 1 MG/ML VIAL IV STA (15:21)
--- NOTE | 2021-08-04 15:35 | Cardiology Consultation ---
Date of Consultation August 04, 2021 Assessment & Plan (1) Hypertensive urgency: (2) Non-ST elevation (NSTEMI) myocardial infarction: (3) Hypercalcemia: (4) Hypertensive heart disease: (5) Acute kidney injury: 50-year-old nonverbal female admitted with retching and dry heaves. Hypertensive crisis noted in ER treated with IV hydralazine. Abnormal ECG with ST depression and mildly elevated high-sensitivity troponin recorded. Bedside echocardiogram technically limited, however, without regional wall motion abnormality. +Evidence of hypertensive heart disease. Plaque rupture event less likely, however, not excluded. Recommend avoiding further treatment with hydralazine. Add topical nitrates. Due to ECG changes and elevated troponin, agree with treatment with intravenous heparin. Recommend addition of beta- sterling therapy. 5 mg of IV Lopressor will be given now followed by 5 mg every 6 hours. Patient is strict n.p.o. due to mental status changes likely related to hypercalcemia. She will receive IV hydration and treatment as per the internal medicine service. Trend troponin x3 sets. Repeat ECG in a.m. and with any change in clinical status. History of Present Illness Reason for Consultation: elevated troponin, tachycardia Requesting Physician: Dr. 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 Markedly hypertensive in ER. Multiple CAT scans performed including CT of the head, chest, abdomen and pelvis without acute pathology. No PE or acute aortic catastrophe. Treated with IV hydralazine with minimal improvement. Patient typically cannot swallow pills and follows commands minimally. History of CVA in 2017 prompting chronic treatment with clopidogrel. Marked hypercalcemia noted on admission. ECG with ST depression. Initial high-sensitivity troponin mildly elevated with increase on repeat. Patient seen and examined at the bedside on the progressive care unit. Unable to offer history. She appears uncomfortable. Right-sided contracture noted. Bedside echocardiogram performed. No regional wall motion abnormalities with preserved LV systolic function. Left ventricular hypertrophy noted. Blood pressure improving however remains elevated. Discussed with mother and sister. They state ambulatory blood pressures typically controlled at care home. Allergies Allergy/AdvReac Type Severity Reaction Status Date / Time Penicillins Allergy Severe Rash Verified 08/04/21 10:38 ampicillin Allergy Verified 06/05/22 10:38 Home Medications Medication Instructions Recorded Confirmed Type atorvastatin 20 mg tablet 20 mg PO HS 11/15/18 08/04/21 History baclofen 10 mg tablet 10 mg PO TID 11/15/18 08/04/21 History citalopram 40 mg tablet 40 mg PO QAM 11/15/18 08/04/21 History clonidine 0.1 mg/24 hr weekly 0.1 mg TOPICAL WK 11/15/18 08/04/21 History transdermal patch clopidogrel 75 mg tablet 75 mg PO QAM 11/15/18 08/04/21 History dorzolamide 22.3 mg-timolol 6.8 1 drp OPL BID 11/15/18 08/04/21 History mg/mL eye drops polyethylene glycol 3350 17 17 g PO QAM 11/15/18 08/04/21 History gram/dose oral powder selenium sulfide 1 % shampoo 1 applic TOPICAL 3XWK 11/15/18 08/04/21 History (Selsun Blue) sennosides 8.6 mg-docusate sodium 2 tab-cap PO HS 11/15/18 08/04/21 History 50 mg tablet (Senexon-S) starch (thickening) (Thick-It) 1 ea PO DIRECTED 11/15/18 08/04/21 History tizanidine 2 mg tablet 2 mg PO TID 11/15/18 08/04/21 History tizanidine 4 mg tablet 4 mg PO TID 11/15/18 08/04/21 History bisacodyl 10 mg rectal suppository 10 mg IA UD PRN 01/07/19 08/04/21 History dimethicone-petrolatum 1 %-30 % 0 applic TOPICAL UD PRN 01/07/19 08/04/21 History topical cream (Sensi-Care Body Cream) mupirocin 2 % topical ointment 1 applic TOPICAL BID PRN 01/07/19 08/04/21 History oxcarbazepine 600 mg tablet 600 mg PO BID 01/07/19 08/04/21 History sodium phosphates 19 gram-7 118 ml IA UD PRN 01/07/19 08/04/21 History gram/118 mL enema (Fleet Enema) latanoprost 0.005 % eye drops 1 drp OPHTHALMIC (EYE) PM 06/13/20 08/04/21 History Tylenol 650 mg PO Q4H PRN MDD 3,000MG 08/04/21 08/04/21 History cholecalciferol (vitamin D3) 1 cap PO DAILY 08/04/21 08/04/21 History multivitamin 1 cap PO DAILY 08/04/21 08/04/21 History nystatin 100,000 unit/gram topical 1 applic TOPICAL TID 08/04/21 08/04/21 History powder ([facility]) Patient History Medical History 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 Esophageal reflux Glaucoma left H/O: stroke Hemiparesis and speech and language deficit as late effect of cerebrovascular accident (CVA) Hip fracture, left "s/p repair" HTN (hypertension) Mental retardation Osteoporosis Profound vision impairment Retinal tear Swallowing impairment thickene liquids Surgical History S/P repair of PDA Family History Other Breast cancer Ovarian cancer Social History Smoking Status: Unknown if ever smoked Preferred Language: Brazilian Communication Ability: Impaired Special 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: No Beliefs That Will Affect Care: None marital status: Single Current Living Situation: Prison Other Information That Helps Us Care for You: No Feels Safe at Home: Yes Assistive Devices: Wheelchair Review of Systems Review of Systems: Unobtainable due to mental health condition Physical Exam Constitutional: + ill appearing, + obese and + diaphoretic Respiratory: normal respiratory effort; no retractions and does not use accessory muscles Auscultation: no crackles, no rales, no rhonchi and no wheezes Cardiovascular: Rate/Rhythm: regular rate, regular rhythm and + tachycardic Heart Sounds: normal S1 and normal S2; no murmur Vessels: no JVD, no carotid bruit and + radial pulses abnormal Extremities: no edema Gastrointestinal (Abdomen): Inspection/Auscultation: + abdomen distended Percussion/Palpation: abdomen nontender and no guarding Neurologic: CN's II-XI intact bilaterally and moves all extremities; no focal motor deficits Motor/Sensory: no tremor Psychiatric: Speech: + mute Results & Data ([facility]) Vital Signs (Past 12 Hours) Vital Signs Temp Pulse Pulse Resp BP BP BP 08/04/21 14:31 158/72 H 08/04/21 14:00 120 H 16 08/04/21 13:34 37 C 124 H 16 152/70 H 08/04/21 12:45 36.7 C 08/04/21 12:00 128 H 120 H 13 114/75 114/75 08/04/21 11:59 130 H 17 104/72 08/04/21 11:45 127 H 16 159/74 H 08/04/21 11:35 127 H 17 124/80 08/04/21 11:30 127 H 17 174/81 H 08/04/21 11:15 120 H 18 191/75 H 08/04/21 11:00 129 H 18 205/100 H 08/04/21 10:45 105 H 23 184/90 H 08/04/21 10:40 103 H 15 210/99 H 08/04/21 10:27 36.8 C 106 H 14 244/118 H 08/04/21 10:20 105 H 20 244/118 H 08/04/21 10:10 106 H 15 237/132 H 08/04/21 09:55 109 H 18 224/115 H 08/04/21 09:15 104 H 19 222/109 H 08/04/21 09:00 107 H 22 263/111 H 08/04/21 08:45 114 H 20 269/126 H 08/04/21 08:30 114 H 20 251/132 H 08/04/21 08:27 111 H 22 229/136 H 08/04/21 08:21 108 H 17 256/145 H 08/04/21 08:19 114 H 20 08/04/21 08:16 114 H 20 Pulse Ox 08/04/21 14:31 08/04/21 14:00 95 08/04/21 13:34 93 08/04/21 12:45 08/04/21 12:00 95 08/04/21 11:59 94 08/04/21 11:45 95 08/04/21 11:35 94 08/04/21 11:30 94 08/04/21 11:15 95 08/04/21 11:00 94 08/04/21 10:45 93 08/04/21 10:40 93 08/04/21 10:27 91 08/04/21 10:20 94 08/04/21 10:10 94 08/04/21 09:55 91 08/04/21 09:15 93 08/04/21 09:00 93 08/04/21 08:45 93 08/04/21 08:30 94 08/04/21 08:27 94 08/04/21 08:21 95 08/04/21 08:19 97 08/04/21 08:16 97
[2021-08-04] MEDS ORDERED: NITROGLYCERIN 2% OINTMENT 30GM TUBE ONE (16:47)
[2021-08-04] MEDS: NITROGLYCERIN 2% OINTMENT 30GM TUBE EXT SCH ×3 (16:53→22:35)
[2021-08-04] MEDS ORDERED: Heparin IV Adult Wt-Based Standard *NO* Bolus Protocol IV ONE (16:54)
[2021-08-04] MEDS: HEPARIN SODIUM/DEXTROSE 25,000 UNITS/500 ML BAG IV SCH (17:41)
[2021-08-04 17:52] LABS: Creatinine Urine Random 28.9 mg/dl; Protein Creatinine Ratio Urine 0.5 (0-0.2); Total Protein Urine Random 15.6 mg/dl (0-11.9)
[2021-08-04 18:23] LABS: BUN Creatinine Ratio 18.4 (10-20); Calcium 11.8 mg/dl (8.5-10.1); Creatinine Clr Calc Pharmacy 42.5 ml/min; Est GFR (African American) 57.7 ml/min; Est GFR (Non-African American) 49.8 ml/min; Potassium 4.4 mmol/L (3.5-5.1); Troponin I High Sensitivity 1266.9 pg/ml (0-14)
[2021-08-04 19:15] LABS: INR 1.1 (0.9-1.1); Partial Thromboplastin Ratio 1.1; Partial Thromboplastin Time 30.5 Seconds (21.0-31.0); Prothrombin Time 11.4 Seconds (9.0-12.0)
[2021-08-04] MEDS ORDERED: ZOLEDRONIC ACID IV ONE (19:30)
[2021-08-04] MEDS ORDERED: SODIUM CHLORIDE 0.9% IV ONE (19:30)
[2021-08-04] MEDS: DORZOLAMIDE/TIMOLOL 22.3/6.8MG/ML 10 ML BTL OPB SCH (20:53)
[2021-08-04] MEDS: ATORVASTATIN 20 MG TAB PO SCH (21:07)
[2021-08-04] MEDS: OXcarbazepine 150 MG TABLET PO SCH (21:07)
[2021-08-04] MEDS: LATANOPROST 0.005% OP SOLN 2.5 ML BTL OPB SCH (21:08)
[2021-08-04] MEDS: METOPROLOL TARTRATE 1 MG/ML VIAL IV SCH (21:08)
--- NOTE | 2021-08-04 23:00 | Electrocardiogram Report ---
Test Reason : Blood Pressure : / mmHG Vent. Rate : 124 BPM Atrial Rate : 124 BPM P-R Int : 158 ms QRS Dur : 090 ms QT Int : 412 ms P-R-T Axes : 055 047 058 degrees QTc Int : 591 ms Sinus tachycardia Cannot rule out Anterior infarct (cited on or before 04-AUG-2021) Marked ST abnormality, possible inferolateral subendocardial injury Abnormal ECG When compared with ECG of 04-AUG-2021 08:32, No significant change Confirmed by Kehinde Chen ([id number]) on 08/04/2021 11:00:25 PM Referred By: REFERRED SELF Confirmed By:Kehinde Chen
[2021-08-05 00:28] LABS: Partial Thromboplastin Ratio 4.4
[2021-08-05 00:48] LABS: Partial Thromboplastin Time 119.7 Seconds (21.0-31.0)
[2021-08-05] MEDS: METOPROLOL TARTRATE 1 MG/ML VIAL IV SCH ×2 (03:43→09:57)
[2021-08-05] MEDS: LACTATED RINGER'S 1,000 ML IV SCH ×3 (03:43→22:35)
[2021-08-05] MEDS: NITROGLYCERIN 2% OINTMENT 30GM TUBE EXT SCH ×3 (05:56→18:28)
[2021-08-05] MEDS: LABETALOL HCL IV 5 MG/ML 20ML IV PRN (06:01)
[2021-08-05] MEDS: ACETAMINOPHEN 1000 MG/100 ML IV IV SCH ×3 (06:01→22:35)
[2021-08-05] MEDS: tiZANidine HCL 4 MG TABLET PO SCH ×4 (08:54→21:26)
[2021-08-05] MEDS: CITALOPRAM 40 MG TAB PO SCH (08:54)
[2021-08-05] MEDS: OXcarbazepine 150 MG TABLET PO SCH ×2 (08:54→21:25)
[2021-08-05] MEDS: CLOPIDOGREL BISULFATE 75 MG TAB PO SCH (08:55)
[2021-08-05] MEDS: BACLOFEN 10 MG TAB PO SCH ×3 (08:55→21:27)
[2021-08-05] MEDS: DORZOLAMIDE/TIMOLOL 22.3/6.8MG/ML 10 ML BTL OPB SCH ×2 (08:56→21:26)
[2021-08-05] MEDS: CHECK CLONIDINE PATCH PLACEMENT SCH ×2 (08:56→14:06)
[2021-08-05] MEDS: POLYETHYLENE (MIRALAX) 17 GM PACK PO SCH (08:58)
[2021-08-05] MEDS ORDERED: ENOXAPARIN INJ 40 MG/0.4 ML SYR SQ SCH (09:00)
[2021-08-05] MEDS ORDERED: ASPIRIN 300 MG SUPP PR SCH (09:00)
[2021-08-05] MEDS: cefTRIAXone SODIUM 1,000 MG in DEXTROSE 5% 50 ML IV SCH (09:56)
[2021-08-05 10:20] LABS: BUN Creatinine Ratio 17.1 (10-20); Creatinine Clr Calc Pharmacy 48.1 ml/min; Est GFR (African American) 66.6 ml/min; Est GFR (Non-African American) 57.5 ml/min; Magnesium 1.9 mg/dl (1.7-2.4); Potassium 3.8 mmol/L (3.5-5.1)
[2021-08-05 10:21] LABS: Partial Thromboplastin Time 110.7 Seconds (21.0-31.0)
--- NOTE | 2021-08-05 11:48 | Cardiology Progress Note ---
Date of Service August 05, 2021 Assessment & Plan (1) Hypertensive urgency: (2) Non-ST elevation (NSTEMI) myocardial infarction: (3) Hypercalcemia: (4) Hypertensive heart disease: (5) Acute kidney injury: Plan: 50-year-old nonverbal female admitted with retching and dry heaves. Hypertensive crisis noted in ER treated with IV hydralazine. Abnormal ECG with ST depression and mildly elevated high-sensitivity troponin recorded. Bedside echocardiogram technically limited, however, without regional wall motion abnormality. +Evidence of hypertensive heart disease. Plaque rupture event less likely, however, not excluded. Recommend avoiding further treatment with hydralazine. EKGs without acute evolution or changes and improved from day prior though troponin elevated. Would continue heparin and antiplatelet therapy. Treat hypertensive urgency We will add carvedilol 6.25 mg twice per day orally. Change IV metoprolol to as needed Continue topical Nitropaste Hypercalcemia evaluation underway Admission and Anticipated Discharge Date Admission Date: August 04, 2021 Subjective Patient seen and examined, chart, medications, telemetry reviewed. Patient nonverbal and does not express any specific complaints Blood pressure and heart rate elevated Review of Systems Review of Systems: Unobtainable due to cognitive status Physical Exam Constitutional: + obese; no acute distress Respiratory: normal respiratory effort; no retractions and does not use accessory muscles Auscultation: no crackles, no rales, no rhonchi and no wheezes Cardiovascular: Rate/Rhythm: regular rate, regular rhythm and + tachycardic Heart Sounds: normal S1 and normal S2; no murmur Vessels: no JVD, no carotid bruit and + radial pulses abnormal Extremities: no edema Gastrointestinal (Abdomen): Inspection/Auscultation: + abdomen distended Percussion/Palpation: abdomen nontender and no guarding Musculoskeletal: Upper extremities contracted Neurologic: + focal motor deficit Patient nonverbal Psychiatric: Speech: + mute Results & Data ([facility]) Vital Signs (Past 12 Hours) Vital Signs Temp Pulse Pulse Resp BP BP Pulse Ox 08/05/21 11:21 37.1 C 93 H 16 176/94 H 95 08/05/21 09:57 99 H 186/102 H 08/05/21 09:05 102 H 165/74 H 92 08/05/21 08:15 73 08/05/21 05:54 86 191/105 H 08/05/21 03:43 80 192/88 H 08/05/21 03:16 36.7 C 80 18 192/88 H 95 08/05/21 01:06 79 161/74 H Laboratory Results Laboratory Results - last 24 hr 08/04/21 08/04/21 08/04/21 11:04 11:04 11:04 PT INR APTT PTT Ratio Sodium Potassium Chloride Carbon Dioxide Anion Gap BUN Creatinine Est Cr Clr Drug Dosing Est GFR ( Amer) Est GFR (Non-Af Amer) BUN/Creatinine Ratio Glucose Lactate 1.0 Calcium Ionized Calcium Phosphorus 4.2 Magnesium 1.7 Total Creatine Kinase Troponin I High Sens Total Protein (PEP) Albumin (PEP) Mmojl-6-Ruezfwokp Izglb-5-Bfxfmcaun Futm-1-Vlehhhso Wuom-5-Tdsjijwg Gamma Globulins Monoclonal Peak 3 Ser Monoclonl Protein Ser Monoclonal Prot 2 PEP Interpretation 25-OH Vitamin D Total Vit D 1,25-Dihyd Total 1,25 Dihydroxy Vit D2 1,25 Dihydroxy Vit D3 Procalcitonin < 0.05 TSH PTH Intact PTH Related Protein Ur Random Creatinine U Random Total Protein Ur Creatinine 24 Hour Ur Total Protein 24 Hr Protein/Creatinin Ratio Protein/Creat Ratio 24h Urine Albumin (%) U Pqvjs-8-Agukwlib (%) U Firnv-1-Jhgeniqh (%) U Beta Globulin (%) U Gamma Globulin (%) U Abnormal Prot Band 1 U Abnormal Prot Band 2 U Abnormal Prot Band 3 Urine PEP Interpret Nasal Screen MRSA (PCR) Urine Immunofixation Tot [place]/Lambda Ratio [place] Light Chain Anal Lambda Light Chain Anal 08/04/21 08/04/21 08/04/21 11:04 11:04 17:00 PT INR APTT PTT Ratio Sodium Potassium Chloride Carbon Dioxide Anion Gap BUN Creatinine Est Cr Clr Drug Dosing Est GFR ( Amer) Est GFR (Non-Af Amer) BUN/Creatinine Ratio Glucose Lactate Calcium Ionized Calcium Phosphorus Magnesium Total Creatine Kinase 35 Troponin I High Sens 92.8 H* D Total Protein (PEP) Albumin (PEP) Nitsh-0-Gtrfjxtur Utprx-8-Xorzwrwlp Zekz-2-Enjmnedv Fvdr-3-Twkiphgq Gamma Globulins Monoclonal Peak 3 Ser Monoclonl Protein Ser Monoclonal Prot 2 PEP Interpretation 25-OH Vitamin D Total 43.7 Vit D 1,25-Dihyd Total 1,25 Dihydroxy Vit D2 1,25 Dihydroxy Vit D3 Procalcitonin TSH PTH Intact PTH Related Protein Ur Random Creatinine U Random Total Protein Ur Creatinine 24 Hour Pending Ur Total Protein 24 Hr Pending Protein/Creatinin Ratio Protein/Creat Ratio 24h Pending Urine Albumin (%) Pending U Prxww-7-Jhmeoxru (%) Pending U Tbqwl-7-Xjbwnoxj (%) Pending U Beta Globulin (%) Pending U Gamma Globulin (%) Pending U Abnormal Prot Band 1 Pending U Abnormal Prot Band 2 Pending U Abnormal Prot Band 3 Pending Urine PEP Interpret Pending Nasal Screen MRSA (PCR) Urine Immunofixation Pending Tot [place]/Lambda Ratio [place] Light Chain Anal Lambda Light Chain Anal 08/04/21 08/04/21 08/04/21 17:00 17:00 17:39 PT INR APTT PTT Ratio Sodium 141 Potassium 4.4 Chloride 109 H Carbon Dioxide 25 Anion Gap 7 BUN 23 Creatinine 1.25 H Est Cr Clr Drug Dosing 42.5 Est GFR ( Amer) 57.7 Est GFR (Non-Af Amer) 49.8 BUN/Creatinine Ratio 18.4 Glucose 144 H Lactate Calcium 11.8 H D Ionized Calcium Phosphorus Magnesium Total Creatine Kinase Troponin I High Sens 1266.9 H* D Total Protein (PEP) Albumin (PEP) Bikmf-0-Pairrxbsn Fghsx-8-Yfnvpnbyj Kcqk-1-Ooqnxlql Wuqm-6-Mfscjhfl Gamma Globulins Monoclonal Peak 3 Ser Monoclonl Protein Ser Monoclonal Prot 2 PEP Interpretation 25-OH Vitamin D Total Vit D 1,25-Dihyd Total 1,25 Dihydroxy Vit D2 1,25 Dihydroxy Vit D3 Procalcitonin TSH PTH Intact PTH Related Protein Ur Random Creatinine 28.9 U Random Total Protein 15.6 H Ur Creatinine 24 Hour Ur Total Protein 24 Hr Protein/Creatinin Ratio 0.5 H Protein/Creat Ratio 24h Urine Albumin (%) U Brlvq-0-Ghvwzorb (%) U Shyqn-8-Umilibow (%) U Beta Globulin (%) U Gamma Globulin (%) U Abnormal Prot Band 1 U Abnormal Prot Band 2 U Abnormal Prot Band 3 Urine PEP Interpret Nasal Screen MRSA (PCR) Negative Urine Immunofixation Tot [place]/Lambda Ratio [place] Light Chain Anal Lambda Light Chain Anal 08/04/21 08/04/21 08/04/21 17:39 17:39 17:39 PT INR APTT PTT Ratio Sodium Potassium Chloride Carbon Dioxide Anion Gap BUN Creatinine Est Cr Clr Drug Dosing Est GFR ( Amer) Est GFR (Non-Af Amer) BUN/Creatinine Ratio Glucose Lactate Calcium Ionized Calcium 1.51 H Phosphorus Magnesium Total Creatine Kinase Troponin I High Sens Total Protein (PEP) Albumin (PEP) Ltyuu-2-Xenksdgkg Asahw-5-Blhsbceau Iffd-4-Dvovjwrm Ypup-9-Prxoodiq Gamma Globulins Monoclonal Peak 3 Ser Monoclonl Protein Ser Monoclonal Prot 2 PEP Interpretation 25-OH Vitamin D Total Vit D 1,25-Dihyd Total 1,25 Dihydroxy Vit D2 1,25 Dihydroxy Vit D3 Procalcitonin TSH 1.912 PTH Intact 13.9 PTH Related Protein Ur Random Creatinine U Random Total Protein Ur Creatinine 24 Hour Ur Total Protein 24 Hr Protein/Creatinin Ratio Protein/Creat Ratio 24h Urine Albumin (%) U Kqixb-7-Yedwzxug (%) U Mxwhs-6-Zrredfyz (%) U Beta Globulin (%) U Gamma Globulin (%) U Abnormal Prot Band 1 U Abnormal Prot Band 2 U Abnormal Prot Band 3 Urine PEP Interpret Nasal Screen MRSA (PCR) Urine Immunofixation Tot [place]/Lambda Ratio [place] Light Chain Anal Lambda Light Chain Anal 08/04/21 08/04/21 08/04/21 17:39 18:46 23:55 PT Cancelled 11.4 INR Cancelled 1.1 APTT Cancelled 30.5 PTT Ratio Cancelled 1.1 Sodium Potassium Chloride Carbon Dioxide Anion Gap BUN Creatinine Est Cr Clr Drug Dosing Est GFR ( Amer) Est GFR (Non-Af Amer) BUN/Creatinine Ratio Glucose Lactate Calcium Ionized Calcium Phosphorus Magnesium Total Creatine Kinase Troponin I High Sens 4476.3 H* D Total Protein (PEP) Albumin (PEP) Coexe-5-Hnkchhphi Rrkha-9-Hczwjuhjn Etcb-8-Dsfldhnk Gcyq-7-Ywjuboio Gamma Globulins Monoclonal Peak 3 Ser Monoclonl Protein Ser Monoclonal Prot 2 PEP Interpretation 25-OH Vitamin D Total Vit D 1,25-Dihyd Total 1,25 Dihydroxy Vit D2 1,25 Dihydroxy Vit D3 Procalcitonin TSH PTH Intact PTH Related Protein Ur Random Creatinine U Random Total Protein Ur Creatinine 24 Hour Ur Total Protein 24 Hr Protein/Creatinin Ratio Protein/Creat Ratio 24h Urine Albumin (%) U Ezihe-4-Zgvorbxq (%) U Yuxaw-8-Oedhhnmy (%) U Beta Globulin (%) U Gamma Globulin (%) U Abnormal Prot Band 1 U Abnormal Prot Band 2 U Abnormal Prot Band 3 Urine PEP Interpret Nasal Screen MRSA (PCR) Urine Immunofixation Tot [place]/Lambda Ratio [place] Light Chain Anal Lambda Light Chain Anal 08/04/21 08/05/21 08/05/21 23:55 09:02 09:02 PT INR APTT 119.7 H* PTT Ratio 4.4 Sodium 142 Potassium 3.8 Chloride 108 H Carbon Dioxide 26 Anion Gap 8 BUN 19 Creatinine 1.11 Est Cr Clr Drug Dosing 48.1 Est GFR ( Amer) 66.6 Est GFR (Non-Af Amer) 57.5 BUN/Creatinine Ratio 17.1 Glucose 169 H Lactate Calcium 11.0 H Ionized Calcium Phosphorus 3.0 D Magnesium 1.9 Total Creatine Kinase Troponin I High Sens Total Protein (PEP) Pending Albumin (PEP) Pending Zimdd-8-Myluozjaf Pending Kdcey-0-Fpubjzxpd Pending Gets-5-Hilsoqwo Pending Vajp-1-Dukitlnu Pending Gamma Globulins Pending Monoclonal Peak 3 Pending Ser Monoclonl Protein Pending Ser Monoclonal Prot 2 Pending PEP Interpretation Pending 25-OH Vitamin D Total Vit D 1,25-Dihyd Total Pending 1,25 Dihydroxy Vit D2 Pending 1,25 Dihydroxy Vit D3 Pending Procalcitonin TSH PTH Intact PTH Related Protein Pending Ur Random Creatinine U Random Total Protein Ur Creatinine 24 Hour Ur Total Protein 24 Hr Protein/Creatinin Ratio Protein/Creat Ratio 24h Urine Albumin (%) U Ryjfq-8-Geymqdwt (%) U Gkhin-8-Qrhmttrn (%) U Beta Globulin (%) U Gamma Globulin (%) U Abnormal Prot Band 1 U Abnormal Prot Band 2 U Abnormal Prot Band 3 Urine PEP Interpret Nasal Screen MRSA (PCR) Urine Immunofixation Tot [place]/Lambda Ratio Pending [place] Light Chain Anal Pending Lambda Light Chain Anal Pending 08/05/21 08/05/21 09:02 09:02 PT INR APTT 110.7 H* PTT Ratio 4.0 Sodium Potassium Chloride Carbon Dioxide Anion Gap BUN Creatinine Est Cr Clr Drug Dosing Est GFR ( Amer) Est GFR (Non-Af Amer) BUN/Creatinine Ratio Glucose Lactate Calcium Ionized Calcium 1.42 H Phosphorus Magnesium Total Creatine Kinase Troponin I High Sens Total Protein (PEP) Albumin (PEP) Dlfxn-5-Xtglauako Qqkph-2-Covsmmpnt Pntr-1-Ogrownez Evve-3-Vfnnlpni Gamma Globulins Monoclonal Peak 3 Ser Monoclonl Protein Ser Monoclonal Prot 2 PEP Interpretation 25-OH Vitamin D Total Vit D 1,25-Dihyd Total 1,25 Dihydroxy Vit D2 1,25 Dihydroxy Vit D3 Procalcitonin TSH PTH Intact PTH Related Protein Ur Random Creatinine U Random Total Protein Ur Creatinine 24 Hour Ur Total Protein 24 Hr Protein/Creatinin Ratio Protein/Creat Ratio 24h Urine Albumin (%) U Lfgok-7-Turuvhgt (%) U Etldh-7-Zklwhxoj (%) U Beta Globulin (%) U Gamma Globulin (%) U Abnormal Prot Band 1 U Abnormal Prot Band 2 U Abnormal Prot Band 3 Urine PEP Interpret Nasal Screen MRSA (PCR) Urine Immunofixation Tot [place]/Lambda Ratio [place] Light Chain Anal Lambda Light Chain Anal
[2021-08-05] MEDS: carvediloL 6.25 MG TAB PO SCH ×2 (13:01→21:27)
--- NOTE | 2021-08-05 17:56 | Hospitalist Progress Note ---
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 Discussed with cardio who recommended medical management- on heparin drip, nitro paste, ASA, beta sterling. Monitor on tele, repeat EKG in am Hypertensive emergency- BP much better, now on soft side. continue clonidine patch, nitro paste, coreg. Cardio recommended avoiding further hydralazine. Hypercalcemia: PTH normal, Vit D2 normal, TSH normal, SPEP,UPEP, PTHrP, Vit D3 pending - Ca much improved from 15 to 11 with ivf and calcitonin and zolendronic acid 08/04- continue ivf, follow up on other labs- follow up on calcium Acute kidney injury: likely from hypercalcemia. Cr continues to improve 1.3->1.25->1.1; baseline Cr of 0.7. Cont hydration efforts and trend Cr. Note patient had two doses of iodinated contrast for imaging studies in ED. SIRS- due to NSTEMI rather than infection. On empiric rocephin since admission, blood clx negative so far, UA unremarkable. Consider discontinuation if no source identified and patient remains stable. Microscopic hematuria: In setting of critical blood pressure elevation. No evidence of this on outpatient records. Consider repeating again as outpatient to ensure this has resolved. Noted non-obstructing renal stone on CT. Acute metabolic encephalopathy: ?improved. secondary to hypercalcemia. CT head reveals no new evidence of acute stroke at this time. 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 On trileptal, celexa, baclofen - She was taking denosumab as outpatient and was due for her 6 month injection on 06/04/21. This was held by Rheumatology to give her a drug holiday. S/p zolendronic acid in ED for hypercalcemia. H/O: stroke: chronic, stable. Continues on Plavix per home regimen. Nonverbal at baseline DVT ppx- on heparin drip Dispo- PCU status. on heparin drip for NSTEMI, work up and management of hypercalcemia in progress Updated mother at bedside Admission and Anticipated Discharge Date Admission Date: August 04, 2021 Subjective She is non verbal and does not follow commands. She is awake, alert and not in any distress. Physical Exam Physical Exam: General: Non verbal at baseline, Sitting comfortably in bed, not in distress, on room air HEENT: tracks eyes intermittently Chest: Decreased breath sounds anteriorly CVS: tachycardic, normal heart sounds Abdomen: Soft, non tender, normal bowel sounds Neuro: Awake, alert, Non verbal at baseline, does not follow commands at baseline Extremities: No edema. contractures + Results & Data Results & Data ([facility]) Vital Signs (Past 12 Hours) Vital Signs Temp Pulse Pulse Resp BP BP Pulse Ox 08/05/21 15:56 96/53 L 08/05/21 14:50 105 H 08/05/21 11:21 37.1 C 93 H 16 176/94 H 95 08/05/21 09:57 99 H 186/102 H 08/05/21 09:05 102 H 165/74 H 92 08/05/21 08:15 73 08/05/21 05:54 86 191/105 H Laboratory Results BMP 08/04/21 08/05/21 17:39 09:02 Sodium 141 142 Potassium 4.4 3.8 Chloride 109 H 108 H Carbon Dioxide 25 26 BUN 23 19 Creatinine 1.25 H 1.11 Glucose 144 H 169 H Calcium 11.8 H D 11.0 H Medications Administered Current Inpatient Medications Acetaminophen (Acetaminophen 1000 Mg/100 Ml Iv) 1,000 mg IV Q8H [facility]IRA Stop: 08/07/21 13:59 Last Admin: 08/05/21 14:05 Dose: 1,000 mg Documented by: Aspirin (Aspirin 300 Mg Supp) 300 mg MN DAILY SHIRA Stop: 09/04/21 08:59 Last Admin: 08/05/21 08:58 Dose: 300 mg Documented by: Atorvastatin Calcium (Atorvastatin 20 Mg Tab) 20 mg PO HS [facility]IRA Stop: 09/03/21 20:59 Last Admin: 08/04/21 21:07 Dose: 20 mg Documented by: Baclofen (Baclofen 10 Mg Tab) 10 mg PO TID [facility] Stop: 09/03/21 13:59 Last Admin: 08/05/21 14:04 Dose: 10 mg Documented by: Bisacodyl (Bisacodyl 10 Mg Supp) 10 mg MN UD PRN PRN Reason: Constipation Stop: 09/03/21 13:30 Carvedilol (Carvedilol 6.25 Mg Tab) 6.25 mg PO BID [facility] Stop: 09/04/21 11:59 Last Admin: 08/05/21 13:01 Dose: 6.25 mg Documented by: Citalopram Hydrobromide (Citalopram 40 Mg Tab) 40 mg PO QAM [facility] Stop: 09/04/21 08:59 Last Admin: 08/05/21 08:54 Dose: 40 mg Documented by: Clonidine HCl (Clonidine Hcl 0.1 Mg/24 Hr Transderm Sys) 1 patch TD Sa@0900 [facility] Stop: 09/09/21 08:59 Clopidogrel Bisulfate (Clopidogrel Bisulfate 75 Mg Tab) [facility] Stop: 09/04/21 08:59 Last Admin: 08/05/21 08:55 Dose: 75 mg Documented by: Dorzolamide/Timolol (Dorzolamide/Timolol 22.3/6.8mg/Ml 10 Ml Btl) 1 drops OPB BID [facility] Stop: 09/03/21 20:59 Last Admin: 08/05/21 08:56 Dose: 1 drops Documented by: Ceftriaxone Sodium 1,000 mg/ (Dextrose) 60 mls @ 100 mls/hr IV Q24H [facility]; Protocol Stop: 08/07/21 09:59 Last Infusion: 08/05/21 10:36 Dose: Infused Documented by: Lactated Ringer's (Lr) 1,000 mls @ 80 mls/hr IV .[id number] [facility] Stop: 09/03/21 13:44 Last Admin: 08/05/21 09:56 Dose: 80 mls/hr Documented by: Heparin Sodium/Dextrose (Heparin Sodium/Dextrose) 25,000 units in 500 mls @ 13 mls/hr IV .Q24H [facility]; Protocol Stop: 09/03/21 17:14 Last Titration: 08/05/21 11:25 Dose: 650 units/hr, 13 mls/hr Documented by: Labetalol HCl (Labetalol Hcl Iv 5 Mg/Ml 20ml) 10 mg IV Q4H PRN PRN Reason: Hypertension Stop: 09/03/21 21:52 Last Admin: 08/05/21 06:01 Dose: 10 mg Documented by: Latanoprost (Latanoprost 0.005% Op Soln 2.5 Ml Btl) 1 drops OPB PM [facility] Stop: 09/03/21 20:59 Last Admin: 08/04/21 21:08 Dose: 1 drops Documented by: Miscellaneous (Remove Clonidine Patch) 1 ea N/A CQWK [facility] Stop: 09/09/21 08:58 Miscellaneous (Check Clonidine Patch Placement) 1 ea N/A QS [facility] Stop: 09/03/21 15:59 Last Admin: 08/05/21 14:06 Dose: 1 ea Documented by: Nitroglycerin (Nitroglycerin 2% Ointment 30gm Tube) 1 inch EXT Q6 [facility] Stop: 09/03/21 22:29 Last Admin: 08/05/21 11:52 Dose: 1 inch Documented by: Ondansetron HCl (Ondansetron Inj 2 Mg/Ml 2 Ml Vial) 4 mg IV Q8H PRN PRN Reason: Nausea/dry heaving Stop: 09/03/21 13:30 Oxcarbazepine (Oxcarbazepine 150 Mg Tablet) 600 mg PO BID@0800,2000 [facility] Stop: 09/03/21 19:59 Last Admin: 08/05/21 08:54 Dose: 600 mg Documented by: Polyethylene Glycol (Polyethylene (Miralax) 17 Gm Pack) 17 gm PO DAILY PRN PRN Reason: Constipation Stop: 09/03/21 13:30 Polyethylene Glycol (Polyethylene (Miralax) 17 Gm Pack) 17 gm PO QAM [facility] Stop: 09/04/21 08:59 Last Admin: 08/05/21 08:58 Dose: 17 gm Documented by: Tizanidine HCl (Tizanidine Hcl 4 Mg Tablet) 6 mg PO TID [facility] Stop: 09/04/21 13:59 Last Admin: 08/05/21 14:05 Dose: 6 mg Documented by:
[2021-08-05] MEDS ORDERED: FUROSEMIDE 40 MG/4 ML VIAL IV ONE (18:06)
[2021-08-05 18:17] LABS: Partial Thromboplastin Time 81.7 Seconds (21.0-31.0)
[2021-08-05] MEDS: ATORVASTATIN 20 MG TAB PO SCH (21:25)
[2021-08-05] MEDS: LATANOPROST 0.005% OP SOLN 2.5 ML BTL OPB SCH (21:28)
[2021-08-06] MEDS: CHECK CLONIDINE PATCH PLACEMENT SCH ×3 (01:04→16:44)
[2021-08-06] MEDS: NITROGLYCERIN 2% OINTMENT 30GM TUBE EXT SCH ×4 (01:05→16:44)
[2021-08-06 02:30] LABS: Partial Thromboplastin Ratio 2.9
[2021-08-06] MEDS: HEPARIN SODIUM/DEXTROSE 25,000 UNITS/500 ML BAG IV SCH (02:49)
[2021-08-06 03:05] LABS: Partial Thromboplastin Time 80.5 Seconds (21.0-31.0)
[2021-08-06] MEDS: ACETAMINOPHEN 1000 MG/100 ML IV IV SCH ×2 (05:59→16:43)
[2021-08-06] MEDS: ASPIRIN 81 MG ECTAB PO SCH (08:07)
[2021-08-06] MEDS: OXcarbazepine 150 MG TABLET PO SCH ×2 (08:08→20:56)
[2021-08-06] MEDS: BACLOFEN 10 MG TAB PO SCH ×3 (08:08→20:56)
[2021-08-06] MEDS: CITALOPRAM 40 MG TAB PO SCH (08:09)
[2021-08-06] MEDS: tiZANidine HCL 4 MG TABLET PO SCH ×3 (08:09→20:57)
[2021-08-06] MEDS: carvediloL 6.25 MG TAB PO SCH (08:09)
[2021-08-06] MEDS: POLYETHYLENE (MIRALAX) 17 GM PACK PO SCH (08:10)
[2021-08-06] MEDS: DORZOLAMIDE/TIMOLOL 22.3/6.8MG/ML 10 ML BTL OPB SCH ×2 (08:12→20:57)
[2021-08-06] MEDS: cefTRIAXone SODIUM 1,000 MG in DEXTROSE 5% 50 ML IV SCH (09:51)
[2021-08-06] MEDS: CLOPIDOGREL BISULFATE 75 MG TAB PO SCH (09:52)
[2021-08-06] MEDS: LACTATED RINGER'S 1,000 ML IV SCH (09:55)
[2021-08-06 10:16] LABS: Partial Thromboplastin Ratio 2.5
[2021-08-06 10:21] LABS: Hematocrit (blood only) 22.1 % (37-47); Hemoglobin 7.6 g/dL (12.0-16.0); Mean Corpuscular Hemoglobin 31.7 pg (25-34); Mean Corpuscular Hgb Conc 34.4 g/dL (32-36); Mean Corpuscular Volume 92.1 fL (80-100); Mean Platelet Volume 10.2 fL (7.4-10.4); Platelet Count 125 K/uL (130-400); RDW Coefficient of Variation 13.4 % (11.5-14.5); White Blood Count 4.08 K/uL (4.8-10.8)
[2021-08-06 10:22] LABS: Partial Thromboplastin Time 68.8 Seconds (21.0-31.0)
[2021-08-06 10:33] LABS: BUN Creatinine Ratio 15.7 (10-20); Calcium 9.1 mg/dl (8.5-10.1); Creatinine Clr Calc Pharmacy 46.3 ml/min; Est GFR (African American) 63.8 ml/min; Magnesium 1.2 mg/dl (1.7-2.4); Phosphorus 1.7 mg/dl (2.5-4.9); Potassium 3.3 mmol/L (3.5-5.1)
--- NOTE | 2021-08-06 10:44 | Cardiology Progress Note ---
Date of Service August 06, 2021 Assessment & Plan (1) Anemia due to acute blood loss: (2) Hypertensive urgency: (3) Non-ST elevation (NSTEMI) myocardial infarction: (4) Hypercalcemia: (5) Hypertensive heart disease: (6) Hypomagnesemia: (7) Hypokalemia: Plan: Transient hypotension after carvedilol this a.m. Repeat lab testing this demonstrating significant drop in hemoglobin from 13 down to 7.6gm/dl. Blood pressure improved with IV hydration. Topical nitrates and transdermal clonidine patch removed. Intravenous heparin discontinued. ECG without new ST changes. Repeat blood pressure per my assessment at bedside 134/69. I am concerned regarding transient hypotension which may be related to carvedilol, however, recommend repeat CBC stat. If hemoglobin confirmed, recommend stat CT of the abdomen and pelvis to exclude retroperitoneal bleed. There were no signs/symptoms of GI/ blood loss. Monitor serial H&H. Supplement potassium and magnesium. Admission and Anticipated Discharge Date Admission Date: August 04, 2021 Subjective Patient seen examined the bedside. Nonverbal. Transient hypotension noted after dose of carvedilol. Patient difficult to arouse as per nursing however appears awake at this time. Systolic blood pressure recorded in the 70s and 80s. Topical nitrates and clonidine patch removed. Patient receiving bolus of intravenous fluid. Telemetry reveals sinus rhythm heart rate ranging 70-80 bpm. Review of Systems Review of Systems: Unobtainable due to cognitive status Physical Exam Constitutional: + ill appearing and + obese Respiratory: normal respiratory effort; no retractions and does not use accessory muscles Auscultation: no crackles, no rales, no rhonchi and no wheezes Cardiovascular: Rate/Rhythm: regular rate, regular rhythm and + tachycardic Heart Sounds: normal S1 and normal S2; no murmur Vessels: no JVD, no carotid bruit and + radial pulses abnormal Extremities: no edema Gastrointestinal (Abdomen): Inspection/Auscultation: + abdomen distended Percussion/Palpation: abdomen nontender and no guarding Neurologic: CN's II-XI intact bilaterally and moves all extremities; no focal motor deficits Motor/Sensory: no tremor Psychiatric: Speech: + mute Results & Data ([facility]) Vital Signs (Past 12 Hours) Vital Signs Temp Pulse Pulse Resp BP BP Pulse Ox 08/06/21 08:06 96 H 184/86 H 96 06/07/22 07:42 37.3 C 95 H 18 97 08/06/21 07:21 87 08/06/21 02:53 36.7 C 78 20 117/72 97 08/06/21 01:35 83 08/06/21 01:06 104/56 L 08/06/21 00:58 37.3 C 75 18 95
[2021-08-06] MEDS: MAGNESIUM SULFATE / D5W 1 GM/100 ML BAG IV SCH ×2 (10:58→13:00)
[2021-08-06 11:03] LABS: Hematocrit (blood only) 21.5 % (37-47); Hemoglobin 7.3 g/dL (12.0-16.0); Platelet Count 114 K/uL (130-400)
[2021-08-06] MEDS ORDERED: POTASSIUM PHOS 3 MMOL/1 ML INFUSION IV ONE (11:09)
[2021-08-06] MEDS ORDERED: SODIUM CHLORIDE 0.9% 250 ML IV PRN (11:10)
[2021-08-06] MEDS ORDERED: POTASSIUM PHOSPHATE 24 MMOL in SODIUM CHLORIDE 0.9% 500 ML IV ONE (11:30)
[2021-08-06] MEDS ORDERED: OPTIRAY 320 100ml IV ONE (11:42)
--- NOTE | 2021-08-06 11:54 | CT Scan Report ---
CT head/brain wo con CLINICAL HISTORY: r/o intracranial bleed Technique: Contiguous axial CT images of the head were acquired from the base of the skull to the nicki bella without intravenous contrast administration. Images were viewed [facility] Automated dose lowering techniques and/or adjustment according to patient size were utilized for this exam. Comparison: Comparison is made to CT head 08/04/2021 Findings: Encephalomalacia in the left MCA territory is again seen with compensatory enlargement of the lateral ventricle. Imaged portions of the paranasal sinuses and mastoid air cells are clear. The orbits appear normal. There are no acute fractures of the calvaria or scalp swelling. Impression: No acute intracranial hemorrhage, no evidence of acute territorial infarction or other acute intracra nial disease process. Chronic left MCA infarct. ACT 112: Negative or not required by law. Electronically signed by: Alexandr Conner M.D. 08/06/2021 11:52 AM
--- NOTE | 2021-08-06 12:00 | CT Scan Report ---
CT abd pelvis IV con only CLINICAL HISTORY: Ongoing bleed with anemia. Evaluate for retroperitoneal hematoma. COMPARISON STUDY: 08/04/2021 CT DOSE: TECHNIQUE: Standard CT of the Abdomen and Pelvis was performed with IV contrast. A dose lowering jhony hnique was utilized adhering to the principles of ALARA. Contrast Volume: Optiray 320, 93 ml. The patient did not receive oral contrast. FINDINGS: Lung base: The lung bases are clear. Abdominal cavity: There is no evidence for abdominal mass, adenopathy or ascites. There is no evidenc e for retroperitoneal hematoma. Liver: There is homogeneous attenuation of the liver parenchyma. There is no evidence for enhancing m ass lesion. Spleen: There is homogeneous attenuation of the splenic parenchyma. There is no enhancing mass lesion . Pancreas: There is homogeneous attenuation of the pancreatic parenchyma. There is no evidence for mas s lesion or peripancreatic fluid collection. Gall Bladder: There is air into the disc excretion of contrast within the gallbladder from previous C T. There is no CT evidence for acute cholecystitis. Adrenal glands: The adrenal glands are normal in size and attenuation. There is no evidence for enhan cing mass lesion. Kidneys: There is homogeneous attenuation of the renal parenchyma bilaterally. There is no evidence f or renal calculus within the calyx or hydronephrosis. Minimal renal parenchymal calcification is agai n seen on the right with scarring present. There is no evidence for enhancing mass. There is again ev idence for sharply defined left renal cysts. No further follow-up is necessary for these benign findi ngs. Bowel: There is mild fecal impaction of the rectosigmoid colon with mild fecal stasis. There is no ev idence for bowel loop dilatation or obstruction. The small bowel bowel loops are normally placed with in the abdomen and pelvis without evidence for dilatation or obstruction. There is no evidence for ma ss lesion. There are no inflammatory changes present. There is no evidence for free air. Bladder: Cintron catheter is present within the bladder. : There is no evidence for pelvic mass or adenopathy. There is no evidence for pelvic ascites. Vasculature: There is no evidence for aneurysmal dilatation of the abdominal aorta. There is extensiv e atherosclerotic calcification present of the abdominal aorta and its branches with narrowing of the vessels. Osseous structures: There is no acute osseous pathology. Mild degenerative changes are again seen wit hin the spine. IMPRESSION: 1. No acute intra-abdominal or pelvic abnormality. 2. No evidence for retroperitoneal hematoma. 3. Mild fecal impaction and fecal stasis are again seen. 4. Additional nonacute findings are again delineated above. ACT 112: Negative or not required by law. Electronically signed by: Gualberto Blackwood M.D. 08/06/2021 11:58 AM
[2021-08-06] MEDS ORDERED: PANTOPRAZOLE BOLUS/DRIP 1 EA IV STA (12:28)
[2021-08-06] MEDS ORDERED: PANTOprazole 80 MG in DEXTROSE 5% 100 ML IV ONE (12:45)
[2021-08-06] MEDS ORDERED: PANTOprazole 40 MG in DEXTROSE 5% 100 ML IV SCH (13:00)
--- NOTE | 2021-08-06 14:30 | Gastrointestinal Consultation ---
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 sepsis, had elevated calcium, hyperglycemia, of unclear etiology. BP low earlier today, now high again. We are consulted for drop in HGB 13.9->7.3, w/o evidence of GI bleeding and normal BUN. Now appears HGB 11.9 on repeat. - With recent NSTEMI, lack of overt GIB, and improved HGB - no plans for endoscopy at this time - IV PPI reasonable and would continue - Monitor GI output and trend H&H - Will defer mgmt of her other comorbidities to inpt team Thank you for allowing us to participate in the care of this patient. Please call with any acute changes, questions or concerns. Please see addendum below with additional recommendation from my supervising physician. Supervising Physician Co-Signing Physician Notes Late entry: Patient was seen and examined on 08/06 with Tova Nichols PA-C. Her note reflects our findings and plan. History of Present Illness Reason for Consultation: ?GI bleed- Hb drop 7pts on heparin drip Requesting Physician: Dr. Sandoval Attending Physician: Adebayo Sandoval MD History of Present Illness The patient is a 50 yo female with congenital rubella syndrome, intellectual disability, nonverbal, h/o stroke on DAPT including Plavix, lives at a halfway, on a pureed diet, admitted after presenting / w/ critically high BP, hypertensive urgency, fever, dry heaving, hypercalcemia, elevated troponin, EKG w/ sinus tachy w/ ST depressions, UA w/ microscopic hematuria, mild JANEL, CXR and CTAP nonacute. She was suspected of having NSETMI; tx w/ heparin, antihypertensives and BP improved. She had ? sepsis and started on empiric ABX, IVF. Calcitonin given as well. BCx pending. We are consulted for drop in HGB, ? GIB. HGB on admit was 13.9. Was not repeated yesterday, and today found to be 7.6, then 7.3; has normal BUN, PLT of 114 (was normal on admit). Calcium WNL , PTH WNL, vit D pending. INR WNL. Glucose is elevated which is a new finding; recent A1C 6%; had some elevated calcium the other day as OP and glucose was also 300. DAPT and heparin were stopped. She had a few bites of food earlier today. Earlier today had some hypotension that improved with med adjustment; however now BP high again Per nurse she has had no GIB (no hematochezia, hematemesis, melena). No gross hematuria. CTAP and CT head neg for intraperitoneal or intracranial bleed. Pt started on 1 unit pRBC; currently running. As I was seeing her she was being put on BiPap; per staff they are treating for her possible fluid overload. She is nonverbal; ROS unobtainable. Appears on repeat HGB is now 11.9 with normal plt; has some leukocytosis. Colonoscopy 2020: Melanosis in the colon. Biopsied. - Internal hemorrhoids. - The examination was otherwise normal Repeat 5 years FINAL DIAGNOSIS Colon, cecum, biopsy: - Benign colonic mucosa with prominent lamina propria pigmented macrophages - Negative for acute and chronic colitis - Negative for microscopic colitis - Negative for dysplasia and malignancy Allergies Allergy/AdvReac Type Severity Reaction Status Date / Time Penicillins Allergy Severe Rash Verified 08/04/21 10:38 ampicillin Allergy Verified 08/04/21 10:38 Home Medications Medication Instructions Recorded Confirmed Type atorvastatin 20 mg tablet 20 mg PO HS 11/15/18 08/04/21 History baclofen 10 mg tablet 10 mg PO TID 11/15/18 08/04/21 History citalopram 40 mg tablet 40 mg PO QAM 11/15/18 08/04/21 History clonidine 0.1 mg/24 hr weekly 0.1 mg TOPICAL WK 11/15/18 08/04/21 History transdermal patch clopidogrel 75 mg tablet 75 mg PO QAM 11/15/18 08/04/21 History dorzolamide 22.3 mg-timolol 6.8 1 drp OPL BID 11/15/18 08/04/21 History mg/mL eye drops polyethylene glycol 3350 17 17 g PO QAM 11/15/18 08/04/21 History gram/dose oral powder selenium sulfide 1 % shampoo 1 applic TOPICAL 3XWK 11/15/18 08/04/21 History (Selsun Blue) sennosides 8.6 mg-docusate sodium 2 tab-cap PO HS 11/15/18 08/04/21 History 50 mg tablet (Senexon-S) starch (thickening) (Thick-It) 1 ea PO DIRECTED 11/15/18 08/04/21 History tizanidine 2 mg tablet 2 mg PO TID 11/15/18 08/04/21 History tizanidine 4 mg tablet 4 mg PO TID 11/15/18 08/04/21 History bisacodyl 10 mg rectal suppository 10 mg DC UD PRN 01/07/19 08/04/21 History dimethicone-petrolatum 1 %-30 % 0 applic TOPICAL UD PRN 01/07/19 08/04/21 History topical cream (Sensi-Care Body Cream) mupirocin 2 % topical ointment 1 applic TOPICAL BID PRN 01/07/19 08/04/21 History oxcarbazepine 600 mg tablet 600 mg PO BID 01/07/19 08/04/21 History sodium phosphates 19 gram-7 118 ml DC UD PRN 01/07/19 08/04/21 History gram/118 mL enema (Fleet Enema) latanoprost 0.005 % eye drops 1 drp OPHTHALMIC (EYE) PM 06/13/20 08/04/21 Hist ory Tylenol 650 mg PO Q4H PRN MDD 3,000MG 08/04/21 08/04/21 History cholecalciferol (vitamin D3) 1 cap PO DAILY 08/04/21 08/04/21 History multivitamin 1 cap PO DAILY 08/04/21 08/04/21 History nystatin 100,000 unit/gram topical 1 applic TOPICAL TID 08/04/21 08/04/21 History powder ([facility]) Patient History Medical History 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 Esophageal reflux Glaucoma left H/O: stroke Hemiparesis and speech and language deficit as late effect of cerebrovascular accident (CVA) Hip fracture, left "s/p repair" HTN (hypertension) Mental retardation Osteoporosis Profound vision impairment Retinal tear Swallowing impairment thickene liquids Surgical History S/P repair of PDA Family History Other Breast cancer Ovarian cancer Social History Smoking Status: Unknown if ever smoked Preferred Language: Pashto Communication Ability: Impaired Make Up Artist Required: No Beliefs That Will Affect Care: None marital status: Single Current Living Situation: Group Home Feels Safe at Home: Yes Assistive Devices: Wheelchair Review of Systems Review of Systems: Unobtainable due to cognitive status Physical Exam Constitutional: WD/WN, vitals as above chronically ill appearing Respiratory: Tachypneic, + coarse lung sounds Cardiovascular: +tachycardic Gastrointestinal (Abdomen): Abd soft, nontender, nondistended. On gross exam no rectal bleeding, hematochezia, melena Skin: no rashes, warm and dry Neurologic: upper extremities flexed Psychiatric: resting in bed with eyes closed Results & Data ([facility]) Vital Signs (Past 12 Hours) Vital Signs Temp Pulse Pulse Resp BP BP Pulse Ox 08/06/21 14:06 37.0 C 76 18 177/87 H 98 08/06/21 13:30 37.0 C 75 16 177/73 H 98 08/06/21 13:00 08/06/21 12:09 36.6 C 68 22 131/77 98 08/06/21 11:25 112/63 08/06/21 10:30 125/67 08/06/21 10:15 134/67 08/06/21 10:05 81/53 L 08/06/21 10:02 73/47 L 08/06/21 10:00 87/54 L 08/06/21 08:06 96 H 184/86 H 96 08/06/21 07:42 37.3 C 95 H 18 97 08/06/21 07:21 87 08/06/21 02:53 36.7 C 78 20 117/72 97 Pulse Ox 08/06/21 14:06 08/06/21 13:30 08/06/21 13:00 98 08/06/21 12:09 08/06/21 11:25 08/06/21 10:30 08/06/21 10:15 08/06/21 10:05 08/06/21 10:02 08/06/21 10:00 08/06/21 08:06 08/06/21 07:42 08/06/21 07:21 08/06/21 02:53 Laboratory Results 08/06/21 08/06/21 08/06/21 Range/Units 12:13 10:42 10:42 WBC (4.8-10.8) K/uL RBC (4.2-5.4) M/uL Hgb 7.3 L (12.0-16.0) g/dL Hct 21.5 L (37-47) % MCV (80-100) fL MCH (25-34) pg MCHC (32-36) g/dL RDW Std Deviation (36.4-46.3) fL RDW Coeff of Julieth (11.5-14.5) % Plt Count 114 L (130-400) K/uL MPV (7.4-10.4) fL APTT (21.0-31.0) Seconds PTT Ratio Sodium (136-145) mmol/L Potassium (3.5-5.1) mmol/L Chloride (98-107) mmol/L Carbon Dioxide (21-32) mmol/L Anion Gap (3-11) BUN (6-23) mg/dl Creatinine (0.6-1.2) mg/dl Est Cr Clr Drug Dosing ml/min Est GFR ( Amer) ml/min Est GFR (Non-Af Amer) ml/min BUN/Creatinine Ratio (10-20) Glucose (70-99(Fasting)) mg/dl Calcium (8.5-10.1) mg/dl Ionized Calcium (1.12-1.32) mmol/L Phosphorus (2.5-4.9) mg/dl Magnesium (1.7-2.4) mg/dl Procalcitonin (0-0.5) ng/ml Blood Type O Positive Blood Type Recheck O Positive Antibody Screen NEGATIVE Crossmatch See Detail 08/06/21 08/06/21 08/06/21 Range/Units 09:31 09:31 09:31 WBC (4.8-10.8) K/uL RBC (4.2-5.4) M/uL Hgb (12.0-16.0) g/dL Hct (37-47) % MCV (80-100) fL MCH (25-34) pg MCHC (32-36) g/dL RDW Std Deviation (36.4-46.3) fL RDW Coeff of Julieth (11.5-14.5) % Plt Count (130-400) K/uL MPV (7.4-10.4) fL APTT 68.8 H* (21.0-31.0) Seconds PTT Ratio 2.5 Sodium (136-145) mmol/L Potassium (3.5-5.1) mmol/L Chloride (98-107) mmol/L Carbon Dioxide (21-32) mmol/L Anion Gap (3-11) BUN (6-23) mg/dl Creatinine (0.6-1.2) mg/dl Est Cr Clr Drug Dosing ml/min Est GFR ( Amer) ml/min Est GFR (Non-Af Amer) ml/min BUN/Creatinine Ratio (10-20) Glucose (70-99(Fasting)) mg/dl Calcium (8.5-10.1) mg/dl Ionized Calcium 1.30 (1.12-1.32) mmol/L Phosphorus (2.5-4.9) mg/dl Magnesium (1.7-2.4) mg/dl Procalcitonin 0.30 (0-0.5) ng/ml Blood Type Blood Type Recheck Antibody Screen Crossmatch 08/06/21 08/06/21 08/06/21 Range/Units 09:31 09:31 01:19 WBC 4.08 L (4.8-10.8) K/uL RBC 2.40 L (4.2-5.4) M/uL Hgb 7.6 L (12.0-16.0) g/dL Hct 22.1 L (37-47) % MCV 92.1 (80-100) fL MCH 31.7 (25-34) pg MCHC 34.4 (32-36) g/dL RDW Std Deviation 45.0 (36.4-46.3) fL RDW Coeff of Julieth 13.4 (11.5-14.5) % Plt Count 125 L (130-400) K/uL MPV 10.2 (7.4-10.4) fL APTT 80.5 H* (21.0-31.0) Seconds PTT Ratio 2.9 Sodium 138 (136-145) mmol/L Potassium 3.3 L (3.5-5.1) mmol/L Chloride 106 (98-107) mmol/L Carbon Dioxide 26 (21-32) mmol/L Anion Gap 6 (3-11) BUN 18 (6-23) mg/dl Creatinine 1.15 (0.6-1.2) mg/dl Est Cr Clr Drug Dosing 46.3 ml/min Est GFR ( Amer) 63.8 ml/min Est GFR (Non-Af Amer) 55.0 ml/min BUN/Creatinine Ratio 15.7 (10-20) Glucose 219 H (70-99(Fasting)) mg/dl Calcium 9.1 (8.5-10.1) mg/dl Ionized Calcium (1.12-1.32) mmol/L Phosphorus 1.7 L D (2.5-4.9) mg/dl Magnesium 1.2 L (1.7-2.4) mg/dl Procalcitonin (0-0.5) ng/ml Blood Type Blood Type Recheck Antibody Screen Crossmatch 08/05/21 Range/Units 17:34 WBC (4.8-10.8) K/uL RBC (4.2-5.4) M/uL Hgb (12.0-16.0) g/dL Hct (37-47) % MCV (80-100) fL MCH (25-34) pg MCHC (32-36) g/dL RDW Std Deviation (36.4-46.3) fL RDW Coeff of Julieth (11.5-14.5) % Plt Count (130-400) K/uL MPV (7.4-10.4) fL APTT 81.7 H* (21.0-31.0) Seconds PTT Ratio 3.0 Sodium (136-145) mmol/L Potassium (3.5-5.1) mmol/L Chloride (98-107) mmol/L Carbon Dioxide (21-32) mmol/L Anion Gap (3-11) BUN (6-23) mg/dl Creatinine (0.6-1.2) mg/dl Est Cr Clr Drug Dosing ml/min Est GFR ( Amer) ml/min Est GFR (Non-Af Amer) ml/min BUN/Creatinine Ratio (10-20) Glucose (70-99(Fasting)) mg/dl Calcium (8.5-10.1) mg/dl Ionized Calcium (1.12-1.32) mmol/L Phosphorus (2.5-4.9) mg/dl Magnesium (1.7-2.4) mg/dl Procalcitonin (0-0.5) ng/ml Blood Type Blood Type Recheck Antibody Screen Crossmatch Diagnostic Findings CT head 08/06/21: CLINICAL HISTORY: r/o intracranial bleed Technique: Contiguous axial CT images of the head were acquired from the base of the skull to the vertex without intravenous contrast administration. Images were viewed in brain, subdural and bone windows. Automated dose lowering techniques and/or adjustment according to patient size were utilized for this exam. Comparison: Comparison is made to CT head 08/04/2021 Findings: Encephalomalacia in the left MCA territory is again seen with compensatory enlargement of the lateral ventricle. Imaged portions of the paranasal sinuses and mastoid air cells are clear. The orbits appear normal. There are no acute fractures of the calvaria or scalp swelling. Impression: No acute intracranial hemorrhage, no evidence of acute territorial infarction or other acute intracranial disease process. Chronic left MCA infarct. CTAP 08/06/21: CT abd pelvis IV con only CLINICAL HISTORY: Ongoing bleed with anemia. Evaluate for retroperitoneal hematoma. COMPARISON STUDY: 08/04/2021 CT DOSE: TECHNIQUE: Standard CT of the Abdomen and Pelvis was performed with IV contrast. A dose lowering technique was utilized adhering to the principles of ALARA. Contrast Volume: Optiray 320, 93 ml. The patient did not receive oral contrast. FINDINGS: Lung base: The lung bases are clear. Abdominal cavity: There is no evidence for abdominal mass, adenopathy or ascites . There is no evidence for retroperitoneal hematoma. Liver: There is homogeneous attenuation of the liver parenchyma. There is no evidence for enhancing mass lesion. Spleen: There is homogeneous attenuation of the splenic parenchyma. There is no enhancing mass lesion. Pancreas: There is homogeneous attenuation of the pancreatic parenchyma. There is no evidence for mass lesion or peripancreatic fluid collection. Gall Bladder: There is air into the disc excretion of contrast within the gallbladder from previous CT. There is no CT evidence for acute cholecystitis. Adrenal glands: The adrenal glands are normal in size and attenuation. There is no evidence for enhancing mass lesion. Kidneys: There is homogeneous attenuation of the renal parenchyma bilaterally. There is no evidence for renal calculus within the calyx or hydronephrosis. Minimal renal parenchymal calcification is again seen on the right with scarring present. There is no evidence for enhancing mass. There is again evidence for sharply defined left renal cysts. No further follow-up is necessary for these benign findings. Bowel: There is mild fecal impaction of the rectosigmoid colon with mild fecal stasis. There is no evidence for bowel loop dilatation or obstruction. The small bowel bowel loops are normally placed within the abdomen and pelvis without evidence for dilatation or obstruction. There is no evidence for mass lesion. There are no inflammatory changes present. There is no evidence for free air. Bladder: Cintron catheter is present within the bladder. : There is no evidence for pelvic mass or adenopathy. There is no evidence for pelvic ascites. Vasculature: There is no evidence for aneurysmal dilatation of the abdominal aorta. There is extensive atherosclerotic calcification present of the abdominal aorta and its branches with narrowing of the vessels. Osseous structures: There is no acute osseous pathology. Mild degenerative changes are again seen within the spine. IMPRESSION: 1. No acute intra-abdominal or pelvic abnormality. 2. No evidence for retroperitoneal hematoma. 3. Mild fecal impaction and fecal stasis are again seen. 4. Additional nonacute findings are again delineated above.
[2021-08-06] MEDS ORDERED: FUROSEMIDE 40 MG/4 ML VIAL IV STA (15:13)
[2021-08-06] MEDS ORDERED: FUROSEMIDE 40 MG/4 ML VIAL IV ONE ×2 (15:13→19:26)
[2021-08-06] MEDS ORDERED: ALBUT/IPRATROP 3MG/0.5MG NEB 3 ML VIAL NEB STA (15:15)
[2021-08-06] MEDS ORDERED: METOPROLOL TARTRATE 1 MG/ML VIAL IV ONE (15:30)
--- NOTE | 2021-08-06 15:47 | XRay Report ---
XR chest 1V portable CLINICAL HISTORY: transfusion reaction TECHNIQUE: Single frontal radiograph of the chest was obtained. Comparison: Comparison is made to chest radiograph 08/04/2021 FINDINGS: No lines and tubes are seen. The cardiomediastinal silhouette is normal. Multifocal airspace opacitie s are seen. No evidence of pleural effusion or pneumothorax. IMPRESSION: Multifocal airspace opacities may represent edema and/or pneumonia. ACT 112: Negative or not required by law. Electronically signed by: Alexandr Conner M.D. 08/06/2021 3:46 PM
[2021-08-06 16:21] LABS: Hemoglobin 11.9 g/dL (12.0-16.0); Mean Corpuscular Hemoglobin 31.6 pg (25-34); Mean Corpuscular Volume 92.8 fL (80-100); Platelet Count 306 K/uL (130-400); RDW Coefficient of Variation 13.9 % (11.5-14.5); RDW Standard Deviation 46.7 fL (36.4-46.3); Red Blood Count 3.77 M/uL (4.2-5.4); White Blood Count 13.89 K/uL (4.8-10.8)
[2021-08-06 16:38] LABS: Calcium 9.1 mg/dl (8.5-10.1); Creatinine Clr Calc Pharmacy 49.8 ml/min; Est GFR (African American) 69.6 ml/min; Est GFR (Non-African American) 60.1 ml/min; Magnesium 2.2 mg/dl (1.7-2.4); Potassium 4.7 mmol/L (3.5-5.1); Troponin I High Sensitivity 1110.3 pg/ml (0-14)
[2021-08-06 17:02] LABS: Blood Urine 2+ (Negative)
--- NOTE | 2021-08-06 17:40 | Hospitalist Progress Note ---
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 BNP 816. CXR reviewed. All ivf discontinued. Given iv lasix- will see response and give more lasix if needed, already has beltre for I and Os. BIPAP. Might need to consider repeat echo if does not improve with diuresis. Already on empiric ceftriaxone since admission NSTEMI- Abnormal trop and EKG noted, ekg noted, echo with no WMA. Discussed with cardio who recommended medical management- patient was on heparin drip, nitro paste, ASA, beta sterling- however had hypotension and Hb drop- there was concern for bleed- hence heparin drip and antiplatelets discontinued per cardio- Repeat Hb now at 11.9- prior 7s seems wrong labs- will trend H&H. No evidence of active bleed, no retroperioneal hematoma- discussed with GI- no indication for scope- continue PPI. If Hb remains stable, resume antiplatelet. Monitor on tele. Continue nitropaste. Repeat trop trending down, repeat EKG reviewed. Hypertensive emergency- BP labile, continue clonidine patch, nitro paste, coreg. Cardio recommended avoiding further hydralazine. Hypercalcemia- PTH normal, Vit D2 normal, TSH normal, SPEP,UPEP, PTHrP, Vit D3 pending - Ca normalized with ivf and calcitonin and zolendronic acid /- d/c ivf with pulm edema Acute kidney injury: likely from hypercalcemia. Cr continues to improve 1.3->1.25->1.1->1.07; baseline Cr of 0.7. Note patient had two doses of iodinated contrast for imaging studies in ED. Avoid nephrotoxics, recheck in am SIRS- due to NSTEMI rather than infection. On empiric rocephin since admission, blood clx negative so far, UA unremarkable. Consider discontinuation if no kennedy rce identified and patient remains stable. Microscopic hematuria: In setting of critical blood pressure elevation. No evidence of this on outpatient records. Consider repeating again as outpatient to ensure this has resolved. Noted non-obstructing renal stone on CT. Acute metabolic encephalopathy: secondary to hypercalcemia. 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 On trileptal, celexa, baclofen - She was taking denosumab as outpatient and was due for her 6 month injection on 06/04/21. This was held by Rheumatology to give her a drug holiday. S/p zolendronic acid in ED for hypercalcemia. H/O: stroke: chronic, stable. Continues on Plavix per home regimen. Nonverbal at baseline DVT ppx- heparin drip on hold due to possible bleed Dispo- PCU status. Updated mother at bedside Admission and Anticipated Discharge Date Admission Date: August 04, 2021 Subjective Patient had multiple issues throughout the day requiring multiple bedside evaluations. This morning she was awake alert during my encounter, vitals stable and comfortable. However, later in the morning noted to be drowsy by RN and BP in 70s- iv fluid bolus was given, catapres and nitro paste were held. Hb came back at 7.6 and repeat was 7.3, drop from her baseline of 13-14. Since she was on heparin drip for NSTEMI, there was concern for bleed. Hence heparin drip was discontinued and ordered stat CT A/P which ruled out retroperitoneal hematoma or bleed. CT head did not show bleed or acute abnormality. With her being on DAPT and heparin drip and no BM since admission, possibility of GI bleed was entertatined- discussed with GI, started on PPI drip, typed and cross matched and started on 1 U of PRBC after getting consent from her mother- 1 hour into the PRBC transfusion which patient developed acute respiratory distress and very uncomfortable. Patient was immediately evaluated at bedside- she was on 15 L NC and saturating 90%, dyspenic and very uncomfortable- had crackles- Given immediately iv lasix x1 along nebs treatment- stat CXR and stat labs. PRBC transfusion and fluids were discontinued immediately due to concern for volume overload but also activating transfusion reaction protocol to rule out completely although volume overload seems more likely. Also planned for BIPAP. Also, BP later was in 210s and was resumed on her catapres and nitropaste. Repeat Hb came back at 11.9. Updated mom at bedside and logistics supervisor from her facility. More than 80 minutes was spent with more than half of the time spent at bedside providing direct critical medical care for her respiratory distress. Physical Exam Physical Exam: General: Non verbal at baseline, sitting comfortably this morning but later in the day dyspneic and on non rebreather mask HEENT: tracks eyes intermittently Chest: Bilateral rales and crackles CVS: tachycardic, normal heart sounds Abdomen: Soft, non tender, normal bowel sounds Neuro: Awake, alert, Non verbal at baseline, does not follow commands at baseline Extremities: No edema. contractures + Results & Data Results & Data ([facility]) Vital Signs (Past 12 Hours) Vital Signs Temp Pulse Pulse Resp BP BP Pulse Ox 08/06/21 16:18 191/115 H 08/06/21 16:14 103 H 32 H 92 08/06/21 16:07 37.0 C 125 H 32 H 235/106 H 75 L 08/06/21 15:24 124 H 24 94 08/06/21 15:07 37.0 C 125 H 32 H 235/106 H 75 L 08/06/21 14:37 36.9 C 85 18 122/90 94 08/06/21 14:22 37.1 C 80 17 183/98 H 96 08/06/21 14:06 37.0 C 76 18 177/87 H 98 08/06/21 13:30 37.0 C 75 16 177/73 H 98 08/06/21 13:00 08/06/21 12:09 36.6 C 68 22 131/77 98 08/06/21 11:25 112/63 08/06/21 10:30 125/67 08/06/21 10:15 134/67 08/06/21 10:05 81/53 L 08/06/21 10:02 73/47 L 08/06/21 10:00 87/54 L 08/06/21 08:06 96 H 184/86 H 96 08/06/21 07:42 37.3 C 95 H 18 97 08/06/21 07:21 87 Pulse Ox 08/06/21 16:18 08/06/21 16:14 08/06/21 16:07 08/06/21 15:24 08/06/21 15:07 08/06/21 14:37 08/06/21 14:22 08/06/21 14:06 08/06/21 13:30 08/06/21 13:00 98 08/06/21 12:09 08/06/21 11:25 08/06/21 10:30 08/06/21 10:15 08/06/21 10:05 08/06/21 10:02 08/06/21 10:00 08/06/21 08:06 08/06/21 07:42 08/06/21 07:21 Laboratory Results Short CBC 08/06/21 08/06/21 08/06/21 Range/Units 09:31 10:42 15:51 WBC 4.08 L 13.89 H (4.8-10.8) K/uL Hgb 7.6 L 7.3 L 11.9 L D (12.0-16.0) g/dL Hct 22.1 L 21.5 L 35.0 L (37-47) % Plt Count 125 L 114 L 306 D (130-400) K/uL BMP 08/06/21 08/06/21 09:31 15:51 Sodium 138 136 Potassium 3.3 L 4.7 D Chloride 106 105 Carbon Dioxide 26 23 BUN 18 15 Creatinine 1.15 1.07 Glucose 219 H 267 H Calcium 9.1 9.1 Diagnostic Findings Abdomen/Pelvis CT 08/06/21 11:07 CT abd pelvis IV con only CLINICAL HISTORY: Ongoing bleed with anemia. Evaluate for retroperitoneal hematoma. COMPARISON STUDY: 08/04/2021 CT DOSE: TECHNIQUE: Standard CT of the Abdomen and Pelvis was performed with IV contrast. A dose lowering technique was utilized adhering to the principles of ALARA. Contrast Volume: Optiray 320, 93 ml. The patient did not receive oral contrast. FINDINGS: Lung base: The lung bases are clear. Abdominal cavity: There is no evidence for abdominal mass, adenopathy or ascites. There is no evidence for retroperitoneal hematoma. Liver: There is homogeneous attenuation of the liver parenchyma. There is no evidence for enhancing mass lesion. Spleen: There is homogeneous attenuation of the splenic parenchyma. There is no enhancing mass lesion. Pancreas: There is homogeneous attenuation of the pancreatic parenchyma. There is no evidence for mass lesion or peripancreatic fluid collection. Gall Bladder: There is air into the disc excretion of contrast within the gallbladder from previous CT. There is no CT evidence for acute cholecystitis. Adrenal glands: The adrenal glands are normal in size and attenuation. There is no evidence for enhancing mass lesion. Kidneys: There is homogeneous attenuation of the renal parenchyma bilaterally. There is no evidence for renal calculus within the calyx or hydronephrosis. Minimal renal parenchymal calcification is again seen on the right with scarring present. There is no evidence for enhancing mass. There is again evidence for sharply defined left renal cysts. No further follow-up is necessary for these benign findings. Bowel: There is mild fecal impaction of the rectosigmoid colon with mild fecal stasis. There is no evidence for bowel loop dilatation or obstruction. The small bowel bowel loops are normally placed within the abdomen and pelvis without evidence for dilatation or obstruction. There is no evidence for mass lesion. There are no inflammatory changes present. There is no evidence for free air. Bladder: Beltre catheter is present within the bladder. : There is no evidence for pelvic mass or adenopathy. There is no evidence for pelvic ascites. Vasculature: There is no evidence for aneurysmal dilatation of the abdominal aorta. There is extensive atherosclerotic calcification present of the abdominal aorta and its branches with narrowing of the vessels. Osseous structures: There is no acute osseous pathology. Mild degenerative changes are again seen within the spine. IMPRESSION: 1. No acute intra-abdominal or pelvic abnormality. 2. No evidence for retroperitoneal hematoma. 3. Mild fecal impaction and fecal stasis are again seen. 4. Additional nonacute findings are again delineated above. ACT 112: Negative or not required by law. Electronically signed by: Gualberto Blackwood M.D. 08/06/2021 11:[address] 08/06/21 11:32 CT head/brain wo con CLINICAL HISTORY: r/o intracranial bleed Technique: Contiguous axial CT images of the head were acquired from the base of the skull to the vertex without intravenous contrast administration. Images were viewed in brain, subdural and bone windows. Automated dose lowering techniques and/or adjustment according to patient size were utilized for this exam. Comparison: Comparison is made to CT head 08/04/2021 Findings: Encephalomalacia in the left MCA territory is again seen with compensatory enlargement of the lateral ventricle. Imaged portions of the paranasal sinuses and mastoid air cells are clear. The orbits appear normal. There are no acute fractures of the calvaria or scalp swelling. Impression: No acute intracranial hemorrhage, no evidence of acute territorial infarction or other acute intracranial disease process. Chronic left MCA infarct. ACT 112: Negative or not required by law. Electronically signed by: lAexandr Conner M.D. 08/06/2021 11:52 AM Chest X-Ray 08/06/21 15:13 XR chest 1V portable CLINICAL HISTORY: transfusion reaction TECHNIQUE: Single frontal radiograph of the chest was obtained. Comparison: Comparison is made to chest radiograph 08/04/2021 FINDINGS: No lines and tubes are seen. The cardiomediastinal silhouette is normal. Multifocal airspace opacities are seen. No evidence of pleural effusion or pneumothorax. IMPRESSION: Multifocal airspace opacities may represent edema and/or pneumonia. ACT 112: Negative or not required by law. Electronically signed by: Alexandr Conner M.D. 08/06/2021 3:46 PM Medications Administered Current Inpatient Medications Acetaminophen (Acetaminophen 1000 Mg/100 Ml Iv) 1,000 mg IV Q8H [facility] Stop: 08/07/21 13:59 Last Admin: 08/06/21 16:43 Dose: Not Given Documented by: Aspirin (Aspirin 81 Mg Ectab) 81 mg PO QAM [facility] Stop: 09/05/21 08:59 Last Admin: 08/06/21 08:07 Dose: 81 mg Documented by: Atorvastatin Calcium (Atorvastatin 20 Mg Tab) 20 mg PO HS [facility] Stop: 09/03/21 20:59 Last Admin: 08/05/21 21:25 Dose: 20 mg Documented by: Baclofen (Baclofen 10 Mg Tab) 10 mg PO TID [facility] Stop: 09/03/21 13:59 Last Admin: 08/06/21 16:43 Dose: Not Given Documented by: Bisacodyl (Bisacodyl 10 Mg Supp) 10 mg NM UD PRN PRN Reason: Constipation Stop: 09/03/21 13:30 Citalopram Hydrobromide (Citalopram 40 Mg Tab) 40 mg PO QAM [facility] Stop: 09/04/21 08:59 Last Admin: 08/06/21 08:09 Dose: 40 mg Documented by: Clonidine HCl (Clonidine Hcl 0.1 Mg/24 Hr Transderm Sys) 1 patch TD Sa@0900 [facility] Stop: 09/09/21 08:59 Last Admin: 08/06/21 15:56 Dose: 1 patch Documented by: Clopidogrel Bisulfate (Clopidogrel Bisulfate 75 Mg Tab) 75 mg PO QAM [facility] Stop: 09/04/21 08:59 Last Admin: 08/06/21 09:52 Dose: 75 mg Documented by: Dorzolamide/Timolol (Dorzolamide/Timolol 22.3/6.8mg/Ml 10 Ml Btl) 1 drops OPB BID [facility] Stop: 09/03/21 20:59 Last Admin: 08/06/21 08:12 Dose: 1 drops Documented by: Ceftriaxone Sodium 1,000 mg/ (Dextrose) 60 mls @ 100 mls/hr IV Q24H [facility]; Protocol Stop: 08/07/21 09:59 Last Infusion: 08/06/21 10:48 Dose: Infused Documented by: Lactated Ringer's (Lr) 1,000 mls @ 80 mls/hr IV .[id number] [facility] Stop: 09/03/21 13:44 Last Infusion: 08/06/21 16:45 Dose: Infused Documented by: Heparin Sodium/Dextrose (Heparin Sodium/Dextrose) 25,000 units in 500 mls @ 0 mls/hr IV .Q0M [facility]; Protocol Stop: 09/03/21 17:14 Last Titration: 08/06/21 16:45 Dose: Infused Documented by: Sodium Chloride (Nss) 250 mls @ 15 mls/hr IV .[id number] PRN PRN Reason: For Transfusion Stop: 08/06/21 21:10 Pantoprazole Sodium 40 mg/ (Syringe) 10 mls @ 5 mls/min IV BID [facility] Stop: 09/05/21 20:59 Labetalol HCl (Labetalol Hcl Iv 5 Mg/Ml 20ml) 10 mg IV Q4H PRN PRN Reason: Hypertension Stop: 09/03/21 21:52 Last Admin: 08/05/21 06:01 Dose: 10 mg Documented by: Latanoprost (Latanoprost 0.005% Op Soln 2.5 Ml Btl) 1 drops OPB PM [facility] Stop: 09/03/21 20:59 Last Admin: 08/05/21 21:28 Dose: 1 drops Documented by: Metoprolol Tartrate (Metoprolol Tartrate 25 Mg Tab) 12.5 mg PO BID [facility] Stop: 09/05/21 20:59 Miscellaneous (Remove Clonidine Patch) 1 ea N/A CQWK [facility] Stop: 09/09/21 08:58 Last Admin: 08/06/21 11:35 Dose: 1 ea Documented by: Miscellaneous (Check Clonidine Patch Placement) 1 ea N/A QS [facility] Stop: 09/03/21 15:59 Last Admin: 08/06/21 16:44 Dose: 1 ea Documented by: Nitroglycerin (Nitroglycerin 2% Ointment 30gm Tube) 1 inch EXT Q6 [facility] Stop: 09/03/21 22:29 Last Admin: 08/06/21 16:44 Dose: 1 inch Documented by: Ondansetron HCl (Ondansetron Inj 2 Mg/Ml 2 Ml Vial) 4 mg IV Q8H PRN PRN Reason: Nausea/dry heaving Stop: 09/03/21 13:30 Oxcarbazepine (Oxcarbazepine 150 Mg Tablet) 600 mg PO BID@0800,2000 [facility] Stop: 09/03/21 19:59 Last Admin: 08/06/21 08:08 Dose: 600 mg Documented by: Polyethylene Glycol (Polyethylene (Miralax) 17 Gm Pack) 17 gm PO DAILY PRN PRN Reason: Constipation Stop: 09/03/21 13:30 Polyethylene Glycol (Polyethylene (Miralax) 17 Gm Pack) 17 gm PO QAM [facility] Stop: 09/04/21 08:59 Last Admin: 08/06/21 08:10 Dose: 17 gm Documented by: Tizanidine HCl (Tizanidine Hcl 4 Mg Tablet) 6 mg PO TID [facility] Stop: 09/04/21 13:59 Last Admin: 08/06/21 16:43 Dose: Not Given Documented by:
--- NOTE | 2021-08-06 19:08 | Electrocardiogram Report ---
Test Reason : Blood Pressure : / mmHG Vent. Rate : 108 BPM Atrial Rate : 108 BPM P-R Int : 182 ms QRS Dur : 088 ms QT Int : 344 ms P-R-T Axes : 048 016 063 degrees QTc Int : 460 ms Poor data quality, interpretation may be adversely affected Sinus tachycardia Nonspecific ST abnormality Abnormal ECG When compared with ECG of 04-AUG-2021 12:29, Minimal criteria for Anterior infarct are no longer Present ST less depressed in Inferior leads Confirmed by Moshe Jones ([id number]) on 08/06/2021 7:07:49 PM Referred By: REFERRED SELF Confirmed By:Moshe Jones
[2021-08-06] MEDS ORDERED: XOPENEX/ATROVENT 1.25mg/0.5MG NEB COMBO NEB STA (19:25)
[2021-08-06] MEDS ORDERED: IPRATROPIUM BROMIDE NEB SOLN 0.02% 2.5 ML VIAL INH STA (19:27)
[2021-08-06] MEDS ORDERED: LEVALBUTEROL 1.25MG/0.5ML NEB INH STA (19:28)
[2021-08-06] MEDS ORDERED: METOPROLOL TARTRATE 1 MG/ML VIAL IV STA ×2 (19:41→21:17)
[2021-08-06] MEDS ORDERED: MoRPHine SULFATE 2 MG/ML CARP IV STA (20:21)
[2021-08-06 20:24] LABS: Base Excess ABG -4.4 mEq/L (-9-1.8); HCO3 ABG 23 mmol/L (19-24); Oxygen Saturation ABG 99.1 % (90-95); PCO2 ABG 54 mmHg (35-46); PO2 ABG 169 mmHg (80-95); pH ABG 7.25 (7.35-7.45)
[2021-08-06 20:26] LABS: Allen Test Pos (Pos)
[2021-08-06] MEDS: ATORVASTATIN 20 MG TAB PO SCH (20:56)
[2021-08-06] MEDS: LATANOPROST 0.005% OP SOLN 2.5 ML BTL OPB SCH (20:57)
[2021-08-06 21:31] LABS: Hematocrit (blood only) 38.8 % (37-47); Hemoglobin 13.5 g/dL (12.0-16.0)
[2021-08-06] MEDS ORDERED: methylPREDNISolone 20 MG in SYRINGE 0 ML IV ONE (21:45)
[2021-08-06] MEDS: PANTOprazole 40 MG in SYRINGE 0 ML IV SCH (21:48)
[2021-08-06 23:04] LABS: Base Excess ABG -2.6 mEq/L (-9-1.8); HCO3 ABG 22 mmol/L (19-24); PCO2 ABG 36 mmHg (35-46); PO2 ABG 92 mmHg (80-95)
[2021-08-06 23:17] LABS: Allen Test Pos (Pos)
[2021-08-07] MEDS: ACETAMINOPHEN 1000 MG/100 ML IV IV SCH ×2 (00:02→05:40)
[2021-08-07] MEDS: METOPROLOL TARTRATE 1 MG/ML VIAL IV SCH ×3 (00:05→12:38)
[2021-08-07] MEDS: NITROGLYCERIN 2% OINTMENT 30GM TUBE EXT SCH ×4 (00:06→17:33)
[2021-08-07] MEDS: CHECK CLONIDINE PATCH PLACEMENT SCH ×3 (00:06→15:31)
[2021-08-07 04:03] LABS: Basophils # (auto) 0.06 K/uL (0-0.2); Basophils % (auto) 0.6 %; Hematocrit (blood only) 30.6 % (37-47); Hemoglobin 10.7 g/dL (12.0-16.0); Immature Granulocytes # (auto) 0.17 K/uL (0.00-0.02); Immature Granulocytes % (auto) 1.7 %; Lymphocytes # (auto) 0.67 K/uL (1.2-3.4); Lymphocytes % (auto) 6.8 %; Mean Corpuscular Hemoglobin 31.1 pg (25-34); Mean Platelet Volume 10.6 fL (7.4-10.4); Monocytes # (auto) 0.45 K/uL (0.11-0.59); Monocytes % (auto) 4.6 %; Neutrophils # (auto) 8.44 K/uL (1.4-6.5); Neutrophils % (auto) 86.3 %; Platelet Count 122 K/uL (130-400); RDW Coefficient of Variation 14.2 % (11.5-14.5); RDW Standard Deviation 46.1 fL (36.4-46.3); Red Blood Count 3.44 M/uL (4.2-5.4); White Blood Count 9.79 K/uL (4.8-10.8)
--- NOTE | 2021-08-07 06:04 | Electrocardiogram Report ---
Test Reason : Blood Pressure : / mmHG Vent. Rate : 085 BPM Atrial Rate : 085 BPM P-R Int : 188 ms QRS Dur : 084 ms QT Int : 380 ms P-R-T Axes : 081 023 082 degrees QTc Int : 452 ms Poor data quality, interpretation may be adversely affected Normal sinus rhythm Left ventricular hypertrophy with repolarization abnormality Abnormal ECG When compared with ECG of 04-AUG-2021 18:36, ST no longer depressed in Inferior leads Confirmed by Moshe Jones ([id number]) on 08/07/2021 6:04:37 AM Referred By: REFERRED SELF Confirmed By:Moshe Jones
[2021-08-07] MEDS: BACLOFEN 10 MG TAB PO SCH ×3 (07:20→20:30)
[2021-08-07] MEDS: OXcarbazepine 150 MG TABLET PO SCH ×2 (07:20→20:30)
[2021-08-07] MEDS: POLYETHYLENE (MIRALAX) 17 GM PACK PO SCH (07:20)
[2021-08-07] MEDS: CITALOPRAM 40 MG TAB PO SCH (07:20)
[2021-08-07] MEDS: tiZANidine HCL 4 MG TABLET PO SCH ×3 (07:20→20:32)
--- NOTE | 2021-08-07 08:07 | XRay Report ---
XR chest 1V portable HISTORY: 50 years-old Female tachypnea acute shortness of breath COMPARISON: Chest radiograph of same day at 3:31 AM, CTA chest 08/04/2021 TECHNIQUE: Portable AP view of the chest FINDINGS: Cardiomediastinal and hilar silhouettes are within normal limits. The patient is mildly rotated. No p neumothorax. Small right pleural effusion. Interstitial coarsening with right greater than left multi focal airspace opacities, progressively worsened from the most recent comparison. The bones appear gr ossly intact. IMPRESSION: 1. Interstitial coarsening with right greater than left bilateral airspace opacities, worsened within the right lung. Findings are suggestive of multifocal pneumonia versus asymmetric pulmonary edema. 2. Small right pleural effusion. ACT 112: Negative or not required by law. The above report was generated using voice recognition software. It may contain grammatical, syntax o r spelling errors. Electronically signed by: Mikhail Blunt M.D. 08/07/2021 8:04 AM
[2021-08-07] MEDS: DORZOLAMIDE/TIMOLOL 22.3/6.8MG/ML 10 ML BTL OPB SCH ×2 (08:52→20:30)
[2021-08-07] MEDS: PANTOprazole 40 MG in SYRINGE 0 ML IV SCH ×2 (09:13→20:32)
[2021-08-07 09:34] LABS: Hematocrit (blood only) 32.1 % (37-47); Hemoglobin 11.4 g/dL (12.0-16.0)
[2021-08-07 09:47] LABS: Albumin Globulin Ratio 1.2 (0.9-2); Albumin Level 3.4 gm/dl (3.4-5.0); BUN Creatinine Ratio 17.3 (10-20); Bilirubin,Total 0.4 mg/dl (0.2-1.0); Calcium 9.2 mg/dl (8.5-10.1); Creatinine Clr Calc Pharmacy 51.3 ml/min; Est GFR (Non-African American) 62.2 ml/min; Globulin 2.9 gm/dl (2.5-4.0); Magnesium 1.6 mg/dl (1.7-2.4); Phosphorus 3.3 mg/dl (2.5-4.9); Potassium 3.8 mmol/L (3.5-5.1); Total Protein 6.3 gm/dl (6.0-8.3)
[2021-08-07 09:52] LABS: Troponin I High Sensitivity 1036.2 pg/ml (0-14)
[2021-08-07 10:27] LABS: Abnormal Protein Band 1 DNR mg/24 h (NONE DETECTED); Abnormal Protein Band 2 DNR mg/24 h (NONE DETECTED); Abnormal Protein Band 3 DNR mg/24 h (NONE DETECTED); Creatinine, 24 hr Urine 0.49 g/24 h (0.50-2.15); Protein, Urine 24 Hour 255 mg/24 h (<150); Ur Protein/Creatinine Rat mg/g 517 mg/g creat (< OR = 114); Urine Protein/Creatinine Ratio 0.517 (< OR = 0.114)
[2021-08-07] MEDS ORDERED: FUROSEMIDE 40 MG/4 ML VIAL IV SCH (11:30)
--- NOTE | 2021-08-07 11:32 | Pulmonary Consultation ---
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 Differential would include transfusion associated lung injury or transfusion associated circulatory overload with the latter being more likely. She is improved this morning. Recommendations: 1. Try and wean the patient off of positive airway pressure and use high flow as needed. 2. Lasix 40 mg IV daily. 3. Recommend sending transfusion reaction labs and notifying the blood pain if not already done. 4. The patient needs aggressive blood pressure control with target blood pressure less than 135/80. 5. Confirmed DNR/DNI status. Management of the patient's other medical issues is deferred to the primary hospitalist service. History of Present Illness Attending Physician: Adebayo Sandoval MD History of Present Illness Asked by hospitalist to evaluate this patient with pulmonary infiltrates and hypoxemic respiratory failure. History is obtained from review electronic medical record. The patient is nonverbal. 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 She is nonverbal. She also has a prior history of stroke. She is bedbound and completely dependent on care. She can interact and tolerates p.o. but has aspiration risks and is on a pured nectar thick diet at baseline. She presented to the emergency room 08/04/2021 with hypertension tachycardia and fevers. There was concern about sepsis. She was given Rocephin empirically and treated for hypertensive urgency. Yesterday she had a decrease in her hemoglobin and hematocrit. She was transfused unit of packed cells and during the transfusion had an increase in her oxygen requirement. Transfusion was stopped and given 1 dose of Lasix. Unclear if transfusion reaction panel or the blood bank was notified. She was significantly hypertensive. She was p laced on BiPAP. Pulmonary was consulted for additional evaluation management. This morning the patient is awake alert and in no distress. She is on full face BiPAP at 35% FiO2. She remains significantly hypertensive. She is not received additional diuretics Allergies Allergy/AdvReac Type Severity Reaction Status Date / Time Penicillins Allergy Severe Rash Verified 08/04/21 10:38 ampicillin Allergy Verified 08/04/21 10:38 Home Medications Medication Instructions Recorded Confirmed Type atorvastatin 20 mg tablet 20 mg PO HS 11/15/18 08/04/21 History baclofen 10 mg tablet 10 mg PO TID 11/15/18 08/04/21 History citalopram 40 mg tablet 40 mg PO QAM 11/15/18 08/04/21 History clonidine 0.1 mg/24 hr weekly 0.1 mg TOPICAL WK 11/15/18 08/04/21 History transdermal patch clopidogrel 75 mg tablet 75 mg PO QAM 11/15/18 08/04/21 History dorzolamide 22.3 mg-timolol 6.8 1 drp OPL BID 11/15/18 08/04/21 History mg/mL eye drops polyethylene glycol 3350 17 17 g PO QAM 11/15/18 08/04/21 History gram/dose oral powder selenium sulfide 1 % shampoo 1 applic TOPICAL 3XWK 11/15/18 08/04/21 History (Selsun Blue) sennosides 8.6 mg-docusate sodium 2 tab-cap PO HS 11/15/18 08/04/21 History 50 mg tablet (Senexon-S) starch (thickening) (Thick-It) 1 ea PO DIRECTED 11/15/18 08/04/21 History tizanidine 2 mg tablet 2 mg PO TID 11/15/18 08/04/21 History tizanidine 4 mg tablet 4 mg PO TID 11/15/18 08/04/21 History bisacodyl 10 mg rectal suppository 10 mg MI UD PRN 01/07/19 08/04/21 History dimethicone-petrolatum 1 %-30 % 0 applic TOPICAL UD PRN 01/07/19 08/04/21 History topical cream (Sensi-Care Body Cream) mupirocin 2 % topical ointment 1 applic TOPICAL BID PRN 01/07/19 08/04/21 History oxcarbazepine 600 mg tablet 600 mg PO BID 01/07/19 08/04/21 History sodium phosphates 19 gram-7 118 ml MI UD PRN 01/07/19 08/04/21 History gram/118 mL enema (Fleet Enema) latanoprost 0.005 % eye drops 1 drp OPHTHALMIC (EYE) PM 06/13/20 08/04/21 History Tylenol 650 mg PO Q4H PRN MDD 3,000MG 08/04/21 08/04/21 History cholecalciferol (vitamin D3) 1 cap PO DAILY 08/04/21 08/04/21 History multivitamin 1 cap PO DAILY 08/04/21 08/04/21 History nystatin 100,000 unit/gram topical 1 applic TOPICAL TID 08/04/21 08/04/21 History powder ([facility]) Patient History Medical History 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 Esophageal reflux Glaucoma left H/O: stroke Hemiparesis and speech and language deficit as late effect of cerebrovascular accident (CVA) Hip fracture, left "s/p repair" HTN (hypertension) Mental retardation Osteoporosis Profound vision impairment Retinal tear Swallowing impairment thickene liquids Surgical History S/P repair of PDA Family History Other Breast cancer Ovarian cancer Social History Smoking Status: Unknown if ever smoked Preferred Language: Gambian Communication Ability: Impaired Recovery Assistant Required: No Beliefs That Will Affect Care: None marital status: Single Current Living Situation: Assisted Other Information That Helps Us Care for You: No Feels Safe at Home: Yes Assistive Devices: Wheelchair Review of Systems Review of Systems: Unobtainable due to cognitive status Physical Exam Constitutional: WD/WN, vitals as above Neck: trachea midline, no thyromegaly Respiratory: normal respiratory effort; no respiratory distress, no labored breathing and not tachypneic Auscultation: + crackles; no wheezes Cardiovascular: RRR, no murmur, no edema Gastrointestinal (Abdomen): normal bowel sounds, soft, nontender, no hepatosplenomegaly Musculoskeletal: Extremities: extremities normal to inspection Skin: no rashes, warm and dry Neurologic: Nonfocal exam Lymphatic: no cervical lymphadenopathy Results & Data Results & Data ([facility]) Vital Signs (Past 12 Hours) Vital Signs Temp Pulse Pulse Resp BP BP Pulse Ox 08/07/21 10:47 37.0 C 96 H 20 211/107 H 97 08/07/21 07:56 89 177/95 H 100 08/07/21 07:28 84 08/07/21 07:26 36.9 C 90 20 207/110 H 100 08/07/21 07:07 88 29 H 100 08/07/21 05:53 86 08/07/21 04:13 36.8 C 87 16 158/77 H 97 08/07/21 03:04 82 24 96 Critical Care Results & Data Vital Signs (Past 12 Hours) Vital Signs Temp Pulse Pulse Resp BP BP Pulse Ox 08/07/21 10:47 37.0 C 96 H 20 211/107 H 97 08/07/21 07:56 89 177/95 H 100 08/07/21 07:28 84 08/07/21 07:26 36.9 C 90 20 207/110 H 100 08/07/21 07:07 88 29 H 100 08/07/21 05:53 86 08/07/21 04:13 36.8 C 87 16 158/77 H 97 08/07/21 03:04 82 24 96 Lab & Micro Results (Past 24 Hours) RBC 3.44 M/uL (4.2-5.4) L 08/07/21 WBC 9.79 K/uL (4.8-10.8) 08/07/21 Hgb 11.4 g/dL (12.0-16.0) L 08/07/21 Hct 32.1 % (37-47) L 08/07/21 MCV 89.0 fL (80-100) 08/07/21 MCH 31.1 pg (25-34) 08/07/21 MCHC 35.0 g/dL (32-36) 08/07/21 RDW Standard Deviation 46.1 fL (36.4-46.3) 08/07/21 RDW Coefficient of Variation 14.2 % (11.5-14.5) 08/07/21 Plt Count 122 K/uL (130-400) L 08/07/21 MPV 10.6 fL (7.4-10.4) H 08/07/21 Neutrophils (%) (Auto) 86.3 % 08/07/21 Lymphocytes (%) (Auto) 6.8 % 08/07/21 Monocytes # (Auto) 0.45 K/uL (0.11-0.59) 08/07/21 Eosinophils # (Auto) 0.00 K/uL (0-0.5) 08/07/21 Immature Granulocyte % (Auto) 1.7 % 08/07/21 Neutrophils # (Auto) 8.44 K/uL (1.4-6.5) H 08/07/21 Lymphocytes # (Auto) 0.67 K/uL (1.2-3.4) L 08/07/21 Monocytes # (Auto) 0.45 K/uL (0.11-0.59) 08/07/21 Eosinophils # (Auto) 0.00 K/uL (0-0.5) 08/07/21 Basophils # (Auto) 0.06 K/uL (0-0.2) 08/07/21 Immature Granulocyte # (Auto) 0.17 K/uL (0.00-0.02) H 08/07/21 Na 140 mmol/L (136-145) 08/07/21 K 3.8 mmol/L (3.5-5.1) 08/07/21 Cl 105 mmol/L (98-107) 08/07/21 CO2 25 mmol/L (21-32) 08/07/21 Anion Gap 10 (3-11) 08/07/21 BUN 18 mg/dl (6-23) 08/07/21 Creatinine 1.04 mg/dl (0.6-1.2) 08/07/21 Estimated GFR ( Amer) 72.0 ml/min 08/07/21 Estimated GFR (Non-Af Amer) 62.2 ml/min 08/07/21 BUN/Creatinine Ratio 17.3 (10-20) 08/07/21 Glu 132 mg/dl (70-99(Fasting)) H 08/07/21 Ca 9.2 mg/dl (8.5-10.1) 08/07/21 Phosphorus Level 3.3 mg/dl (2.5-4.9) 08/07/21 Total Bilirubin 0.4 mg/dl (0.2-1.0) 08/07/21 AST 51 U/L (13-39) H 08/07/21 ALT 57 U/L (7-52) H 08/07/21 Alkaline Phosphatase 71 U/L (34-104) 08/07/21 TP 6.3 gm/dl (6.0-8.3) 08/07/21 Albumin 3.4 gm/dl (3.4-5.0) 08/07/21 Globulin 2.9 gm/dl (2.5-4.0) 08/07/21 Albumin/Globulin Ratio 1.2 (0.9-2) 08/07/21 Mg 1.6 mg/dl (1.7-2.4) L 08/07/21 09:01 08/07/21 Calcium Level 9.2 mg/dl (8.5-10.1) 08/07/21 09:01 08/07/21 Blood Gas Barometric Pressure 728.7 mm/Hg 08/06/21 22:48 08/06/21 Arterial Blood pH 7.40 (7.35-7.45) 08/06/21 22:48 08/06/21 Arterial Blood Partial Pressure CO2 36 mmHg (35-46) 08/06/21 22:48 08/06/21 Arterial Blood Partial Pressure O2 92 mmHg (80-95) 08/06/21 22:48 08/06/21 Arterial Blood HCO3 22 mmol/L (19-24) 08/06/21 22:48 08/06/21 Arterial Blood Base Excess -2.6 mEq/L (-9-1.8) 08/06/21 22:48 08/06/21 Arterial Blood Oxygen Saturation 97.0 % (90-95) H 08/06/21 22:48 08/06/21 Blood Gas Oxygen Given 15L 08/06/21 22:48 08/06/21 John Test Pos (Pos) 08/06/21 22:48 08/06/21 Blood Gas Barometric Pressure 728.7 mm/Hg 08/06/21 22:48 08/06/21 Microbiology 08/06/21 Unknown Gram Stain - Final Sputum, Expectorated 08/04/21 11:04 Aerobic Blood Culture - Preliminary Blood No growth in Aerobic bottle after 48 hours. Anaerobic Blood Culture - Preliminary No growth in Anaerobic bottle after 48 hours. 08/04/21 11:04 Aerobic Blood Culture - Preliminary Blood No growth in Aerobic bottle after 48 hours. Anaerobic Blood Culture - Preliminary No growth in Anaerobic bottle after 48 hours. Diagnostic Findings (Past 24 Hours) Abdomen/Pelvis CT 08/06/21 11:07 CT abd pelvis IV con only CLINICAL HISTORY: Ongoing bleed with anemia. Evaluate for retroperitoneal hematoma. COMPARISON STUDY: 08/04/2021 CT DOSE: TECHNIQUE: Standard CT of the Abdomen and Pelvis was performed with IV contrast. A dose lowering technique was utilized adhering to the principles of ALARA. Contrast Volume: Optiray 320, 93 ml. The patient did not receive oral contrast. FINDINGS: Lung base: The lung bases are clear. Abdominal cavity: There is no evidence for abdominal mass, adenopathy or ascites. There is no evidence for retroperitoneal hematoma. Liver: There is homogeneous attenuation of the liver parenchyma. There is no evidence for enhancing mass lesion. Spleen: There is homogeneous attenuation of the splenic parenchyma. There is no enhancing mass lesion. Pancreas: There is homogeneous attenuation of the pancreatic parenchyma. There is no evidence for mass lesion or peripancreatic fluid collection. Gall Bladder: There is air into the disc excretion of contrast within the gallbladder from previous CT. There is no CT evidence for acute cholecystitis. Adrenal glands: The adrenal glands are normal in size and attenuation. There is no evidence for enhancing mass lesion. Kidneys: There is homogeneous attenuation of the renal parenchyma bilaterally. There is no evidence for renal calculus within the calyx or hydronephrosis. Minimal renal parenchymal calcification is again seen on the right with scarring present. There is no evidence for enhancing mass. There is again evidence for sharply defined left renal cysts. No further follow-up is necessary for these benign findings. Bowel: There is mild fecal impaction of the rectosigmoid colon with mild fecal stasis. There is no evidence for bowel loop dilatation or obstruction. The small bowel bowel loops are normally placed within the abdomen and pelvis without evidence for dilatation or obstruction. There is no evidence for mass lesion. There are no inflammatory changes present. There is no evidence for free air. Bladder: Cintron catheter is present within the bladder. : There is no evidence for pelvic mass or adenopathy. There is no evidence for pelvic ascites. Vasculature: There is no evidence for aneurysmal dilatation of the abdominal aorta. There is extensive atherosclerotic calcification present of the abdominal aorta and its branches with narrowing of the vessels. Osseous structures: There is no acute osseous pathology. Mild degenerative changes are again seen within the spine. IMPRESSION: 1. No acute intra-abdominal or pelvic abnormality. 2. No evidence for retroperitoneal hematoma. 3. Mild fecal impaction and fecal stasis are again seen. 4. Additional nonacute findings are again delineated above. ACT 112: Negative or not required by law. Electronically signed by: Gualberto Blackwood M.D. 08/06/2021 11:[address] 08/06/21 11:32 CT head/brain wo con CLINICAL HISTORY: r/o intracranial bleed Technique: Contiguous axial CT images of the head were acquired from the base of the skull to the vertex without intravenous contrast administration. Images were viewed in brain, subdural and bone windows. Automated dose lowering techniques and/or adjustment according to patient size were utilized for this exam. Comparison: Comparison is made to CT head 08/04/2021 Findings: Encephalomalacia in the left MCA territory is again seen with compensatory enlargement of the lateral ventricle. Imaged portions of the paranasal sinuses and mastoid air cells are clear. The orbits appear normal. There are no acute fractures of the calvaria or scalp swelling. Impression: No acute intracranial hemorrhage, no evidence of acute territorial infarction or other acute intracranial disease process. Chronic left MCA infarct. ACT 112: Negative or not required by law. Electronically signed by: Alexandr Conner M.D. 08/06/2021 11:52 AM Chest X-Ray 08/06/21 15:13 XR chest 1V portable CLINICAL HISTORY: transfusion reaction TECHNIQUE: Single frontal radiograph of the chest was obtained. Comparison: Comparison is made to chest radiograph 08/04/2021 FINDINGS: No lines and tubes are seen. The cardiomediastinal silhouette is normal. Multifocal airspace opacities are seen. No evidence of pleural effusion or pneumothorax. IMPRESSION: Multifocal airspace opacities may represent edema and/or pneumonia. ACT 112: Negative or not required by law. Electronically signed by: Alexandr Conner M.D. 08/06/2021 3:46 PM Chest X-Ray 08/06/21 21:16 XR chest 1V portable HISTORY: 50 years-old Female tachypnea acute shortness of breath COMPARISON: Chest radiograph of same day at 3:31 AM, CTA chest 08/04/2021 TECHNIQUE: Portable AP view of the chest FINDINGS: Cardiomediastinal and hilar silhouettes are within normal limits. The patient is mildly rotated. No pneumothorax. Small right pleural effusion. Interstitial coarsening with right greater than left multifocal airspace opacities, progressively worsened from the most recent comparison. The bones appear grossly intact. IMPRESSION: 1. Interstitial coarsening with right greater than left bilateral airspace opacities, worsened within the right lung. Findings are suggestive of multifocal pneumonia versus asymmetric pulmonary edema. 2. Small right pleural effusion. ACT 112: Negative or not required by law. The above report was generated using voice recognition software. It may contain grammatical, syntax or spelling errors. Electronically signed by: Mikhail Blunt M.D. 08/07/2021 8:04 AM I & O Totals 24 Hours 08/06/21 08/07/21 08/08/21 06:59 06:59 06:59 Intake Total 2278.400 / 2278.400 2441.500 / 2441.500 Output Total 1974 Balance 2278.400 / 2278.400 466.500 / 466.500 Cumulative 08/04/21 08:01 thru 08/07/21 05:20 Intake Total 9046.567 Output Total 3225 Balance 5821.567 RT Ventilator Mngmt (Last Documented) Ventilator Ordered Settings Respiratory Rate 20 08/07/21 10:47 Fraction of Inspired Oxygen 50 08/07/21 07:07 Ventilator - PT Measurements Respiratory Rate 20 PG Care Time/CCT Total # of Minutes Spent Total Time Spent with Patient: Total time spent is greater than 50% in coordination of care (as documented) at patient's floor/unit and/or counseling patient: Coding Level of Care Code 41762 Inpt Consult Level 4 Diagnoses Hypoxemia R09.02 Abnormal CXR R93.89 Diastolic heart failure I50.30
--- NOTE | 2021-08-07 12:29 | Gastroenterology Progress Note ---
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 sepsis, had elevated calcium, hyperglycemia, of unclear etiology. We are consulted for drop in HGB 13.9->7.3, w/o evidence of GI bleeding and normal BUN. Now appears HGB has improved. Drop in HGB was of unclear etiology; pt continues to have no s/s GIB. Pt had respiratory distress yesterday and having issues with elevated BP. - With recent NSTEMI, lack of overt GIB, and improved HGB - no plans for endoscopy today - IV PPI reasonable and would continue - Monitor GI output for signs of GIB and trend H&H - Appreciate mgmt of her other comorbidities to inpt team Thank you for allowing us to participate in the care of this patient. Please call with any acute changes, questions or concerns. Please see addendum below with additional recommendation from my supervising physician. Admission and Anticipated Discharge Date Admission Date: August 04, 2021 Subjective Patient seen and examined, chart reviewed. Yesterday had respiratory distress, placed on Bipap, tx w/ diuretics. Had a brown BM yesterday. Today seems better respiratory colin, though having issues with elevated BP. She has not had any GI output - no melena or hematochezia, hematemesis. She is nonverbal at baseline, review of systems unable to be obtained. HGB somewhat labile (since yesterday, 11.9->13->10.7->11.4) with normal BUN. Review of Systems Review of Systems: Unobtainable due to cognitive status Physical Exam Constitutional: WD/WN, vitals as above Chronically ill, no acute distress today Eyes: PERRL, conjunctivae normal, anicteric sclerae Respiratory: Improved from yesterday, no longer tachypneic. Has scattered coarse sounds. She is on high flow O2. Cardiovascular: + Tachycardic Gastrointestinal (Abdomen): normal bowel sounds, soft, nontender, no hepatosplenomegaly Skin: no rashes, warm and dry Psychiatric: Seems alert, eyes are open, looks over at me, does not respond to questions Results & Data ([facility]) Vital Signs (Past 12 Hours) Vital Signs Temp Pulse Pulse Resp BP BP Pulse Ox 08/07/21 10:47 37.0 C 96 H 20 211/107 H 97 08/07/21 07:56 89 177/95 H 100 08/07/21 07:28 84 08/07/21 07:26 36.9 C 90 20 207/110 H 100 08/07/21 07:07 88 29 H 100 08/07/21 05:53 86 08/07/21 04:13 36.8 C 87 16 158/77 H 97 08/07/21 03:04 82 24 96 Laboratory Results 08/07/21 08/07/21 08/07/21 Range/Units Unknown 09:01 09:01 WBC (4.8-10.8) K/uL RBC (4.2-5.4) M/uL Hgb 11.4 L (12.0-16.0) g/dL Hct 32.1 L (37-47) % MCV (80-100) fL MCH (25-34) pg MCHC (32-36) g/dL RDW Std Deviation (36.4-46.3) fL RDW Coeff of Julieth (11.5-14.5) % Plt Count (130-400) K/uL MPV (7.4-10.4) fL Immature Gran % (Auto) % Neut % (Auto) % Lymph % (Auto) % Stanton % (Auto) % Eos % (Auto) % Baso % (Auto) % Neut # (Auto) (1.4-6.5) K/uL Lymph # (Auto) (1.2-3.4) K/uL Stanton # (Auto) (0.11-0.59) K/uL Eos # (Auto) (0-0.5) K/uL Baso # (Auto) (0-0.2) K/uL Immature Gran # (Auto) (0.00-0.02) K/uL ABG pH (7.35-7.45) ABG pCO2 (35-46) mmHg ABG pO2 (80-95) mmHg ABG HCO3 (19-24) mmol/L ABG O2 Saturation (90-95) % ABG Base Excess (-9-1.8) mEq/L John Test (Pos) Barometric Pressure mm/Hg Oxygen Given Sodium (136-145) mmol/L Potassium (3.5-5.1) mmol/L Chloride (98-107) mmol/L Carbon Dioxide (21-32) mmol/L Anion Gap (3-11) BUN (6-23) mg/dl Creatinine (0.6-1.2) mg/dl Est Cr Clr Drug Dosing ml/min Est GFR ( Amer) ml/min Est GFR (Non-Af Amer) ml/min BUN/Creatinine Ratio (10-20) Glucose (70-99(Fasting)) mg/dl POC Glucose (70-99) mg/dl Calcium (8.5-10.1) mg/dl Phosphorus (2.5-4.9) mg/dl Magnesium (1.7-2.4) mg/dl Total Bilirubin (0.2-1.0) mg/dl AST (13-39) U/L ALT (7-52) U/L Alkaline Phosphatase (34-104) U/L Troponin I High Sens (0-14) pg/ml B-Natriuretic Peptide (0-100) pg/ml Total Protein (6.0-8.3) gm/dl Albumin (3.4-5.0) gm/dl Globulin (2.5-4.0) gm/dl Albumin/Globulin Ratio (0.9-2) Procalcitonin 7.15 H (0-0.5) ng/ml Urine Blood (Negative) Urine RBC (Auto) (0-4) /hpf Ur Creatinine 24 Hour (0.50-2.15) g/24 h Ur Total Protein 24 Hr (<150) mg/24 h Protein/Creat Ratio 24h (< OR = 0.114) Urine Albumin (%) % U Olqnx-0-Pjeqybgu (%) % U Rpghg-8-Epmibkbe (%) % U Beta Globulin (%) % U Gamma Globulin (%) % U Abnormal Prot Band 1 (NONE DETECTED) mg/24 h U Abnormal Prot Band 2 (NONE DETECTED) mg/24 h U Abnormal Prot Band 3 (NONE DETECTED) mg/24 h Urine PEP Interpret Stool Occult Bld Scrn Negative (Negative) Urine Immunofixation Blood Type Blood Type Recheck Antibody Screen Crossmatch Transfusion React Date Transfusion React Time Tx React Symptoms Reaction Clerical Check Lab Clerical Err Check React Component Return Volume Returned Pre-Trans Blood Type Pre-Trans Vis Hemolysis Pre-Trans MARISOL Pre-Trans MARISOL IgG Pre-Trans MARISOL Poly Pre-Trans MARISOL C3b, C3d Post-Trans Blood Type Post-Tx Visible Hemolys Post-Trans MARISOL Post-Trans MARISOL IgG Post-Trans MARISOL Poly Post-Trans MARISOL C3b, C3d Post-Trans Ur Hemoglobin Reaction Path Interpret Transfusion Serv Com 08/07/21 08/07/21 08/07/21 Range/Units 09:01 09:01 06:59 WBC (4.8-10.8) K/uL RBC (4.2-5.4) M/uL Hgb (12.0-16.0) g/dL Hct (37-47) % MCV (80-100) fL MCH (25-34) pg MCHC (32-36) g/dL RDW Std Deviation (36.4-46.3) fL RDW Coeff of Julieth (11.5-14.5) % Plt Count (130-400) K/uL MPV (7.4-10.4) fL Immature Gran % (Auto) % Neut % (Auto) % Lymph % (Auto) % Stanton % (Auto) % Eos % (Auto) % Baso % (Auto) % Neut # (Auto) (1.4-6.5) K/uL Lymph # (Auto) (1.2-3.4) K/uL Stanton # (Auto) (0.11-0.59) K/uL Eos # (Auto) (0-0.5) K/uL Baso # (Auto) (0-0.2) K/uL Immature Gran # (Auto) (0.00-0.02) K/uL ABG pH (7.35-7.45) ABG pCO2 (35-46) mmHg ABG pO2 (80-95) mmHg ABG HCO3 (19-24) mmol/L ABG O2 Saturation (90-95) % ABG Base Excess (-9-1.8) mEq/L John Test (Pos) Barometric Pressure mm/Hg Oxygen Given Sodium 140 (136-145) mmol/L Potassium 3.8 (3.5-5.1) mmol/L Chloride 105 (98-107) mmol/L Carbon Dioxide 25 (21-32) mmol/L Anion Gap 10 (3-11) BUN 18 (6-23) mg/dl Creatinine 1.04 (0.6-1.2) mg/dl Est Cr Clr Drug Dosing 51.3 ml/min Est GFR ( Amer) 72.0 ml/min Est GFR (Non-Af Amer) 62.2 ml/min BUN/Creatinine Ratio 17.3 (10-20) Glucose 132 H (70-99(Fasting)) mg/dl POC Glucose 139 H (70-99) mg/dl Calcium 9.2 (8.5-10.1) mg/dl Phosphorus 3.3 D (2.5-4.9) mg/dl Magnesium 1.6 L (1.7-2.4) mg/dl Total Bilirubin 0.4 (0.2-1.0) mg/dl AST 51 H (13-39) U/L ALT 57 H (7-52) U/L Alkaline Phosphatase 71 (34-104) U/L Troponin I High Sens 1036.2 H* (0-14) pg/ml B-Natriuretic Peptide 1572 H (0-100) pg/ml Total Protein 6.3 (6.0-8.3) gm/dl Albumin 3.4 (3.4-5.0) gm/dl Globulin 2.9 (2.5-4.0) gm/dl Albumin/Globulin Ratio 1.2 (0.9-2) Procalcitonin (0-0.5) ng/ml Urine Blood (Negative) Urine RBC (Auto) (0-4) /hpf Ur Creatinine 24 Hour (0.50-2.15) g/24 h Ur Total Protein 24 Hr (<150) mg/24 h Protein/Creat Ratio 24h (< OR = 0.114) Urine Albumin (%) % U Pikmp-4-Kypjiinq (%) % U Wurzy-4-Nqcwbhjj (%) % U Beta Globulin (%) % U Gamma Globulin (%) % U Abnormal Prot Band 1 (NONE DETECTED) mg/24 h U Abnormal Prot Band 2 (NONE DETECTED) mg/24 h U Abnormal Prot Band 3 (NONE DETECTED) mg/24 h Urine PEP Interpret Stool Occult Bld Scrn (Negative) Urine Immunofixation Blood Type Blood Type Recheck Antibody Screen Crossmatch Transfusion React Date Transfusion React Time Tx React Symptoms Reaction Clerical Check Lab Clerical Err Check React Component Return Volume Returned Pre-Trans Blood Type Pre-Trans Vis Hemolysis Pre-Trans MARISOL Pre-Trans MARISOL IgG Pre-Trans MARISOL Poly Pre-Trans MARISOL C3b, C3d Post-Trans Blood Type Post-Tx Visible Hemolys Post-Trans MARISOL Post-Trans MARISOL IgG Post-Trans MARISOL Poly Post-Trans MARISOL C3b, C3d Post-Trans Ur Hemoglobin Reaction Path Interpret Transfusion Serv Com 08/07/21 08/06/21 08/06/21 Range/Units 03:28 Unknown 22:48 WBC 9.79 (4.8-10.8) K/uL RBC 3.44 L (4.2-5.4) M/uL Hgb 10.7 L (12.0-16.0) g/dL Hct 30.6 L (37-47) % MCV 89.0 (80-100) fL MCH 31.1 (25-34) pg MCHC 35.0 (32-36) g/dL RDW Std Deviation 46.1 (36.4-46.3) fL RDW Coeff of Julieth 14.2 (11.5-14.5) % Plt Count 122 L D (130-400) K/uL MPV 10.6 H (7.4-10.4) fL Immature Gran % (Auto) 1.7 % Neut % (Auto) 86.3 % Lymph % (Auto) 6.8 % Stanton % (Auto) 4.6 % Eos % (Auto) 0.0 % Baso % (Auto) 0.6 % Neut # (Auto) 8.44 H (1.4-6.5) K/uL Lymph # (Auto) 0.67 L (1.2-3.4) K/uL Stanton # (Auto) 0.45 (0.11-0.59) K/uL Eos # (Auto) 0.00 (0-0.5) K/uL Baso # (Auto) 0.06 (0-0.2) K/uL Immature Gran # (Auto) 0.17 H (0.00-0.02) K/uL ABG pH 7.40 (7.35-7.45) ABG pCO2 36 (35-46) mmHg ABG pO2 92 (80-95) mmHg ABG HCO3 22 (19-24) mmol/L ABG O2 Saturation 97.0 H (90-95) % ABG Base Excess -2.6 (-9-1.8) mEq/L Ojhn Test Pos (Pos) Barometric Pressure 728.7 mm/Hg Oxygen Given 15L Sodium (136-145) mmol/L Potassium (3.5-5.1) mmol/L Chloride (98-107) mmol/L Carbon Dioxide (21-32) mmol/L Anion Gap (3-11) BUN (6-23) mg/dl Creatinine (0.6-1.2) mg/dl Est Cr Clr Drug Dosing ml/min Est GFR ( Amer) ml/min Est GFR (Non-Af Amer) ml/min BUN/Creatinine Ratio (10-20) Glucose (70-99(Fasting)) mg/dl POC Glucose (70-99) mg/dl Calcium (8.5-10.1) mg/dl Phosphorus (2.5-4.9) mg/dl Magnesium (1.7-2.4) mg/dl Total Bilirubin (0.2-1.0) mg/dl AST (13-39) U/L ALT (7-52) U/L Alkaline Phosphatase (34-104) U/L Troponin I High Sens (0-14) pg/ml B-Natriuretic Peptide (0-100) pg/ml Total Protein (6.0-8.3) gm/dl Albumin (3.4-5.0) gm/dl Globulin (2.5-4.0) gm/dl Albumin/Globulin Ratio (0.9-2) Procalcitonin (0-0.5) ng/ml Urine Blood 2+ H (Negative) Urine RBC (Auto) 10-30 H (0-4) /hpf Ur Creatinine 24 Hour (0.50-2.15) g/24 h Ur Total Protein 24 Hr (<150) mg/24 h Protein/Creat Ratio 24h (< OR = 0.114) Urine Albumin (%) % U Xftmy-8-Kyemrflr (%) % U Ymjzx-9-Yzypddlt (%) % U Beta Globulin (%) % U Gamma Globulin (%) % U Abnormal Prot Band 1 (NONE DETECTED) mg/24 h U Abnormal Prot Band 2 (NONE DETECTED) mg/24 h U Abnormal Prot Band 3 (NONE DETECTED) mg/24 h Urine PEP Interpret Stool Occult Bld Scrn (Negative) Urine Immunofixation Blood Type Blood Type Recheck Antibody Screen Crossmatch Transfusion React Date Transfusion React Time Tx React Symptoms Reaction Clerical Check Lab Clerical Err Check React Component Return Volume Returned Pre-Trans Blood Type Pre-Trans Vis Hemolysis Pre-Trans MARISOL Pre-Trans MARISOL IgG Pre-Trans MARISOL Poly Pre-Trans MARISOL C3b, C3d Post-Trans Blood Type Post-Tx Visible Hemolys Post-Trans MARISOL Post-Trans MARISOL IgG Post-Trans MARISOL Poly Post-Trans MARISOL C3b, C3d Post-Trans Ur Hemoglobin Reaction Path Interpret Transfusion Serv Com 08/06/21 08/06/21 08/06/21 Range/Units 21:10 20:11 16:57 WBC (4.8-10.8) K/uL RBC (4.2-5.4) M/uL Hgb 13.5 (12.0-16.0) g/dL Hct 38.8 (37-47) % MCV (80-100) fL MCH (25-34) pg MCHC (32-36) g/dL RDW Std Deviation (36.4-46.3) fL RDW Coeff of Julieth (11.5-14.5) % Plt Count (130-400) K/uL MPV (7.4-10.4) fL Immature Gran % (Auto) % Neut % (Auto) % Lymph % (Auto) % Stanton % (Auto) % Eos % (Auto) % Baso % (Auto) % Neut # (Auto) (1.4-6.5) K/uL Lymph # (Auto) (1.2-3.4) K/uL Stanton # (Auto) (0.11-0.59) K/uL Eos # (Auto) (0-0.5) K/uL Baso # (Auto) (0-0.2) K/uL Immature Gran # (Auto) (0.00-0.02) K/uL ABG pH 7.25 L (7.35-7.45) ABG pCO2 54 H (35-46) mmHg ABG pO2 169 H (80-95) mmHg ABG HCO3 23 (19-24) mmol/L ABG O2 Saturation 99.1 H (90-95) % ABG Base Excess -4.4 (-9-1.8) mEq/L John Test Pos (Pos) Barometric Pressure 728.0 mm/Hg Oxygen Given 100%BIPAP Sodium (136-145) mmol/L Potassium (3.5-5.1) mmol/L Chloride (98-107) mmol/L Carbon Dioxide (21-32) mmol/L Anion Gap (3-11) BUN (6-23) mg/dl Creatinine (0.6-1.2) mg/dl Est Cr Clr Drug Dosing ml/min Est GFR ( Amer) ml/min Est GFR (Non-Af Amer) ml/min BUN/Creatinine Ratio (10-20) Glucose (70-99(Fasting)) mg/dl POC Glucose (70-99) mg/dl Calcium (8.5-10.1) mg/dl Phosphorus (2.5-4.9) mg/dl Magnesium (1.7-2.4) mg/dl Total Bilirubin (0.2-1.0) mg/dl AST (13-39) U/L ALT (7-52) U/L Alkaline Phosphatase (34-104) U/L Troponin I High Sens (0-14) pg/ml B-Natriuretic Peptide (0-100) pg/ml Total Protein (6.0-8.3) gm/dl Albumin (3.4-5.0) gm/dl Globulin (2.5-4.0) gm/dl Albumin/Globulin Ratio (0.9-2) Procalcitonin (0-0.5) ng/ml Urine Blood (Negative) Urine RBC (Auto) (0-4) /hpf Ur Creatinine 24 Hour (0.50-2.15) g/24 h Ur Total Protein 24 Hr (<150) mg/24 h Protein/Creat Ratio 24h (< OR = 0.114) Urine Albumin (%) % U Pypfd-3-Wiwcggmm (%) % U Ervyn-2-Byhqxvxz (%) % U Beta Globulin (%) % U Gamma Globulin (%) % U Abnormal Prot Band 1 (NONE DETECTED) mg/24 h U Abnormal Prot Band 2 (NONE DETECTED) mg/24 h U Abnormal Prot Band 3 (NONE DETECTED) mg/24 h Urine PEP Interpret Stool Occult Bld Scrn (Negative) Urine Immunofixation Blood Type Blood Type Recheck Antibody Screen Crossmatch Transfusion React Date Pending Transfusion React Time Pending Tx React Symptoms Pending Reaction Clerical Check Pending Lab Clerical Err Check Pending React Component Return Pending Volume Returned Pending Pre-Trans Blood Type Pending Pre-Trans Vis Hemolysis Pending Pre-Trans MARISOL Pending Pre-Trans MARISOL IgG Pending Pre-Trans MARISOL Poly Pending Pre-Trans MARISOL C3b, C3d Pending Post-Trans Blood Type Pending Post-Tx Visible Hemolys Pending Post-Trans MARISOL Pending Post-Trans MARISOL IgG Pending Post-Trans MARISOL Poly Pending Post-Trans MARISOL C3b, C3d Pending Post-Trans Ur Hemoglobin Pending Reaction Path Interpret Pending Transfusion Serv Com Pending 08/06/21 08/06/21 08/06/21 Range/Units 15:51 15:51 15:51 WBC 13.89 H (4.8-10.8) K/uL RBC 3.77 L (4.2-5.4) M/uL Hgb 11.9 L D (12.0-16.0) g/dL Hct 35.0 L (37-47) % MCV 92.8 (80-100) fL MCH 31.6 (25-34) pg MCHC 34.0 (32-36) g/dL RDW Std Deviation 46.7 H (36.4-46.3) fL RDW Coeff of Julieth 13.9 (11.5-14.5) % Plt Count 306 D (130-400) K/uL MPV 11.0 H (7.4-10.4) fL Immature Gran % (Auto) % Neut % (Auto) % Lymph % (Auto) % Stanton % (Auto) % Eos % (Auto) % Baso % (Auto) % Neut # (Auto) (1.4-6.5) K/uL Lymph # (Auto) (1.2-3.4) K/uL Stanton # (Auto) (0.11-0.59) K/uL Eos # (Auto) (0-0.5) K/uL Baso # (Auto) (0-0.2) K/uL Immature Gran # (Auto) (0.00-0.02) K/uL ABG pH (7.35-7.45) ABG pCO2 (35-46) mmHg ABG pO2 (80-95) mmHg ABG HCO3 (19-24) mmol/L ABG O2 Saturation (90-95) % ABG Base Excess (-9-1.8) mEq/L John Test (Pos) Barometric Pressure mm/Hg Oxygen Given Sodium 136 (136-145) mmol/L Potassium 4.7 D (3.5-5.1) mmol/L Chloride 105 (98-107) mmol/L Carbon Dioxide 23 (21-32) mmol/L Anion Gap 8 (3-11) BUN 15 (6-23) mg/dl Creatinine 1.07 (0.6-1.2) mg/dl Est Cr Clr Drug Dosing 49.8 ml/min Est GFR ( Amer) 69.6 ml/min Est GFR (Non-Af Amer) 60.1 ml/min BUN/Creatinine Ratio 14.0 (10-20) Glucose 267 H (70-99(Fasting)) mg/dl POC Glucose (70-99) mg/dl Calcium 9.1 (8.5-10.1) mg/dl Phosphorus (2.5-4.9) mg/dl Magnesium 2.2 (1.7-2.4) mg/dl Total Bilirubin (0.2-1.0) mg/dl AST (13-39) U/L ALT (7-52) U/L Alkaline Phosphatase (34-104) U/L Troponin I High Sens 1110.3 H* D (0-14) pg/ml B-Natriuretic Peptide 816 H (0-100) pg/ml Total Protein (6.0-8.3) gm/dl Albumin (3.4-5.0) gm/dl Globulin (2.5-4.0) gm/dl Albumin/Globulin Ratio (0.9-2) Procalcitonin (0-0.5) ng/ml Urine Blood (Negative) Urine RBC (Auto) (0-4) /hpf Ur Creatinine 24 Hour (0.50-2.15) g/24 h Ur Total Protein 24 Hr (<150) mg/24 h Protein/Creat Ratio 24h (< OR = 0.114) Urine Albumin (%) % U Slmrp-8-Rwczkhps (%) % U Dgkil-2-Dgxftioq (%) % U Beta Globulin (%) % U Gamma Globulin (%) % U Abnormal Prot Band 1 (NONE DETECTED) mg/24 h U Abnormal Prot Band 2 (NONE DETECTED) mg/24 h U Abnormal Prot Band 3 (NONE DETECTED) mg/24 h Urine PEP Interpret Stool Occult Bld Scrn (Negative) Urine Immunofixation Blood Type Blood Type Recheck Antibody Screen Crossmatch Transfusion React Date Transfusion React Time Tx React Symptoms Reaction Clerical Check Lab Clerical Err Check React Component Return Volume Returned Pre-Trans Blood Type Pre-Trans Vis Hemolysis Pre-Trans MARISOL Pre-Trans MARISOL IgG Pre-Trans MARISOL Poly Pre-Trans MARISOL C3b, C3d Post-Trans Blood Type Post-Tx Visible Hemolys Post-Trans MARISOL Post-Trans MARISOL IgG Post-Trans MARISOL Poly Post-Trans MARISOL C3b, C3d Post-Trans Ur Hemoglobin Reaction Path Interpret Transfusion Serv Com 08/06/21 08/06/21 08/04/21 Range/Units 12:13 10:42 17:00 WBC (4.8-10.8) K/uL RBC (4.2-5.4) M/uL Hgb (12.0-16.0) g/dL Hct (37-47) % MCV (80-100) fL MCH (25-34) pg MCHC (32-36) g/dL RDW Std Deviation (36.4-46.3) fL RDW Coeff of Julieth (11.5-14.5) % Plt Count (130-400) K/uL MPV (7.4-10.4) fL Immature Gran % (Auto) % Neut % (Auto) % Lymph % (Auto) % Stanton % (Auto) % Eos % (Auto) % Baso % (Auto) % Neut # (Auto) (1.4-6.5) K/uL Lymph # (Auto) (1.2-3.4) K/uL Stanton # (Auto) (0.11-0.59) K/uL Eos # (Auto) (0-0.5) K/uL Baso # (Auto) (0-0.2) K/uL Immature Gran # (Auto) (0.00-0.02) K/uL ABG pH (7.35-7.45) ABG pCO2 (35-46) mmHg ABG pO2 (80-95) mmHg ABG HCO3 (19-24) mmol/L ABG O2 Saturation (90-95) % ABG Base Excess (-9-1.8) mEq/L John Test (Pos) Barometric Pressure mm/Hg Oxygen Given Sodium (136-145) mmol/L Potassium (3.5-5.1) mmol/L Chloride (98-107) mmol/L Carbon Dioxide (21-32) mmol/L Anion Gap (3-11) BUN (6-23) mg/dl Creatinine (0.6-1.2) mg/dl Est Cr Clr Drug Dosing ml/min Est GFR ( Amer) ml/min Est GFR (Non-Af Amer) ml/min BUN/Creatinine Ratio (10-20) Glucose (70-99(Fasting)) mg/dl POC Glucose (70-99) mg/dl Calcium (8.5-10.1) mg/dl Phosphorus (2.5-4.9) mg/dl Magnesium (1.7-2.4) mg/dl Total Bilirubin (0.2-1.0) mg/dl AST (13-39) U/L ALT (7-52) U/L Alkaline Phosphatase (34-104) U/L Troponin I High Sens (0-14) pg/ml B-Natriuretic Peptide (0-100) pg/ml Total Protein (6.0-8.3) gm/dl Albumin (3.4-5.0) gm/dl Globulin (2.5-4.0) gm/dl Albumin/Globulin Ratio (0.9-2) Procalcitonin (0-0.5) ng/ml Urine Blood (Negative) Urine RBC (Auto) (0-4) /hpf Ur Creatinine 24 Hour 0.49 L (0.50-2.15) g/24 h Ur Total Protein 24 Hr 255 H (<150) mg/24 h Protein/Creat Ratio 24h 0.517 H (< OR = 0.114) Urine Albumin (%) 60 % U Sjgnk-0-Phpgfvvc (%) 5 % U Ihtno-8-Yzabjuqn (%) 11 % U Beta Globulin (%) 13 % U Gamma Globulin (%) 12 % U Abnormal Prot Band 1 DNR (NONE DETECTED) mg/24 h U Abnormal Prot Band 2 DNR (NONE DETECTED) mg/24 h U Abnormal Prot Band 3 DNR (NONE DETECTED) mg/24 h Urine PEP Interpret SEE NOTE Stool Occult Bld Scrn (Negative) Urine Immunofixation SEE NOTE Blood Type O Positive Blood Type Recheck O Positive Antibody Screen NEGATIVE Crossmatch See Detail Transfusion React Date Transfusion React Time Tx React Symptoms Reaction Clerical Check Lab Clerical Err Check React Component Return Volume Returned Pre-Trans Blood Type Pre-Trans Vis Hemolysis Pre-Trans MARISOL Pre-Trans MARISOL IgG Pre-Trans MARISOL Poly Pre-Trans MARISOL C3b, C3d Post-Trans Blood Type Post-Tx Visible Hemolys Post-Trans MARISOL Post-Trans MARISOL IgG Post-Trans MARISOL Poly Post-Trans MARISOL C3b, C3d Post-Trans Ur Hemoglobin Reaction Path Interpret Transfusion Serv Com Diagnostic Findings CXR: XR chest 1V portable HISTORY: 50 years-old Female tachypnea acute shortness of breath COMPARISON: Chest radiograph of same day at 3:31 AM, CTA chest 08/04/2021 TECHNIQUE: Portable AP view of the chest FINDINGS: Cardiomediastinal and hilar silhouettes are within normal limits. The patient is mildly rotated. No pneumothorax. Small right pleural effusion. Interstitial coarsening with right greater than left multifocal airspace opacities, p rogressively worsened from the most recent comparison. The bones appear grossly intact. IMPRESSION: 1. Interstitial coarsening with right greater than left bilateral airspace opacities, worsened within the right lung. Findings are suggestive of multifocal pneumonia versus asymmetric pulmonary edema. 2. Small right pleural effusion.
--- NOTE | 2021-08-07 13:15 | Hospitalist Progress Note ---
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 TACO vs TRALI vs excess IVF resuscitation vs flash pulm edema due to uncontrolled HTN. BNP 816. CXR reviewed. All ivf discontinued. Given iv lasixx2 and BIPAP with improvement. Also was given a dose of steroid overnight. She is comfortable this morning on BIPAP. Seen by pulm- recommendations noted. On lasix 40 mg daily for now, monitor I and O. Remains on rocephin. Follow up on sputum culture. Wean off bipap as tolerated. NSTEMI- Abnormal trop and EKG noted, echo with no WMA. Trop trending down. Discussed with cardio who recommended medical management- s/p heparin drip which was stopped yesterday due to Hb drop but no bleeding noted and now Hb back to baseline; likely artifactual. Continue DAPT, betablocker, statin, nitropaste. Cardio following. Hypertensive emergency- BP remains elevated, continue clonidine patch, nitro paste, lopressor. Will add norvasc. Cardio recommended avoiding further hydralazine. Also has IV labetalol prn. Hypercalcemia- PTH normal, Vit D2 normal, TSH normal, SPEP,UPEP, PTHrP, Vit D3 pending - Ca normalized with ivf and calcitonin and zolendronic acid 08/04- discontinued ivf with resp distress Acute kidney injury: likely from hypercalcemia. Cr continues to improve 1.3->1.25->1.1->1.07; baseline Cr of 0.7. Note patient had two doses of iodinated contrast for imaging studies in ED. Avoid nephrotoxics, recheck in am SIRS- due to NSTEMI rather than infection. On empiric rocephin since admission, blood clx negative so far, UA unremarkable. Consider discontinuation if no source identified and patient remains stable. Microscopic hematuria: In setting of critical blood pressure elevation. No evidence of this on outpatient records. Consider repeating again as outpatient to ensure this has resolved. Noted non-obstructing renal stone on CT. Acute metabolic encephalopathy: secondary to hypercalcemia. 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 On trileptal, celexa, baclofen - She was taking denosumab as outpatient and was due for her 6 month injection on 06/04/21. This was held by Rheumatology to give her a drug holiday. S/p zolendronic acid in ED for hypercalcemia. H/O: stroke: chronic, stable. Continues on Plavix per home regimen. Nonverbal at baseline DVT ppx- sc heparin GI ppx- PPI Dispo- PCU status. Admission and Anticipated Discharge Date Admission Date: August 04, 2021 Subjective She looks comfortable today, remains on bipap. Awake alert. Non verbal at baseline. No fever noted. Physical Exam Physical Exam: General: Non verbal at baseline, sitting comfortably, on bipap HEENT: tracks eyes intermittently Chest: Fair breath sounds bilaterally with crackles CVS: mild tachycardia, normal heart sounds Abdomen: Soft, non tender, normal bowel sounds Neuro: Awake, alert, Non verbal at baseline, does not follow commands at baseline Extremities: No edema. contractures + Results & Data Results & Data ([facility]) Vital Signs (Past 12 Hours) Vital Signs Temp Pulse Pulse Resp BP BP BP 08/07/21 12:38 100 H 180/118 H 08/07/21 10:47 37.0 C 96 H 20 211/107 H 08/07/21 07:56 89 177/95 H 08/07/21 07:28 84 08/07/21 07:26 36.9 C 90 20 207/110 H 08/07/21 07:07 88 29 H 08/07/21 05:53 86 08/07/21 04:13 36.8 C 87 16 158/77 H 08/07/21 03:04 82 24 Pulse Ox 08/07/21 12:38 08/07/21 10:47 97 08/07/21 07:56 100 08/07/21 07:28 08/07/21 07:26 100 08/07/21 07:07 100 08/07/21 05:53 08/07/21 04:13 97 08/07/21 03:04 96 Laboratory Results Short CBC 08/06/21 08/06/21 08/07/21 Range/Units 15:51 21:10 03:28 WBC 13.89 H 9.79 (4.8-10.8) K/uL Hgb 11.9 L D 13.5 10.7 L (12.0-16.0) g/dL Hct 35.0 L 38.8 30.6 L (37-47) % Plt Count 306 D 122 L D (130-400) K/uL 08/07/21 Range/Units 09:01 WBC (4.8-10.8) K/uL Hgb 11.4 L (12.0-16.0) g/dL Hct 32.1 L (37-47) % Plt Count (130-400) K/uL BMP 08/06/21 08/07/21 15:51 09:01 Sodium 136 140 Potassium 4.7 D 3.8 Chloride 105 105 Carbon Dioxide 23 25 BUN 15 18 Creatinine 1.07 1.04 Glucose 267 H 132 H Calcium 9.1 9.2 Liver Function 08/07/21 Range/Units 09:01 Total Bilirubin 0.4 (0.2-1.0) mg/dl AST 51 H (13-39) U/L ALT 57 H (7-52) U/L Alkaline Phosphatase 71 (34-104) U/L Albumin 3.4 (3.4-5.0) gm/dl Diagnostic Findings Chest X-Ray 08/06/21 21:16 XR chest 1V portable HISTORY: 50 years-old Female tachypnea acute shortness of breath COMPARISON: Chest radiograph of same day at 3:31 AM, CTA chest 08/04/2021 TECHNIQUE: Portable AP view of the chest FINDINGS: Cardiomediastinal and hilar silhouettes are within normal limits. The patient is mildly rotated. No pneumothorax. Small right pleural effusion. Interstitial coarsening with right greater than left multifocal airspace opacities, progressively worsened from the most recent comparison. The bones appear grossly intact. IMPRESSION: 1. Interstitial coarsening with right greater than left bilateral airspace opacities, worsened within the right lung. Findings are suggestive of multifocal pneumonia versus asymmetric pulmonary edema. 2. Small right pleural effusion. ACT 112: Negative or not required by law. The above report was generated using voice recognition software. It may contain grammatical, syntax or spelling errors. Electronically signed by: Mikhail Blunt M.D. 08/07/2021 8:04 AM Medications Administered Current Inpatient Medications Acetaminophen (Acetaminophen 1000 Mg/100 Ml Iv) 1,000 mg IV Q8H [facility] Stop: 08/07/21 13:59 Last Admin: 08/07/21 05:40 Dose: 1,000 mg Documented by: Aspirin (Aspirin 81 Mg Ectab) 81 mg PO QAM [facility] Stop: 09/05/21 08:59 Last Admin: 08/06/21 08:07 Dose: 81 mg Documented by: Atorvastatin Calcium (Atorvastatin 20 Mg Tab) 20 mg PO HS [facility] Stop: 09/03/21 20:59 Last Admin: 08/06/21 20:56 Dose: Not Given Documented by: Baclofen (Baclofen 10 Mg Tab) 10 mg PO TID [facility] Stop: 09/03/21 13:59 Last Admin: 08/07/21 07:20 Dose: Not Given Documented by: Bisacodyl (Bisacodyl 10 Mg Supp) 10 mg NC UD PRN PRN Reason: Constipation Stop: 09/03/21 13:30 Citalopram Hydrobromide (Citalopram 40 Mg Tab) 40 mg PO QAM [facility] Stop: 09/04/21 08:59 Last Admin: 08/07/21 07:20 Dose: Not Given Documented by: Clonidine HCl (Clonidine Hcl 0.1 Mg/24 Hr Transderm Sys) 1 patch TD Sa@0900 [facility] Stop: 09/09/21 08:59 Last Admin: 08/06/21 15:56 Dose: 1 patch Documented by: Clopidogrel Bisulfate (Clopidogrel Bisulfate 75 Mg Tab) 75 mg PO QAM [facility] Stop: 09/04/21 08:59 Last Admin: 08/06/21 09:52 Dose: 75 mg Documented by: Dorzolamide/Timolol (Dorzolamide/Timolol 22.3/6.8mg/Ml 10 Ml Btl) 1 drops OPB BID [facility] Stop: 09/03/21 20:59 Last Admin: 08/07/21 08:52 Dose: 1 drops Documented by: Furosemide (Furosemide 40 Mg/4 Ml Vial) 40 mg IV DAILY [facility] Stop: 09/06/21 11:29 Last Admin: 08/07/21 12:38 Dose: 40 mg Documented by: Heparin Sodium/Dextrose (Heparin Sodium/Dextrose) 25,000 units in 500 mls @ 0 mls/hr IV .Q0M [facility]; Protocol Stop: 09/03/21 17:14 Last Titration: 08/06/21 16:45 Dose: Infused Documented by: Pantoprazole Sodium 40 mg/ (Syringe) 10 mls @ 5 mls/min IV BID [facility] Stop: 09/05/21 20:59 Last Admin: 08/07/21 09:13 Dose: 5 mls/min Documented by: Labetalol HCl (Labetalol Hcl Iv 5 Mg/Ml 20ml) 10 mg IV Q4H PRN PRN Reason: Hypertension Stop: 09/03/21 21:52 Last Admin: 08/05/21 06:01 Dose: 10 mg Documented by: Latanoprost (Latanoprost 0.005% Op Soln 2.5 Ml Btl) 1 drops OPB PM [facility] Stop: 09/03/21 20:59 Last Admin: 08/06/21 20:57 Dose: Not Given Documented by: Metoprolol Tartrate (Metoprolol Tartrate 25 Mg Tab) 12.5 mg PO BID [facility] Stop: 09/05/21 20:59 Metoprolol Tartrate (Metoprolol Tartrate 1 Mg/Ml Vial) 5 mg IV Q6 [facility] Stop: 09/06/21 00:00 Last Admin: 08/07/21 12:38 Dose: 5 mg Documented by: Miscellaneous (Remove Clonidine Patch) 1 ea N/A CQWK [facility] Stop: 09/09/21 08:58 Last Admin: 08/06/21 11:35 Dose: 1 ea Documented by: Miscellaneous (Check Clonidine Patch Placement) 1 ea N/A QS [facility] Stop: 09/03/21 15:59 Last Admin: 08/07/21 07:19 Dose: 1 ea Documented by: Nitroglycerin (Nitroglycerin 2% Ointment 30gm Tube) 1 inch EXT Q6 [facility] Stop: 09/03/21 22:29 Last Admin: 08/07/21 12:39 Dose: 1 inch Documented by: Ondansetron HCl (Ondansetron Inj 2 Mg/Ml 2 Ml Vial) 4 mg IV Q8H PRN PRN Reason: Nausea/dry heaving Stop: 09/03/21 13:30 Oxcarbazepine (Oxcarbazepine 150 Mg Tablet) 600 mg PO BID@0800,1999 [facility] Stop: 09/03/21 19:59 Last Admin: 08/07/21 07:20 Dose: Not Given Documented by: Polyethylene Glycol (Polyethylene (Miralax) 17 Gm Pack) 17 gm PO DAILY PRN PRN Reason: Constipation Stop: 09/03/21 13:30 Polyethylene Glycol (Polyethylene (Miralax) 17 Gm Pack) 17 gm PO QAM [facility] Stop: 09/04/21 08:59 Last Admin: 08/07/21 07:20 Dose: Not Given Documented by: Tizanidine HCl (Tizanidine Hcl 4 Mg Tablet) 6 mg PO TID [facility] Stop: 09/04/21 13:59 Last Admin: 08/07/21 07:20 Dose: Not Given Documented by:
[2021-08-07] MEDS ORDERED: METOPROLOL TARTRATE 50 MG TAB PO STA (13:31)
--- NOTE | 2021-08-07 13:38 | Cardiology Progress Note ---
Date of Service August 07, 2021 Assessment & Plan (1) Hypertensive urgency: (2) Non-ST elevation (NSTEMI) myocardial infarction: (3) Hypertensive heart disease: (4) Hypomagnesemia: (5) Drop in hemoglobin: (6) Transfusion associated circulatory overload: Plan: Transfusion reaction yesterday with differential diagnosis including acute volume overload versus acute lung injury. Patient treated with IV Lasix and BiPAP support with moderate improvement. The etiology of her transient drop in hemoglobin unclear although lab error must be considered given dramatic changes. Resume treatment with dual antiplatelet therapy. No need for additional IV heparin at this time. Blood pressure remains labile and difficult to control. She did not tolerate carvedilol which induced significant hypotension yesterday. Carvedilol discontinued in favor of metoprolol which is currently on hold. Recommend restart metoprolol 12.5 mg twice daily. First dose now. Continue topical nitrates. Agree with daily furosemide. Chest x-ray revealing asymmetric right-sided opacities. Consider aspiration. Supplement potassium and magnesium. Admission and Anticipated Discharge Date Admission Date: August 04, 2021 Subjective Patient seen examined the bedside. Nonverbal. Reduced hemoglobin of 7.3 g/dL noted yesterday in a.m. prompting transfusion of 1 unit packed red blood cells. Approximately snf through the infusion, patient developed acute respiratory distress. Her transfusion was stopped and she was treated with intravenous Lasix and BiPAP. X-ray revealing patchy right-sided opacities. Fluid balance - 679 cc. Carvedilol discontinued due to marked hypotension post a.m. dose of carvedilol yesterday. Metoprolol currently on hold. Review of Systems Review of Systems: Unobtainable due to cognitive status Physical Exam Constitutional: + ill appearing and + obese Respiratory: normal respiratory effort; no retractions and does not use accessory muscles Auscultation: no crackles, no rales, no rhonchi and no wheezes Cardiovascular: Rate/Rhythm: regular rate, regular rhythm and + tachycardic Heart Sounds: normal S1 and normal S2; no murmur Vessels: no JVD, no carotid bruit and + radial pulses abnormal Extremities: no edema Gastrointestinal (Abdomen): Inspection/Auscultation: + abdomen distended Percussion/Palpation: abdomen nontender and no guarding Neurologic: CN's II-XI intact bilaterally and moves all extremities; no focal motor deficits Motor/Sensory: no tremor Psychiatric: Speech: + mute Results & Data ([facility]) Vital Signs (Past 12 Hours) Vital Signs Temp Pulse Pulse Resp BP BP BP 08/07/21 12:38 100 H 180/118 H 08/07/21 10:47 37.0 C 96 H 20 211/107 H 08/07/21 07:56 89 177/95 H 08/07/21 07:28 84 08/07/21 07:26 36.9 C 90 20 207/110 H 08/07/21 07:07 88 29 H 08/07/21 05:53 86 08/07/21 04:13 36.8 C 87 16 158/77 H 08/07/21 03:04 82 24 Pulse Ox 08/07/21 12:38 08/07/21 10:47 97 08/07/21 07:56 100 08/07/21 07:28 08/07/21 07:26 100 08/07/21 07:07 100 08/07/21 05:53 08/07/21 04:13 97 08/07/21 03:04 96
[2021-08-07] MEDS ORDERED: METOPROLOL TARTRATE 25 MG TAB PO STA (13:40)
--- NOTE | 2021-08-07 13:59 | Electrocardiogram Report ---
Test Reason : Blood Pressure : / mmHG Vent. Rate : 091 BPM Atrial Rate : 091 BPM P-R Int : 180 ms QRS Dur : 078 ms QT Int : 396 ms P-R-T Axes : 053 030 027 degrees QTc Int : 488 ms Poor data quality, interpretation may be adversely affected Normal sinus rhythm Nonspecific ST and T wave abnormality Prolonged QT Abnormal ECG When compared with ECG of 05-AUG-2021 04:23, QT has lengthened Confirmed by Moshe Jones ([id number]) on 08/07/2021 1:58:50 PM Referred By: REFERRED SELF Confirmed By:Moshe Jones
[2021-08-07] MEDS: amLODIPine BESYLATE 5 MG TAB PO SCH (15:28)
[2021-08-07] MEDS: ATORVASTATIN 20 MG TAB PO SCH (20:30)
[2021-08-07] MEDS: HEPARIN SOD 5,000 UNIT/0.5 ML VIAL SQ SCH (20:31)
[2021-08-07] MEDS: LATANOPROST 0.005% OP SOLN 2.5 ML BTL OPB SCH (20:31)
[2021-08-07] MEDS: METOPROLOL TARTRATE 25 MG TAB PO SCH (20:33)
--- NOTE | 2021-08-07 21:57 | Electrocardiogram Report ---
Test Reason : Blood Pressure : / mmHG Vent. Rate : 097 BPM Atrial Rate : 097 BPM P-R Int : 226 ms QRS Dur : 102 ms QT Int : 368 ms P-R-T Axes : 063 041 050 degrees QTc Int : 467 ms Sinus rhythm with 1st degree A-V block Otherwise normal ECG When compared with ECG of 06-Aug-2021 06:29 QT has shortened Confirmed by Moshe Jones ([id number]) on 08/07/2021 9:57:22 PM Referred By: REFERRED SELF Confirmed By:Moshe Jones
[2021-08-08] MEDS: CHECK CLONIDINE PATCH PLACEMENT SCH ×4 (00:49→23:51)
[2021-08-08] MEDS: NITROGLYCERIN 2% OINTMENT 30GM TUBE EXT SCH ×5 (00:49→23:51)
[2021-08-08 07:17] LABS: Hematocrit (blood only) 28.3 % (37-47); Hemoglobin 9.8 g/dL (12.0-16.0); Mean Corpuscular Hemoglobin 32.1 pg (25-34); Mean Corpuscular Hgb Conc 34.6 g/dL (32-36); Mean Corpuscular Volume 92.8 fL (80-100); Platelet Count 168 K/uL (130-400); RDW Coefficient of Variation 14.7 % (11.5-14.5); RDW Standard Deviation 49.9 fL (36.4-46.3); Red Blood Count 3.05 M/uL (4.2-5.4); White Blood Count 8.26 K/uL (4.8-10.8)
[2021-08-08 07:28] LABS: Albumin Level 3.3 gm/dl (3.4-5.0); BUN Creatinine Ratio 24.3 (10-20); Bilirubin Direct 0.1 mg/dl (0-0.2); Bilirubin,Total 0.4 mg/dl (0.2-1.0); Creatinine Clr Calc Pharmacy 48.9 ml/min; Est GFR (African American) 69.6 ml/min; Est GFR (Non-African American) 60.1 ml/min; Magnesium 1.8 mg/dl (1.7-2.4); Potassium 3.4 mmol/L (3.5-5.1); Total Protein 6.1 gm/dl (6.0-8.3)
--- NOTE | 2021-08-08 08:23 | Pulmonology Progress Note ---
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 Differential would include transfusion associated lung injury or transfusion associated circulatory overload with the latter being more likely. She has been weaned off positive airway pressure and is down to 2 L nasal cannula and appears comfortable Recommendations: 1. Continue to wean oxygen as tolerated. Defend oxygen saturation above 88%. 2. Okay to transition the Lasix to p.o. 3. Follow-up with blood bank and with transfusion reaction laboratory studies 4. Blood pressure management per primary service and cardiology. Target blood pressure less than 135/80 given diastolic dysfunction 5. Procalcitonin elevated however the patient is afebrile with a normal white blood cell count. She did receive antimicrobial agents on presentation. Her chest x-ray showed infiltrates but there is potential for other etiologies as noted above. However her procalcitonin has been climbing significantly throughout this hospitalization and may suggest an underlying infection. Would be reasonable to place the patient on cefuroxime/clindamycin and follow procalcitonin levels given potential aspiration event Her pulmonary issues appear stabilized and improving clinically. will sign off, call if ?s Admission and Anticipated Discharge Date Admission Date: August 04, 2021 Subjective Patient seen and examined. EMR reviewed. Patient remains nonverbal. She has been weaned off positive pressure ventilation down to nasal cannula at 2 L/min. No other events overnight Review of Systems Review of Systems: Unobtainable due to cognitive status Physical Exam Constitutional: WD/WN, vitals as above Neck: trachea midline, no thyromegaly Respiratory: normal respiratory effort; no respiratory distress, no labored breathing and not tachypneic Auscultation: no crackles and no wheezes Cardiovascular: RRR, no murmur, no edema Gastrointestinal (Abdomen): normal bowel sounds, soft, nontender, no hepatosplenomegaly Musculoskeletal: Extremities: extremities normal to inspection Skin: no rashes, warm and dry Lymphatic: no cervical lymphadenopathy Results & Data Results & Data ([facility]) Vital Signs (Past 12 Hours) Vital Signs Temp Pulse Pulse Resp BP BP Pulse Ox 08/08/21 07:51 37.0 C 87 19 198/74 H 99 08/08/21 03:25 37 C 66 18 102/62 99 08/08/21 00:04 69 08/07/21 23:18 36.7 C 66 20 106/57 L 95 08/07/21 20:32 72 Laboratory Results 08/08/21 06:25 08/08/21 06:25 Diagnostic Findings No new imaging PG Care Time/CCT Total # of Minutes Spent Total Time Spent with Patient: Total time spent is greater than 50% in coordination of care (as documented) at patient's floor/unit and/or counseling patient: Coding Level of Care Code 52167 Subseq Hosp Care Lvl 2 Diagnoses Hypoxemia R09.02 Abnormal CXR R93.89 Diastolic heart failure I50.30
--- NOTE | 2021-08-08 08:55 | Gastroenterology Progress Note ---
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 Now appears HGB has improved. Drop in HGB was of unclear etiology; pt continues to have no s/s GIB. - With recent NSTEMI, lack of overt GIB, and improved HGB - no plans for endoscopic evaluation - IV PPI for full 72 hours - Then can transition to PO PPI 40 mg once daily x 1 month. - Monitor GI output for signs of GIB and trend H&H Will sign off. Would follow up as an OP to discuss elective endoscopy given pt/famiy wishes. Recall as needed. Thank you for allowing us to participate in the care of this patient. Please call with any acute changes, questions or concerns. Please see addendum below with additional recommendation from my supervising physician. Admission and Anticipated Discharge Date Admission Date: August 04, 2021 Supervising Physician Co-Signing Physician Notes Attg add: I interviewed and examined pt, reviewed chart and labs. Pt without gross bleeding, hgb stable. Recommendations as above. Subjective Pt was seen and evaluated, chart reviewed. Pt is nonverbal at baseline. Does not appear to be in any distress during examination. Review of Systems Review of Systems: Unobtainable due to cognitive status Physical Exam Constitutional: WD/WN, vitals as above Neck: trachea midline, no thyromegaly Respiratory: normal respiratory effort, lungs clear to auscultation Cardiovascular: Rate/Rhythm: regular rate and regular rhythm Gastrointestinal (Abdomen): normal bowel sounds, soft, nontender, no hepatosplenomegaly Skin: no rashes, warm and dry Results & Data ([facility]) Vital Signs (Past 12 Hours) Vital Signs Temp Pulse Pulse Resp BP BP Pulse Ox 08/08/21 07:51 37.0 C 87 19 198/74 H 99 08/08/21 03:25 37 C 66 18 102/62 99 08/08/21 00:04 69 08/07/21 23:18 36.7 C 66 20 106/57 L 95 Laboratory Results 08/08/21 08/08/21 08/08/21 Range/Units 06:25 06:25 06:25 WBC 8.26 (4.8-10.8) K/uL RBC 3.05 L (4.2-5.4) M/uL Hgb 9.8 L (12.0-16.0) g/dL Hct 28.3 L (37-47) % MCV 92.8 (80-100) fL MCH 32.1 (25-34) pg MCHC 34.6 (32-36) g/dL RDW Std Deviation 49.9 H (36.4-46.3) fL RDW Coeff of Julieth 14.7 H (11.5-14.5) % Plt Count 168 (130-400) K/uL MPV 11.0 H (7.4-10.4) fL Sodium 142 (136-145) mmol/L Potassium 3.4 L (3.5-5.1) mmol/L Chloride 106 (98-107) mmol/L Carbon Dioxide 26 (21-32) mmol/L Anion Gap 10 (3-11) BUN 26 H (6-23) mg/dl Creatinine 1.07 (0.6-1.2) mg/dl Est Cr Clr Drug Dosing 48.9 ml/min Est GFR ( Amer) 69.6 ml/min Est GFR (Non-Af Amer) 60.1 ml/min BUN/Creatinine Ratio 24.3 H (10-20) Glucose 117 H (70-99(Fasting)) mg/dl Calcium 9.0 (8.5-10.1) mg/dl Phosphorus (2.5-4.9) mg/dl Magnesium 1.8 (1.7-2.4) mg/dl Total Bilirubin 0.4 (0.2-1.0) mg/dl Direct Bilirubin 0.1 (0-0.2) mg/dl AST 40 H (13-39) U/L ALT 48 (7-52) U/L Alkaline Phosphatase 65 (34-104) U/L Troponin I High Sens (0-14) pg/ml B-Natriuretic Peptide 210 H (0-100) pg/ml Total Protein 6.1 (6.0-8.3) gm/dl Albumin 3.3 L (3.4-5.0) gm/dl Globulin (2.5-4.0) gm/dl Albumin/Globulin Ratio (0.9-2) Procalcitonin (0-0.5) ng/ml Ur Creatinine 24 Hour (0.50-2.15) g/24 h Ur Total Protein 24 Hr (<150) mg/24 h Protein/Creat Ratio 24h (< OR = 0.114) Urine Albumin (%) % U Enlzt-6-Tryunuey (%) % U Eemhe-6-Hflprtzv (%) % U Beta Globulin (%) % U Gamma Globulin (%) % U Abnormal Prot Band 1 (NONE DETECTED) mg/24 h U Abnormal Prot Band 2 (NONE DETECTED) mg/24 h U Abnormal Prot Band 3 (NONE DETECTED) mg/24 h Urine PEP Interpret Urine Immunofixation Transfusion React Date Transfusion React Time Tx React Symptoms Reaction Clerical Check Lab Clerical Err Check React Component Return Volume Returned Pre-Trans Blood Type Pre-Trans Vis Hemolysis Pre-Trans MARISOL (Negative) Pre-Trans MARISOL IgG (Negative) Pre-Trans MARISOL Poly (Negative) Pre-Trans MARISOL C3b, C3d (Negative) Post-Trans Blood Type Post-Tx Visible Hemolys Post-Trans MARISOL (Negative) Post-Trans MARISOL IgG (Negative) Post-Trans MARISOL Poly (Negative) Post-Trans MARISOL C3b, C3d (Negative) Post-Trans Ur Hemoglobin Reaction Path Interpret Transfusion Serv Com 08/07/21 08/07/21 08/07/21 Range/Units 09:01 09:01 09:01 WBC (4.8-10.8) K/uL RBC (4.2-5.4) M/uL Hgb 11.4 L (12.0-16.0) g/dL Hct 32.1 L (37-47) % MCV (80-100) fL MCH (25-34) pg MCHC (32-36) g/dL RDW Std Deviation (36.4-46.3) fL RDW Coeff of Julieth (11.5-14.5) % Plt Count (130-400) K/uL MPV (7.4-10.4) fL Sodium (136-145) mmol/L Potassium (3.5-5.1) mmol/L Chloride (98-107) mmol/L Carbon Dioxide (21-32) mmol/L Anion Gap (3-11) BUN (6-23) mg/dl Creatinine (0.6-1.2) mg/dl Est Cr Clr Drug Dosing ml/min Est GFR ( Amer) ml/min Est GFR (Non-Af Amer) ml/min BUN/Creatinine Ratio (10-20) Glucose (70-99(Fasting)) mg/dl Calcium (8.5-10.1) mg/dl Phosphorus (2.5-4.9) mg/dl Magnesium (1.7-2.4) mg/dl Total Bilirubin (0.2-1.0) mg/dl Direct Bilirubin (0-0.2) mg/dl AST (13-39) U/L ALT (7-52) U/L Alkaline Phosphatase (34-104) U/L Troponin I High Sens (0-14) pg/ml B-Natriuretic Peptide 1572 H (0-100) pg/ml Total Protein (6.0-8.3) gm/dl Albumin (3.4-5.0) gm/dl Globulin (2.5-4.0) gm/dl Albumin/Globulin Ratio (0.9-2) Procalcitonin 7.15 H (0-0.5) ng/ml Ur Creatinine 24 Hour (0.50-2.15) g/24 h Ur Total Protein 24 Hr (<150) mg/24 h Protein/Creat Ratio 24h (< OR = 0.114) Urine Albumin (%) % U Hnyjw-5-Djvdhqrj (%) % U Jbebz-1-Skqvtzcn (%) % U Beta Globulin (%) % U Gamma Globulin (%) % U Abnormal Prot Band 1 (NONE DETECTED) mg/24 h U Abnormal Prot Band 2 (NONE DETECTED) mg/24 h U Abnormal Prot Band 3 (NONE DETECTED) mg/24 h Urine PEP Interpret Urine Immunofixation Transfusion React Date Transfusion React Time Tx React Symptoms Reaction Clerical Check Lab Clerical Err Check React Component Return Volume Returned Pre-Trans Blood Type Pre-Trans Vis Hemolysis Pre-Trans MARISOL (Negative) Pre-Trans MARISOL IgG (Negative) Pre-Trans MARISOL Poly (Negative) Pre-Trans MARISOL C3b, C3d (Negative) Post-Trans Blood Type Post-Tx Visible Hemolys Post-Trans MARISOL (Negative) Post-Trans MARISOL IgG (Negative) Post-Trans MARISOL Poly (Negative) Post-Trans MARISOL C3b, C3d (Negative) Post-Trans Ur Hemoglobin Reaction Path Interpret Transfusion Serv Com 0608/06/21 08/04/21 Range/Units 09:01 16:57 17:00 WBC (4.8-10.8) K/uL RBC (4.2-5.4) M/uL Hgb (12.0-16.0) g/dL Hct (37-47) % MCV (80-100) fL MCH (25-34) pg MCHC (32-36) g/dL RDW Std Deviation (36.4-46.3) fL RDW Coeff of Julieth (11.5-14.5) % Plt Count (130-400) K/uL MPV (7.4-10.4) fL Sodium 140 (136-145) mmol/L Potassium 3.8 (3.5-5.1) mmol/L Chloride 105 (98-107) mmol/L Carbon Dioxide 25 (21-32) mmol/L Anion Gap 10 (3-11) BUN 18 (6-23) mg/dl Creatinine 1.04 (0.6-1.2) mg/dl Est Cr Clr Drug Dosing 51.3 ml/min Est GFR ( Amer) 72.0 ml/min Est GFR (Non-Af Amer) 62.2 ml/min BUN/Creatinine Ratio 17.3 (10-20) Glucose 132 H (70-99(Fasting)) mg/dl Calcium 9.2 (8.5-10.1) mg/dl Phosphorus 3.3 D (2.5-4.9) mg/dl Magnesium 1.6 L (1.7-2.4) mg/dl Total Bilirubin 0.4 (0.2-1.0) mg/dl Direct Bilirubin (0-0.2) mg/dl AST 51 H (13-39) U/L ALT 57 H (7-52) U/L Alkaline Phosphatase 71 (34-104) U/L Troponin I High Sens 1036.2 H* (0-14) pg/ml B-Natriuretic Peptide (0-100) pg/ml Total Protein 6.3 (6.0-8.3) gm/dl Albumin 3.4 (3.4-5.0) gm/dl Globulin 2.9 (2.5-4.0) gm/dl Albumin/Globulin Ratio 1.2 (0.9-2) Procalcitonin (0-0.5) ng/ml Ur Creatinine 24 Hour 0.49 L (0.50-2.15) g/24 h Ur Total Protein 24 Hr 255 H (<150) mg/24 h Protein/Creat Ratio 24h 0.517 H (< OR = 0.114) Urine Albumin (%) 60 % U Lpzgh-5-Dbqicnyq (%) 5 % U Gghfw-2-Gmfhqwbn (%) 11 % U Beta Globulin (%) 13 % U Gamma Globulin (%) 12 % U Abnormal Prot Band 1 DNR (NONE DETECTED) mg/24 h U Abnormal Prot Band 2 DNR (NONE DETECTED) mg/24 h U Abnormal Prot Band 3 DNR (NONE DETECTED) mg/24 h Urine PEP Interpret SEE NOTE Urine Immunofixation SEE NOTE Transfusion React Date 08/06/21 Transfusion React Time 1607 Tx React Symptoms RESPIRATORY DISTRESS Reaction Clerical Check None Found Lab Clerical Err Check None Found React Component Return PCLR Volume Returned 70mL Pre-Trans Blood Type O POSITIVE Pre-Trans Vis Hemolysis No Pre-Trans MARISOL Negative (Negative) Pre-Trans MARISOL IgG Neg (Negative) Pre-Trans MARISOL Poly Neg (Negative) Pre-Trans MARISOL C3b, C3d Neg (Negative) Post-Trans Blood Type O POSITIVE Post-Tx Visible Hemolys No Post-Trans MARISOL Negative (Negative) Post-Trans MARISOL IgG Neg (Negative) Post-Trans MARISOL Poly Neg (Negative) Post-Trans MARISOL C3b, C3d Neg (Negative) Post-Trans Ur Hemoglobin Reaction Path Interpret Transfusion Serv Com NONE
[2021-08-08] MEDS: OXcarbazepine 150 MG TABLET PO SCH ×2 (09:59→21:23)
[2021-08-08] MEDS: ASPIRIN 81 MG ECTAB PO SCH (10:00)
[2021-08-08] MEDS: BACLOFEN 10 MG TAB PO SCH ×3 (10:01→21:21)
[2021-08-08] MEDS: amLODIPine BESYLATE 5 MG TAB PO SCH (10:01)
[2021-08-08] MEDS: FUROSEMIDE 20 MG TAB PO SCH (10:02)
[2021-08-08] MEDS: CITALOPRAM 40 MG TAB PO SCH (10:02)
[2021-08-08] MEDS: CLOPIDOGREL BISULFATE 75 MG TAB PO SCH (10:02)
[2021-08-08] MEDS: DORZOLAMIDE/TIMOLOL 22.3/6.8MG/ML 10 ML BTL OPB SCH ×2 (10:02→21:24)
[2021-08-08] MEDS: HEPARIN SOD 5,000 UNIT/0.5 ML VIAL SQ SCH ×2 (10:03→21:24)
[2021-08-08] MEDS: METOPROLOL TARTRATE 25 MG TAB PO SCH ×2 (10:03→21:21)
[2021-08-08] MEDS: POTASSIUM CHLORIDE PWD 20 MEQ PACK PO SCH ×2 (10:04→21:27)
[2021-08-08] MEDS: POLYETHYLENE (MIRALAX) 17 GM PACK PO SCH (10:04)
[2021-08-08] MEDS: tiZANidine HCL 4 MG TABLET PO SCH ×3 (10:05→21:21)
[2021-08-08] MEDS: PANTOprazole 40 MG in SYRINGE 0 ML IV SCH ×2 (11:01→21:23)
[2021-08-08] MEDS: cefUROXime axetil 500 MG TAB PO SCH ×2 (11:02→21:28)
--- NOTE | 2021-08-08 12:43 | Cardiology Progress Note ---
Date of Service August 08, 2021 Assessment & Plan (1) Hypertensive urgency: (2) Non-ST elevation (NSTEMI) myocardial infarction: (3) Hypertensive heart disease: (4) Hypomagnesemia: (5) Transfusion associated circulatory overload: Plan: Transition patient to oral Lasix, 20 mg daily. Wean supplemental oxygen as tolerated. Etiology of transient drop in hemoglobin unclear although lab error must be considered given dramatic changes. No signs/symptoms of GI/ blood loss. No evidence of retroperitoneal bleed per CT. Continue dual antiplatelet therapy. Blood pressure remains labile. She did not tolerate carvedilol which induced significant hypotension. Transition to low-dose metoprolol tartrate. Amlodipine added by internal medicine. Continue transdermal clonidine and topical nitrates. Chest x-ray revealing asymmetric right-sided opacities. Consider aspiration. Procalcitonin trending upward, consider reculturing patient due to possible underlying infectious process. Supplement potassium and magnesium as needed. Admission and Anticipated Discharge Date Admission Date: August 04, 2021 Subjective Patient seen examined the bedside. Blood pressure mildly improved however remains labile. Telemetry reveals sinus rhythm 60-90s. Tolerated oral medications per discussion with nursing. Fluid balance -1.7 L. Review of Systems Review of Systems: Unobtainable due to cognitive status Physical Exam Constitutional: + ill appearing and + obese Respiratory: normal respiratory effort; no retractions and does not use accessory muscles Auscultation: no crackles, no rales, no rhonchi and no wheezes Cardiovascular: Rate/Rhythm: regular rate, regular rhythm and + tachycardic Heart Sounds: normal S1 and normal S2; no murmur Vessels: no JVD, no carotid bruit and + radial pulses abnormal Extremities: no edema Gastrointestinal (Abdomen): Inspection/Auscultation: + abdomen distended Percussion/Palpation: abdomen nontender and no guarding Neurologic: + focal motor deficit (Right-sided upper extremity contracture) Motor/Sensory: no tremor Psychiatric: Speech: + mute Results & Data ([facility]) Vital Signs (Past 12 Hours) Vital Signs Temp Pulse Pulse Resp BP Pulse Ox 08/08/21 12:08 36.6 C 68 18 134/80 96 08/08/21 10:56 67 08/08/21 07:51 37.0 C 87 19 198/74 H 99 08/08/21 03:25 37 C 66 18 102/62 99
--- NOTE | 2021-08-08 14:59 | Hospitalist Progress Note ---
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 TACO vs TRALI vs excess IVF resuscitation vs flash pulm edema due to uncontrolled HTN. CXR reviewed. All ivf discontinued. S/p IV lasix, BIPAP and steroid x1. - Resolved. Now on room air and comfortable. NSTEMI- Abnormal trop and EKG noted, echo with no WMA. Trop trending down. Discussed with cardio who recommended medical management- s/p heparin drip which was stopped on day 2 due to Hb drop but no bleeding noted and now Hb back to baseline; likely artifactual. - Continue DAPT, betablocker, statin, nitropaste. Cardio following- catapres increased due to HTN Hypertensive emergency- Continue clonidine patch- dose increased by cardio. Also on nitro paste, lopressor. Norvasc was added this admission. BP improved. Hypercalcemia- PTH normal, Vit D2 normal, TSH normal, SPEP,UPEP, PTHrP, Vit D3 pending - Ca normalized with ivf and calcitonin and zolendronic acid 08/04- discontinued ivf with resp distress Acute kidney injury: likely from hypercalcemia. Cr continues to improve 1.3->1.25->1.1->1.07; baseline Cr of 0.7. Note patient had two doses of iodinated contrast for imaging studies in ED. Avoid nephrotoxics, recheck in am SIRS- due to NSTEMI rather than infection. On empiric rocephin since admission, blood clx negative so far, UA unremarkable. Consider discontinuation if no source identified and patient remains stable. Microscopic hematuria: In setting of critical blood pressure elevation. No evidence of this on outpatient records. Consider repeating again as outpatient to ensure this has resolved. Noted non-obstructing renal stone on CT. Acute metabolic encephalopathy: secondary to hypercalcemia. 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 On trileptal, celexa, baclofen - She was taking denosumab as outpatient and was due for her 6 month injection on 06/04/21. This was held by Rheumatology to give her a drug holiday. S/p zolendronic acid in ED for hypercalcemia. H/O: stroke: chronic, stable. Continues on Plavix per home regimen. Nonverbal at baseline DVT ppx- sc heparin GI ppx- PPI Dispo- PCU status. Admission and Anticipated Discharge Date Admission Date: August 04, 2021 Subjective Remains stable and at baseline. Non verbal. Comfortable in room air. No fever, vomiting, shortness of breath. Physical Exam Physical Exam: General: Non verbal at baseline, sitting comfortably in bed, on room air HEENT: tracks eyes intermittently Chest: Fair breath sounds bilaterally CVS: regular, normal heart sounds Abdomen: Soft, non tender, normal bowel sounds Neuro: Awake, alert, Non verbal at baseline, does not follow commands at baseline Extremities: No edema. contractures + Results & Data Results & Data ([facility]) Vital Signs (Past 12 Hours) Vital Signs Temp Pulse Pulse Resp BP Pulse Ox 08/08/21 12:08 36.6 C 68 18 134/80 96 08/08/21 10:56 67 08/08/21 07:51 37.0 C 87 19 198/74 H 99 08/08/21 03:25 37 C 66 18 102/62 99 Laboratory Results Short CBC 08/09/21 08/09/21 Range/Units 06:04 07:48 WBC Cancelled 6.55 Hgb Cancelled 9.1 L Hct Cancelled 26.9 L Plt Count Cancelled 177 BMP 08/09/21 06:04 Sodium 144 Potassium 3.9 Chloride 110 H Carbon Dioxide 26 BUN 22 Creatinine 0.85 Glucose 178 H Calcium 8.8 Medications Administered Current Inpatient Medications Amlodipine Besylate (A[facility]odipine Besylate 5 Mg Tab) [facility] [place] Stop: 09/06/21 13:29 Last Admin: 08/09/21 09:22 Dose: 5 mg Documented by: Aspirin (Aspirin 81 Mg Ectab) 81 mg PO QAM SHIRA Stop: 09/05/21 08:59 Last Admin: 08/09/21 09:22 Dose: 81 mg Documented by: Atorvastatin Calcium (Atorvastatin 20 Mg Tab) 20 mg PO [facility] Stop: 09/03/21 20:59 Last Admin: 08/08/21 21:21 Dose: 20 mg Documented by: Baclofen (Baclofen 10 Mg Tab) 10 mg PO TID [facility] Stop: 09/03/21 13:59 Last Admin: 08/09/21 09:24 Dose: 10 mg Documented by: Bisacodyl (Bisacodyl 10 Mg Supp) 10 mg ID UD PRN PRN Reason: Constipation Stop: 09/03/21 13:30 Cefuroxime Axetil (Cefuroxime Axetil 500 Mg Tab) 500 mg PO BID [facility] Stop: 08/15/21 09:29 Last Admin: 08/09/21 09:20 Dose: 500 mg Documented by: Citalopram Hydrobromide (Citalopram 40 Mg Tab) 40 mg PO QAM [facility] Stop: 09/04/21 08:59 Last Admin: 08/09/21 09:22 Dose: 40 mg Documented by: Clindamycin HCl (Clindamycin Hcl 150 Mg Cap) 300 mg PO TID [facility] Stop: 08/15/21 13:59 Last Admin: 08/09/21 09:24 Dose: 300 mg Documented by: Clonidine HCl (Clonidine Hcl 0.2 Mg/24 Hr Transderm Sys) 1 patch TD Q7D [facility] Stop: 09/08/21 10:44 Last Admin: 08/09/21 12:09 Dose: 1 patch Documented by: Clopidogrel Bisulfate (Clopidogrel Bisulfate 75 Mg Tab) 75 mg PO QAM [facility] Stop: 09/04/21 08:59 Last Admin: 08/09/21 09:22 Dose: 75 mg Documented by: Dorzolamide/Timolol (Dorzolamide/Timolol 22.3/6.8mg/Ml 10 Ml Btl) 1 drops OPB BID [facility] Stop: 09/03/21 20:59 Last Admin: 08/09/21 09:18 Dose: 1 drops Documented by: Furosemide (Furosemide 20 Mg Tab) 20 mg PO QAM [facility] Stop: 09/07/21 08:59 Last Admin: 08/09/21 09:22 Dose: 20 mg Documented by: Heparin Sodium (Porcine) (Heparin Sod 5,000 Unit/0.5 Ml Vial) 5,000 units SQ Q12 [facility]IR[facility] Stop: 09/06/21 20:59 Last Admin: 08/09/21 09:22 Dose: 5,000 units Documented by: Pantoprazole Sodium 40 mg/ (Syringe) 10 mls @ 5 mls/min IV BID [facility] Stop: 09/05/21 20:59 Last Admin: 08/09/21 09:18 Dose: 5 mls/min Documented by: Labetalol HCl (Labetalol Hcl Iv 5 Mg/Ml 20ml) 10 mg IV Q4H PRN PRN Reason: Hypertension Stop: 09/03/21 21:52 Last Admin: 08/09/21 03:52 Dose: 10 mg Documented by: Latanoprost (Latanoprost 0.005% Op Soln 2.5 Ml Btl) 1 drops OPB PM [facility] Stop: 09/03/21 20:59 Last Admin: 08/08/21 21:24 Dose: 1 drops Documented by: Metoprolol Tartrate (Metoprolol Tartrate 25 Mg Tab) 12.5 mg PO BID [facility] Stop: 09/05/21 20:59 Last Admin: 08/09/21 09:23 Dose: 12.5 mg Documented by: Miscellaneous (Remove Clonidine Patch) 1 ea N/A CQWK [facility] Stop: 09/09/21 08:58 Last Admin: 08/06/21 11:35 Dose: 1 ea Documented by: Miscellaneous (Check Clonidine Patch Placement) 1 ea N/A QS [facility] Stop: 09/03/21 15:59 Last Admin: 08/09/21 09:17 Dose: 1 ea Documented by: Miscellaneous (Remove Clonidine Patch) 1 ea N/A CQWK [facility] Stop: 09/08/21 10:44 Last Admin: 08/09/21 12:09 Dose: 1 ea Documented by: Miscellaneous (Check Clonidine Patch Placement) 1 ea N/A QS [facility] Stop: 09/08/21 15:59 Nitroglycerin (Nitroglycerin 2% Ointment 30gm Tube) 1 inch EXT Q6 [facility] Stop: 09/03/21 22:29 Last Admin: 08/09/21 12:09 Dose: 1 inch Documented by: Ondansetron HCl (Ondansetron Inj 2 Mg/Ml 2 Ml Vial) 4 mg IV Q8H PRN PRN Reason: Nausea/dry heaving Stop: 09/03/21 13:30 Oxcarbazepine (Oxcarbazepine 150 Mg Tablet) 600 mg PO BID@0800,1999 [facility] Stop: 09/03/21 19:59 Last Admin: 08/09/21 09:20 Dose: 600 mg Documented by: Polyethylene Glycol (Polyethylene (Miralax) 17 Gm Pack) 17 gm PO DAILY PRN PRN Reason: Constipation Stop: 09/03/21 13:30 Polyethylene Glycol (Polyethylene (Miralax) 17 Gm Pack) 17 gm PO QAM [facility] Stop: 09/04/21 08:59 Last Admin: 08/09/21 09:18 Dose: 17 gm Documented by: Potassium Chloride (Potassium Chloride Pwd 20 Meq Pack) 40 meq PO BID [facility] Stop: 08/10/21 08:59 Last Admin: 08/09/21 09:24 Dose: 40 meq Documented by: Tizanidine HCl (Tizanidine Hcl 4 Mg Tablet) 6 mg PO TID [facility] Stop: 09/04/21 13:59 Last Admin: 08/09/21 09:21 Dose: 6 mg Documented by:
[2021-08-08] MEDS: CLINDAMYCIN HCL 150 MG CAP PO SCH ×2 (15:03→21:27)
[2021-08-08] MEDS: ATORVASTATIN 20 MG TAB PO SCH (21:21)
[2021-08-08] MEDS: LATANOPROST 0.005% OP SOLN 2.5 ML BTL OPB SCH (21:24)
[2021-08-09] MEDS: LABETALOL HCL IV 5 MG/ML 20ML IV PRN (03:52)
[2021-08-09] MEDS: NITROGLYCERIN 2% OINTMENT 30GM TUBE EXT SCH ×3 (04:42→17:52)
[2021-08-09] MEDS ORDERED: cloNIDine HCL 0.1 MG TAB PO ONE (06:30)
[2021-08-09 06:43] LABS: BUN Creatinine Ratio 25.9 (10-20); Calcium 8.8 mg/dl (8.5-10.1); Creatinine Clr Calc Pharmacy 62.7 ml/min; Est GFR (Non-African American) 79.3 ml/min; Magnesium 1.7 mg/dl (1.7-2.4); Potassium 3.9 mmol/L (3.5-5.1)
[2021-08-09 08:20] LABS: Hematocrit (blood only) 26.9 % (37-47); Hemoglobin 9.1 g/dL (12.0-16.0); Mean Corpuscular Hemoglobin 31.4 pg (25-34); Mean Corpuscular Volume 92.8 fL (80-100); Mean Platelet Volume 10.8 fL (7.4-10.4); Platelet Count 177 K/uL (130-400); RDW Coefficient of Variation 14.7 % (11.5-14.5); White Blood Count 6.55 K/uL (4.8-10.8)
[2021-08-09 08:32] LABS: Mean Corpuscular Hgb Conc 33.8 g/dL (32-36)
[2021-08-09] MEDS: CHECK CLONIDINE PATCH PLACEMENT SCH ×3 (09:17→15:17)
[2021-08-09] MEDS: PANTOprazole 40 MG in SYRINGE 0 ML IV SCH ×2 (09:18→22:01)
[2021-08-09] MEDS: DORZOLAMIDE/TIMOLOL 22.3/6.8MG/ML 10 ML BTL OPB SCH ×2 (09:18→22:05)
[2021-08-09] MEDS: POLYETHYLENE (MIRALAX) 17 GM PACK PO SCH (09:18)
[2021-08-09] MEDS: cefUROXime axetil 500 MG TAB PO SCH ×2 (09:20→22:03)
[2021-08-09] MEDS: OXcarbazepine 150 MG TABLET PO SCH ×2 (09:20→22:04)
[2021-08-09] MEDS: tiZANidine HCL 4 MG TABLET PO SCH ×3 (09:21→22:02)
[2021-08-09] MEDS: CITALOPRAM 40 MG TAB PO SCH (09:22)
[2021-08-09] MEDS: CLOPIDOGREL BISULFATE 75 MG TAB PO SCH (09:22)
[2021-08-09] MEDS: HEPARIN SOD 5,000 UNIT/0.5 ML VIAL SQ SCH ×2 (09:22→22:02)
[2021-08-09] MEDS: amLODIPine BESYLATE 5 MG TAB PO SCH (09:22)
[2021-08-09] MEDS: ASPIRIN 81 MG ECTAB PO SCH (09:22)
[2021-08-09] MEDS: FUROSEMIDE 20 MG TAB PO SCH (09:22)
[2021-08-09] MEDS: METOPROLOL TARTRATE 25 MG TAB PO SCH ×2 (09:23→22:02)
[2021-08-09] MEDS: POTASSIUM CHLORIDE PWD 20 MEQ PACK PO SCH ×2 (09:24→22:03)
[2021-08-09] MEDS: CLINDAMYCIN HCL 150 MG CAP PO SCH ×3 (09:24→22:04)
[2021-08-09] MEDS: BACLOFEN 10 MG TAB PO SCH ×3 (09:24→22:03)
--- NOTE | 2021-08-09 10:38 | Cardiology Progress Note ---
Date of Service August 09, 2021 Assessment & Plan (1) Hypertensive urgency: (2) Non-ST elevation (NSTEMI) myocardial infarction: (3) Hypertensive heart disease: (4) Hypomagnesemia: (5) Transfusion associated circulatory overload: Plan: The patient remains hypertensive. I increased her Catapres patch to 0.2 mg/per hour, changed once a week Admission and Anticipated Discharge Date Admission Date: August 04, 2021 Subjective The patient is alert Review of Systems Review of Systems: Unobtainable Physical Exam Physical Exam: General: no acute distress and stated age Head: normocephalic, no masses, lesions, tenderness or abnormalities Eyes: conjunctiva are pink and non-injected, sclera clear Neck: supple, no adenopathy, no bruits, normal jugular venous pulse, no hepatojugular reflux Chest: normal shape and normal respiratory effort Lungs: clear to auscultation and percussion Cardiac Exam: - regular rate & rhythm, no murmurs gallops or rubs - normal S1, normal S2 Pulses: 2(+) throughout Abdomen: abdomen soft, non-tender, no abnormal masses and no hepatosplenomegaly Musculoskeletal: no gait disturbance, no joint inflammation, no deforming arthritis Extremities: Patient has contractures Neuro: grossly normal exam Results & Data ([facility]) Vital Signs (Past 12 Hours) Vital Signs Temp Pulse Pulse Resp BP Pulse Ox 08/09/21 10:02 90 08/09/21 07:41 37.2 C 84 20 168/79 H 97 08/09/21 06:04 186/113 H 08/09/21 04:39 186/111 H 08/09/21 03:47 185/96 H 08/09/21 03:34 37.4 C 93 H 20 183/117 H 92 08/08/21 22:48 37.2 C 69 16 92/56 L 97 Laboratory Results Laboratory Results - last 24 hr 08/06/21 08/08/21 08/09/21 10:42 14:24 06:04 WBC Cancelled RBC Cancelled Hgb Cancelled Hct Cancelled MCV Cancelled MCH Cancelled MCHC Cancelled RDW Std Deviation Cancelled RDW Coeff of Julieth Cancelled Plt Count Cancelled MPV Cancelled Absolute Nucleated RBC Cancelled Nucleated RBC % (auto) Cancelled Platelet Estimate Cancelled Sodium Potassium Chloride Carbon Dioxide Anion Gap BUN Creatinine Est Cr Clr Drug Dosing Est GFR ( Amer) Est GFR (Non-Af Amer) BUN/Creatinine Ratio Glucose Calcium Magnesium Procalcitonin 5.56 H Crossmatch See Detail 08/09/21 08/09/21 06:04 07:48 WBC 6.55 RBC 2.90 L Hgb 9.1 L Hct 26.9 L MCV 92.8 MCH 31.4 MCHC 33.8 RDW Std Deviation 49.0 H RDW Coeff of Julieth 14.7 H Plt Count 177 MPV 10.8 H Absolute Nucleated RBC Nucleated RBC % (auto) Platelet Estimate Sodium 144 Potassium 3.9 Chloride 110 H Carbon Dioxide 26 Anion Gap 8 BUN 22 Creatinine 0.85 Est Cr Clr Drug Dosing 62.7 Est GFR ( Amer) 92.0 Est GFR (Non-Af Amer) 79.3 BUN/Creatinine Ratio 25.9 H Glucose 178 H Calcium 8.8 Magnesium 1.7 Procalcitonin Crossmatch Medications Administered Current Inpatient Medications Amlodipine Besylate (Amlodipine Besylate 5 Mg Tab) 5 mg PO [facility] Stop: 09/06/21 13:29 Last Admin: 08/09/21 09:22 Dose: 5 mg Documented by: Aspirin (Aspirin 81 Mg Ectab) [facility] Stop: 09/05/21 08:59 Last Admin: 08/09/21 09:22 Dose: 81 mg Documented by: Atorvastatin Calcium (Atorvastatin 20 Mg Tab) 20 mg PO [facility] Stop: 09/03/21 20:59 Last Admin: 08/08/21 21:21 Dose: 20 mg Documented by: Baclofen (Baclofen 10 Mg Tab) 10 mg PO TID [facility] Stop: 09/03/21 13:59 Last Admin: 08/09/21 09:24 Dose: 10 mg Documented by: Bisacodyl (Bisacodyl 10 Mg Supp) 10 mg [place] UD PRN PRN Reason: Constipation Stop: 09/03/21 13:30 Cefuroxime Axetil (Cefuroxime Axetil 500 Mg Tab) 500 mg PO BID [facility] Stop: 08/15/21 09:29 Last Admin: 08/09/21 09:20 Dose: 500 mg Documented by: Citalopram Hydrobromide (Citalopram 40 Mg Tab) 40 mg PO [facility] Stop: 09/04/21 08:59 Last Admin: 08/09/21 09:22 Dose: 40 mg Documented by: Clindamycin HCl (Clindamycin Hcl 150 Mg Cap) 300 mg PO TID [facility] Stop: 08/15/21 13:59 Last Admin: 08/09/21 09:24 Dose: 300 mg Documented by: Clonidine HCl (Clonidine Hcl 0.2 Mg/24 Hr Transderm Sys) 1 patch TD Q7D [facility] Stop: 09/08/21 10:44 Clopidogrel Bisulfate (Clopidogrel Bisulfate 75 Mg Tab) 75 mg PO QAM [facility] Stop: 09/04/21 08:59 Last Admin: 08/09/21 09:22 Dose: 75 mg Documented by: Dorzolamide/Timolol (Dorzolamide/Timolol 22.3/6.8mg/Ml 10 Ml Btl) 1 drops OPB BID [facility] Stop: 09/03/21 20:59 Last Admin: 08/09/21 09:18 Dose: 1 drops Documented by: Furosemide (Furosemide 20 Mg Tab) 20 mg PO QAM [facility] Stop: 09/07/21 08:59 Last Admin: 08/09/21 09:22 Dose: 20 mg Documented by: Heparin Sodium (Porcine) (Heparin Sod 5,000 Unit/0.5 Ml Vial) 5,000 units SQ Q12 [facility] Stop: 09/06/21 20:59 Last Admin: 08/09/21 09:22 Dose: 5,000 units Documented by: Pantoprazole Sodium 40 mg/ (Syringe) 10 mls @ 5 mls/min IV BID [facility] Stop: 09/05/21 20:59 Last Admin: 08/09/21 09:18 Dose: 5 mls/min Documented by: Labetalol HCl (Labetalol Hcl Iv 5 Mg/Ml 20ml) 10 mg IV Q4H PRN PRN Reason: Hypertension Stop: 09/03/21 21:52 Last Admin: 08/09/21 03:52 Dose: 10 mg Documented by: Latanoprost (Latanoprost 0.005% Op Soln 2.5 Ml Btl) 1 drops OPB PM [facility] Stop: 09/03/21 20:59 Last Admin: 08/08/21 21:24 Dose: 1 drops Documented by: Metoprolol Tartrate (Metoprolol Tartrate 25 Mg Tab) 12.5 mg PO BID [facility] Stop: 09/05/21 20:59 Last Admin: 08/09/21 09:23 Dose: 12.5 mg Documented by: Miscellaneous (Remove Clonidine Patch) 1 ea N/A CQWK [facility] Stop: 09/09/21 08:58 Last Admin: 08/06/21 11:35 Dose: 1 ea Documented by: Miscellaneous (Check Clonidine Patch Placement) 1 ea N/A QS [facility] Stop: 09/03/21 15:59 Last Admin: 08/09/21 09:17 Dose: 1 ea Documented by: Miscellaneous (Remove Clonidine Patch) 1 ea N/A CQWK [facility] Stop: 09/08/21 10:44 Miscellaneous (Check Clonidine Patch Placement) 1 ea N/A QS [facility] Stop: 09/08/21 15:59 Nitroglycerin (Nitroglycerin 2% Ointment 30gm Tube) 1 inch EXT Q6 [facility] Stop: 09/03/21 22:29 Last Admin: 08/09/21 04:42 Dose: 1 inch Documented by: Ondansetron HCl (Ondansetron Inj 2 Mg/Ml 2 Ml Vial) 4 mg IV Q8H PRN PRN Reason: Nausea/dry heaving Stop: 09/03/21 13:30 Oxcarbazepine (Oxcarbazepine 150 Mg Tablet) 600 mg PO BID@0800,2000 [facility] Stop: 09/03/21 19:59 Last Admin: 08/09/21 09:20 Dose: 600 mg Documented by: Polyethylene Glycol (Polyethylene (Miralax) 17 Gm Pack) 17 gm PO DAILY PRN PRN Reason: Constipation Stop: 09/03/21 13:30 Polyethylene Glycol (Polyethylene (Miralax) 17 Gm Pack) 17 gm PO QAM [facility] Stop: 09/04/21 08:59 Last Admin: 08/09/21 09:18 Dose: 17 gm Documented by: Potassium Chloride (Potassium Chloride Pwd 20 Meq Pack) 40 meq PO BID [facility] Stop: 08/10/21 08:59 Last Admin: 08/09/21 09:24 Dose: 40 meq Documented by: Tizanidine HCl (Tizanidine Hcl 4 Mg Tablet) 6 mg PO TID [facility] Stop: 09/04/21 13:59 Last Admin: 08/09/21 09:21 Dose: 6 mg Documented by:
--- NOTE | 2021-08-09 14:44 | Fluoroscopy Report ---
FL video swallow CLINICAL HISTORY: s/s aspiration with oral intake TECHNIQUE: Video fluoroscopy of the pharyngeal region was performed as barium mixtures of varying con sistencies were administered to the patient by the speech pathologist. A formal esophagram was not pe rformed. COMPARISON: None. FINDINGS: Total fluoroscopy time: 2.6 minutes. The patient swallowed the different barium consistencies without difficulty. There was no laryngeal v estibular penetration or vivienne tracheal aspiration. Pooling of barium was noted in the bilateral piri form sinuses and valleculae. IMPRESSION: No evidence of aspiration. Please see the speech pathology report for further details. ACT 112: Negative or not required by law. Electronically signed by: Alexandr Conner M.D. 08/09/2021 2:43 PM
[2021-08-09 16:11] LABS: Albumin 3.3 g/dL (3.8-4.8); Alpha 1 Globulin 0.3 g/dL (0.2-0.3); Alpha 2 Globulin 0.6 g/dL (0.5-0.9); Beta-1-Globulin 0.4 g/dL (0.4-0.6); Beta-2-Globulin 0.7 g/dL (0.2-0.5); Gamma Globulin 0.7 g/dL (0.8-1.7); Kappa 154 mg/dL (176-443); Kappa Lambda Ratio 0.97 (1.29-2.55); Lambda 158 mg/dL (91-240); Monoclonal Protein Band 1 0.7 g/dL (NONE DETECTED); Monoclonal Protein Band 2 DNR g/dL (NONE DETECTED); Monoclonal Protein Band 3 DNR g/dL (NONE DETECTED); PTH Related Protein 8 pg/mL (11-20); Total Protein 6.1 g/dL (6.1-8.1); Vitamin D 1,25 <8 pg/mL (18-72); Vitamin D3,1,25 <8 pg/mL
--- NOTE | 2021-08-09 17:47 | Hospitalist Progress Note ---
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 TACO vs TRALI vs excess IVF resuscitation vs flash pulm edema due to uncontrolled HTN. CXR reviewed. All ivf discontinued. S/p IV lasix, BIPAP and steroid x1. - Resolved. Now on room air and comfortable. NSTEMI- Abnormal trop and EKG noted, echo with no WMA. Trop trending down. Discussed with cardio who recommended medical management- s/p heparin drip which was stopped on day 2 due to Hb drop but no bleeding noted and now Hb back to baseline; likely artifactual. - Continue DAPT, betablocker, statin, nitropaste. Cardio following- catapres increased due to HTN Hypertensive emergency- Continue clonidine patch- dose increased by cardio. Also on nitro paste, lopressor. Norvasc was added this admission. BP improved. Hypercalcemia- PTH normal, Vit D2 normal, TSH normal, SPEP,UPEP, PTHrP, Vit D3 pending - Ca normalized with ivf and calcitonin and zolendronic acid 08/04- discontinued ivf with resp distress Acute kidney injury: likely from hypercalcemia. Cr continues to improve 1.3->1.25->1.1->1.07; baseline Cr of 0.7. Note patient had two doses of iodinated contrast for imaging studies in ED. Avoid nephrotoxics, recheck in am SIRS- On empiric rocephin since admission, blood clx negative so far, UA unremarkable. ABx changed to ceftin/clinda per pulm given concern for aspiration and worsening procal- however swallowing study today showed no aspiration- recommendations provided by [employer]. Microscopic hematuria: In setting of critical blood pressure elevation. No evidence of this on outpatient records. Consider repeating again as outpatient to ensure this has resolved. Noted non-obstructing renal stone on CT. Acute metabolic encephalopathy: secondary to hypercalcemia. 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 On trileptal, celexa, baclofen - She was taking denosumab as outpatient and was due for her 6 month injection on 06/04/21. This was held by Rheumatology to give her a drug holiday. S/p zolendronic acid in ED for hypercalcemia. H/O: stroke: chronic, stable. Continues on Plavix per home regimen. Nonverbal at baseline DVT ppx- sc heparin GI ppx- PPI Dispo- PCU status. Admission and Anticipated Discharge Date Admission Date: August 04, 2021 Subjective Remains stable and at baseline. Non verbal. Comfortable in room air. No fever, vomiting, shortness of breath. Physical Exam Physical Exam: General: Non verbal at baseline, sitting comfortably in bed, on room air HEENT: tracks eyes intermittently Chest: Fair breath sounds bilaterally CVS: regular, normal heart sounds Abdomen: Soft, non tender, normal bowel sounds Neuro: Awake, alert, Non verbal at baseline, does not follow commands at baseline Extremities: No edema. contractures + Results & Data Results & Data ([facility]) Vital Signs (Past 12 Hours) Vital Signs Temp Pulse Pulse Resp BP Pulse Ox Pulse Ox 08/09/21 16:17 80 08/09/21 15:41 36.5 C 77 18 136/79 91 08/09/21 13:00 93 08/09/21 11:49 36.9 C 74 24 125/80 96 08/09/21 10:02 90 08/09/21 07:41 37.2 C 84 20 168/79 H 97 08/09/21 06:04 186/113 H Laboratory Results Short CBC 08/09/21 08/09/21 Range/Units 06:04 07:48 WBC Cancelled 6.55 Hgb Cancelled 9.1 L Hct Cancelled 26.9 L Plt Count Cancelled 177 BMP 08/09/21 06:04 Sodium 144 Potassium 3.9 Chloride 110 H Carbon Dioxide 26 BUN 22 Creatinine 0.85 Glucose 178 H Calcium 8.8 Diagnostic Findings Videofluoroscopic Swallow 08/09/21 13:45 [place] video swallow CLINICAL HISTORY: s/s aspiration with oral intake TECHNIQUE: Video fluoroscopy of the pharyngeal region was performed as barium mixtures of varying consistencies were administered to the patient by the speech pathologist. A formal esophagram was not performed. COMPARISON: None. FINDINGS: Total fluoroscopy time: 2.6 minutes. The patient swallowed the different barium consistencies without difficulty. There was no laryngeal vestibular penetration or vivienne tracheal aspiration. Pooling of barium was noted in the bilateral piriform sinuses and valleculae. IMPRESSION: No evidence of aspiration. Please see the speech pathology report for further details. ACT 112: Negative or not required by law. Electronically signed by: Alexandr Conner M.D. 08/09/2021 2:43 PM Medications Administered Current Inpatient Medications Amlodipine Besylate (Amlodipine Besylate 5 Mg Tab) 5 mg PO QAM [facility] Stop: 09/06/21 13:29 Last Admin: 08/09/21 09:22 Dose: 5 mg Documented by: Aspirin (Aspirin 81 Mg Ectab) 81 mg PO QAM [facility] Stop: 09/05/21 08:59 Last Admin: 08/09/21 09:22 Dose: 81 mg Documented by: Atorvastatin Calcium (Atorvastatin 20 Mg Tab) 20 mg PO HS [facility] Stop: 09/03/21 20:59 Last Admin: 08/08/21 21:21 Dose: 20 mg Documented by: Baclofen (Baclofen 10 Mg Tab) 10 mg PO TID [facility] Stop: 09/03/21 13:59 Last Admin: 08/09/21 15:16 Dose: 10 mg Documented by: Bisacodyl (Bisacodyl 10 Mg Supp) 10 mg [place] UD PRN PRN Reason: Constipation Stop: 09/03/21 13:30 Cefuroxime Axetil (Cefuroxime Axetil 500 Mg Tab) 500 mg PO BID [facility] Stop: 08/15/21 09:29 Last Admin: 08/09/21 09:20 Dose: 500 mg Documented by: Citalopram Hydrobromide (Citalopram 40 Mg Tab) 40 mg PO QAM [facility] Stop: 09/04/21 08:59 Last Admin: 08/09/21 09:22 Dose: 40 mg Documented by: Clindamycin HCl (Clindamycin Hcl 150 Mg Cap) 300 mg PO TID [facility] Stop: 08/15/21 13:59 Last Admin: 08/09/21 15:16 Dose: 300 mg Documented by: Clonidine HCl (Clonidine Hcl 0.2 Mg/24 Hr Transderm Sys) 1 patch TD Q7D [facility] Stop: 09/08/21 10:44 Last Admin: 08/09/21 12:09 Dose: 1 patch Documented by: Clopidogrel Bisulfate (Clopidogrel Bisulfate 75 Mg Tab) 75 mg PO QAM [facility] Stop: 09/04/21 08:59 Last Admin: 08/09/21 09:22 Dose: 75 mg Documented by: Dorzolamide/Timolol (Dorzolamide/Timolol 22.3/6.8mg/Ml 10 Ml Btl) 1 drops OPB BID [facility] Stop: 09/03/21 20:59 Last Admin: 08/09/21 09:18 Dose: 1 drops Documented by: Furosemide (Furosemide 20 Mg Tab) 20 mg PO QAM [facility] Stop: 09/07/21 08:59 Last Admin: 08/09/21 09:22 Dose: 20 mg Documented by: Heparin Sodium (Porcine) (Heparin Sod 5,000 Unit/0.5 Ml Vial) 5,000 units SQ Q12 [facility] Stop: 09/06/21 20:59 Last Admin: 08/09/21 09:22 Dose: 5,000 units Documented by: Pantoprazole Sodium 40 mg/ (Syringe) 10 mls @ 5 mls/min IV BID [facility] Stop: 09/05/21 20:59 Last Admin: 08/09/21 09:18 Dose: 5 mls/min Documented by: Labetalol HCl (Labetalol Hcl Iv 5 Mg/Ml 20ml) 10 mg IV Q4H PRN PRN Reason: Hypertension Stop: 09/03/21 21:52 Last Admin: 08/09/21 03:52 Dose: 10 mg Documented by: Latanoprost (Latanoprost 0.005% Op Soln 2.5 Ml Btl) 1 drops OPB PM [facility] Stop: 09/03/21 20:59 Last Admin: 08/08/21 21:24 Dose: 1 drops Documented by: Metoprolol Tartrate (Metoprolol Tartrate 25 Mg Tab) 12.5 mg PO BID [facility] Stop: 09/05/21 20:59 Last Admin: 08/09/21 09:23 Dose: 12.5 mg Documented by: Miscellaneous (Remove Clonidine Patch) 1 ea N/A CQWK [facility] Stop: 09/09/21 08:58 Last Admin: 08/06/21 11:35 Dose: 1 ea Documented by: Miscellaneous (Check Clonidine Patch Placement) 1 ea N/A QS [facility] Stop: 09/03/21 15:59 Last Admin: 08/09/21 15:16 Dose: 1 ea Documented by: Miscellaneous (Remove Clonidine Patch) 1 ea N/A CQWK [facility] Stop: 09/08/21 10:44 Last Admin: 08/09/21 12:09 Dose: 1 ea Documented by: Miscellaneous (Check Clonidine Patch Placement) 1 ea N/A QS [facility] Stop: 09/08/21 15:59 Last Admin: 08/09/21 15:17 Dose: 1 ea Documented by: Nitroglycerin (Nitroglycerin 2% Ointment 30gm Tube) 1 inch EXT Q6 [facility] Stop: 09/03/21 22:29 Last Admin: 08/09/21 12:09 Dose: 1 inch Documented by: Ondansetron HCl (Ondansetron Inj 2 Mg/Ml 2 Ml Vial) 4 mg IV Q8H PRN PRN Reason: Nausea/dry heaving Stop: 09/03/21 13:30 Oxcarbazepine (Oxcarbazepine 150 Mg Tablet) 600 mg PO BID@0800,2000 [facility] Stop: 09/03/21 19:59 Last Admin: 08/09/21 09:20 Dose: 600 mg Documented by: Polyethylene Glycol (Polyethylene (Miralax) 17 Gm Pack) 17 gm PO DAILY PRN PRN Reason: Constipation Stop: 09/03/21 13:30 Polyethylene Glycol (Polyethylene (Miralax) 17 Gm Pack) 17 gm PO QAM [facility] Stop: 09/04/21 08:59 Last Admin: 08/09/21 09:18 Dose: 17 gm Documented by: Potassium Chloride (Potassium Chloride Pwd 20 Meq Pack) 40 meq PO BID [facility] Stop: 08/10/21 08:59 Last Admin: 08/09/21 09:24 Dose: 40 meq Documented by: Tizanidine HCl (Tizanidine Hcl 4 Mg Tablet) 6 mg PO TID [facility] Stop: 09/04/21 13:59 Last Admin: 08/09/21 15:15 Dose: 6 mg Documented by:
[2021-08-09] MEDS: ATORVASTATIN 20 MG TAB PO SCH (22:01)
[2021-08-09] MEDS: LATANOPROST 0.005% OP SOLN 2.5 ML BTL OPB SCH (22:05)
[2021-08-10] MEDS: NITROGLYCERIN 2% OINTMENT 30GM TUBE EXT SCH ×4 (00:51→18:21)
[2021-08-10] MEDS: CHECK CLONIDINE PATCH PLACEMENT SCH ×6 (00:54→18:25)
[2021-08-10 06:51] LABS: Hematocrit (blood only) 27.9 % (37-47); Hemoglobin 9.4 g/dL (12.0-16.0); Mean Corpuscular Hemoglobin 31.9 pg (25-34); Mean Corpuscular Hgb Conc 33.7 g/dL (32-36); Mean Corpuscular Volume 94.6 fL (80-100); Mean Platelet Volume 10.5 fL (7.4-10.4); Nucleated RBC # (auto) 0.06 K/uL (0-0); Nucleated RBC % (auto) 1.1 %; Platelet Count 191 K/uL (130-400); RDW Coefficient of Variation 14.8 % (11.5-14.5); RDW Standard Deviation 50.8 fL (36.4-46.3); Red Blood Count 2.95 M/uL (4.2-5.4); White Blood Count 5.47 K/uL (4.8-10.8)
[2021-08-10 07:04] LABS: BUN Creatinine Ratio 20.3 (10-20); Calcium 8.5 mg/dl (8.5-10.1); Creatinine Clr Calc Pharmacy 68.5 ml/min; Est GFR (African American) 100.5 ml/min; Est GFR (Non-African American) 86.7 ml/min; Potassium 4.2 mmol/L (3.5-5.1)
[2021-08-10] MEDS: tiZANidine HCL 4 MG TABLET PO SCH ×3 (08:59→21:30)
[2021-08-10] MEDS: CITALOPRAM 40 MG TAB PO SCH (08:59)
[2021-08-10] MEDS: METOPROLOL TARTRATE 25 MG TAB PO SCH ×2 (08:59→21:30)
[2021-08-10] MEDS: CLINDAMYCIN HCL 150 MG CAP PO SCH ×3 (08:59→21:29)
[2021-08-10] MEDS: amLODIPine BESYLATE 5 MG TAB PO SCH (09:00)
[2021-08-10] MEDS: BACLOFEN 10 MG TAB PO SCH ×3 (09:00→21:29)
[2021-08-10] MEDS: OXcarbazepine 150 MG TABLET PO SCH ×2 (09:00→21:28)
[2021-08-10] MEDS: ASPIRIN 81 MG ECTAB PO SCH (09:00)
[2021-08-10] MEDS ORDERED: cloNIDine HCL 0.1 MG/24 HR TRANSDERM SYS TD SCH ×2 (09:00→18:30)
[2021-08-10] MEDS: HEPARIN SOD 5,000 UNIT/0.5 ML VIAL SQ SCH ×2 (09:00→21:31)
[2021-08-10] MEDS: cefUROXime axetil 500 MG TAB PO SCH ×2 (09:01→21:30)
[2021-08-10] MEDS: CLOPIDOGREL BISULFATE 75 MG TAB PO SCH (09:01)
[2021-08-10] MEDS: DORZOLAMIDE/TIMOLOL 22.3/6.8MG/ML 10 ML BTL OPB SCH ×2 (09:02→21:31)
[2021-08-10] MEDS: FUROSEMIDE 20 MG TAB PO SCH (09:03)
[2021-08-10] MEDS: PANTOprazole 40 MG in SYRINGE 0 ML IV SCH ×2 (09:04→21:29)
[2021-08-10] MEDS: POLYETHYLENE (MIRALAX) 17 GM PACK PO SCH (09:04)
--- NOTE | 2021-08-10 10:52 | Hospitalist Progress Note ---
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 TACO vs TRALI vs excess IVF resuscitation vs flash pulm edema due to uncontrolled HTN. CXR reviewed. All ivf discontinued. S/p IV lasix, BIPAP and steroid x1. - Resolved. Now on room air and comfortable. NSTEMI- Abnormal trop and EKG noted, echo with no WMA. Trop trending down. Discussed with cardio who recommended medical management- s/p heparin drip which was stopped on day 2 due to Hb drop but no bleeding noted and now Hb back to baseline; likely artifactual. - Continue DAPT, betablocker, statin, nitropaste. Cardio following- catapres increased due to HTN Hypertensive emergency- Continue clonidine patch- dose increased by cardio. Also on nitro paste, lopressor. Norvasc was added this admission. BP improved and relatively stable. Hypercalcemia- PTH normal, Vit D2 normal, TSH normal, SPEP,UPEP, PTHrP, Vit D3 pending - Ca normalized with ivf and calcitonin and zolendronic acid 08/04- discontinued ivf with resp distress Acute kidney injury: likely from hypercalcemia. Cr continues to improve 1.3->1.25->1.1->1.07->0.79; baseline Cr of 0.7. Avoid nephrotoxics, recheck intermittently SIRS- On empiric rocephin since admission, blood clx negative so far, UA unremarkable. ABx changed to ceftin/clinda per pulm given concern for aspiration and worsening procal- however swallowing study today showed no aspiration- recommendations provided by [facility]. Procal trending down nicely. Microscopic hematuria: In setting of critical blood pressure elevation. No evidence of this on outpatient records. Consider repeating again as outpatient to ensure this has resolved. Noted non-obstructing renal stone on CT. Acute metabolic encephalopathy: secondary to hypercalcemia. 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 On trileptal, celexa, baclofen - She was taking denosumab as outpatient and was due for her 6 month injection on 06/04/21. This was held by Rheumatology to give her a drug holiday. S/p zolendronic acid in ED for hypercalcemia. H/O: stroke: chronic, stable. Continues on Plavix per home regimen. Nonverbal at baseline DVT ppx- sc heparin GI ppx- PPI Dispo- Her facility can not accept her over the weekend. Discharge on Thursday. Currently stable Admission and Anticipated Discharge Date Admission Date: August 04, 2021 Subjective Looks stable, not in distress. non verbal at baseline. On room air. Tracks eyes. No fever, shortness of breath, vomiting. Physical Exam Physical Exam: General: Non verbal at baseline, sitting comfortably in bed, on room air HEENT: tracks eyes intermittently Chest: Fair breath sounds bilaterally CVS: regular, normal heart sounds Abdomen: Soft, non tender, normal bowel sounds Neuro: Awake, alert, Non verbal at baseline, does not follow commands at baseline Extremities: No edema. contractures + Results & Data Results & Data ([facility]) Vital Signs (Past 12 Hours) Vital Signs Temp Pulse Pulse Resp BP BP Pulse Ox 08/10/21 08:58 173/100 H 08/10/21 07:26 37.0 C 79 20 178/82 H 93 08/10/21 07:00 82 08/10/21 03:03 36.5 C 65 18 165/82 H 95 08/10/21 00:50 67 145/84 H Laboratory Results Short CBC 08/10/21 Range/Units 06:24 WBC 5.47 (4.8-10.8) K/uL Hgb 9.4 L (12.0-16.0) g/dL Hct 27.9 L (37-47) % Plt Count 191 (130-400) K/uL BMP 08/10/21 06:24 Sodium 144 Potassium 4.2 Chloride 112 H Carbon Dioxide 26 BUN 16 Creatinine 0.79 Glucose 159 H Calcium 8.5 Medications Administered Current Inpatient Medications Amlodipine Besylate (A[facility]odipine Besylate 5 Mg Tab) [facility] [place] [facility]: 09/06/21 13:29 Last Admin: 08/10/21 09:00 Dose: 5 mg Documented by: Aspirin (Aspirin 81 Mg Ectab) 81 mg PO QAM [facility] Stop: 09/05/21 08:59 Last Admin: 08/10/21 09:00 Dose: 81 mg Documented by: Atorvastatin Calcium (Atorvastatin 20 Mg Tab) 20 mg PO HS [facility] Stop: 09/03/21 20:59 Last Admin: 08/09/21 22:01 Dose: 20 mg Documented by: Baclofen (Baclofen 10 Mg Tab) 10 mg PO TID [facility] Stop: 09/03/21 13:59 Last Admin: 08/10/21 09:00 Dose: 10 mg Documented by: Bisacodyl (Bisacodyl 10 Mg Supp) 10 mg [place] UD PRN PRN Reason: Constipation Stop: 09/03/21 13:30 Cefuroxime Axetil (Cefuroxime Axetil 500 Mg Tab) 500 mg PO BID [facility] Stop: 08/15/21 09:29 Last Admin: 08/10/21 09:01 Dose: 500 mg Documented by: Citalopram Hydrobromide (Citalopram 40 Mg Tab) 40 mg PO QAM [facility] Stop: 09/04/21 08:59 Last Admin: 08/10/21 08:59 Dose: 40 mg Documented by: Clindamycin HCl (Clindamycin Hcl 150 Mg Cap) 300 mg PO TID [facility] Stop: 08/15/21 13:59 Last Admin: 08/10/21 08:59 Dose: 300 mg Documented by: Clonidine HCl (Clonidine Hcl 0.2 Mg/24 Hr Transderm Sys) 1 patch TD Q7D [facility] Stop: 09/08/21 10:44 Last Admin: 08/09/21 12:09 Dose: 1 patch Documented by: Clopidogrel Bisulfate (Clopidogrel Bisulfate 75 Mg Tab) 75 mg PO QAM [facility] Stop: 09/04/21 08:59 Last Admin: 08/10/21 09:01 Dose: 75 mg Documented by: Dorzolamide/Timolol (Dorzolamide/Timolol 22.3/6.8mg/Ml 10 Ml Btl) 1 drops OPB BID [facility] Stop: 09/03/21 20:59 Last Admin: 08/10/21 09:02 Dose: 1 drops Documented by: Furosemide (Furosemide 20 Mg Tab) 20 mg PO QAM [facility] Stop: 09/07/21 08:59 Last Admin: 08/10/21 09:03 Dose: 20 mg Documented by: Heparin Sodium (Porcine) (Heparin Sod 5,000 Unit/0.5 Ml Vial) 5,000 units SQ Q12 [facility] Stop: 09/06/21 20:59 Last Admin: 08/10/21 09:00 Dose: 5,000 units Documented by: Pantoprazole Sodium 40 mg/ (Syringe) 10 mls @ 5 mls/min IV BID [facility] Stop: 09/05/21 20:59 Last Admin: 08/10/21 09:04 Dose: 5 mls/min Documented by: Labetalol HCl (Labetalol Hcl Iv 5 Mg/Ml 20ml) 10 mg IV Q4H PRN PRN Reason: Hypertension Stop: 09/03/21 21:52 Last Admin: 08/09/21 03:52 Dose: 10 mg Documented by: Latanoprost (Latanoprost 0.005% Op Soln 2.5 Ml Btl) 1 drops OPB PM [facility] Stop: 09/03/21 20:59 Last Admin: 08/09/21 22:05 Dose: 1 drops Documented by: Metoprolol Tartrate (Metoprolol Tartrate 25 Mg Tab) 12.5 mg PO BID [facility] Stop: 09/05/21 20:59 Last Admin: 08/10/21 08:59 Dose: 12.5 mg Documented by: Miscellaneous (Remove Clonidine Patch) 1 ea N/A CQWK [facility] Stop: 09/09/21 08:58 Last Admin: 08/10/21 09:03 Dose: 1 ea Documented by: Miscellaneous (Check Clonidine Patch Placement) 1 ea N/A QS [facility] Stop: 09/03/21 15:59 Last Admin: 08/10/21 09:04 Dose: 1 ea Documented by: Miscellaneous (Remove Clonidine Patch) 1 ea N/A CQWK [facility] Stop: 09/08/21 10:44 Last Admin: 08/09/21 12:09 Dose: 1 ea Documented by: Miscellaneous (Check Clonidine Patch Placement) 1 ea N/A QS [facility] Stop: 09/08/21 15:59 Last Admin: 08/10/21 09:04 Dose: 1 ea Documented by: Nitroglycerin (Nitroglycerin 2% Ointment 30gm Tube) 1 inch EXT Q6 [facility] Stop: 09/03/21 22:29 Last Admin: 08/10/21 06:17 Dose: 1 inch Documented by: Ondansetron HCl (Ondansetron Inj 2 Mg/Ml 2 Ml Vial) 4 mg IV Q8H PRN PRN Reason: Nausea/dry heaving Stop: 09/03/21 13:30 Oxcarbazepine (Oxcarbazepine 150 Mg Tablet) 600 mg PO BID@0800,2000 [facility] Stop: 09/03/21 19:59 Last Admin: 08/10/21 09:00 Dose: 600 mg Documented by: Polyethylene Glycol (Polyethylene (Miralax) 17 Gm Pack) 17 gm PO DAILY PRN PRN Reason: Constipation Stop: 09/03/21 13:30 Polyethylene Glycol (Polyethylene (Miralax) 17 Gm Pack) 17 gm PO QAM [facility] Stop: 09/04/21 08:59 Last Admin: 08/10/21 09:04 Dose: 17 gm Documented by: Tizanidine HCl (Tizanidine Hcl 4 Mg Tablet) 6 mg PO TID [facility] Stop: 09/04/21 13:59 Last Admin: 08/10/21 08:59 Dose: 6 mg Documented by:
[2021-08-10] MEDS: ATORVASTATIN 20 MG TAB PO SCH (21:28)
[2021-08-10] MEDS: LATANOPROST 0.005% OP SOLN 2.5 ML BTL OPB SCH (21:31)
[2021-08-11] MEDS: NITROGLYCERIN 2% OINTMENT 30GM TUBE EXT SCH ×5 (00:33→23:24)
[2021-08-11] MEDS: CHECK CLONIDINE PATCH PLACEMENT SCH ×8 (00:33→23:30)
[2021-08-11] MEDS: LABETALOL HCL IV 5 MG/ML 20ML IV PRN (05:50)
[2021-08-11] MEDS ORDERED: cloNIDine HCL 0.1 MG TAB PO ONE (06:37)
[2021-08-11] MEDS: amLODIPine BESYLATE 5 MG TAB PO SCH (08:50)
[2021-08-11] MEDS: ASPIRIN 81 MG ECTAB PO SCH (08:51)
[2021-08-11] MEDS: BACLOFEN 10 MG TAB PO SCH ×3 (08:51→20:39)
[2021-08-11] MEDS: CLINDAMYCIN HCL 150 MG CAP PO SCH ×3 (08:51→20:36)
[2021-08-11] MEDS: PANTOprazole 40 MG in SYRINGE 0 ML IV SCH ×2 (08:51→20:37)
[2021-08-11] MEDS: HEPARIN SOD 5,000 UNIT/0.5 ML VIAL SQ SCH ×2 (08:51→20:37)
[2021-08-11] MEDS: CLOPIDOGREL BISULFATE 75 MG TAB PO SCH (08:51)
[2021-08-11] MEDS: OXcarbazepine 150 MG TABLET PO SCH ×2 (08:51→20:37)
[2021-08-11] MEDS: cefUROXime axetil 500 MG TAB PO SCH ×2 (08:51→20:37)
[2021-08-11] MEDS: CITALOPRAM 40 MG TAB PO SCH (08:51)
[2021-08-11] MEDS: FUROSEMIDE 20 MG TAB PO SCH (08:51)
[2021-08-11] MEDS: METOPROLOL TARTRATE 25 MG TAB PO SCH ×2 (08:52→20:38)
[2021-08-11] MEDS: DORZOLAMIDE/TIMOLOL 22.3/6.8MG/ML 10 ML BTL OPB SCH ×2 (08:52→20:41)
[2021-08-11] MEDS: tiZANidine HCL 4 MG TABLET PO SCH ×3 (08:52→20:39)
[2021-08-11] MEDS: POLYETHYLENE (MIRALAX) 17 GM PACK PO SCH (08:54)
[2021-08-11] MEDS ORDERED: amLODIPine BESYLATE 5 MG TAB PO ONE (10:49)
--- NOTE | 2021-08-11 10:56 | Cardiology Progress Note ---
Date of Service August 11, 2021 Assessment & Plan (1) Hypertensive urgency: (2) Non-ST elevation (NSTEMI) myocardial infarction: (3) Hypertensive heart disease: (4) Hypomagnesemia: (5) Transfusion associated circulatory overload: Plan: The patient's clonidine patch was increased with with some improvement in her hypertension. We will increase her amlodipine to 7.5 mg daily. Admission and Anticipated Discharge Date Admission Date: August 04, 2021 Subjective Status unchanged Review of Systems Review of Systems: Unobtainable Physical Exam Physical Exam: General: no acute distress and stated age Head: normocephalic, no masses, lesions, tenderness or abnormalities Eyes: conjunctiva are pink and non-injected, sclera clear Neck: supple, no adenopathy, no bruits, normal jugular venous pulse, no hepatojugular reflux Chest: normal shape and normal respiratory effort Lungs: clear to auscultation and percussion Cardiac Exam: - regular rate & rhythm, no murmurs gallops or rubs - normal S1, normal S2 Pulses: 2(+) throughout Abdomen: abdomen soft, non-tender, no abnormal masses and no hepatosplenomegaly Musculoskeletal: no gait disturbance, no joint inflammation, no deforming arthritis Extremities: Patient has contractures Neuro: grossly normal exam Results & Data ([facility]) Vital Signs (Past 12 Hours) Vital Signs Temp Pulse Pulse Resp BP BP Pulse Ox 08/11/21 08:50 71 163/84 H 08/11/21 07:38 36.6 C 83 18 94/61 L 97 08/11/21 07:00 72 08/11/21 06:45 71 175/75 H 08/11/21 06:20 183/101 H 08/11/21 05:49 83 194/97 H 08/11/21 03:41 36.7 C 77 18 140/68 97 08/11/21 00:32 64 137/77 08/10/21 22:59 36.8 C 60 18 142/78 H 92 Medications Administered Current Inpatient Medications Amlodipine Besylate (Amlodipine Besylate 5 Mg Tab) 5 mg PO QAM [facility] Stop: 09/06/21 13:29 Last Admin: 08/11/21 08:50 Dose: 5 mg Documented by: Amlodipine Besylate (Amlodipine Besylate 5 Mg Tab) 2.5 mg PO NOW ONE Stop: 08/11/21 10:50 Amlodipine Besylate (Amlodipine Besylate 5 Mg Tab) 7.5 mg PO QAM [facility] Stop: 09/11/21 08:59 Aspirin (Aspirin 81 Mg Ectab) 81 mg PO QAM [facility] Stop: 09/05/21 08:59 Last Admin: 08/11/21 08:51 Dose: 81 mg Documented by: Atorvastatin Calcium (Atorvastatin 20 Mg Tab) 20 mg PO HS [facility] Stop: 09/03/21 20:59 Last Admin: 08/10/21 21:28 Dose: 20 mg Documented by: Baclofen (Baclofen 10 Mg Tab) 10 mg PO TID [facility] Stop: 09/03/21 13:59 Last Admin: 08/11/21 08:51 Dose: 10 mg Documented by: Bisacodyl (Bisacodyl 10 Mg Supp) 10 mg [place] UD PRN PRN Reason: Constipation Stop: 09/03/21 13:30 Cefuroxime Axetil (Cefuroxime Axetil 500 Mg Tab) 500 mg PO BID [facility] Stop: 08/15/21 09:29 Last Admin: 08/11/21 08:51 Dose: 500 mg Documented by: Citalopram Hydrobromide (Citalopram 40 Mg Tab) 40 mg PO QAM [facility] Stop: 09/04/21 08:59 Last Admin: 08/11/21 08:51 Dose: 40 mg Documented by: Clindamycin HCl (Clindamycin Hcl 150 Mg Cap) 300 mg PO TID [facility] Stop: 08/15/21 13:59 Last Admin: 08/11/21 08:51 Dose: 300 mg Documented by: Clonidine HCl (Clonidine Hcl 0.1 Mg/24 Hr Transderm Sys) 1 patch TD Q7D [facility] Stop: 09/09/21 18:29 Last Admin: 08/10/21 19:44 Dose: 1 patch Documented by: Clopidogrel Bisulfate (Clopidogrel Bisulfate 75 Mg Tab) 75 mg PO QAM [facility] Stop: 09/04/21 08:59 Last Admin: 08/11/21 08:51 Dose: 75 mg Documented by: Dorzolamide/Timolol (Dorzolamide/Timolol 22.3/6.8mg/Ml 10 Ml Btl) 1 drops OPB BID [facility] Stop: 09/03/21 20:59 Last Admin: 08/11/21 08:52 Dose: 1 drops Documented by: Furosemide (Furosemide 20 Mg Tab) 20 mg PO QAM [facility] Stop: 09/07/21 08:59 Last Admin: 08/11/21 08:51 Dose: 20 mg Documented by: Heparin Sodium (Porcine) (Heparin Sod 5,000 Unit/0.5 Ml Vial) 5,000 units SQ Q12 [facility] Stop: 09/06/21 20:59 Last Admin: 08/11/21 08:51 Dose: 5,000 units Documented by: Pantoprazole Sodium 40 mg/ (Syringe) 10 mls @ 5 mls/min IV BID [facility] Stop: 09/05/21 20:59 Last Admin: 08/11/21 08:51 Dose: 5 mls/min Documented by: Labetalol HCl (Labetalol Hcl Iv 5 Mg/Ml 20ml) 10 mg IV Q4H PRN PRN Reason: Hypertension Stop: 09/03/21 21:52 Last Admin: 08/11/21 05:50 Dose: 10 mg Documented by: Latanoprost (Latanoprost 0.005% Op Soln 2.5 Ml Btl) 1 drops OPB PM [facility] Stop: 09/03/21 20:59 Last Admin: 08/10/21 21:31 Dose: 1 drops Documented by: Metoprolol Tartrate (Metoprolol Tartrate 25 Mg Tab) 12.5 mg PO BID [facility] Stop: 09/05/21 20:59 Last Admin: 08/11/21 08:52 Dose: 12.5 mg Documented by: Miscellaneous (Remove Clonidine Patch) 1 ea N/A CQWK [facility] Stop: 09/09/21 08:58 Last Admin: 08/10/21 09:03 Dose: 1 ea Documented by: Miscellaneous (Check Clonidine Patch Placement) 1 ea N/A QS [facility] Stop: 09/03/21 15:59 Last Admin: 08/11/21 08:53 Dose: 1 ea Documented by: Miscellaneous (Remove Clonidine Patch) 1 ea N/A CQWK [facility] Stop: 09/09/21 18:14 Last Admin: 08/10/21 18:36 Dose: Not Given Documented by: Miscellaneous (Check Clonidine Patch Placement) 1 ea N/A QS [facility] Stop: 09/10/21 00:00 Last Admin: 08/11/21 08:53 Dose: 1 ea Documented by: Nitroglycerin (Nitroglycerin 2% Ointment 30gm Tube) 1 inch EXT Q6 [facility] Stop: 09/03/21 22:29 Last Admin: 08/11/21 06:00 Dose: 1 inch Documented by: Ondansetron HCl (Ondansetron Inj 2 Mg/Ml 2 Ml Vial) 4 mg IV Q8H PRN PRN Reason: Nausea/dry heaving Stop: 09/03/21 13:30 Oxcarbazepine (Oxcarbazepine 150 Mg Tablet) 600 mg PO BID@0800,1999 [facility] Stop: 09/03/21 19:59 Last Admin: 08/11/21 08:51 Dose: 600 mg Documented by: Polyethylene Glycol (Polyethylene (Miralax) 17 Gm Pack) 17 gm PO DAILY PRN PRN Reason: Constipation Stop: 09/03/21 13:30 Polyethylene Glycol (Polyethylene (Miralax) 17 Gm Pack) 17 gm PO QAM [facility] Stop: 09/04/21 08:59 Last Admin: 08/11/21 08:54 Dose: 17 gm Documented by: Tizanidine HCl (Tizanidine Hcl 4 Mg Tablet) 6 mg PO TID [facility] Stop: 09/04/21 13:59 Last Admin: 08/11/21 08:52 Dose: 6 mg Documented by:
--- NOTE | 2021-08-11 13:33 | Hospitalist Progress Note ---
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 She was found to have SIRS, JANEL with severe hypercalcemia, NSTEMI and hypertensive emergency. She was started on aggressive ivf, calcitonin and zolendronic acid with resolution of her hypercalcemia. She was started on empiric rocephin for SIRS but no infectious source identified. She was managed medically for NSTEMI per cardiology with DAPT, heparin drip, nitropaste- however on day 2 of heparin drip, her Hb was found to be 7.6 from 13 on admission, repeat was also in 7.3. Also her BP was in 70s and was lethargic. Given fluid bolus with improvement, BP meds held. Due to concern for bleed, DAPT and heparin drip discontinued, IV PPI drip started and got stat CT A/P which did not show retroperitoneal hematoma or bleeding. 1 U PRBC was initiated given her NSTEMI and Hb drop, however 1 hour into transfusion, she had respiratory distress requiring oxygen 15 L/min via non rebreather. Stat chest xray showed pulm opacities. With concern for pulm edema, vs TACO vs TRALI, transfusion was immediately stopped and sent for transfusion reaction protocol. She was given lasix x2 and nebs as well as later received solumedrol x1. She was seen by pulmonology and continued on iv lasix daily with gradual improvement of her respiratory status and now on room air. Her rocephin was changed to ceftin/clinda per pulm given rising procal which have now trended down. Her subsequent Hb has been stable in 9s without need for any transfusion and without any bleed- hence that Hb of 7 is likely artifactual and lab error. fecal occult negative. GI evaluated the patient and did not recommend any endoscopic work up given no bleeding. She was continued on PPI. Her DAPT was resumed without issues. Her blood pressure has been labile and cardiology adjusting her medications- her catapres was uptitrated to 0.2 but now back to 0.1. Her norvasc (new this admission) was uptitrated to 7.5 per cardiology. Acute hypoxic respiratory failure due to pulmonary edema ? TACO vs TRALI vs excess IVF resuscitation vs flash pulm edema due to uncontrolled HTN. CXR reviewed. All ivf discontinued. S/p IV lasix, BIPAP and steroid x1. - Resolved. Now on room air and comfortable. NSTEMI- Abnormal trop and EKG noted, echo with no WMA. Trop trending down. Discussed with cardio who recommended medical management- s/p heparin drip which was stopped on day 2 due to Hb drop but no bleeding noted and now Hb back to baseline; likely artifactual. - Continue DAPT, betablocker, statin, nitropaste. Cardio following Hypertensive emergency- BP remains labile- Continue clonidine patch, nitro paste, lopressor. Norvasc was added this admission. Cardio managing her BP meds- Monitor Hypercalcemia- PTH normal, Vit D2 normal, Vit D3 low, TSH normal, SPEP and UPEP done- inconclusive and does not point to MM- recommend repeat as OP - Ca normalized with ivf and calcitonin and zolendronic acid 08/04- discontinued ivf with resp distress Acute kidney injury: likely from hypercalcemia. Cr continues to improve 1.3->1.25->1.1->1.07->0.79; baseline Cr of 0.7. Avoid nephrotoxics, recheck intermittently SIRS- On empiric rocephin since admission, blood clx negative so far, UA unremarkable. 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 Procal trending down nicely. Microscopic hematuria: In setting of critical blood pressure elevation. No evidence of this on outpatient records. Consider repeating again as outpatient to ensure this has resolved. Noted non-obstructing renal stone on CT. Acute metabolic encephalopathy: secondary to hypercalcemia. 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 On trileptal, celexa, baclofen - She was taking denosumab as outpatient and was due for her 6 month injection on 06/04/21. This was held by Rheumatology to give her a drug holiday. S/p zolendronic acid in ED for hypercalcemia. H/O: stroke: chronic, stable. Continues on Plavix per home regimen. Nonverbal at baseline DVT ppx- sc heparin GI ppx- PPI Dispo- Her facility can not accept her over the weekend. Discharge on Thursday. Currently stable Admission and Anticipated Discharge Date Admission Date: August 04, 2021 Subjective Remains stable at baseline. No new issues. No fever, vomiting, shortness of breath. Physical Exam Physical Exam: General: Non verbal at baseline, sitting comfortably in bed, on room air HEENT: tracks eyes intermittently Chest: Fair breath sounds bilaterally CVS: regular, normal heart sounds Abdomen: Soft, non tender, normal bowel sounds Neuro: Awake, alert, Non verbal at baseline, does not follow commands at baseline Extremities: No edema. contractures + Results & Data Results & Data ([facility]) Vital Signs (Past 12 Hours) Vital Signs Temp Pulse Pulse Resp BP BP Pulse Ox 08/11/21 11:46 36.7 C 63 20 124/73 96 08/11/21 08:50 71 163/84 H 08/11/21 07:38 36.6 C 83 18 94/61 L 97 08/11/21 07:00 72 08/11/21 06:45 71 175/75 H 08/11/21 06:20 183/101 H 08/11/21 05:49 83 194/97 H 08/11/21 03:41 36.7 C 77 18 140/68 97 Medications Administered Current Inpatient Medications Amlodipine Besylate (Amlodipine Besylate 5 Mg Tab) 7.5 mg PO QAM [facility] Stop: 09/11/21 08:59 Aspirin (Aspirin 81 Mg Ectab) 81 mg PO QAM [facility] Stop: 09/05/21 08:59 Last Admin: 08/11/21 08:51 Dose: 81 mg Documented by: Atorvastatin Calcium (Atorvastatin 20 Mg Tab) 20 mg PO HS [facility] Stop: 09/03/21 20:59 Last Admin: 08/10/21 21:28 Dose: 20 mg Documented by: Baclofen (Baclofen 10 Mg Tab) 10 mg PO TID [facility] Stop: 09/03/21 13:59 Last Admin: 08/11/21 13:18 Dose: 10 mg Documented by: Bisacodyl (Bisacodyl 10 Mg Supp) 10 mg UT UD PRN PRN Reason: Constipation Stop: 09/03/21 13:30 Cefuroxime Axetil (Cefuroxime Axetil 500 Mg Tab) 500 mg PO BID [facility] Stop: 08/15/21 09:29 Last Admin: 08/11/21 08:51 Dose: 500 mg Documented by: Citalopram Hydrobromide (Citalopram 40 Mg Tab) 40 mg PO QAM [facility] Stop: 09/04/21 08:59 Last Admin: 08/11/21 08:51 Dose: 40 mg Documented by: Clindamycin HCl (Clindamycin Hcl 150 Mg Cap) 300 mg PO TID [facility] Stop: 08/15/21 13:59 Last Admin: 08/11/21 13:18 Dose: 300 mg Documented by: Clonidine HCl (Clonidine Hcl 0.1 Mg/24 Hr Transderm Sys) 1 patch TD Q7D [facility] Stop: 09/09/21 18:29 Last Admin: 08/10/21 19:44 Dose: 1 patch Documented by: Clopidogrel Bisulfate (Clopidogrel Bisulfate 75 Mg Tab) 75 mg PO QAM [facility] Stop: 09/04/21 08:59 Last Admin: 08/11/21 08:51 Dose: 75 mg Documented by: Dorzolamide/Timolol (Dorzolamide/Timolol 22.3/6.8mg/Ml 10 Ml Btl) 1 drops OPB BID [facility] Stop: 09/03/21 20:59 Last Admin: 08/11/21 08:52 Dose: 1 drops Documented by: Furosemide (Furosemide 20 Mg Tab) 20 mg PO QAM [facility] Stop: 09/07/21 08:59 Last Admin: 08/11/21 08:51 Dose: 20 mg Documented by: Heparin Sodium (Porcine) (Heparin Sod 5,000 Unit/0.5 Ml Vial) 5,000 units SQ Q12 [facility] Stop: 09/06/21 20:59 Last Admin: 08/11/21 08:51 Dose: 5,000 units Documented by: Pantoprazole Sodium 40 mg/ (Syringe) 10 mls @ 5 mls/min IV BID [facility] Stop: 09/05/21 20:59 Last Admin: 08/11/21 08:51 Dose: 5 mls/min Documented by: Labetalol HCl (Labetalol Hcl Iv 5 Mg/Ml 20ml) 10 mg IV Q4H PRN PRN Reason: Hypertension Stop: 09/03/21 21:52 Last Admin: 08/11/21 05:50 Dose: 10 mg Documented by: Latanoprost (Latanoprost 0.005% Op Soln 2.5 Ml Btl) 1 drops OPB PM [facility] Stop: 09/03/21 20:59 Last Admin: 08/10/21 21:31 Dose: 1 drops Documented by: Metoprolol Tartrate (Metoprolol Tartrate 25 Mg Tab) 12.5 mg PO BID [facility] Stop: 09/05/21 20:59 Last Admin: 08/11/21 08:52 Dose: 12.5 mg Documented by: Miscellaneous (Remove Clonidine Patch) 1 ea N/A CQWK [facility] Stop: 09/09/21 08:58 Last Admin: 08/10/21 09:03 Dose: 1 ea Documented by: Miscellaneous (Check Clonidine Patch Placement) 1 ea N/A QS [facility] Stop: 09/03/21 15:59 Last Admin: 08/11/21 08:53 Dose: 1 ea Documented by: Miscellaneous (Remove Clonidine Patch) 1 ea N/A CQWK [facility] Stop: 09/09/21 18:14 Last Admin: 08/10/21 18:36 Dose: Not Given Documented by: Vandanacellaneous (Check Clonidine Patch Placement) 1 ea N/A QS [facility] Stop: 09/10/21 00:00 Last Admin: 08/11/21 08:53 Dose: 1 ea Documented by: Nitroglycerin (Nitroglycerin 2% Ointment 30gm Tube) 1 inch EXT Q6 [facility] Stop: 09/03/21 22:29 Last Admin: 08/11/21 12:03 Dose: 1 inch Documented by: Ondansetron HCl (Ondansetron Inj 2 Mg/Ml 2 Ml Vial) 4 mg IV Q8H PRN PRN Reason: Nausea/dry heaving Stop: 09/03/21 13:30 Oxcarbazepine (Oxcarbazepine 150 Mg Tablet) 600 mg PO BID@0800,2000 [facility] Stop: 09/03/21 19:59 Last Admin: 08/11/21 08:51 Dose: 600 mg Documented by: Polyethylene Glycol (Polyethylene (Miralax) 17 Gm Pack) 17 gm PO DAILY PRN PRN Reason: Constipation Stop: 09/03/21 13:30 Polyethylene Glycol (Polyethylene (Miralax) 17 Gm Pack) 17 gm PO QAM [facility] Stop: 09/04/21 08:59 Last Admin: 08/11/21 08:54 Dose: 17 gm Documented by: Tizanidine HCl (Tizanidine Hcl 4 Mg Tablet) 6 mg PO TID [facility] Stop: 09/04/21 13:59 Last Admin: 08/11/21 13:18 Dose: 6 mg Documented by:
[2021-08-11] MEDS: ATORVASTATIN 20 MG TAB PO SCH (20:38)
[2021-08-11] MEDS: LATANOPROST 0.005% OP SOLN 2.5 ML BTL OPB SCH (23:25)
[2021-08-12] MEDS: NITROGLYCERIN 2% OINTMENT 30GM TUBE EXT SCH ×3 (06:11→17:48)
[2021-08-12 06:34] LABS: Hematocrit (blood only) 25.3 % (37-47); Hemoglobin 8.6 g/dL (12.0-16.0); Mean Corpuscular Volume 94.1 fL (80-100); Mean Platelet Volume 10.2 fL (7.4-10.4); Nucleated RBC # (auto) 0.05 K/uL (0-0); Nucleated RBC % (auto) 0.9 %; Platelet Count 201 K/uL (130-400); RDW Coefficient of Variation 14.2 % (11.5-14.5); RDW Standard Deviation 47.8 fL (36.4-46.3); Red Blood Count 2.69 M/uL (4.2-5.4); White Blood Count 5.95 K/uL (4.8-10.8)
[2021-08-12 06:52] LABS: BUN Creatinine Ratio 14.5 (10-20); Calcium 7.5 mg/dl (8.5-10.1); Creatinine Clr Calc Pharmacy 78.4 ml/min; Est GFR (African American) 116.8 ml/min; Est GFR (Non-African American) 100.8 ml/min; Potassium 3.8 mmol/L (3.5-5.1)
[2021-08-12 07:02] LABS: Magnesium 1.5 mg/dl (1.7-2.4); Phosphorus 1.5 mg/dl (2.5-4.9)
[2021-08-12] MEDS ORDERED: SODIUM PHOSPHATE 3 MMOL/1 ML INFUSION IV STA (07:11)
[2021-08-12] MEDS ORDERED: SODIUM PHOSPHATE 30 MMOL in SODIUM CHLORIDE 0.9% 500 ML IV ONE (07:30)
[2021-08-12] MEDS: MAGNESIUM SULFATE / D5W 1 GM/100 ML BAG IV SCH ×2 (08:30→11:25)
[2021-08-12] MEDS: CHECK CLONIDINE PATCH PLACEMENT SCH ×4 (09:42→17:39)
[2021-08-12] MEDS: tiZANidine HCL 4 MG TABLET PO SCH ×3 (09:43→20:33)
[2021-08-12] MEDS: OXcarbazepine 150 MG TABLET PO SCH ×2 (09:43→20:25)
[2021-08-12] MEDS: METOPROLOL TARTRATE 25 MG TAB PO SCH ×2 (09:43→20:32)
[2021-08-12] MEDS: FUROSEMIDE 20 MG TAB PO SCH (09:43)
[2021-08-12] MEDS: CLOPIDOGREL BISULFATE 75 MG TAB PO SCH (09:43)
[2021-08-12] MEDS: cefUROXime axetil 500 MG TAB PO SCH ×2 (09:43→20:26)
[2021-08-12] MEDS: ASPIRIN 81 MG ECTAB PO SCH (09:44)
[2021-08-12] MEDS: amLODIPine BESYLATE 5 MG TAB PO SCH (09:44)
[2021-08-12] MEDS: DORZOLAMIDE/TIMOLOL 22.3/6.8MG/ML 10 ML BTL OPB SCH ×2 (09:44→20:29)
[2021-08-12] MEDS: CITALOPRAM 40 MG TAB PO SCH (09:44)
[2021-08-12] MEDS: BACLOFEN 10 MG TAB PO SCH ×3 (09:44→20:26)
[2021-08-12] MEDS: CLINDAMYCIN HCL 150 MG CAP PO SCH ×3 (09:44→20:27)
[2021-08-12] MEDS: HEPARIN SOD 5,000 UNIT/0.5 ML VIAL SQ SCH ×2 (09:45→20:30)
[2021-08-12] MEDS: PANTOprazole 40 MG in SYRINGE 0 ML IV SCH ×2 (09:45→20:22)
[2021-08-12] MEDS: POLYETHYLENE (MIRALAX) 17 GM PACK PO SCH (09:45)
[2021-08-12] MEDS: LOSARTAN POTASSIUM 50 MG TAB PO SCH (11:56)
--- NOTE | 2021-08-12 13:20 | Cardiology Progress Note ---
Date of Service August 12, 2021 Assessment & Plan (1) Hypertensive urgency: (2) Non-ST elevation (NSTEMI) myocardial infarction: (3) Hypertensive heart disease: (4) Hypomagnesemia: (5) Transfusion associated circulatory overload: Plan: BP significantly improved with addition of losartan this a.m. Would continue current doses of amlodipine, clonidine patch and losartan. Admission and Anticipated Discharge Date Admission Date: August 04, 2021 Subjective No events reported overnight by nursing. Review of Systems Review of Systems: Unobtainable due to mental health condition Results & Data ([facility]) Vital Signs (Past 12 Hours) Vital Signs Temp Pulse Pulse Resp BP BP Pulse Ox 08/12/21 11:59 64 129/73 08/12/21 11:35 36.7 C 70 20 103/69 96 08/12/21 08:16 36.7 C 77 18 192/70 H 95 08/12/21 08:00 78 08/12/21 03:13 36.4 C L 77 18 161/63 H 96 08/12/21 01:27 140/84
--- NOTE | 2021-08-12 19:46 | Hospitalist Progress Note ---
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 She was found to have SIRS, JANEL with severe hypercalcemia, NSTEMI and hypertensive emergency. She was started on aggressive ivf, calcitonin and zolendronic acid with resolution of her hypercalcemia. She was started on empiric rocephin for SIRS but no infectious source identified. She was managed medically for NSTEMI per cardiology with DAPT, heparin drip, nitropaste- however on day 2 of heparin drip, her Hb was found to be 7.6 from 13 on admission, repeat was also in 7.3. Also her BP was in 70s and was lethargic. Given fluid bolus with improvement, BP meds held. Due to concern for bleed, DAPT and heparin drip discontinued, IV PPI drip started and got stat CT A/P which did not show retroperitoneal hematoma or bleeding. 1 U PRBC was initiated given her NSTEMI and Hb drop, however 1 hour into transfusion, she had respiratory distress requiring oxygen 15 L/min via non rebreather. Stat chest xray showed pulm opacities. With concern for pulm edema, vs TACO vs TRALI, transfusion was immediately stopped and sent for transfusion reaction protocol. She was given lasix x2 and nebs as well as later received solumedrol x1. She was seen by pulmonology and continued on iv lasix daily with gradual improvement of her respiratory status and now on room air. Her rocephin was changed to ceftin/clinda per pulm given rising procal which have now trended down. Her subsequent Hb has been stable in 9s without need for any transfusion and without any bleed- hence that Hb of 7 is likely artifactual and lab error. fecal occult negative. GI evaluated the patient and did not recommend any endoscopic work up given no bleeding. She was continued on PPI. Her DAPT was resumed without issues. Her blood pressure has been labile and cardiology adjusting her medications- her catapres was uptitrated to 0.2 but now back to 0.1. Her norvasc (new this admission) was uptitrated to 7.5 per cardiology. Losartan added 08/12. Acute hypoxic respiratory failure due to pulmonary edema ? TACO vs TRALI vs excess IVF resuscitation vs flash pulm edema due to uncontrolled HTN. CXR reviewed. All ivf discontinued. S/p IV lasix, BIPAP and steroid x1. - Resolved. Now on room air and comfortable. NSTEMI- Abnormal trop and EKG noted, echo with no WMA. Trop trending down. Card evaluated, medical management- s/p heparin drip which was stopped on day 2 due to Hb drop but no bleeding noted and now Hb back to baseline; likely artifactual. - Continue DAPT, betablocker, statin, nitropaste. Cardio following Hypertensive emergency- BP remains labile- Continue clonidine patch, nitro paste , lopressor. Norvasc was added 08/11, losartan added 08/12. Cardio managing her BP meds- Monitor Hypercalcemia- PTH normal, Vit D2 normal, Vit D3 low, TSH normal, SPEP and UPEP done- inconclusive and does not point to MM- recommend repeat as OP - Ca normalized with ivf and calcitonin and zolendronic acid 08/04- discontinued ivf with resp distress Acute kidney injury: likely from hypercalcemia. Cr continues to improve 1.3->1.25->1.1->1.07->0.79; baseline Cr of 0.7. Avoid nephrotoxics, recheck intermittently SIRS- On empiric rocephin since admission, blood clx negative so far, UA unremarkable. ABx changed to ceftin/clinda per pulm given concern for aspiration and worsening procal- however swallowing study showed no aspiration- recommendations provided by [employer] CH[employer] CASTING OPERATOR. Procal trending down nicely. Microscopic hematuria: In setting of critical blood pressure elevation. No evidence of this on outpatient records. Consider repeating again as outpatient to ensure this has resolved. Noted non-obstructing renal stone on CT. Acute metabolic encephalopathy: secondary to hypercalcemia. 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 On trileptal, celexa, baclofen - She was taking denosumab as outpatient and was due for her 6 month injection on 06/04/21. This was held by Rheumatology to give her a drug holiday. S/p zolendronic acid in ED for hypercalcemia. H/O: stroke: chronic, stable. Continues on Plavix per home regimen. Nonverbal at baseline DVT ppx- sc heparin GI ppx- PPI Dispo- Likely DC tomorrow back to her facility. CM to assist w/ DC planning. Admission and Anticipated Discharge Date Admission Date: August 04, 2021 Subjective Patient seen and examined at bedside as a follow-up of acute hypoxic respiratory failure due to pulmonary edema, NSTEMI, hypertensive emergency. Patient was lying in bed, on room air, NAD. Patient does not appear to be in distress. Patient is nonverbal and mute. ROS n/a. Physical Exam Physical Exam: GENERAL: Nonverbal. NAD, on RA. HEENT: No pallor, no icterus. Pupils equal, round and reactive to light. Oral mucosa moist. NECK: No JVD, no neck masses. HEART: S1 and S2 heard. Regular rate and rhythm. No murmur, no gallop. RESPIRATORY SYSTEM: Normal AP diameter. No accessory muscle use. No wheezing, no crackles. ABDOMEN: Soft, bowel sounds present, nontender, no distention. CENTRAL NERVOUS SYSTEM: No facial droop. non verbal, doesn't follow commands at baseline EXTREMITIES: No edema, contractures + Results & Data Results & Data ([facility]) Vital Signs (Past 12 Hours) Vital Signs Temp Pulse Pulse Resp BP BP Pulse Ox 08/12/21 17:47 74 116/69 08/12/21 16:00 69 08/12/21 15:18 36.8 C 65 20 102/58 L 97 08/12/21 11:59 64 129/73 08/12/21 11:35 36.7 C 70 20 103/69 96 08/12/21 08:16 36.7 C 77 18 192/70 H 95 08/12/21 08:00 78
[2021-08-12] MEDS: ATORVASTATIN 20 MG TAB PO SCH (20:26)
[2021-08-12] MEDS: LATANOPROST 0.005% OP SOLN 2.5 ML BTL OPB SCH (20:30)
[2021-08-13] MEDS: CHECK CLONIDINE PATCH PLACEMENT SCH ×6 (00:24→16:44)
[2021-08-13] MEDS: NITROGLYCERIN 2% OINTMENT 30GM TUBE EXT SCH ×3 (00:24→12:50)
[2021-08-13 06:57] LABS: Hematocrit (blood only) 27.8 % (37-47); Hemoglobin 9.4 g/dL (12.0-16.0); Mean Corpuscular Hemoglobin 31.6 pg (25-34); Mean Corpuscular Hgb Conc 33.8 g/dL (32-36); Mean Corpuscular Volume 93.6 fL (80-100); Mean Platelet Volume 10.4 fL (7.4-10.4); Nucleated RBC # (auto) 0.06 K/uL (0-0); Nucleated RBC % (auto) 1.1 %; Platelet Count 206 K/uL (130-400); RDW Coefficient of Variation 14.2 % (11.5-14.5); RDW Standard Deviation 47.3 fL (36.4-46.3); Red Blood Count 2.97 M/uL (4.2-5.4); White Blood Count 5.62 K/uL (4.8-10.8)
[2021-08-13 07:32] LABS: BUN Creatinine Ratio 12.7 (10-20); Calcium 7.3 mg/dl (8.5-10.1); Est GFR (African American) 120.4 ml/min; Est GFR (Non-African American) 103.9 ml/min; Magnesium 1.9 mg/dl (1.7-2.4); Phosphorus 2.2 mg/dl (2.5-4.9); Potassium 3.6 mmol/L (3.5-5.1)
[2021-08-13] MEDS: OXcarbazepine 150 MG TABLET PO SCH ×2 (08:20→20:12)
[2021-08-13] MEDS: tiZANidine HCL 4 MG TABLET PO SCH ×3 (08:21→20:19)
[2021-08-13] MEDS: cefUROXime axetil 500 MG TAB PO SCH ×2 (08:22→20:14)
[2021-08-13] MEDS: BACLOFEN 10 MG TAB PO SCH ×3 (08:22→20:13)
[2021-08-13] MEDS: METOPROLOL TARTRATE 25 MG TAB PO SCH ×2 (08:23→20:20)
[2021-08-13] MEDS: amLODIPine BESYLATE 5 MG TAB PO SCH (08:24)
[2021-08-13] MEDS: ASPIRIN 81 MG ECTAB PO SCH (08:25)
[2021-08-13] MEDS: FUROSEMIDE 20 MG TAB PO SCH (08:25)
[2021-08-13] MEDS: CLOPIDOGREL BISULFATE 75 MG TAB PO SCH (08:26)
[2021-08-13] MEDS: CITALOPRAM 40 MG TAB PO SCH (08:26)
[2021-08-13] MEDS: CLINDAMYCIN HCL 150 MG CAP PO SCH ×3 (08:26→20:16)
[2021-08-13] MEDS: LOSARTAN POTASSIUM 50 MG TAB PO SCH (08:26)
[2021-08-13] MEDS: HEPARIN SOD 5,000 UNIT/0.5 ML VIAL SQ SCH ×2 (08:27→20:17)
[2021-08-13] MEDS: POLYETHYLENE (MIRALAX) 17 GM PACK PO SCH ×2 (08:28→09:34)
[2021-08-13] MEDS: DORZOLAMIDE/TIMOLOL 22.3/6.8MG/ML 10 ML BTL OPB SCH ×2 (08:28→20:16)
[2021-08-13] MEDS: PANTOprazole 40 MG in SYRINGE 0 ML IV SCH (08:30)
[2021-08-13] MEDS ORDERED: POTASSIUM PHOS 3 MMOL/1 ML INFUSION IV STA (09:23)
[2021-08-13] MEDS ORDERED: POTASSIUM PHOSPHATE 15 MMOL in SODIUM CHLORIDE 0.9% 250 ML IV ONE (09:30)
--- NOTE | 2021-08-13 17:54 | Hospitalist Progress Note ---
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 She was found to have SIRS, JANEL with severe hypercalcemia, NSTEMI and hypertensive emergency. She was started on aggressive ivf, calcitonin and zolendronic acid with resolution of her hypercalcemia. She was started on empiric rocephin for SIRS but no infectious source identified. She was managed medically for NSTEMI per cardiology with DAPT, heparin drip, nitropaste- however on day 2 of heparin drip, her Hb was found to be 7.6 from 13 on admission, repeat was also in 7.3. Also her BP was in 70s and was lethargic. Given fluid bolus with improvement, BP meds held. Due to concern for bleed, DAPT and heparin drip discontinued, IV PPI drip started and got stat CT A/P which did not show retroperitoneal hematoma or bleeding. 1 U PRBC was initiated given her NSTEMI and Hb drop, however 1 hour into transfusion, she had respiratory distress requiring oxygen 15 L/min via non rebreather. Stat chest xray showed pulm opacities. With concern for pulm edema, vs TACO vs TRALI, transfusion was immediately stopped and sent for transfusion reaction protocol. She was given lasix x2 and nebs as well as later received solumedrol x1. She was seen by pulmonology and continued on iv lasix daily with gradual improvement of her respiratory status and now on room air. Her rocephin was changed to ceftin/clinda per pulm given rising procal which have now trended down. Her subsequent Hb has been stable in 9s without need for any transfusion and without any bleed- hence that Hb of 7 is likely artifactual and lab error. fecal occult negative. GI evaluated the patient and did not recommend any endoscopic work up given no bleeding. She was continued on PPI. Her DAPT was resumed without issues. Her blood pressure has been labile and cardiology adjusting her medications- her catapres was uptitrated to 0.2 but now back to 0.1. Her norvasc (new this admission) was uptitrated to 7.5 per cardiology. Losartan added 08/12. Acute hypoxic respiratory failure due to pulmonary edema ? TACO vs TRALI vs excess IVF resuscitation vs flash pulm edema due to uncontrolled HTN. CXR reviewed. All ivf discontinued. S/p IV lasix, BIPAP and steroid x1. - Resolved. Now on room air and comfortable. NSTEMI- Abnormal trop and EKG noted, echo with no WMA. Trop trending down. Card evaluated, medical management- s/p heparin drip which was stopped on day 2 due to Hb drop but no bleeding noted and now Hb back to baseline; likely artifactual. - Continue DAPT, betablocker, statin, nitropaste. Cardio following Hypertensive emergency- BP remains labile- Continue clonidine patch, nitro paste , lopressor. Norvasc was added 08/11, losartan added 08/12. Cardio managing her BP meds- Monitor Hypercalcemia- PTH normal, Vit D2 normal, Vit D3 low, TSH normal, SPEP and UPEP done- inconclusive and does not point to MM- recommend repeat as OP - Ca normalized with ivf and calcitonin and zolendronic acid 08/04- discontinued ivf with resp distress Acute kidney injury: likely from hypercalcemia. Cr continues to improve 1.3->1.25->1.1->1.07->0.79; baseline Cr of 0.7. Avoid nephrotoxics, recheck intermittently SIRS- On empiric rocephin since admission, blood clx negative so far, UA unremarkable. ABx changed to ceftin/clinda per pulm given concern for aspiration and worsening procal- however swallowing study showed no aspiration- recommendations provided by REMOTE SENSING SPECIALIST. Procal trending down nicely. Microscopic hematuria: In setting of critical blood pressure elevation. No evidence of this on outpatient records. Consider repeating again as outpatient to ensure this has resolved. Noted non-obstructing renal stone on CT. Acute metabolic encephalopathy: secondary to hypercalcemia. 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 On trileptal, celexa, baclofen - She was taking denosumab as outpatient and was due for her 6 month injection on 06/04/21. This was held by Rheumatology to give her a drug holiday. S/p zolendronic acid in ED for hypercalcemia. H/O: stroke: chronic, stable. Continues on Plavix per home regimen. Nonverbal at baseline DVT ppx- sc heparin GI ppx- PPI Dispo- Likely DC tomorrow back to her facility, not able to take today. CM to assist w/ DC planning. Admission and Anticipated Discharge Date Admission Date: August 04, 2021 Subjective Patient seen and examined at bedside as a follow-up of acute hypoxic respiratory failure due to pulmonary edema, NSTEMI, hypertensive emergency. Patient was lying in bed, on room air, NAD. Patient does not appear to be in distress. Patient is nonverbal and mute. ROS n/a. Physical Exam Physical Exam: GENERAL: Nonverbal. NAD, on RA. HEENT: No pallor, no icterus. Pupils equal, round and reactive to light. Oral mucosa moist. NECK: No JVD, no neck masses. HEART: S1 and S2 heard. Regular rate and rhythm. No murmur, no gallop. RESPIRATORY SYSTEM: Normal AP diameter. No accessory muscle use. No wheezing, no crackles. ABDOMEN: Soft, bowel sounds present, nontender, no distention. CENTRAL NERVOUS SYSTEM: No facial droop. non verbal, doesn't follow commands at baseline EXTREMITIES: No edema, contractures + Results & Data Results & Data ([facility]) Vital Signs (Past 12 Hours) Vital Signs Temp Pulse Pulse Resp BP BP Pulse Ox 08/13/21 15:54 36.7 C 62 18 92/59 L 92/59 L 99 08/13/21 11:41 36.7 C 62 18 108/64 96 08/13/21 10:29 71 08/13/21 10:25 68 102/66 08/13/21 08:34 36.8 C 88 16 115/73 96
[2021-08-13] MEDS: ATORVASTATIN 20 MG TAB PO SCH (20:14)
[2021-08-13] MEDS: LATANOPROST 0.005% OP SOLN 2.5 ML BTL OPB SCH (20:17)
[2021-08-13] MEDS: PANTOprazole 40 MG TAB PO SCH (20:19)
[2021-08-14] MEDS: CHECK CLONIDINE PATCH PLACEMENT SCH ×4 (00:41→09:10)
[2021-08-14 07:39] LABS: Magnesium 1.7 mg/dl (1.7-2.4); Phosphorus 1.9 mg/dl (2.5-4.9)
[2021-08-14] MEDS ORDERED: POTASSIUM PHOS 3 MMOL/1 ML INFUSION IV STA (08:38)
[2021-08-14] MEDS ORDERED: MAGNESIUM SULFATE / D5W 1 GM/100 ML BAG IV ONE (08:38)
[2021-08-14] MEDS ORDERED: POTASSIUM PHOSPHATE 21 MMOL in SODIUM CHLORIDE 0.9% 500 ML IV ONE (09:00)
[2021-08-14] MEDS: ASPIRIN 81 MG ECTAB PO SCH (09:03)
[2021-08-14] MEDS: amLODIPine BESYLATE 5 MG TAB PO SCH (09:03)
[2021-08-14] MEDS: HEPARIN SOD 5,000 UNIT/0.5 ML VIAL SQ SCH (09:04)
[2021-08-14] MEDS: FUROSEMIDE 20 MG TAB PO SCH (09:04)
[2021-08-14] MEDS: CLOPIDOGREL BISULFATE 75 MG TAB PO SCH (09:04)
[2021-08-14] MEDS: METOPROLOL TARTRATE 25 MG TAB PO SCH (09:04)
[2021-08-14] MEDS: CITALOPRAM 40 MG TAB PO SCH (09:05)
[2021-08-14] MEDS: CLINDAMYCIN HCL 150 MG CAP PO SCH ×2 (09:05→14:11)
[2021-08-14] MEDS: LOSARTAN POTASSIUM 50 MG TAB PO SCH (09:05)
[2021-08-14] MEDS: tiZANidine HCL 4 MG TABLET PO SCH ×2 (09:06→14:10)
[2021-08-14] MEDS: PANTOprazole 40 MG TAB PO SCH (09:07)
[2021-08-14] MEDS: OXcarbazepine 150 MG TABLET PO SCH (09:07)
[2021-08-14] MEDS: BACLOFEN 10 MG TAB PO SCH ×2 (09:08→14:11)
[2021-08-14] MEDS: DORZOLAMIDE/TIMOLOL 22.3/6.8MG/ML 10 ML BTL OPB SCH (09:09)
[2021-08-14] MEDS: POLYETHYLENE (MIRALAX) 17 GM PACK PO SCH (09:11)
[2021-08-14] MEDS: cefUROXime axetil 500 MG TAB PO SCH (09:11)
--- NOTE | 2021-08-14 12:38 | Discharge Summary ---
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 Per mom, who is at bedside, she has been nonverbal her entire life. She also had a stroke in the past and is on Plavix. At baseline she is bedbound and completely dependent for care, living in a correction. To communicate, she demonstrates understanding at baseline, pushing you away if she is trying to say no. And if given the choice between things, she can point to what she wants. She is able to follow commands at baseline. She is able to tolerate PO, but is an aspiration risk from her mental and physical disabilities. She takes in a pureed diet and nectar thick liquids at baseline. She also has urinary incontinence at baseline and is in a diaper. Plastic Outfitter notes regular bowel movements recently without diarrhea or stool changes. She was taking denosumab injections every 6 months for h/o osteoporosis. Per last Rheumatology note on 06/04/21 (prolia shot was due that day), a drug holiday from this was recommended because a bone density scan returned low/mod risk. Today she presents to the ER with critically high blood pressure, tachycardia, fever reported at 100.4F by automation engineering technician, and evidence of dry heaving this morning. Plastic Outfitter states that she didn't eat much yesterday which isn't necessarily out of the ordinary for her. Clonidine patch is changed every Thursday and was confirmed to have been changed yesterday. In the ER workup reveals no leukocytosis with normal sodium, potassium. Creatinine is up from her normal baseline to 1.3. Calcium was elevated at 15 today (outpt records show Ca 11.3 on 07/25/21). Trop HS was elevated at 57, EKG reveals sinus tachycardia with a rate of [address] depressions in I,II, AVF and V4-V6. Patient is chronically immobile and CT chest to rule out PE is pending. CXR is clear and she is oxygenating well on room air. She is diaphoretic and afebrile. She is not working to breathe but is moaning and doesn't appear comfortable. She is ill-appearing. A UA reveals no evidence of infection with +microscopic hematuria. A CT abd pel with IV contrast revealed nonobstructing renal calculi on the right, advanced atherosclerotic calcification in the abdominal aorta, fecal retention, no evidence of intraperitoneal free air or abdominal ascites with a small fat-containing umbilical hernia, thick-walled bladder with questionable pericystic infiltration. She was treated with NSS 2L, morphine 4mg IV, Zofran 4mg IV, hydralazine 10mg IV x 2, calcitonin 250 units SQ, Rocephin 1gm, phenergan 12.5mg IV in the ER. Blood pressures were initially bring taking in the calf and when switched to the upper arm it was after the second dose of hydralazine. The BP was 124/80 at that point and no additional antihypertensives were needed. Per automation engineering technician, she states bP is typically well controlled around 120/80 on the clonidine patch. Sister came later with mom to bedside and all questions were answered. Admission Exam Per Admitting Provider CONSTITUTIONAL: WNWD with flexed upper extremities and a flaccidity to lower extremities, vitals as above, generally ill-appearing. Mild distress, diaphoretic. EYES: PERRL, normal conjunctivae, no scleral icterus ENT: external ear and nose normal, pt wouldn't open mouth for exam, lips are dry, suspect dry mucous membranes. NECK: trachea midline RESPIRATORY: clear to auscultation bilaterally, no crackles, rales or wheezes, normal respiratory effort (difficult exam as patient unable to follow instructions and had to hold her forward while auscultating) CARDIOVASCULAR: tachy rate and regular rhythm, S1 and 2 heard without murmurs, gallops or rubs, no JVD, no peripheral edema CHEST: inspection of chest was normal GASTROINTESTINAL: soft, nontender, ND, she is tensing her abdomen against my palpation to a certain extent but there is no clear guarding. MUSCULOSKELETAL: generalized weakness, cannot assess as patient unable to follow commands. Flacid lower extremities with rigidity to passive motion. head is normocephalic and atraumatic, SKIN: warm and diaphoretic, no rashes NEUROLOGIC: No facial palsy, able to moan but otherwise nonverbal. No tremor, cannot determine sensory deficit. PSYCHIATRIC: alert with open eyes but cannot track examiner or family member with her eyes and cannot follow commands, altered compared to baseline. Principal Diagnosis NSTEMI Hypertensive emergency Discharge Exam GENERAL: Nonverbal. NAD, on RA. HEENT: No pallor, no icterus. Pupils equal, round and reactive to light. Oral mucosa moist. NECK: No JVD, no neck masses. HEART: S1 and S2 heard. Regular rate and rhythm. No murmur, no gallop. RESPIRATORY SYSTEM: Normal AP diameter. No accessory muscle use. No wheezing, no crackles. ABDOMEN: Soft, bowel sounds present, nontender, no distention. CENTRAL NERVOUS SYSTEM: No facial droop. non verbal, doesn't follow commands at baseline EXTREMITIES: No edema, contractures + Discharge Data Allergies Allergy/AdvReac Type Severity Reaction Status Date / Time Penicillins Allergy Severe Rash Verified 08/04/21 10:38 ampicillin Allergy Verified 08/04/21 10:38 Consultations 08/04/21 10:38 ED Decision to Admit Stat 08/04/21 13:42 Consult Cardiology Routine 08/06/21 12:13 Consult Gastroenterology Routine 08/07/21 08:04 Consult Pulmonology Routine Ordered Studies 08/04/21 08:27 CT abd pelvis IV con only Stat CT head/brain wo con Stat 08/04/21 12:29 CT angio chest PE protocol Stat 08/06/21 11:07 CT abd pelvis IV con only Stat 08/06/21 11:32 CT head/brain wo con Stat 08/09/21 13:45 FL video swallow Routine Hospital Course (1) Non-ST elevation (NSTEMI) myocardial infarction: (2) Hypertensive emergency: (3) Hypercalcemia: (4) SIRS (systemic inflammatory response syndrome): (5) Microscopic hematuria: (6) Acute metabolic encephalopathy: (7) Acute kidney injury: (8) Osteoporosis: (9) H/O: stroke: (10) Congenital rubella syndrome: 50 year old non verbal female who presented to the ED on 08/04 due to fever. She was found to have SIRS, JANEL with severe hypercalcemia, NSTEMI and hypertensive emergency. She was started on aggressive ivf, calcitonin and zolendronic acid with resolution of her hypercalcemia. She was started on empiric rocephin for SIRS but no infectious source identified. She was managed medically for NSTEMI per cardiology with DAPT, heparin drip, nitropaste- however on day 2 of heparin drip, her Hb was found to be 7.6 from 13 on admission, repeat was also in 7.3. Also her BP was in 70s and was lethargic. Given fluid bolus with improvement, BP meds held. Due to concern for bleed, DAPT and heparin drip discontinued, IV PPI drip started and got stat CT A/P which did not show retroperitoneal hematoma or bleeding. 1 U PRBC was initiated given her NSTEMI and Hb drop, however 1 hour into transfusion, she had respiratory distress requiring oxygen 15 L/min via non rebreather. Stat chest xray showed pulm opacities. With concern for pulm edema, vs TACO vs TRALI, transfusion was immediately stopped and sent for transfusion reaction protocol. She was given lasix x2 and nebs as well as later received solumedrol x1. She was seen by pulmonology and continued on iv lasix daily with gradual improvement of her respiratory status and now on room air. Her rocephin was changed to ceftin/clinda per pulm given rising procal which have now trended down. Her subsequent Hb has been stable in 9s without need for any transfusion and without any bleed- hence that Hb of 7 is likely artifactual and lab error. fecal occult negative. GI evaluated the patient and did not recommend any endoscopic work up given no bleeding. She was continued on PPI. Her DAPT was resumed without issues. Her blood pressure has been labile and cardiology adjusting her medications- her catapres was uptitrated to 0.2 but now back to 0.1. Her norvasc (new this admission) was uptitrated to 7.5 per cardiology. Losartan added 08/12. Acute hypoxic respiratory failure due to pulmonary edema ? TACO vs TRALI vs excess IVF resuscitation vs flash pulm edema due to uncontrolled HTN. CXR re viewed. All ivf discontinued. S/p IV lasix, BIPAP and steroid x1. - Resolved. Now on room air and comfortable. NSTEMI- Abnormal trop and EKG noted, echo with no WMA. Trop trending down. Card evaluated, medical management- s/p heparin drip which was stopped on day 2 due to Hb drop but no bleeding noted and now Hb back to baseline; likely artifactual. - Continue DAPT, betablocker, statin, nitropaste. Cardio following Hypertensive emergency- BP remains labile- Continue clonidine patch, nitro paste, lopressor. Norvasc was added 08/11, losartan added 08/12. Cardio managing her BP meds- Monitor Hypercalcemia- PTH normal, Vit D2 normal, Vit D3 low, TSH normal, SPEP and UPEP done- inconclusive and does not point to MM- recommend repeat as OP - Ca normalized with ivf and calcitonin and zolendronic acid 08/04- discontinued ivf with resp distress Acute kidney injury: likely from hypercalcemia. Cr continues to improve 1.3->1.25->1.1->1.07->0.79; baseline Cr of 0.7. Avoid nephrotoxics, recheck intermittently SIRS- On empiric rocephin since admission, blood clx negative so far, UA unremarkable. ABx changed to ceftin/clinda per pulm given concern for aspiration and worsening procal- however swallowing study showed no aspiration- recommendations provided by WORKPLACE TRAINER AND ASSESSOR. Procal trending down nicely. Microscopic hematuria: In setting of critical blood pressure elevation. No evidence of this on outpatient records. Consider repeating again as outpatient to ensure this has resolved. Noted non-obstructing renal stone on CT. Acute metabolic encephalopathy: secondary to hypercalcemia. 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 On trileptal, celexa, baclofen - She was taking denosumab as outpatient and was due for her 6 month injection on 06/04/21. This was held by Rheumatology to give her a drug holiday. S/p zolendronic acid in ED for hypercalcemia. H/O: stroke: chronic, stable. Continues on Plavix per home regimen. Nonverbal at baseline DVT ppx- sc heparin GI ppx- PPI Patient being discharged to [facility] with the following instruction at the point of discharge: Follow-up with the primary care physician within a week time. Due to NSTEMI and hypertensive emergency, your cardiac medications have been optimized. Cardiology evaluated you while inpatient. Recommend f/u w/ cardio in 2-3 months as OP. Complete your antibiotics Ceftin and clindamycin to complete the course. Your SPEP and UPEP test were inconclusive for multiple myeloma, recommend repeating test as an outpatient. Get in touch with your primary care physician as an outpatient for further discussion and management. You will need your urine analysis repeated in 2 to 3 months as an outpatient to ensure that your hematuria has resolved. Get blood work CBC and BMP, Mg and Phos level done in a week time and have the results forwarded to your primary care physician. You will be started on electrolyte supplement magnesium and phosphorus for few weeks, get in touch with your primary care physician as an outpatient for further discussion/management on this. Take your medications as prescribed. Total Time Total Time Spent Total Time Spent (In Minutes): 45 Discharge Plan Discharge Items Patient Disposition: Personal Senior Living Reason For Visit: HYPERTENSIVE EMERGENCY,SEPSIS Discharge Diagnosis: NSTEMI Hypertensive emergency Activity: Resume your previous activity Non-emergency contact: Primary Care Provider Call non-emergency contact if: you have any medication questions, your symptoms worsen and your temperature is above 101 Follow-up/Referrals: Corona Jaime MD [Primary Care Provider] - (Date & Time 08/16/2021 10:40 AM Provider Sheryl Cruz PA-C Department [facility] Please note that the previously scheduled appt on 08/15/21 has been cancelled due to time constraints for hospital discharge follow up purposes. ) Diet: Low Sodium (2gm) Diet Texture: Mechanical soft (ground) Diet Comment: minced and moist diet Addtl Attending Provider Instructions: Follow-up with the primary care physician within a week time. Due to NSTEMI and hypertensive emergency, your cardiac medications have been optimized. Cardiology evaluated you while inpatient. Recommend f/u w/ cardio in 2-3 months as OP. Complete your antibiotics Ceftin and clindamycin to complete the course. Your SPEP and UPEP test were inconclusive for multiple myeloma, recommend repeating test as an outpatient. Get in touch with your primary care physician as an outpatient for further discussion and management. You will need your urine analysis repeated in 2 to 3 months as an outpatient to ensure that your hematuria has resolved. Get blood work CBC and BMP, Mg and Phos level done in a week time and have the results forwarded to your primary care physician. You will be started on electrolyte supplement magnesium and phosphorus for few weeks, get in touch with your primary care physician as an outpatient for further discussion/management on this. Take your medications as prescribed. Pending Studies at Discharge: No Stand-Alone Forms: [employer], Smoking Cessation Skilled Items Patient informed of condition?: No (Her cognition status doesn't allow. ) DNR: Yes Discharge Level of Care: Skilled Communicable Disease: No Discharge Prognosis: Stable Lines: None Urinary Catheter: No Medications and DC Order Prescriptions: New cefuroxime axetil 500 mg Tablet 500 mg PO BID 2 Days Qty: 4 RF: 0 clindamycin HCl 150 mg Capsule 300 mg PO TID 2 Days Qty: 12 RF: 0 amlodipine [Norvasc] 5 mg Tablet 7.5 mg PO QAM Qty: 45 RF: 0 losartan 50 mg Tablet 50 mg PO QAM Qty: 30 RF: 0 metoprolol tartrate 25 mg Tablet 12.5 mg PO BID Qty: 30 RF: 0 aspirin 81 mg Tablet,Delayed Release (Dr/Ec) 81 mg PO QAM Qty: 30 RF: 0 furosemide 20 mg Tablet 20 mg PO QAM 14 Days Qty: 14 RF: 0 pantoprazole 40 mg Tablet,Delayed Release (Dr/Ec) 40 mg PO BID 14 Days Qty: 28 RF: 0 Probiotic 3 billion cell capsule 3,000 mmu cells PO DAILY 7 Days Qty: 7 RF: 0 magnesium glycinate 100 mg magnesium capsule 100 mg PO DAILY 14 Days Qty: 14 RF: 0 Phosphorous 250 mg tablet 1 tab PO BID 14 Days Qty: 28 RF: 0 Continued atorvastatin 20 mg Tablet 20 mg PO HS RF: 0 clonidine 0.1 mg/24 hr Patch Weekly 0.1 mg topical WK RF: 0 tizanidine 2 mg Tablet 2 mg PO TID RF: 0 citalopram 40 mg Tablet 40 mg PO QAM RF: 0 tizanidine 4 mg Tablet 4 mg PO TID RF: 0 sennosides-docusate sodium [Senexon-S] 8.6-50 mg Tablet 2 tab-cap PO HS RF: 0 clopidogrel 75 mg Tablet 75 mg PO QAM RF: 0 baclofen 10 mg Tablet 10 mg PO TID RF: 0 dorzolamide-timolol 22.3-6.8 mg/mL drops 1 drp OPL BID RF: 0 Thick-It Powder 1 ea PO DIRECTED RF: 0 polyethylene glycol 3350 17 gram/dose Powder 17 g PO QAM RF: 0 Selsun Blue 1 % Shampoo 1 applic TOPICAL 3XWK RF: 0 bisacodyl 10 mg suppository 10 mg AZ UD PRN (Reason: Constipation) RF: 0 Fleet Enema 19-7 gram/118 mL Enema 118 ml AZ UD PRN (Reason: Constipation) RF: 0 oxcarbazepine 600 mg tablet 600 mg PO BID RF: 0 mupirocin 2 % Ointment 1 applic TOPICAL BID PRN (Reason: Skin Irritation) RF: 0 Sensi-Care Body Cream 1-30 % Cream 0 applic TOPICAL UD PRN (Reason: Skin Irritation) RF: 0 latanoprost 0.005 % Drops 1 drp OPHTHALMIC (EYE) PM RF: 0 nystatin [Nyamyc] 100,000 unit/gram powder 1 applic TOPICAL TID RF: 0 Tylenol 325 MG 650 mg PO Q4H MDD 3,000MG PRN (Reason: Unknown) RF: 0 cholecalciferol (vitamin D3) 1 CAP 1 cap PO DAILY RF: 0 multivitamin 1 CAP 1 cap PO DAILY RF: 0 Discharge Orders: Discharge Order (Routine); Ordered 08/14/21 Ordered By: Kaylah Clarke Admission Data Admit Date/Time: 08/04/21 11:51 Attending Provider: Kaylah Clarke Admit Provider: Kamla Dorado Primary Care Provider: Corona Jaime Other Providers: Kamla Dorado ; Chris Espinosa Lorella G. ; Amira Nichols ; Kris Sands ; Lisbet Torres ; Bora Tapia ; Agus Chavira ; Carlos Engel ; Houston Landa ; Preethi Dykes ; Rosa Elena Kenney ; Conchis Peguero ; Sara Pickering ; Jose Johnson ; Angel Pritchett ; [facility]
== END 2021-08-14 17:00 | disposition home health service (06) | DRG 280 ==
LOC: ED 08:11 → 2S 11:51 → SUATTDRO 11:51 → 2S 12:21

== ENCOUNTER 2024-09-15 16:47 | Inpatient (IN) ==
--- NOTE | 2024-09-15 17:01 | Emergency Department Note ---
Impression & Plan Hypertension, Elevated troponin, Pedal edema ED Provider Note NAME: GASPER MCKEON AGE: 53 SEX: F : 1970 ARRIVES VIA: Ambulance INFORMANT: [ems] ED PROVIDER(S): [Stanton Santiago MD] CHIEF COMPLAINT: Hypertension HISTORY OF PRESENT ILLNESS: The patient is a 53-year-old female who is nonverbal residing in a care home. She was sent by ambulance today for high blood pressure and pedal edema. No further history obtainable. There is no staff member at bedside. PMHx/PSHx/Social Hx: See Below PHYSICAL EXAM: GENERAL: Patient is in no acute distress. HEENT: No acute trauma, normocephalic atraumatic, mucous membranes moist, no nasal congestion. NECK: No stridor, no adenopathy, no meningismus, trachea is midline. LUNGS: Clear to auscultation bilaterally, no wheeze, no rhonchi, breath sounds equal. HEART: Slightly tachycardic, subtle systolic murmur, regular rhythm. ABDOMEN: Soft, nontender, no peritonitis. EXTREMITIES: No cyanosis. There is mild bilateral pedal edema. NEUROLOGIC: Nonverbal, awake. SKIN: No jaundice, no diaphoresis. DIFFERENTIAL DIAGNOSIS: Uncontrolled hypertension, hypertensive urgency/emergency, electrolyte imbalance, renal failure, DVT, UTI, medication noncompliance, among others. EMERGENCY DEPARTMENT PROCEDURES: MEDICAL DECISION MAKING: There is no leukocytosis or anemia. There is a normal platelet count. No bandemia. No renal failure or significant electrolyte abnormality. There were some subtle liver enzyme elevations although, the bilirubin was normal. The patient appeared to be in a euthyroid state. ECG showed a sinus tachycardia with some subtle ST depressions, no ST elevation. Cardiac enzyme testing x 1 was slightly elevated, this troponin elevation could indicate cardiac injury or potentially mismatch from her hypertension. Chest film did not show pneumonia or CHF. Brain CT showed an old injury, no acute bleed or mass effect. On exam, the patient was quite hypertensive. Because of the pedal edema described, an ultrasound of both legs was performed, there was no DVT. The patient received IV labetalol, this did bring down the blood pressure some, a second dose of IV labetalol was ordered. Given the very high blood pressure, given the elevated troponin, I do think hospitalization, further blood pressure control and troponin trending would be warranted. I spoke with the patient's caregivers, I spoke with case management, the on-call hospitalist was consulted. Prior/Outside records/notes reviewed: Today's EMS notes describing her presentation and transport to this hospital. ECG per my interpretation: Indication was hypertension. The ECG shows a sinus tachycardia with a rate of 104. There is some subtle ST depression seen in the inferior and lateral leads. There is no ST elevation, no PVCs. There is baseline artifact. QTc is 473. Compared to an ECG from 13 March 2023, the ST depressions appear new. Continuous Cardiac Monitoring per my interpretation: An order was placed for continuous cardiac monitoring. The monitor shows a rate of 111 with sinus tachycardia. Imaging/x-ray results per my interpretation: Chest x-ray does not show mediastinal widening, pneumonia or CHF. Chronic Medical/Social conditions affecting care: Nonverbal residing in a care home. Care/Management discussed with: Case management, the on-call hospitalist. Level of care consideration(s): After review of the information above and other included data: --I believe the patient requires escalation of care to admission DISPOSITION: Admission Past Med/Surg History Problem List (Updated 09/15/24 @ 19:28 by Stanton Santiago MD) Pedal edema (Acute) Elevated troponin (Acute) Hypertension (Acute) COVID-19 (Acute) Severe sepsis SIRS (systemic inflammatory response syndrome) (Acute) Aspiration into respiratory tract (Acute) Rhinovirus infection (Acute) UTI (urinary tract infection) (Acute) Heartburn Encounter for annual routine gynecological examination Transfusion associated circulatory overload Diastolic heart failure Abnormal CXR Hypoxemia Drop in hemoglobin Hypokalemia Hypomagnesemia Anemia due to acute blood loss Non-ST elevation (NSTEMI) myocardial infarction Hypertensive heart disease Hypertensive urgency (Acute) Abnormal EKG (Acute) Hypercalcemia (Acute) Elevated troponin (Acute) DVT prophylaxis Elevated troponin Congenital rubella syndrome (Acute) Acute kidney injury Nausea Acute metabolic encephalopathy Hypercalcemia SIRS (systemic inflammatory response syndrome) Microscopic hematuria Hypertensive emergency Vaginal bleeding Heme positive stool Encounter for pre-operative examination Normal breast exam Osteoporosis (Chronic) HTN (hypertension) (Chronic) Mental retardation (Chronic) Hip fracture, left (Chronic) "s/p repair" S/P repair of PDA (Chronic) Embolic stroke involving left middle cerebral artery Medical History H/O: stroke Swallowing impairment thickene liquids Esophageal reflux Retinal tear Hemiparesis and speech and language deficit as late effect of cerebrovascular accident (CVA) Glaucoma left Profound vision impairment Congenital cataract Family History Other Breast cancer Ovarian cancer Social History Smoking Status: Unknown if ever smoked Hx Alcohol Use: No Hx Substance Use: No Preferred Language: [place] Leonean Communication Ability: Unable Grinding Wheel Operator Required: No Beliefs That Will Affect Care: None marital status: Single Current Living Situation: Personal Care Facility Current Living Situation Comment: [facility] [place] Feels Safe at Home: Yes Assistive Devices: Hospital Bed, Walker and Wheelchair Allergies Allergies Allergy/AdvReac Type Severity Reaction Status Date / Time Penicillins Allergy Severe Rash Verified 09/15/24 19:08 ampicillin Allergy Intermediate Rash Verified 09/15/24 19:08 Home Meds Home Medications Medication Instructions Recorded Confirmed atorvastatin 20 mg tablet 20 mg PO HS 11/15/18 10/12/23 baclofen 10 mg tablet 10 mg PO TID 11/15/18 10/12/23 citalopram 40 mg tablet 40 mg PO QAM 11/15/18 10/12/23 clonidine 0.1 mg/24 hr weekly 0.1 mg topical WK 11/15/18 10/12/23 transdermal patch dorzolamide 22.3 mg-timolol 6.8 1 drp OPL BID 11/15/18 10/12/23 mg/mL eye drops polyethylene glycol 3350 17 17 g PO QAM 11/15/18 10/12/23 gram/dose oral powder tizanidine 4 mg tablet 4 mg PO TID 11/15/18 10/12/23 oxcarbazepine 600 mg tablet 600 mg PO BID 01/07/19 10/12/23 latanoprost 0.005 % eye drops 1 drp OPB HS 06/13/20 10/12/23 cholecalciferol (vitamin D3) 50 50 mcg PO QAM 10/09/21 10/12/23 mcg (2,000 unit) tablet (Vitamin D3) furosemide 20 mg tablet 20 mg PO 5XWK 10/09/21 10/12/23 mubnbxss-odh-ksyrq acid 0.4 1 tab PO QAM 10/09/21 10/12/23 mg-lycopene 300 mcg-lutein 250 mcg tablet ([facility]) bisacodyl 10 mg rectal suppository 10 mg IN UD PRN Constipation 11/14/21 10/12/23 nystatin 100,000 unit/gram topical 1 applic topical TID PRN Skin 11/14/21 10/12/23 powder ([facility]) Irritation acetaminophen 325 mg tablet 325 mg PO QID PRN Fever Or Pain 11/25/22 10/12/23 acetaminophen 325 mg tablet 650 mg PO Q4H PRN Fever Or Pain 11/25/22 10/12/23 acetaminophen 500 mg tablet 500 mg PO Q4H PRN Pain 11/25/22 10/12/23 docusate sodium 100 mg capsule 100 mg PO BID 11/25/22 10/12/23 metoprolol tartrate 25 mg tablet 12.5 mg PO BID 08/03/23 10/12/23 mupirocin 2 % topical ointment 1 applic topical BID PRN Skin 08/03/23 10/12/23 Irritation tizanidine 2 mg tablet 2 mg PO TID 08/03/23 10/12/23 Lactobacil rhamnosus GG 10 billion cap PO 10/12/23 10/12/23 cell-inulin 200 mg sprinkle capsule ([facility]) cranberry extract 200 mg capsule mg PO 10/12/23 10/12/23 Previous Rx's Medication Instructions Recorded amlodipine 5 mg tablet (Norvasc) 7.5 mg (1.5 x 5 mg) PO QAM #45 tabs 08/14/21 aspirin 81 mg tablet,delayed 81 mg PO QAM #30 tabs 08/14/21 release losartan 50 mg tablet 50 mg PO QAM #30 tabs 08/14/21 nirmatrelvir 300 mg (150 mg See Rx Instructions PO .COMPLEX 02/11/24 x2)-ritonavir 100 mg tablet,dose #30 ea pack (Paxlovid) amlodipine 5 mg tablet 5 mg PO DAILY #8 tabs 02/12/24 Results & Data (ED) Vital Signs Vital Signs - 24 hr 09/15/24 16:55 09/15/24 17:18 09/15/24 18:31 Pulse Rate 106 H 112 H 111 H Pulse Rate [Apical] Respiratory Rate 20 Respiratory Effort / Characteristics Respiratory Pattern Blood Pressure 172/134 H 172/134 H Blood Pressure [Left Radial Artery] Blood Pressure Mean 146 Blood Pressure Mean [Left Radial Artery] Blood Pressure Position Lying Blood Pressure Position [Left Radial Artery] Pulse Oximetry 97 Oxygen Delivery Method Room Air Sepsis Recent Fever Within 48 Hours No Sepsis New/Unexplained Change in Mental Status No Sepsis Action Taken by Nursing No Action Required 09/15/24 19:00 09/15/24 19:00 Pulse Rate Pulse Rate [Apical] 98 H 94 H Respiratory Rate 20 20 Respiratory Effort / Characteristics Non-Labored Spontaneous Respiratory Pattern Regular Blood Pressure Blood Pressure [Left Radial Artery] 163/123 H 163/124 H Blood Pressure Mean Blood Pressure Mean [Left Radial Artery] 136 137 Blood Pressure Position Blood Pressure Position [Left Radial Artery] Lying Pulse Oximetry 94 95 Oxygen Delivery Method Room Air Room Air Sepsis Recent Fever Within 48 Hours Sepsis New/Unexplained Change in Mental Status Sepsis Action Taken by Residential Medications Current Medication List: was personally reviewed by me Laboratory Data Attestation: I reviewed the patient's lab results. 09/15/24 17:12 09/15/24 17:12 Lab Results 09/15/24 Range/Units 17:12 WBC 9.65 (4.8-10.8) K/ul RBC 5.59 H (4.20-5.40) M/uL Hgb 17.0 H (12.0-16.0) g/dl Hct 48.7 H (37.0-47.0) % MCV 87.1 (80.0-100.0) fL MCH 30.4 (25.0-34.0) pg MCHC 34.9 (32.0-36.0) g/dL RDW Std Deviation 38.8 (36.4-46.3) fL RDW Coeff of Julieth 12.4 (11.5-14.5) % Plt Count 296 (130-400) K/uL MPV 10.7 (9.4-12.4) fL Immature Gran % (Auto) 0.3 % Neut % (Auto) 70.2 % Lymph % (Auto) 20.6 % Blaine % (Auto) 7.5 % Eos % (Auto) 1.2 % Baso % (Auto) 0.2 % Neut # (Auto) 6.77 H (1.40-6.50) K/uL Lymph # (Auto) 1.99 (1.20-3.40) K/uL Blaine # (Auto) 0.72 H (0.11-0.59) K/uL Eos # (Auto) 0.12 (0.00-0.50) K/uL Baso # (Auto) 0.02 (0.00-0.20) K/uL Immature Gran # (Auto) 0.03 (0.01-0.20) K/uL Sodium 139 (136-145) mmol/L Potassium 4.6 (3.5-5.1) mmol/L Chloride 102 (98-107) mmol/L Carbon Dioxide 29 (21-32) mmol/L Anion Gap 8 (3-11) BUN 18 (6-23) mg/dl Creatinine 0.73 (0.6-1.2) mg/dl Est Cr Clr Drug Dosing 65.5 ml/min eGFR 97.67 BUN/Creatinine Ratio 24.7 H (10-20) Glucose 195 H (70-99(Fasting)) mg/dl Calcium 10.4 H (8.6-10.3) mg/dl Magnesium 1.9 (1.7-2.4) mg/dl Total Bilirubin 0.6 (0.2-1.0) mg/dl AST 95 H (13-39) U/L ALT 103 H (7-52) U/L Alkaline Phosphatase 103 (34-104) U/L Troponin I High Sens 104.7 H* (0-14) pg/ml Total Protein 8.3 (6.0-8.3) gm/dl Albumin 4.9 (3.4-5.0) gm/dl Globulin 3.4 (2.5-4.0) gm/dl Albumin/Globulin Ratio 1.4 (0.9-2) TSH 1.557 (0.300-4.500) uIu/ml Administered Medications Discontinued Medications Labetalol HCl (Labetalol Hcl Iv 5 Mg/Ml 20ml) 10 mg IV NOW STA Stop: 09/15/24 17:48 Last Admin: 09/15/24 18:31 Dose: 10 mg Documented By: QGV Imaging Data Radiologist's Impression: Venous Doppler Study 09/15/24 16:55 Clinical History: Swelling Technique: Venous ultrasound evaluation was performed utilizing grayscale, color Doppler and wave form evaluation. Images were also obtained with and without compression Findings: This examination was limited by lack of patient cooperation The bilateral common femoral, superficial femoral, popliteal, and visualized calf veins demonstrate normal anechoic lumens with full compressibility. Normal flow is seen on color Doppler images. Expected waveforms were produced with augmentation maneuvers There is soft tissue edema in the right calf Impression: No definite evidence of deep venous thrombosis Electronically signed by Telly Kan 09-15-2024 6:[address] 09/15/24 17:47 EXAMINATION: Head CT without CLINICAL HISTORY: Hypertension headache PRIORS: 08/11/2013 TECHNIQUE: Contiguous axial images were obtained through the head without the use of intravenous contrast. Sagittal and coronal reformations are supplied. FINDINGS: Motion artifact significantly degrades image quality. Moderate encephalomalacia of the left MCA distribution with ex vacuo dilatation of the left lateral ventricle, unchanged. Person-white differentiation is preserved. No edema or midline shift. No intra-axial or extra-axial hemorrhage. Ventricles are normal in size and configuration. Brainstem and cerebellum have a normal appearance. Calvarium unremarkable. Paranasal sinuses and mastoid air cells are well-pneumatized. Globes are intact. No retrobulbar abnormality. IMPRESSION: 1. No CT evidence of an acute intracranial abnormality. 2. Left MCA remote infarction with encephalomalacia, unchanged. Electronically signed by Yulisa Cordero 09-15-2024 7:02 PM Discharge Plan Visit Data Chief Complaint: Hypertension Stated Complaint: HYPERTENSION ED Provider: Stanton Santiago Discharge Problem: Hypertension, Elevated troponin, Pedal edema Patient Disposition: Admitted As Inpatient Condition: Fair Forms Stand Alone Forms: My [facility] Prescriptions Prescriptions: No Action cranberry extract 200 mg capsule PO [facility] [employer] 10 billion cell -200 mg capsule, sprinkle PO atorvastatin 20 mg Tablet 20 mg PO HS clonidine 0.1 mg/24 hr Patch Weekly 0.1 mg topical WK Rx Instructions: REMOVE PREVIOUS PATCH AND APPLY NEW ONE EVERY THURSDAY citalopram 40 mg Tablet 40 mg PO QAM tizanidine 4 mg Tablet 4 mg PO TID Rx Instructions: TAKE WITH 2MG= 6MG THREE TIMES DAILY baclofen 10 mg Tablet 10 mg PO TID dorzolamide-timolol 22.3-6.8 mg/mL drops 1 drp OPL BID polyethylene glycol 3350 17 gram/dose Powder 17 g PO QAM Rx Instructions: 0800..MAY HOLD FOR LOOSE STOOLS oxcarbazepine 600 mg tablet 600 mg PO BID Rx Instructions: 0800 & 1999 latanoprost 0.005 % Drops 1 drp OPB HS furosemide 20 mg tablet 20 mg PO 5XWK Rx Instructions: TAKE THIS MED THURSDAY THROUGH THURSDAY cholecalciferol (vitamin D3) [Vitamin D3] 50 mcg (2,000 unit) Tablet 50 mcg PO QAM [employer] 0.4 mg-300 mcg- 250 mcg Tablet 1 tab PO QAM docusate sodium 100 mg Capsule 100 mg PO BID acetaminophen 500 mg Tablet 500 mg PO Q4H MDD 3G PRN (Reason: Pain) acetaminophen 325 mg Tablet 325 mg PO QID MDD 3G PRN (Reason: Fever Or Pain) acetaminophen 325 mg Tablet 650 mg PO Q4H MDD 3G PRN (Reason: Fever Or Pain) amlodipine [Norvasc] 5 mg Tablet 7.5 mg PO QAM Qty: 45 0RF Rx Instructions: 1 & 1/2 TABLET DOSE losartan 50 mg Tablet 50 mg PO QAM Qty: 30 0RF aspirin 81 mg Tablet,Delayed Release (Dr/Ec) 81 mg PO QAM Qty: 30 0RF bisacodyl 10 mg Suppository 10 mg IN UD PRN (Reason: Constipation) Rx Instructions: if no BM in 3 days, insert 1 suppository rectally on 4th day nystatin [Nyamyc] 100,000 unit/gram Powder 1 applic TOPICAL TID PRN (Reason: Skin Irritation) Rx Instructions: UNDER BREAST tizanidine 2 mg tablet 2 mg PO TID Rx Instructions: TAKE 2MG THREE TIMES DAILY ALONG WITH 4MG THREE TIMED DAILY = 6MG THREE TIMES DAILY. metoprolol tartrate 25 mg tablet 12.5 mg PO BID Rx Instructions: 1/2 TABLET TWICE DAILY. mupirocin 2 % Ointment 1 applic TOPICAL BID PRN (Reason: Skin Irritation) Paxlovid 300 mg (150 mg x 2)-100 mg tablets,dose pack See Rx Instructions .ROUTE .COMPLEX Qty: 30 0RF Rx Instructions: take TWO 150 mg tablets of nirmatrelvir with ONE 100 mg tablet of ritonavir twice daily for 5 days amlodipine 5 mg tablet 5 mg PO DAILY Qty: 8 0RF Referrals Referrals: Corona Jaime MD [Primary Care Provider] -
[2024-09-15 17:29] LABS: Hematocrit (blood only) 48.7 % (37.0-47.0); Hemoglobin 17.0 g/dl (12.0-16.0); Immature Granulocytes # (auto) 0.03 K/uL (0.01-0.20); Immature Granulocytes % (auto) 0.3 %; Mean Corpuscular Hemoglobin 30.4 pg (25.0-34.0); Mean Corpuscular Volume 87.1 fL (80.0-100.0); Platelet Count 296 K/uL (130-400); RDW Standard Deviation 38.8 fL (36.4-46.3); Red Blood Count 5.59 M/uL (4.20-5.40); White Blood Count 9.65 K/ul (4.8-10.8)
[2024-09-15 17:47] LABS: Alanine Aminotransferase 103.0 U/L (7-52); Albumin Globulin Ratio 1.4 (0.9-2); Alkaline Phosphatase 103.0 U/L (34-104); Anion Gap 8.0 (3-11); Bilirubin,Total 0.6 mg/dl (0.2-1.0); Blood Urea Nitrogen 18.0 mg/dl (6-23); Calcium 10.4 mg/dl (8.6-10.3); Carbon Dioxide 29.0 mmol/L (21-32); Chloride 102.0 mmol/L (98-107); Creatinine Clr Calc Pharmacy 65.5 ml/min; Globulin 3.4 gm/dl (2.5-4.0); Glucose 195.0 mg/dl (70-99(Fasting)); Magnesium 1.9 mg/dl (1.7-2.4); Potassium 4.6 mmol/L (3.5-5.1); Sodium 139.0 mmol/L (136-145); Total Protein 8.3 gm/dl (6.0-8.3)
[2024-09-15 18:02] LABS: Thyroid Stimulating Hormone 1.557 uIu/ml (0.300-4.500)
[2024-09-15] MEDS: LABETALOL HCL IV 5 MG/ML 20ML IV STA ×2 (18:31→19:27)
--- NOTE | 2024-09-15 18:40 | Ultrasound Report ---
Clinical History: Swelling Technique: Venous ultrasound evaluation was performed utilizing grayscale, color Doppler and wave form evaluation. Images were also obtained with and without compression Findings: This examination was limited by lack of patient cooperation The bilateral common femoral, superficial femoral, popliteal, and visualized calf veins demonstrate normal anechoic lumens with full compressibility. Normal flow is seen on color Doppler images. Expected waveforms were produced with augmentation maneuvers There is soft tissue edema in the right calf Impression: No definite evidence of deep venous thrombosis Electronically signed by Telly Kan 09-15-2024 6:39 PM
--- NOTE | 2024-09-15 19:03 | CT Scan Report ---
EXAMINATION: Head CT without CLINICAL HISTORY: Hypertension headache PRIORS: 08/11/2013 TECHNIQUE: Contiguous axial images were obtained through the head without the use of intravenous contrast. Sagittal and coronal reformations are supplied. FINDINGS: Motion artifact significantly degrades image quality. Moderate encephalomalacia of the left MCA distribution with ex vacuo dilatation of the left lateral ventricle, unchanged. Person-white differentiation is preserved. No edema or midline shift. No intra-axial or extra-axial hemorrhage. Ventricles are normal in size and configuration. Brainstem and cerebellum have a normal appearance. Calvarium unremarkable. Paranasal sinuses and mastoid air cells are well-pneumatized. Globes are intact. No retrobulbar abnormality. IMPRESSION: 1. No CT evidence of an acute intracranial abnormality. 2. Left MCA remote infarction with encephalomalacia, unchanged. Electronically signed by Yulisa Cordero 09-15-2024 7:02 PM
--- NOTE | 2024-09-15 19:55 | XRay Report ---
Clinical History: Weakness Technique: A frontal view of the chest was obtained Comparison is made to the prior examination dated 02/11/2024 Findings: There are no confluent pulmonary infiltrates. The heart size is at the upper limit of normal. No pleural effusion or pneumothorax is seen. There is suspected mild pulmonary vascular congestion. No fracture is noted. No foreign body is seen Impression: Pulmonary vascular congestion Electronically signed by Telly Kan 09-15-2024 7:54 PM
--- NOTE | 2024-09-15 21:43 | History & Physical Report ---
Date of Service September 15, 2024 Assessment & Plan (1) Hypertensive urgency: Plan: 3-year-old female coming from [facility] with past medical history significant for prediabetes, dyslipidemia, hypertension, GERD, osteoporosis, retinal tear, history of CVA, history of oropharyngeal dysphagia, congenital rubella syndrome(legal blindness, hearing impairment, intellectual impairment, PDA surgery) history of hypertensive emergency and non-ST elevated [place] was brought because of lower extremity edema and hypertensive urgency. The caregivers noticed that her legs were swollen today. When they checked her blood pressure , systolic blood pressure was more than 200s. And she was brought to the hospital. Patient is nonverbal. Before she had a stroke she used to ambulate somewhat. Since she had stroke she is wheelchair-bound.Since stroke she could not move her right extremities. Eats soft bite food. Needs assistance with feeding. Patient's sister and caregiver are in the room. No recent fevers. No recent cough. No nausea or vomiting. Stools are somewhat loose today but that not unusual for her. Usually blood pressure systolically in 130s. Patient blood pressure initial presentation today 170/134 received 2 dose of IV labetalol. Hypertensive urgency Continue home medication of amlodipine, metoprolol, clonidine patch and losartan Will place on Nitropaste IV labetalol as needed Monitor on telemetry Will follow echocardiogram Consult cardiology in a.m. for further recommendation Elevated troponin Initial troponin 104 and repeat is 96 Abnormal EKG Could be demand ischemia Will follow serial enzymes and echo Monitor on telemetry Patient does not seem to be in distress currently cardiology consult Lower extremity edema Will do a dose of IV Lasix 20 mg Hold home Lasix for now Will follow echo Doppler is negative for DVT Further diuretics as per cardiology History of CVA On aspirin and statin Wheelchair-bound Hyperlipidemia Statin Congenital rubella syndrome Legal blindness, hearing impairment, intellectual impairment Nonverbal Nonambulatory On soft bite sized diet and needs assistance with feeding Mild hypercalcemia Follow repeat labs Hyperglycemia History of prediabetes Will follow HbA1c levels Mild transaminitis Will follow repeat levels DVT prophylaxis Lovenox Disposition Telemetry Full code as per discussion with the caregiver History of Present Illness Chief Complaint: Hypertensive urgency Primary Care Provider: Corona Jaime MD 53-year-old female coming from [facility] with past medical history significant for prediabetes, dyslipidemia, hypertension, GERD, osteoporosis, retinal tear, history of CVA, history of oropharyngeal dysphagia, congenital rubella syndrome(legal blindness, hearing impairment, intellectual impairment, PDA surgery) history of hypertensive emergency and non-ST elevated WA was brought because of lower extremity edema and hypertensive urgency. The caregivers noticed that her legs were swollen today. When they checked her blood pressure , systolic blood pressure was more than 200s. And she was brought to the hospital. Patient is nonverbal. Before she had a stroke she used to ambulate somewhat. Since she had stroke she is wheelchair-bound.Since stroke she could not move her right extremities. Eats soft bite food. Needs assistance with feeding. Patient's sister and caregiver are in the room. No recent fevers. No recent cough. No nausea or vomiting. Stools are somewhat loose today but that not unusual for her. Usually blood pressure systolically in 130s. Patient blood pressure initial presentation today 170/134 received 2 dose of IV labetalol. Past med history. As mentioned above Past surgical history. Colonoscopy. EGD. Repair of patent ductus arteriosus. Social history. No smoking. No alcohol. No other drug use. Family history. Father had arthritis. WA. Hypertension. Mother had hypert ension. Diabetes. Lung disorder. Sister had cervical cancer. Sister had breast cancer. Maternal grandmother had breast cancer. Maternal grandfather had diabetes. Allergies Allergy/AdvReac Type Severity Reaction Status Date / Time Penicillins Allergy Severe Rash Verified 09/15/24 19:08 ampicillin Allergy Intermediate Rash Verified 09/15/24 19:08 Home Medications Medication Instructions Recorded Confirmed Type atorvastatin 20 mg tablet 20 mg PO HS 11/15/18 09/15/24 History baclofen 10 mg tablet 10 mg PO TID 11/15/18 09/15/24 History citalopram 40 mg tablet 40 mg PO QAM 11/15/18 09/15/24 History clonidine 0.1 mg/24 hr weekly 0.1 mg topical WK 11/15/18 09/15/24 History transdermal patch polyethylene glycol 3350 17 17 g PO BIDM 11/15/18 09/15/24 History gram/dose oral powder tizanidine 4 mg tablet 4 mg PO TID 11/15/18 09/15/24 History oxcarbazepine 600 mg tablet 600 mg PO BID 01/07/19 09/15/24 History latanoprost 0.005 % eye drops 1 drp OPB HS 06/13/20 09/15/24 History amlodipine 5 mg tablet (Norvasc) 7.5 mg (1.5 x 5 mg) PO QAM #45 tabs 08/14/21 09/15/24 Rx aspirin 81 mg tablet,delayed 81 mg PO QAM #30 tabs 08/14/21 09/15/24 Rx release losartan 50 mg tablet 50 mg PO QAM #30 tabs 08/14/21 09/15/24 Rx cholecalciferol (vitamin D3) 50 50 mcg PO QAM 10/09/21 09/15/24 History mcg (2,000 unit) tablet (Vitamin D3) furosemide 20 mg tablet 20 mg PO 5XWK 10/09/21 09/15/24 History hgwiziqi-lnh-yrkpe acid 0.4 1 tab PO QAM 10/09/21 09/15/24 History mg-lycopene 300 mcg-lutein 250 mcg tablet ([facility]) nystatin 100,000 unit/gram topical 1 applic topical TID PRN Skin 11/14/21 History powder (Nyamy) Irritation acetaminophen 325 mg tablet 650 mg PO Q4H PRN Fever Or Pain 11/25/22 09/15/24 History acetaminophen 500 mg tablet 500 mg PO Q4H PRN Pain 11/25/22 09/15/24 History docusate sodium 100 mg capsule 100 mg PO BID 11/25/22 09/15/24 History metoprolol tartrate 25 mg tablet 25 mg PO BID 08/03/23 09/15/24 History mupirocin 2 % topical ointment 1 applic topical BID PRN Skin 08/03/23 09/15/24 History Irritation tizanidine 2 mg tablet 2 mg PO TID 08/03/23 09/15/24 History Lactobacil rhamnosus GG 10 billion 1 cap PO HS 10/12/23 09/15/24 History cell-inulin 200 mg sprinkle capsule ([facility]) cranberry extract 200 mg capsule 200 mg PO HS 10/12/23 09/15/24 History aluminum-mag hydroxide-simethicone 30 ml PO PCHS PRN Indigestion 09/15/24 09/15/24 History 400 mg-400 mg-40 mg/5 mL oral susp (Mylanta Maximum Strength) dorzolamide-timolol (PF) 2 %-0.5 % 1 drp OPB BID 09/15/24 09/15/24 History eye drops in a dropperette guaifenesin 600 mg tablet, 600 mg PO Q12H PRN Congestion 09/15/24 09/15/24 History extended release 12 hr loperamide 2 mg capsule (Imodium 2 mg PO DIRECTED PRN LOOSE 09/15/24 09/15/24 History A-D) STOOLS methenamine hippurate 1 gram tablet 1 g PO BID 09/15/24 09/15/24 History Past Med/Surg History Problem List (Updated 09/15/24 @ 21:50 by Cortez Guthrie MD) Hypertensive urgency Pedal edema (Acute) Elevated troponin (Acute) Hypertension (Acute) COVID-19 (Acute) Severe sepsis SIRS (systemic inflammatory response syndrome) (Acute) Aspiration into respiratory tract (Acute) Rhinovirus infection (Acute) UTI (urinary tract infection) (Acute) Heartburn Encounter for annual routine gynecological examination Transfusion associated circulatory overload Diastolic heart failure Abnormal CXR Hypoxemia Drop in hemoglobin Hypokalemia Hypomagnesemia Anemia due to acute blood loss Non-ST elevation (NSTEMI) myocardial infarction Hypertensive heart disease Hypertensive urgency (Acute) Abnormal EKG (Acute) Hypercalcemia (Acute) Elevated troponin (Acute) DVT prophylaxis Elevated troponin Congenital rubella syndrome (Acute) Acute kidney injury Nausea Acute metabolic encephalopathy Hypercalcemia SIRS (systemic inflammatory response syndrome) Microscopic hematuria Hypertensive emergency Vaginal bleeding Heme positive stool Encounter for pre-operative examination Normal breast exam Osteoporosis (Chronic) HTN (hypertension) (Chronic) Mental retardation (Chronic) Hip fracture, left (Chronic) "s/p repair" S/P repair of PDA (Chronic) Embolic stroke involving left middle cerebral artery Medical History H/O: stroke Swallowing impairment thickene liquids Esophageal reflux Retinal tear Hemiparesis and speech and language deficit as late effect of cerebrovascular ac cident (CVA) Glaucoma left Profound vision impairment Congenital cataract Family History Other Breast cancer Ovarian cancer Social History Smoking Status: Never smoker Hx Alcohol Use: No Hx Substance Use: No Preferred Language: Khmer Communication Ability: Unable Corporate Strategy Associate Required: No Beliefs That Will Affect Care: None marital status: Single Current Living Situation: Group Home Current Living Situation Comment: [facility] Other Information That Helps Us Care for You: No Feels Safe at Home: Yes Safety Concerns: Feels Safe At This Time Assistive Devices: Glasses, Hospital Bed, Mechanical Lift and Wheelchair Review of Systems Review of Systems: All systems reviewed & are unremarkable except as noted in HPI & below Physical Exam Physical Exam: General- adult Head- atraumatic Neck- supple, no JVD Lungs- clear to auscultation no wheezing or crackles Heart- regular rate and rhythm; no murmur, no gallop. Abdomen- normal bowel sounds, soft, nontender, no distension Extremities- b/l lower extremity edema present, no erythema seen Neuro- Non verbal, not moving right extremities Results & Data Results & Data Vital Signs (Past 12 Hours) Vital Signs Pulse Pulse Resp BP BP Pulse Ox O2 Del Method 09/15/24 21:09 95 H 09/15/24 21:00 98 H 21 156/108 H 96 Room Air 09/15/24 19:00 94 H 20 163/124 H 95 Room Air 09/15/24 19:00 98 H 20 163/123 H 94 Room Air 09/15/24 18:31 111 H 172/134 H 09/15/24 17:18 112 H 09/15/24 16:55 106 H 20 172/134 H 97 Room Air Diagnostic Findings Laboratory Results WBC 9.65 K/ul (4.8-10.8) 09/15/24 17:12 RBC 5.59 M/uL (4.20-5.40) H 09/15/24 17:12 Hgb 17.0 g/dl (12.0-16.0) H 09/15/24 17:12 Hct 48.7 % (37.0-47.0) H 09/15/24 17:12 MCV 87.1 fL (80.0-100.0) 09/15/24 17:12 MCH 30.4 pg (25.0-34.0) 09/15/24 17:12 MCHC 34.9 g/dL (32.0-36.0) 09/15/24 17:12 RDW Std Deviation 38.8 fL (36.4-46.3) 09/15/24 17:12 RDW Coeff of Julieth 12.4 % (11.5-14.5) 09/15/24 17:12 Plt Count 296 K/uL (130-400) 09/15/24 17:12 MPV 10.7 fL (9.4-12.4) 09/15/24 17:12 Immature Gran % (Auto) 0.3 % 09/15/24 17:12 Neut % (Auto) 70.2 % 09/15/24 17:12 Lymph % (Auto) 20.6 % 09/15/24 17:12 [place] % (Auto) 7.5 % 09/15/24 17:12 Eos % (Auto) 1.2 % 09/15/24 17:12 Baso % (Auto) 0.2 % 09/15/24 17:12 Neut # (Auto) 6.77 K/uL (1.40-6.50) H 09/15/24 17:12 Lymph # (Auto) 1.99 K/uL (1.20-3.40) 09/15/24 17:12 [place] # (Auto) 0.72 K/uL (0.11-0.59) H 09/15/24 17:12 Eos # (Auto) 0.12 K/uL (0.00-0.50) 09/15/24 17:12 Baso # (Auto) 0.02 K/uL (0.00-0.20) 09/15/24 17:12 Immature Gran # (Auto) 0.03 K/uL (0.01-0.20) 09/15/24 17:12 Sodium 139 mmol/L (136-145) 09/15/24 17:12 Potassium 4.6 mmol/L (3.5-5.1) 09/15/24 17:12 Chloride 102 mmol/L (98-107) 09/15/24 17:12 Carbon Dioxide 29 mmol/L (21-32) 09/15/24 17:12 Anion Gap 8 (3-11) 09/15/24 17:12 BUN 18 mg/dl (6-23) 09/15/24 17:12 Creatinine 0.73 mg/dl (0.6-1.2) 09/15/24 17:12 Est Cr Clr Drug Dosing 65.5 ml/min 09/15/24 17:12 eGFR 97.67 09/15/24 17:12 BUN/Creatinine Ratio 24.7 (10-20) H 09/15/24 17:12 Glucose 195 mg/dl (70-99(Fasting)) H 09/15/24 17:12 Calcium 10.4 mg/dl (8.6-10.3) H 09/15/24 17:12 Magnesium 1.9 mg/dl (1.7-2.4) 09/15/24 17:12 Total Bilirubin 0.6 mg/dl (0.2-1.0) 09/15/24 17:12 AST 95 U/L (13-39) H 09/15/24 17:12 ALT 103 U/L (7-52) H 09/15/24 17:12 Alkaline Phosphatase 103 U/L (34-104) 09/15/24 17:12 Troponin I High Sens 96.1 pg/ml (0-14) H* 09/15/24 19:04 Total Protein 8.3 gm/dl (6.0-8.3) 09/15/24 17:12 Albumin 4.9 gm/dl (3.4-5.0) 09/15/24 17:12 Globulin 3.4 gm/dl (2.5-4.0) 09/15/24 17:12 Albumin/Globulin Ratio 1.4 (0.9-2) 09/15/24 17:12 TSH 1.557 uIu/ml (0.300-4.500) 09/15/24 17:12 Impressions Chest X-Ray 09/15/24 16:55 Clinical History: Weakness Technique: A frontal view of the chest was obtained Comparison is made to the prior examination dated 02/11/2024 Findings: There are no confluent pulmonary infiltrates. The heart size is at the upper limit of normal. No pleural effusion or pneumothorax is seen. There is suspected mild pulmonary vascular congestion. No fracture is noted. No foreign body is seen Impression: Pulmonary vascular congestion Electronically signed by Telly Kan 09-15-2024 7:54 PM Venous Doppler Study 09/15/24 16:55 Clinical History: Swelling Technique: Venous ultrasound evaluation was performed utilizing grayscale, color Doppler and wave form evaluation. Images were also obtained with and without compression Findings: This examination was limited by lack of patient cooperation The bilateral common femoral, superficial femoral, popliteal, and visualized calf veins demonstrate normal anechoic lumens with full compressibility. Normal flow is seen on color Doppler images. Expected waveforms were produced with augmentation maneuvers There is soft tissue edema in the right calf Impression: No definite evidence of deep venous thrombosis Electronically signed by Telly Kan 09-15-2024 6:[address] 09/15/24 17:47 EXAMINATION: Head CT without CLINICAL HISTORY: Hypertension headache PRIORS: 08/11/2013 TECHNIQUE: Contiguous axial images were obtained through the head without the use of intravenous contrast. Sagittal and coronal reformations are supplied. FINDINGS: Motion artifact significantly degrades image quality. Moderate encephalomalacia of the left MCA distribution with ex vacuo dilatation of the left lateral ventricle, unchanged. Person-white differentiation is preserved. No edema or midline shift. No intra-axial or extra-axial hemorrhage. Ventricles are normal in size and configuration. Brainstem and cerebellum have a normal appearance. Calvarium unremarkable. Paranasal sinuses and mastoid air cells are well-pneumatized. Globes are intact. No retrobulbar abnormality. IMPRESSION: 1. No CT evidence of an acute intracranial abnormality. 2. Left MCA remote infarction with encephalomalacia, unchanged. Electronically signed by Yulisa Cordero 09-15-2024 7:02 PM ECG Additional Comments: ECG normal sinus rhythm with a rate of 97. Possible left atrial lodgment. ST depressions in inferior and lateral leads. QTc 464 Code Status & VTE Plan VTE Prophylaxis Plan VTE Prophylaxis will be ordered: Yes
[2024-09-15] MEDS: NITROGLYCERIN 2% OINTMENT 30GM TUBE EXT SCH (22:18)
[2024-09-15] MEDS ORDERED: ACETAMINOPHEN 325 MG TAB PO PRN (23:15)
[2024-09-15] MEDS ORDERED: POLYETHYLENE (MIRALAX) 17 GM PACK PO PRN (23:15)
[2024-09-15] MEDS ORDERED: NITROGLYCERIN SL 0.4 MG/TAB TAB SL PRN (23:15)
[2024-09-15] MEDS ORDERED: ALUMINUM/MAGNESIUM/SIMETH (MAALOX MAX) 30 ML UDC PO PRN (23:15)
[2024-09-16] MEDS: FUROSEMIDE INJ 20 MG/2 ML VIAL IV ONE (01:01)
[2024-09-16] MEDS: ENOXAPARIN INJ 40 MG/0.4 ML SYR SQ SCH (01:01)
[2024-09-16] MEDS: CHECK CLONIDINE PATCH PLACEMENT SCH (01:02)
[2024-09-16] MEDS: METOPROLOL TARTRATE 25 MG TAB PO SCH (06:37)
[2024-09-16 07:12] LABS: Hematocrit (blood only) 42.9 % (37.0-47.0); Hemoglobin 15.2 g/dl (12.0-16.0); Immature Granulocytes # (auto) 0.02 K/uL (0.01-0.20); Immature Granulocytes % (auto) 0.3 %; Mean Corpuscular Hemoglobin 30.8 pg (25.0-34.0); Mean Corpuscular Volume 86.8 fL (80.0-100.0); Platelet Count 235 K/uL (130-400); RDW Standard Deviation 38.6 fL (36.4-46.3); Red Blood Count 4.94 M/uL (4.20-5.40); White Blood Count 7.30 K/ul (4.8-10.8)
[2024-09-16 07:36] LABS: Anion Gap 13.0 (3-11); Blood Urea Nitrogen 15.0 mg/dl (6-23); Calcium 9.8 mg/dl (8.6-10.3); Carbon Dioxide 24.0 mmol/L (21-32); Chloride 102.0 mmol/L (98-107); Creatinine Clr Calc Pharmacy 73.3 ml/min; Glucose 182.0 mg/dl (70-99(Fasting)); Magnesium 1.7 mg/dl (1.7-2.4); Potassium 4.0 mmol/L (3.5-5.1); Sodium 139.0 mmol/L (136-145)
[2024-09-16] MEDS: BACLOFEN 10 MG TAB PO SCH (07:40)
[2024-09-16] MEDS: LOSARTAN POTASSIUM 50 MG TAB PO SCH (07:46)
[2024-09-16] MEDS: DORZOLAMIDE/TIMOLOL 22.3/6.8MG/ML 10 ML BTL OP SCH (08:59)
[2024-09-16] MEDS: guaiFENesin 600 MG TABCR PO PRN (09:00)
[2024-09-16] MEDS: NYSTATIN POWDER 15GM BTL EXT PRN (09:00)
[2024-09-16] MEDS: METHENAMINE HIPPURATE 1 GM TAB PO SCH (09:00)
[2024-09-16] MEDS: CHOLECALCIFEROL 25 MCG (1000 UNITS) TAB PO SCH (09:00)
[2024-09-16] MEDS: CITALOPRAM 40 MG TAB PO SCH (09:00)
[2024-09-16] MEDS: Nursing to Pharmacy Communication SCH (09:01)
[2024-09-16] MEDS: ASPIRIN 81 MG ECTAB PO SCH (09:01)
[2024-09-16] MEDS: CEROVITE ADV FORMULA TAB PO SCH (09:01)
[2024-09-16] MEDS: POLYETHYLENE (MIRALAX) 17 GM PACK PO SCH (09:05)
[2024-09-16] MEDS: ALBUMIN 25% 25 GM/100 ML VIAL IV ONE (09:05)
[2024-09-16] MEDS: DOCUSATE SODIUM 100 MG CAP PO SCH (09:09)
--- NOTE | 2024-09-16 09:53 | Cardiology Consultation ---
Date of Consultation September 16, 2024 Assessment & Plan (1) Hypertensive urgency: (2) Elevated troponin: (3) Pedal edema: Plan 53-year-old nonverbal, cognitively impaired female presents with hypertensive urgency. Treated with IV labetalol in ER with improvement however, she dev eloped hypotension. Patient unable to offer history. High-sensitivity troponin mildly elevated, however, trending downward on admission. Troponin elevation likely due to demand ischemia in the setting of hypertensive urgency. Echocardiogram without regional wall motion abnormality. ECG is abnormal, however ST changes may be secondary to significant/severe left ventricular hypertrophy. Repeat ECG in AM. Hold transdermal clonidine patch and topical nitrates due to borderline hypotension. Hold additional diuretic therapy today. Continue aspirin, subcutaneous Lovenox, amlodipine, atorvastatin, metoprolol, and losartan. Chris Espinosa DO, [facility] History of Present Illness Reason for Consultation: Hypertensive urgency, abnormal EKG Requesting Physician: Dr. Guthrie Attending Physician: Kaylah Clarke MD History of Present Illness 53-year-old female with past medical history noted below presents to the emergency department due to lower extremity edema and elevated blood pressure. Caregivers reporting swollen legs prior to admission. Ambulatory systolic blood pressure reported in the 200s. Patient is nonverbal. No caregivers are currently present to aid with history. High-sensitivity troponin mildly elevated on admission however trending downward. Her ECG is abnormal with no evidence of left ventricular hypertrophy and secondary ST-T wave changes, ischemia cannot be excluded. Review of bedside 2D transthoracic echocardiogram demonstrates severe concentric left ventricular hypertrophy with normal wall motion. Valvular structures were not well- visualized. Telemetry demonstrates SR in 80's. Past Medical History: 1. Congenital rubella syndrome with intellectual disability, hemiparesis, visual impairment 2. Hypertension, hypertensive heart disease with hypertensive urgency hospitalization on August 04, 2021 3. NSTEMI in association with hypertensive urgency 4. 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, 2016 Allergies Allergy/AdvReac Type Severity Reaction Status Date / Time Penicillins Allergy Severe Rash Verified 09/15/24 19:08 ampicillin Allergy Intermediate Rash Verified 09/15/24 19:08 Home Medications Medication Instructions Recorded Confirmed Type atorvastatin 20 mg tablet 20 mg PO HS 11/15/18 09/15/24 History baclofen 10 mg tablet 10 mg PO TID 11/15/18 09/15/24 History citalopram 40 mg tablet 40 mg PO QAM 11/15/18 09/15/24 History clonidine 0.1 mg/24 hr weekly 0.1 mg topical WK 11/15/18 09/15/24 History transdermal patch polyethylene glycol 3350 17 17 g PO BIDM 11/15/18 09/15/24 History gram/dose oral powder tizanidine 4 mg tablet 4 mg PO TID 11/15/18 09/15/24 History oxcarbazepine 600 mg tablet 600 mg PO BID 01/07/19 09/15/24 History latanoprost 0.005 % eye drops 1 drp OPB HS 06/13/20 09/15/24 History amlodipine 5 mg tablet ([facility]) 7.5 mg (1.5 x 5 mg) PO QAM #45 tabs 08/14/21 09/15/24 Rx aspirin 81 mg tablet,delayed 81 mg PO QAM #30 tabs 08/14/21 09/15/24 Rx release losartan 50 mg tablet 50 mg PO QAM #30 tabs 08/14/21 09/15/24 Rx cholecalciferol (vitamin D3) 50 50 mcg PO QAM 10/09/21 09/15/24 History mcg (2,000 unit) tablet (Vitamin D3) furosemide 20 mg tablet 20 mg PO 5XWK 10/09/21 09/15/24 History rrrhyesv-ayk-oompb acid 0.4 1 tab PO QAM 10/09/21 09/15/24 History mg-lycopene 300 mcg-lutein 250 mcg tablet ([facility]) nystatin 100,000 unit/gram topical 1 applic topical TID PRN Skin 11/14/21 09/15/24 History powder (Nyamyc) Irritation acetaminophen 325 mg tablet 650 mg PO Q4H PRN Fever Or Pain 11/25/22 09/15/24 History acetaminophen 500 mg tablet 500 mg PO Q4H PRN Pain 11/25/22 09/15/24 History docusate sodium 100 mg capsule 100 mg PO BID 11/25/22 09/15/24 History metoprolol tartrate 25 mg tablet 25 mg PO BID 08/03/23 09/15/24 History mupirocin 2 % topical ointment 1 applic topical BID PRN Skin 08/03/23 09/15/24 History Irritation tizanidine 2 mg tablet 2 mg PO TID 08/03/23 09/15/24 History Lactobacil rhamnosus GG 10 billion 1 cap PO HS 10/12/23 09/15/24 History cell-inulin 200 mg sprinkle capsule ([facility]) cranberry extract 200 mg capsule 200 mg PO HS 10/12/23 09/15/24 History aluminum-mag hydroxide-simethicone 30 ml PO PCHS PRN Indigestion 09/15/24 09/15/24 History 400 mg-400 mg-40 mg/5 mL oral susp (Mylanta Maximum Strength) dorzolamide-timolol (PF) 2 %-0.5 % 1 drp OPB BID 09/15/24 09/15/24 History eye drops in a dropperette guaifenesin 600 mg tablet, 600 mg PO Q12H PRN Congestion 09/15/24 09/15/24 History extended release 12 hr loperamide 2 mg capsule (Imodium 2 mg PO DIRECTED PRN LOOSE 09/15/24 09/15/24 History A-D) STOOLS methenamine hippurate 1 gram tablet 1 g PO BID 09/15/24 09/15/24 History Patient History Medical History H/O: stroke Swallowing impairment thickene liquids Esophageal reflux Retinal tear Hemiparesis and speech and language deficit as late effect of cerebrovascular accident (CVA) Glaucoma left Profound vision impairment Congenital cataract Family History Other Breast cancer Ovarian cancer Social History Smoking Status: Never smoker Hx Alcohol Use: No Hx Substance Use: No Preferred Language: Albanian Communication Ability: Unable Can Solderer Required: No Beliefs That Will Affect Care: None marital status: Single Current Living Situation: Senior Care Current Living Situation Comment: [facility] Other Information That Helps Us Care for You: No Feels Safe at Home: Yes Safety Concerns: Feels Safe At This Time Assistive Devices: Hospital Bed and Walker Review of Systems Review of Systems: Unobtainable due to cognitive status (nonverbal) Physical Exam Constitutional: no acute distress Respiratory: + respiratory distress; no retractions Auscultation: no crackles, no rales and no rhonchi poor effort Cardiovascular: Rate/Rhythm: regular rate and regular rhythm Heart Sounds: normal S1 and normal S2; no murmur Extremities: + edema (mild B/L pedal edema) Gastrointestinal (Abdomen): Inspection/Auscultation: abdomen not distended Percussion/Palpation: abdomen soft; abdomen nontender and no guarding Results & Data Vital Signs (Past 12 Hours) Vital Signs Temp Pulse Pulse Resp BP BP BP 09/16/24 08:56 88 85/68 L 09/16/24 08:15 36.9 C 65 18 87/54 L 09/16/24 08:09 37.0 C 16 09/16/24 08:00 09/16/24 07:30 85/56 L 09/16/24 03:14 36.8 C 109 H 18 146/106 H 09/15/24 23:15 36.9 C 101 H 18 148/116 H 09/15/24 23:15 09/15/24 22:34 36.7 C 94 H 20 124/84 Pulse Ox Pulse Ox O2 Del Method O2 Del Method 09/16/24 08:56 09/16/24 08:15 98 Room Air 09/16/24 08:09 95 Room Air 09/16/24 08:00 Room Air 09/16/24 07:30 09/16/24 03:14 92 Room Air 09/15/24 23:15 94 Room Air 09/15/24 23:15 94 Room Air 09/15/24 22:34 95 Room Air Laboratory Results Cardiac Enzymes 09/15/24 09/15/24 09/15/24 Range/Units 17:12 19:04 23:54 AST 95 H (13-39) U/L Troponin I High Sens 104.7 H* 96.1 H* 55.8 H* D (0-14) pg/ml CBC 09/15/24 09/16/24 Range/Units 17:12 05:36 WBC 9.65 7.30 (4.8-10.8) K/ul RBC 5.59 H 4.94 (4.20-5.40) M/uL Hgb 17.0 H 15.2 (12.0-16.0) g/dl Hct 48.7 H 42.9 (37.0-47.0) % Plt Count 296 235 (130-400) K/uL Neut # (Auto) 6.77 H 4.67 (1.40-6.50) K/uL Lymph # (Auto) 1.99 1.84 (1.20-3.40) K/uL [place] # (Auto) 0.72 H 0.70 H (0.11-0.59) K/uL Eos # (Auto) 0.12 0.06 (0.00-0.50) K/uL Baso # (Auto) 0.02 0.01 (0.00-0.20) K/uL Comprehensive Metabolic Panel 09/15/24 09/16/24 Range/Units 17:12 05:36 Sodium 139 139 (136-145) mmol/L Potassium 4.6 4.0 (3.5-5.1) mmol/L Chloride 102 102 (98-107) mmol/L Carbon Dioxide 29 24 (21-32) mmol/L BUN 18 15 (6-23) mg/dl Creatinine 0.73 0.64 (0.6-1.2) mg/dl Glucose 195 H 182 H (70-99(Fasting)) mg/dl Calcium 10.4 H 9.8 (8.6-10.3) mg/dl AST 95 H (13-39) U/L ALT 103 H (7-52) U/L Alkaline Phosphatase 103 (34-104) U/L Total Protein 8.3 (6.0-8.3) gm/dl Albumin 4.9 (3.4-5.0) gm/dl Intake and Output 09/15/24 09/16/24 09/16/24 22:59 06:59 14:59 Intake Total 100 / 100 Balance 100 / 100 Intake: IV 100 / 100 Albumin 25% 25 gm In 100 ml @ 100 / 100 50 mls/hr IV ONE ONE Rx#: [id number] Other: Other Intake Source npo # Unmeasured Voids 1 Weight 63.3 kg 61 kg Weight Measurement Method [facility] PG Care Time/CCT Total # of Minutes Spent Total Time Spent with Patient: Total time spent is greater than 50% in coordination of care (as documented) at patient's floor/unit and/or counseling patient: Coding Level of Care Code 97778 INT INP/OBS CARE MIN Diagnoses Hypertensive urgency I16.0 Elevated troponin R79.89 Pedal edema R60.0
--- NOTE | 2024-09-16 11:50 | Electrocardiogram Report ---
Test Reason : Blood Pressure : */* mmHG Vent. Rate : 104 BPM Atrial Rate : 104 BPM P-R Int : 198 ms QRS Dur : 102 ms QT Int : 360 ms P-R-T Axes : 59 52 34 degrees QTcB Int : 473 ms Sinus tachycardia Right atrial enlargement Minimal voltage criteria for LVH, may be normal variant ST elevation, consider early repolarization, pericarditis, or injury T wave abnormality, consider inferior ischemia Abnormal ECG When compared with ECG of 13-Mar-2023 14:51, ST now depressed in Lateral leads T wave amplitude has increased in Anterior leads Confirmed by Jose Plata ([id number]) on 09/16/2024 11:50:37 AM Referred By: Confirmed By: Jose Plata
--- NOTE | 2024-09-16 11:51 | Electrocardiogram Report ---
Test Reason : Blood Pressure : */* mmHG Vent. Rate : 97 BPM Atrial Rate : 97 BPM P-R Int : 198 ms QRS Dur : 92 ms QT Int : 366 ms P-R-T Axes : 44 47 50 degrees QTcB Int : 464 ms Normal sinus rhythm Possible Left atrial enlargement Marked ST abnormality, possible inferior subendocardial injury Abnormal ECG When compared with ECG of 15-Sep-2024 16:54, (unconfirmed) No significant change was found Confirmed by Jose Plata ([id number]) on 09/16/2024 11:50:46 AM Referred By: REFERRED SELF Confirmed By: Jose Plata
--- NOTE | 2024-09-16 11:55 | Electrocardiogram Report ---
Test Reason : Blood Pressure : */* mmHG Vent. Rate : 121 BPM Atrial Rate : 121 BPM P-R Int : 166 ms QRS Dur : 90 ms QT Int : 320 ms P-R-T Axes : 47 55 -40 degrees QTcB Int : 454 ms Sinus tachycardia Abnormal ECG When compared with ECG of 15-Sep-2024 21:00, (unconfirmed) T wave inversion more evident in Inferior leads Confirmed by Jose Plata ([id number]) on 09/16/2024 11:55:00 AM Referred By: REFERRED SELF Confirmed By: Jose Plata
[2024-09-16] MEDS: REMOVE CLONIDINE PATCH ONE (12:01)
[2024-09-16 12:43] LABS: Hemoglobin A1C 7.6 % (4.5-5.6)
--- NOTE | 2024-09-16 14:56 | Hospitalist Progress Note ---
Date of Service September 16, 2024 Assessment & Plan (1) Hypertensive urgency: Plan: 53-year-old female coming from [facility] with past medical history significant for prediabetes, dyslipidemia, hypertension, GERD, osteoporosis, retinal tear, CVA, oropharyngeal dysphagia, congenital rubella syndrome (legal blindness, hearing impairment, intellectual impairment, PDA surgery), hypertensive emergency and non-ST elevated [place] was brought because of lower extremity edema and hypertensive urgency. The caregivers noticed that her legs were swollen today. When they checked her blood pressure , systolic blood pressure was more than 200s. And she was brought to the hospital. Patient is nonverbal. Before she had a stroke she used to ambulate somewhat. Since she had stroke she is wheelchair-bound. Since stroke she could not move her right extremities. Eats soft bite food. Needs assistance with feeding. No recent fevers. No recent cough. No nausea or vomiting. Usually blood pressure systolically in 130s. Patient blood pressure initial presentation 170/134 received 2 dose of IV labetalol. She is being managed for the following: Hypertensive urgency Continue home medication of amlodipine, metoprolol, clonidine patch and losartan as able Echo w/ 65-70% ef, severe concentric LVH. No RWMA. Was briefly hypotensive likely iatrogenic w/ multiple BP meds admin at presentation. Held AM BP meds today. prn iv labetalol. Cardio on board, holding Topical nitrates, transdermal clonidine patch, diuretic therapy today given transient hypotension. ro infection, CT Head/CXR reviewed, UA pending. Elevated troponin, Likely demand ischemia: Initial troponin was elevated, then down trended. Patient not able to comment on chest pain. Likely demand ischemia in the setting of elevated blood pressure. Monitor telemetry. Echo with no regional wall motion abnormality. Continue with telemetry monitoring. Lower extremity edema: Will do a dose of IV Lasix 20 mg, Hold further diuretics today due to borderline hypotension in the morning. Resume diuresis from tomorrow. Echo as above. Doppler negative for DVT. History of CVA: On aspirin and statin Wheelchair-bound Hyperlipidemia: Statin Congenital rubella syndrome: Legal blindness, hearing impairment, intellectual impairment, Nonverbal, Nonambulatory. On soft bite sized diet and needs assistance with feeding Mild hypercalcemia: resolved. History of prediabetes: Will follow HbA1c levels Mild transaminitis: Trend LFT, consider us liver if not improving. DVT prophylaxis: Lovenox Disposition: Telemetry Full code as per caregiver Admission and Anticipated Discharge Date Admission Date: September 15, 2024 Subjective Patient was seen and examined at bedside. Patient was lying in bed, nonverbal, not in acute distress, responds to her name, not able to cooperate with examination. ROS not able. Physical Exam Physical Exam: General- adult Head- atraumatic Neck- supple, no JVD Lungs- clear to auscultation no wheezing or crackles Heart- regular rate and rhythm; no murmur, no gallop. Abdomen- normal bowel sounds, soft, no facial grimacing on deep palpation, no distension Extremities- b/l lower extremity trace/1+ edema present, no erythema seen Neuro- Non verbal, not moving right extremities Results & Data Results & Data Vital Signs (Past 12 Hours) Vital Signs Temp Pulse Pulse Resp BP BP BP 09/16/24 14:01 78 09/16/24 12:13 148/75 H 09/16/24 10:56 36.8 C 81 18 108/63 09/16/24 10:27 92/57 L 09/16/24 09:00 127 H 09/16/24 08:56 88 85/68 L 09/16/24 08:15 36.9 C 65 18 87/54 L 09/16/24 08:09 37.0 C 16 09/16/24 08:00 09/16/24 07:30 85/56 L 09/16/24 03:14 36.8 C 109 H 18 146/106 H Pulse Ox O2 Del Method 09/16/24 14:01 09/16/24 12:13 09/16/24 10:56 92 Room Air 09/16/24 10:27 09/16/24 09:00 09/16/24 08:56 09/16/24 08:15 98 Room Air 09/16/24 08:09 95 Room Air 09/16/24 08:00 Room Air 09/16/24 07:30 09/16/24 03:14 92 Room Air
[2024-09-16 15:32] LABS: Appearance Urine Cloudy (Clear); Bacteria Urine Automated 4+ (None Seen); Epithelial Cell Urine Auto 0-2 /hpf (0-2); Glucose Urine UA Negative (Negative)
[2024-09-16] MEDS: LABETALOL HCL IV 5 MG/ML 20ML IV PRN (15:55)
[2024-09-16] MEDS: ATORVASTATIN 20 MG TAB PO SCH (20:55)
[2024-09-16] MEDS: ADVANCED PROBIOTIC 625 MG CAPSULE PO SCH (20:56)
[2024-09-16] MEDS: LATANOPROST 0.005% OP SOLN 2.5 ML BTL OPB SCH (21:49)
[2024-09-17 06:39] LABS: Hematocrit (blood only) 36.7 % (37.0-47.0); Hemoglobin 12.7 g/dl (12.0-16.0); Mean Corpuscular Hemoglobin 30.8 pg (25.0-34.0); Mean Corpuscular Volume 88.9 fL (80.0-100.0); Platelet Count 128 K/uL (130-400); RDW Standard Deviation 40.5 fL (36.4-46.3); Red Blood Count 4.13 M/uL (4.20-5.40); White Blood Count 3.16 K/ul (4.8-10.8)
[2024-09-17 06:58] LABS: Anion Gap 8.0 (3-11); Blood Urea Nitrogen 18.0 mg/dl (6-23); Calcium 9.7 mg/dl (8.6-10.3); Carbon Dioxide 27.0 mmol/L (21-32); Chloride 106.0 mmol/L (98-107); Creatinine Clr Calc Pharmacy 74.7 ml/min; Glucose 138.0 mg/dl (70-99(Fasting)); Magnesium 1.9 mg/dl (1.7-2.4); Potassium 3.6 mmol/L (3.5-5.1); Sodium 141.0 mmol/L (136-145)
[2024-09-17] MEDS: REMOVE CLONIDINE PATCH SCH (07:18)
[2024-09-17] MEDS: ALBUMIN 25% 25 GM/100 ML VIAL IV ONE (09:08)
--- NOTE | 2024-09-17 10:38 | Cardiology Progress Note ---
<Statement entered by Opal Eugene, - 09/17/24 16:16> I have reviewed the advanced practitioner's documentation and agree with the plan of care. I accept the responsibility for the associated risk. Pt seen in cardiology f/u due to labile hypertension Pt non-verbal can not get a history her BP was elevated prior to getting morning medications and then markedly dropped after getting them; recommend spreading out her anti-hypertensive agents as outlined in my INSTRUMENTATION MANAGER's note please re-consult as necessary Date of Service September 17, 2024 Assessment & Plan (1) Hypertensive urgency: (2) Elevated troponin: (3) Pedal edema: Plan - Heart rate currently well-controlled - Still having labile blood pressures, was noted to be hypertensive this morning but on repeat an hour or so later she was hypotensive - Currently receiving IV albumin - Echo completed yesterday indicated normal ejection fraction with no regional wall motion abnormalities but did have evidence of severe concentric LVH which was also evident on echo from 2017 several years ago at [facility] - Troponins initially elevated have down trended - Would recommend spreading out her antihypertensive regimen which may help with better average control of blood pressure readings - Continue amlodipine daily in the morning - Would recommend spreading losartan out to taking 50 mg daily in the afternoon around 2 PM -Continue metoprolol 25 mg twice daily Case discussed with Dr. Eugene. Please see attestation for additional recommendations. NATHANIEL Farah Department of Cardiology, [facility] This chart was completed in part utilizing Speech Voice Recognition Software. Grammatical errors, random word insertions, pronoun errors, and incomplete sentences are an occasional consequence of this system due to software limitations, ambient noise, and hardware issues. Any formal questions or concerns about the content, text, or information contained within the body of this dictation should be directly addressed to the provider for clarification. Admission and Anticipated Discharge Date Admission Date: September 15, 2024 Subjective 53-year-old female seen in cardiology follow-up in regard to hypertensive urgency with elevated troponin. She is resting comfortably in bed at the time of my evaluation. Review of Systems Review of Systems: Unobtainable due to cognitive status Physical Exam Constitutional: well developed and well nourished; no acute distress Neck: trachea midline, no thyromegaly Respiratory: normal respiratory effort, lungs clear to auscultation Cardiovascular: Rate/Rhythm: regular rate and regular rhythm Heart Sounds: no murmur Gastrointestinal (Abdomen): normal bowel sounds, soft, nontender, no hepatosplenomegaly Skin: no rashes, warm and dry Psychiatric: Speech: + mute Results & Data Vital Signs (Past 12 Hours) Vital Signs Temp Pulse Pulse Resp BP Pulse Ox O2 Del Method 09/17/24 08:53 74 93/61 L 09/17/24 08:00 73 09/17/24 07:09 36.8 C 68 20 196/98 H 96 Room Air 09/17/24 03:09 36.5 C 65 17 131/71 97 Room Air 09/16/24 23:09 36.7 C 65 18 133/57 L 94 Room Air Laboratory Results CBC 09/17/24 Range/Units 06:15 WBC 3.16 L (4.8-10.8) K/ul RBC 4.13 L (4.20-5.40) M/uL Hgb 12.7 (12.0-16.0) g/dl Hct 36.7 L (37.0-47.0) % Plt Count 128 L (130-400) K/uL Comprehensive Metabolic Panel 09/17/24 Range/Units 06:15 Sodium 141 (136-145) mmol/L Potassium 3.6 (3.5-5.1) mmol/L Chloride 106 (98-107) mmol/L Carbon Dioxide 27 (21-32) mmol/L BUN 18 (6-23) mg/dl Creatinine 0.62 (0.6-1.2) mg/dl Glucose 138 H (70-99(Fasting)) mg/dl Calcium 9.7 (8.6-10.3) mg/dl Intake and Output 09/16/24 09/17/24 09/17/24 22:59 06:59 14:59 Other: # Unmeasured Voids 1 # Urine Diapers 2 Weight 59.6 kg Weight Measurement Method Built in [facility] Diagnostic Findings Laboratory Results WBC 3.16 K/ul (4.8-10.8) L 09/17/24 06:15 RBC 4.13 M/uL (4.20-5.40) L 09/17/24 06:15 Hgb 12.7 g/dl (12.0-16.0) 09/17/24 06:15 Hct 36.7 % (37.0-47.0) L 09/17/24 06:15 MCV 88.9 fL (80.0-100.0) 09/17/24 06:15 MCH 30.8 pg (25.0-34.0) 09/17/24 06:15 MCHC 34.6 g/dL (32.0-36.0) 09/17/24 06:15 RDW Std Deviation 40.5 fL (36.4-46.3) 09/17/24 06:15 RDW Coeff of Julieth 12.6 % (11.5-14.5) 09/17/24 06:15 Plt Count 128 K/uL (130-400) L 09/17/24 06:15 MPV 10.8 fL (9.4-12.4) 09/17/24 06:15 Immature Gran % (Auto) 0.3 % 09/16/24 05:36 Neut % (Auto) 64.0 % 09/16/24 05:36 Lymph % (Auto) 25.2 % 09/16/24 05:36 [place] % (Auto) 9.6 % 09/16/24 05:36 Eos % (Auto) 0.8 % 09/16/24 05:36 Baso % (Auto) 0.1 % 09/16/24 05:36 Neut # (Auto) 4.67 K/uL (1.40-6.50) 09/16/24 05:36 Lymph # (Auto) 1.84 K/uL (1.20-3.40) 09/16/24 05:36 [place] # (Auto) 0.70 K/uL (0.11-0.59) H 09/16/24 05:36 Eos # (Auto) 0.06 K/uL (0.00-0.50) 09/16/24 05:36 Baso # (Auto) 0.01 K/uL (0.00-0.20) 09/16/24 05:36 Immature Gran # (Auto) 0.02 K/uL (0.01-0.20) 09/16/24 05:36 Sodium 141 mmol/L (136-145) 09/17/24 06:15 Potassium 3.6 mmol/L (3.5-5.1) 09/17/24 06:15 Chloride 106 mmol/L (98-107) 09/17/24 06:15 Carbon Dioxide 27 mmol/L (21-32) 09/17/24 06:15 Anion Gap 8 (3-11) 09/17/24 06:15 BUN 18 mg/dl (6-23) 09/17/24 06:15 Creatinine 0.62 mg/dl (0.6-1.2) 09/17/24 06:15 Est Cr Clr Drug Dosing 74.7 ml/min 09/17/24 06:15 eGFR 105.76 09/17/24 06:15 BUN/Creatinine Ratio 29.0 (10-20) H 09/17/24 06:15 Glucose 138 mg/dl (70-99(Fasting)) H 09/17/24 06:15 Estimat Average Glucose 171 mg/dl 09/16/24 05:36 Hemoglobin A1c 7.6 % (4.5-5.6) H 09/16/24 05:36 Calcium 9.7 mg/dl (8.6-10.3) 09/17/24 06:15 Phosphorus 3.9 mg/dl (2.5-4.9) 09/17/24 06:15 Magnesium 1.9 mg/dl (1.7-2.4) 09/17/24 06:15 Total Bilirubin 0.6 mg/dl (0.2-1.0) 09/15/24 17:12 AST 95 U/L (13-39) H 09/15/24 17:12 ALT 103 U/L (7-52) H 09/15/24 17:12 Alkaline Phosphatase 103 U/L (34-104) 09/15/24 17:12 Troponin I High Sens 55.8 pg/ml (0-14) H* D 09/15/24 23:54 Total Protein 8.3 gm/dl (6.0-8.3) 09/15/24 17:12 Albumin 4.9 gm/dl (3.4-5.0) 09/15/24 17:12 Globulin 3.4 gm/dl (2.5-4.0) 09/15/24 17:12 Albumin/Globulin Ratio 1.4 (0.9-2) 09/15/24 17:12 TSH 1.557 uIu/ml (0.300-4.500) 09/15/24 17:12 Urine Color Dark Yellow 09/15/24 Unknown Urine Appearance Cloudy (Clear) A 09/15/24 Unknown Urine pH 8.5 (4.5-7.5) H 09/15/24 Unknown Ur Specific [place] 1.029 (1.000-1.030) 09/15/24 Unknown Urine Protein 2+ (Negative) H 09/15/24 Unknown Urine Glucose (UA) Negative (Negative) 09/15/24 Unknown Urine Ketones Trace (Negative) H 09/15/24 Unknown Urine Blood 2+ (Negative) H 09/15/24 Unknown Urine Nitrite Positive (Negative) A 09/15/24 Unknown Urine Bilirubin Negative (Negative) 09/15/24 Unknown Urine Urobilinogen Negative (Negative) 09/15/24 Unknown Ur Leukocyte Esterase 1+ (Negative) H 09/15/24 Unknown Urine WBC (Auto) 6-10 /hpf (0-5) H 09/15/24 Unknown Urine RBC (Auto) 6-10 /hpf (0-2) H 09/15/24 Unknown U Hyaline Cast (Auto) 3-5 /lpf (0-2) H 09/15/24 Unknown U Epithel Cells (Auto) 0-2 /hpf (0-2) 09/15/24 Unknown Urine Bacteria (Auto) 4+ (None Seen) H 09/15/24 Unknown Urine Comment 09/15/24 Unknown Nasal Screen MRSA (PCR) Negative (Negative) 09/16/24 01:09 Impressions Chest X-Ray 09/15/24 16:55 Clinical History: Weakness Technique: A frontal view of the chest was obtained Comparison is made to the prior examination dated 02/11/2024 Findings: There are no confluent pulmonary infiltrates. The heart size is at the upper limit of normal. No pleural effusion or pneumothorax is seen. There is suspected mild pulmonary vascular congestion. No fracture is noted. No foreign body is seen Impression: Pulmonary vascular congestion Electronically signed by Telly Kan 09-15-2024 7:54 PM Venous Doppler Study 09/15/24 16:55 Clinical History: Swelling Technique: Venous ultrasound evaluation was performed utilizing grayscale, color Doppler and wave form evaluation. Images were also obtained with and without compression Findings: This examination was limited by lack of patient cooperation The bilateral common femoral, superficial femoral, popliteal, and visualized calf veins demonstrate normal anechoic lumens with full compressibility. Normal flow is seen on color Doppler images. Expected waveforms were produced with augmentation maneuvers There is soft tissue edema in the right calf Impression: No definite evidence of deep venous thrombosis Electronically signed by Telly Kan 09-15-2024 6:[address] 09/15/24 17:47 EXAMINATION: Head CT without CLINICAL HISTORY: Hypertension headache PRIORS: 08/11/2013 TECHNIQUE: Contiguous axial images were obtained through the head without the use of intravenous contrast. Sagittal and coronal reformations are supplied. FINDINGS: Motion artifact significantly degrades image quality. Moderate encephalomalacia of the left MCA distribution with ex vacuo dilatation of the left lateral ventricle, unchanged. Person-white differentiation is preserved. No edema or midline shift. No intra-axial or extra-axial hemorrhage. Ventricles are normal in size and configuration. Brainstem and cerebellum have a normal appearance. Calvarium unremarkable. Paranasal sinuses and mastoid air cells are well-pneumatized. Globes are intact. No retrobulbar abnormality. IMPRESSION: 1. No CT evidence of an acute intracranial abnormality. 2. Left MCA remote infarction with encephalomalacia, unchanged. Electronically signed by Yulisa Cordero 09-15-2024 7:02 PM PG Care Time/CCT Total # of Minutes Spent Total Time Spent with Patient: Total time spent is greater than 50% in coordination of care (as documented) at patient's floor/unit and/or counseling patient: Coding Level of Care Code 77259 SUB INP/OBS CARE 3/50MIN Medical Decision Making High Complexity Diagnoses Hypertensive urgency I16.0 Elevated troponin R79.89 Pedal edema R60.0
--- NOTE | 2024-09-17 12:48 | Hospitalist Progress Note ---
Date of Service September 17, 2024 Assessment & Plan (1) Hypertensive urgency: Plan: 53-year-old female coming from [facility] with past medical history significant for prediabetes, dyslipidemia, hypertension, GERD, osteoporosis, retinal tear, CVA, oropharyngeal dysphagia, congenital rubella syndrome (legal blindness, hearing impairment, intellectual impairment, PDA surgery), hypertensive emergency and non-ST elevated [place] was brought because of lower extremity edema and hypertensive urgency. The caregivers noticed that her legs were swollen today. When they checked her blood pressure , systolic blood pressure was more than 200s. And she was brought to the hospital. Patient is nonverbal. Before she had a stroke she used to ambulate somewhat. Since she had stroke she is wheelchair-bound. Since stroke she could not move her right extremities. Eats soft bite food. Needs assistance with feeding. No recent fevers. No recent cough. No nausea or vomiting. Usually blood pressure systolically in 130s. Patient blood pressure initial presentation 170/134 received 2 dose of IV labetalol. She is being managed for the following: Hypertensive urgency Continue home medication of amlodipine, metoprolol, clonidine patch and losartan as able Echo w/ 65-70% ef, severe concentric LVH. No RWMA. Was briefly hypotensive likely iatrogenic w/ multiple BP meds admin at presentation. Patient has significant labile hypertension; will continue her home meds. She is also on baclofen and Zanaflex which can contribute to significant hypotension when given together. Will see how she does without tizanidine; continue to monitor her blood pressure. Elevated troponin, Likely demand ischemia: Initial troponin was elevated, then down trended. Patient not able to comment on chest pain. Likely demand ischemia in the setting of elevated blood pressure. Monitor telemetry. Echo with no regional wall motion abnormality. Continue with telemetry monitoring. Lower extremity edema: given iv lasix with improvement. History of CVA: On aspirin and statin Wheelchair-bound Hyperlipidemia: Statin Congenital rubella syndrome: Legal blindness, hearing impairment, intellectual impairment, Nonverbal, Nonambulatory. On soft bite sized diet and needs assistance with feeding Mild hypercalcemia: resolved. Type 2 diabetes mellitus; plan to start metformin at the time of the discharge. HbA1c of 7.6%; will need to follow diabetic diet after [facility]. Mild transaminitis: Trend LFT, consider us liver if not improving. DVT prophylaxis: Lovenox Disposition: Telemetry Full code Time spent evaluating patient, direct bedside care, chart review, placing orders, interpretation of diagnostic studies, discussion with consultants, patient, and family members, as well as other required patient management activities is 50 minutes Please note the above document was generated using voice recognition software. It may contain grammatical, syntax or spelling errors. Any formal questions or concerns about the content, text or information contained within the body of this dictation should be directly addressed to the provider for clarification Admission and Anticipated Discharge Date Admission Date: September 15, 2024 Subjective Patient seen and examined at bedside. She is nonverbal; appears comfortable. Blood pressure elevated on admission; down trended after meds were given. Review of Systems Review of Systems: All systems reviewed & are unremarkable except as noted in Subjective Physical Exam Physical Exam: General- adult Head- atraumatic Neck- supple, no JVD Lungs- clear to auscultation no wheezing or crackles Heart- regular rate and rhythm; no murmur, no gallop. Abdomen- normal bowel sounds, soft, no facial grimacing on deep palpation, no distension Extremities- b/l lower extremity trace edema present, no erythema seen Neuro- Non verbal, not moving right extremities Results & Data Results & Data Vital Signs (Past 12 Hours) Vital Signs Temp Pulse Pulse Resp BP Pulse Ox O2 Del Method 09/17/24 10:50 36.3 C L 83 18 135/83 96 Room Air 09/17/24 08:53 74 93/61 L 09/17/24 08:00 73 09/17/24 07:09 36.8 C 68 20 196/98 H 96 Room Air 09/17/24 03:09 36.5 C 65 17 131/71 97 Room Air
[2024-09-17] MEDS: cefTRIAXone SODIUM 2,000 MG/50 ML BAG IV SCH (13:13)
[2024-09-17] MEDS: LABETALOL HCL IV 5 MG/ML 20ML IV STA (21:56)
[2024-09-18 07:00] LABS: Hematocrit (blood only) 42.1 % (37.0-47.0); Hemoglobin 14.5 g/dl (12.0-16.0); Immature Granulocytes # (auto) 0.03 K/uL (0.01-0.20); Immature Granulocytes % (auto) 0.4 %; Mean Corpuscular Hemoglobin 30.4 pg (25.0-34.0); Mean Corpuscular Volume 88.3 fL (80.0-100.0); Platelet Count 194 K/uL (130-400); RDW Standard Deviation 39.6 fL (36.4-46.3); Red Blood Count 4.77 M/uL (4.20-5.40); White Blood Count 6.71 K/ul (4.8-10.8)
[2024-09-18 07:45] LABS: Anion Gap 9 (3-11); Blood Urea Nitrogen 13 mg/dl (6-23); Calcium 10.0 mg/dl (8.6-10.3); Carbon Dioxide 25 mmol/L (21-32); Chloride 105 mmol/L (98-107); Creatinine Clr Calc Pharmacy 73.1 ml/min; Glucose 186 mg/dl (70-99(Fasting)); Sodium 139 mmol/L (136-145)
--- NOTE | 2024-09-18 12:24 | Hospitalist Progress Note ---
Date of Service September 18, 2024 Assessment & Plan (1) Hypertensive urgency: Plan: 53-year-old female coming from [facility] with past medical history significant for prediabetes, dyslipidemia, hypertension, GERD, osteoporosis, retinal tear, CVA, oropharyngeal dysphagia, congenital rubella syndrome (legal blindness, hearing impairment, intellectual impairment, PDA surgery), hypertensive emergency and non-ST elevated [place] was brought because of lower extremity edema and hypertensive urgency. Hypertensive urgency Continue home medication of amlodipine, metoprolol, clonidine patch and losartan as able Echo w/ 65-70% ef, severe concentric LVH. No RWMA. Was briefly hypotensive likely iatrogenic w/ multiple BP meds admin at presentation. Patient has significant labile hypertension;Her losartan is increased to 100; metoprolol changed to Coreg for better blood pressure control. She is also on baclofen and Zanaflex which can contribute to significant hypotension when given together. Tizanidine dose is decreased to 2 mg 3 times daily from 6 mg 3 times daily Elevated troponin, Likely demand ischemia: Initial troponin was elevated, then down trended. Patient not able to comment on chest pain. Likely demand ischemia in the setting of elevated blood pressure. Monitor telemetry. Echo with no regional wall motion abnormality. Continue with telemetry monitoring. Lower extremity edema: given iv lasix with improvement. History of CVA: On aspirin and statin Wheelchair-bound Hyperlipidemia: Statin Congenital rubella syndrome: Legal blindness, hearing impairment, intellectual impairment, Nonverbal, Nonambulatory. On soft bite sized diet and needs assistance with feeding Mild hypercalcemia: resolved. Type 2 diabetes mellitus; plan to start metformin at the time of the discharge. HbA1c of 7.6%; will need to follow diabetic diet after discharge from the hospital. DVT prophylaxis: Lovenox Disposition: Telemetry Full code Updated her caregiver( Anant Davidson) over the phone. patient to be discharged in am Time spent evaluating patient, direct bedside care, chart review, placing orders, interpretation of diagnostic studies, discussion with consultants, patient, and family members, as well as other required patient management activities is 50 minutes Please note the above document was generated using voice recognition software. It may contain grammatical, syntax or spelling errors. Any formal questions or concerns about the content, text or information contained within the body of this dictation should be directly addressed to the provider for clarification Admission and Anticipated Discharge Date Admission Date: September 15, 2024 Subjective Patient seen and examined at bedside. Her mentation is at baseline. Blood pressure is still labile. Review of Systems Review of Systems: Unobtainable due to cognitive status Physical Exam Physical Exam: General- adult Head- atraumatic Neck- supple, no JVD Lungs- clear to auscultation no wheezing or crackles Heart- regular rate and rhythm; no murmur, no gallop. Abdomen- normal bowel sounds, soft, no facial grimacing on deep palpation, no distension Extremities- b/l lower extremity trace edema present, no erythema seen Neuro- Non verbal, not moving right extremities Results & Data Results & Data Vital Signs (Past 12 Hours) Vital Signs Temp Pulse Pulse Resp BP BP BP 09/18/24 10:56 36.5 C 82 18 195/96 H 09/18/24 07:54 97 H 09/18/24 07:12 36.7 C 92 H 19 182/120 H 09/18/24 03:42 35.6 C L 100 H 18 171/89 H Pulse Ox O2 Del Method 09/18/24 10:56 91 Room Air 09/18/24 07:54 09/18/24 07:12 90 Room Air 09/18/24 03:42 93 Room Air
[2024-09-18] MEDS: LOSARTAN POTASSIUM 50 MG TAB PO SCH (13:16)
[2024-09-18] MEDS ORDERED: LOSARTAN POTASSIUM 50 MG TAB PO SCH (14:00)
--- NOTE | 2024-09-18 16:15 | Electrocardiogram Report ---
Test Reason : Blood Pressure : */* mmHG Vent. Rate : 80 BPM Atrial Rate : 80 BPM P-R Int : 192 ms QRS Dur : 82 ms QT Int : 400 ms P-R-T Axes : 46 21 12 degrees QTcB Int : 461 ms Normal sinus rhythm Possible Left atrial enlargement Abnormal ECG When compared with ECG of 16-Sep-2024 05:17, Vent. rate has decreased by [address] no longer depressed in Inferior leads ST no longer depressed in Lateral leads Confirmed by Kehinde Chen ([id number]) on 09/18/2024 4:14:57 PM Referred By: REFERRED SELF Confirmed By: Kehinde Chen
[2024-09-19 06:38] LABS: Hematocrit (blood only) 41.8 % (37.0-47.0); Hemoglobin 14.8 g/dl (12.0-16.0); Immature Granulocytes # (auto) 0.02 K/uL (0.01-0.20); Immature Granulocytes % (auto) 0.3 %; Mean Corpuscular Hemoglobin 31.3 pg (25.0-34.0); Mean Corpuscular Volume 88.4 fL (80.0-100.0); Platelet Count 194 K/uL (130-400); RDW Standard Deviation 39.9 fL (36.4-46.3); Red Blood Count 4.73 M/uL (4.20-5.40); White Blood Count 6.22 K/ul (4.8-10.8)
[2024-09-19 06:54] LABS: Anion Gap 9.0 (3-11); Blood Urea Nitrogen 14.0 mg/dl (6-23); Calcium 9.9 mg/dl (8.6-10.3); Carbon Dioxide 25.0 mmol/L (21-32); Chloride 107.0 mmol/L (98-107); Creatinine Clr Calc Pharmacy 65.9 ml/min; Glucose 170.0 mg/dl (70-99(Fasting)); Potassium 3.8 mmol/L (3.5-5.1); Sodium 141.0 mmol/L (136-145)
[2024-09-19 08:39] VITALS: RESP 18
[2024-09-19 11:25] VITALS: PULSE 89; TEMP 99.1; O2SAT 96
--- NOTE | 2024-09-19 11:37 | Discharge Summary ---
Date of Service September 19, 2024 Admission HPI Per Admitting Provider 53-year-old female coming from [facility] with past medical history significant for prediabetes, dyslipidemia, hypertension, GERD, osteoporosis, retinal tear, history of CVA, history of oropharyngeal dysphagia, congenital rubella syndrome(legal blindness, hearing impairment, intellectual impairment, PDA surgery) history of hypertensive emergency and non-ST elevated AK was brought because of lower extremity edema and hypertensive urgency. The caregivers noticed that her legs were swollen today. When they checked her blood pressure , systolic blood pressure was more than 200s. And she was brought to the hospital. Patient is nonverbal. Before she had a stroke she used to ambulate somewhat. Since she had stroke she is wheelchair-bound.Since stroke she could not move her right extremities. Eats soft bite food. Needs assistance with feeding. Patient's sister and caregiver are in the room. No recent fevers. No recent cough. No nausea or vomiting. Stools are somewhat loose today but that not unusual for her. Usually blood pressure systolically in 130s. Patient blood pressure initial presentation today 170/134 received 2 dose of IV labetalol. Past med history. As mentioned above Past surgical history. Colonoscopy. EGD. Repair of patent ductus arteriosus. Social history. No smoking. No alcohol. No other drug use. Family history. Father had arthritis. AK. Hypertension. Mother had hype rtension. Diabetes. Lung disorder. Sister had cervical cancer. Sister had breast cancer. Maternal grandmother had breast cancer. Maternal grandfather had diabetes. Admission Exam Per Admitting Provider General- adult Head- atraumatic Neck- supple, no JVD Lungs- clear to auscultation no wheezing or crackles Heart- regular rate and rhythm; no murmur, no gallop. Abdomen- normal bowel sounds, soft, nontender, no distension Extremities- b/l lower extremity edema present, no erythema seen Neuro- Non verbal, not moving right extremities Principal Diagnosis Hypertensive urgency Discharge Exam General- adult Head- atraumatic Neck- supple, no JVD Lungs- clear to auscultation no wheezing or crackles Heart- regular rate and rhythm; no murmur, no gallop. Abdomen- normal bowel sounds, soft, no facial grimacing on deep palpation, no distension Extremities- b/l lower extremity trace edema present, no erythema seen Neuro- Non verbal, not moving right extremities Discharge Data Allergies Allergy/AdvReac Type Severity Reaction Status Date / Time Penicillins Allergy Severe Rash Verified 09/15/24 19:08 ampicillin Allergy Intermediate Rash Verified 09/15/24 19:08 Consultations 09/15/24 19:21 ED Decision to Admit Stat 09/16/24 08:00 Consult Cardiology Routine Ordered Studies 09/15/24 16:55 US venous doppler LE BI Stat 09/15/24 17:47 CT head/brain wo con Stat Diabetes Follow up Diabetes Follow-up Needed for Newly Diagnosed Diabetes Hospital Course (1) Hypertensive urgency: 53-year-old female coming from [facility] with past medical history significant for prediabetes, dyslipidemia, hypertension, GERD, osteoporosis, retinal tear, CVA, oropharyngeal dysphagia, congenital rubella syndrome (legal blindness, hearing impairment, intellectual impairment, PDA surgery), hypertensive emergency and non-ST elevated AK was brought because of lower extremity edema and hypertensive urgency. Hypertensive urgency Type 2 Diabetes Mellitus Patient presented to the hospital with elevated blood pressure. Patient was admitted to medical floor and was started on her home medications; it was noted that patient's blood pressure was very labile with extreme change after she was given her medication. She was on 2 different muscle relaxants including baclofen and tizanidine which could be contributing to the hypotensive episodes. Patient's metoprolol was changed to Coreg 12.5 mg twice daily as well as losartan dose was increased to 100 mg once a day; to be given at 3 PM. It was difficult to get accurate blood pressure measurement due to tremors and clenching of her arm/leg when blood pressure is being taken. She was also found to have type 2 diabetes mellitus with HbA1c of 7.6%; she was started on metformin 500 mg twice daily. Please note the above document was generated using voice recognition software. It may contain grammatical, syntax or spelling errors. Any formal questions or concerns about the content, text or information contained within the body of this dictation should be directly addressed to the provider for clarification clarification Total Time Total Time Spent Total Time Spent (In Minutes): 45 Total Time Includes: Examination of the Patient, Discharge Planning, Medication Reconciliation, Communication With Other Providers and Other Discharge Plan Discharge Items Patient Disposition: Home - Self-Care Reason For Visit: HTN URGENCY Discharge Diagnosis: Hypertensive urgency Type 2 diabetes mellitus Condition on Discharge: Fair Activity: Resume your previous activity Non-emergency contact: Primary Care Provider Call non-emergency contact if: you have any medication questions and your s ymptoms worsen Follow-up/Referrals: Corona Jaime MD [Primary Care Provider] - 09/26/24 10:00 am (Date & Time 09/26/2024 10:00 AM Provider: Corona Jaime MD [facility] ) Diet: Carb Consistent or DM2 Addtl Attending Provider Instructions: You were admitted to the hospital due to high blood pressure. You were evaluated by cardiology during the hospitalization. Following medication changes have been made; Stop taking metoprolol 25 mg twice daily Start taking losartan 100 mg at 3 PM . Start taking Coreg 12.5 mg twice a day Decrease Zanaflex to 2mg times a day from 6mg three times a day You were found to have type 2 diabetes mellitus with HbA1c of 7.6%; you are prescribed metformin 500 mg twice a day. Please limit amount of carbohydrate. Follow a diabetic diet if possible. Pending Studies at Discharge: No Stand-Alone Forms: My [facility] [employer], Smoking Cessation Medications and DC Order Prescriptions: New carvedilol 12.5 mg Tablet 12.5 mg PO BIDM Qty: 60 0RF metformin 500 mg tablet extended release 24 hr 500 mg PO BID Qty: 60 0RF Continued cranberry extract 200 mg capsule 200 mg PO HS [facility] My [employer] 10 billion cell -200 mg capsule, sprinkle 1 cap PO HS atorvastatin 20 mg Tablet 20 mg PO HS clonidine 0.1 mg/24 hr Patch Weekly 0.1 mg topical WK Rx Instructions: SATURDAYS-----REMOVE PREVIOUS PATCH AND APPLY NEW ONE citalopram 40 mg Tablet 40 mg PO QAM baclofen 10 mg Tablet 10 mg PO TID Rx Instructions: 0800, 1600, & 2000 polyethylene glycol 3350 17 gram/dose Powder 17 g PO BIDM Rx Instructions: 0800 & 1600....MAY HOLD FOR LOOSE STOOLS oxcarbazepine 600 mg tablet 600 mg PO BID latanoprost 0.005 % Drops 1 drp OPB HS furosemide 20 mg tablet 20 mg PO 5XWK Rx Instructions: TAKE THIS MED THURSDAY THROUGH THURSDAY cholecalciferol (vitamin D3) [Vitamin D3] 50 mcg (2,000 unit) Tablet 50 mcg PO QAM [facility] [facility] 0.4 mg-300 mcg- 250 mcg Tablet 1 tab PO QAM docusate sodium 100 mg Capsule 100 mg PO BID acetaminophen 500 mg Tablet 500 mg PO Q4H MDD 3G PRN (Reason: Pain) acetaminophen 325 mg Tablet 650 mg PO Q4H MDD 3G PRN (Reason: Fever Or Pain) amlodipine [Norvasc] 5 mg Tablet 7.5 mg PO QAM Qty: 45 0RF Rx Instructions: 1 & 1/2 TABLET DOSE aspirin 81 mg Tablet,Delayed Release (Dr/Ec) 81 mg PO QAM Qty: 30 0RF nystatin [Nyamyc] 100,000 unit/gram Powder 1 applic TOPICAL TID PRN (Reason: Skin Irritation) Rx Instructions: UNDER BREAST tizanidine 2 mg tablet 2 mg PO TID Rx Instructions: 0700, 1400, & 2200 TOTAL DOSE 6 MG--TAKES WITH 4 MG TAB TID. mupirocin 2 % Ointment 1 applic TOPICAL BID PRN (Reason: Skin Irritation) loperamide [Imodium A-D] 2 mg Capsule 2 mg PO DIRECTED MDD 4 CAPS/24 HOURS PRN (Reason: LOOSE STOOLS) Rx Instructions: GIVE 2 CAPSULE AFTER 1ST LOOSE STOOL, AND 1 CAPSULE AFTER EACH LOOSE STOOL, MAX 4 CAPSULES/24 HOURS methenamine hippurate 1 gram Tablet 1 g PO BID alum-mag hydroxide-simeth [Mylanta Maximum Strength] 400-400-40 mg/5 mL Suspension 30 ml PO PCHS MDD 12 TEASPOONS/24 HOURS PRN (Reason: Indigestion) dorzolamide-timolol (PF) 2-0.5 % Dropperette 1 drp OPB BID guaifenesin 600 mg Tablet Extended Release 12hr 600 mg PO Q12H PRN (Reason: Congestion) Changed losartan 50 mg Tablet 100 mg PO DAILY@1500 Qty: 60 0RF Discontinued tizanidine 4 mg Tablet 4 mg PO TID Rx Instructions: 0700, 1400, & 2200 TOTAL DOSE 6 MG--TAKES WITH 2 MG TAB TID. metoprolol tartrate 25 mg tablet 25 mg PO BID Discharge Orders: Discharge Order (Routine); Ordered 09/19/24 Ordered By: Braden Ovalle/Other Patient Handouts: Diabetes: Meal Planning, Type 2 Diabetes Admission Data Admit Date/Time: 09/15/24 21:34 Attending Provider: Braden Larson Admit Provider: Cortez Guthrie Primary Care Provider: Corona Jaime Other Providers: Jerrod Holcomb
[2024-09-19 12:35] VITALS: BP 159/80
== END 2024-09-19 17:17 | disposition home or self-care (01) | DRG 305 ==
LOC: ED 16:47 → 2S 21:34 → SUATTDRO 21:34 → 2S 22:34